=== PATIENT | female | born 1945 | race Caucasian/White ===

== ENCOUNTER 2016-09-10 15:39 | Observation (INO) | payer MEDICARE, MEDICAID ==
[2016-09-10 16:17] LABS: Hematocrit 39 % (35-47); Mean Corpuscular HGB Conc 33 g/dl (31-36); Mean Corpuscular Hemoglobin 29 pg (27-31); Mean Corpuscular Volume 87 fL (80-97); Mean Platelet Volume 8 um3 (7.4-10.4); Red Cell Distribution Width 14 % (10.5-15); White Blood Count 8.3 10^3/ul (3.5-10.8)
[2016-09-10 16:32] LABS: Albumin 4.2 g/dL (3.2-5.2); BUN/Creatinine Ratio 28.7 (8-20); Calcium 9.2 mg/dL (8.6-10.3); EGFR African American 52.5 (>60); EGFR Non-African American 40.9 (>60); Globulin 2.5 g/dL (2-4); Potassium 4.3 mmol/L (3.5-5.0); Total Bilirubin 0.3 mg/dL (0.2-1.0); Total Protein 6.7 g/dL (6.4-8.9)
--- NOTE | 2016-09-10 16:41 | RAD ---
INDICATION: Irregular heart rate. COMPARISON: Comparison is made with a prior chest x-ray study from August 01, 2014. TECHNIQUE: A portable view of the chest was obtained. FINDINGS: The patient appears to be status post coronary artery bypass surgery. The heart is enlarged and appears slightly increased in size from the prior exam. The lungs are hyperinflated and clear. No pleural effusion is seen. IMPRESSION: POSTSURGICAL CHANGES AND CARDIOMEGALY DEMONSTRATING SLIGHT INCREASE IN SIZE.
[2016-09-10] MEDS: NS 0.9% 1000 ML* 1,000 ML IV SCH (17:52)
--- NOTE | 2016-09-10 17:52 | ED ---
Zachary Acosta Anna, scribed for Jono Brito MD on 09/10/16 at 1605 . Dizziness - HPI Summary HPI Summary: Patient is a 71 y/o female coming to [facility] presenting with sudden onset of dizziness that began this afternoon at her doctors office. She was also weak, pale, and somewhat nauseous. She demonstrated atrial fibrillation and low blood pressure. She has no hx of atrial fibrillation. She had a BUSTAMANTE, but this has since resolved. Denies CP, SOB, cough, and fever. She takes a baby Aspirin every day. - History Of Current Complaint Stated Complaint: RAPID HEART RATE Time Seen by Provider: 09/10/16 15:59 Hx Obtained From: Patient Onset/Duration: Suddenly Severity Initially: Moderate Severity Currently: Moderate Character: Weak, Dizzy - Allergies/Home Medications Allergies/Adverse Reactions: Allergies Allergy/AdvReac Type Severity Reaction Status Date / Time Codeine Allergy Abdominal Verified 09/10/16 16:10 Pain PMH/Surg Hx/FS Hx/Imm Hx Endocrine/Hematology History: Reports: Hx Thyroid Disease Cardiovascular History: Reports: Hx Congestive Heart Failure, Hx Coronary Artery Disease, Hx Hypertension Respiratory History: Reports: Hx Chronic Obstructive Pulmonary Disease (COPD) GI History: Reports: Hx Diverticulosis, Hx Gastroesophageal Reflux Disease, Other GI Disorders - esophageal stricture Musculoskeletal History: Reports: Hx Fibromyalgia, Other Musculoskeletal History - restless leg Sensory History: Reports: Hx Contacts or Glasses Opthamlomology History: Reports: Hx Contacts or Glasses Neurological History: Reports: Hx CVA Psychiatric History: Reports: Hx Depression - Surgical History Surgery Procedure, Year, and Place: bypass surgery 1999; HYSTERECTOMY Hx Anesthesia Reactions: No - Immunization History Date of Tetanus Vaccine: PT STATES UNSURE Date of Influenza Vaccine: NONE Infectious Disease History: Denies: Traveled Outside the [place] in Last 30 Days - Family History Known Family History: Negative: Cardiac Disease, Hypertension, Diabetes - Social History Occupation: Retired Alcohol Use: None Substance Use Type: Reports: None Smoking Status (MU): Never Smoked Tobacco Review of Systems Positive: Other - pale Positive: Nausea Neurological: Other - dizziness Positive: Headache - resolved, Weakness Psychological: Normal All Other Systems Reviewed And Are Negative: Yes Physical Exam - Summary Physical Exam Summary: VITAL SIGNS: Reviewed. GENERAL: Patient is an obese female who is lying comfortable in the stretcher. Patient is not in any acute respiratory distress. HEAD AND FACE: No signs of trauma. No ecchymosis, hematomas or skull depressions. No sinus tenderness. EYES: PERRLA, EOMI x 2, No injected conjunctiva, no nystagmus. EARS: Hearing grossly intact. Ear canals and tympanic membranes are within normal limits. MOUTH: Oropharynx within normal limits. NECK: Supple, trachea is midline, no adenopathy, no JVD, no carotid bruit, no c- spine tenderness, neck with full ROM. CHEST: Symmetric, no tenderness at palpation LUNGS: Clear to auscultation bilaterally. No wheezing or crackles. CVS: irregular rate and rhythm, S1 and S2 present, no murmurs or gallops appreciated. ABDOMEN: Soft, non-tender. No signs of distention. No rebound no guarding, and no masses palpated. Bowel sounds are normal. EXTREMITIES: FROM in all major joints, no edema, no cyanosis or clubbing. NEURO: Alert and oriented x 3. No acute neurological deficits. Speech is normal and follows commands. SKIN: Dry and warm Vital Signs On Initial Exam: Initial Vitals Temp Pulse Resp BP Pulse Ox 98.4 F 78 16 100/69 100 09/10/16 16:07 09/10/16 16:07 09/10/16 16:07 09/10/16 16:07 09/10/16 16:07 Diagnostics - Vital Signs Vital Signs Temp Pulse Resp BP Pulse Ox 09/10/16 16:07 98.4 F 78 16 100/69 100 - Laboratory Lab Results: Lab Results 09/10/16 09/10/16 09/10/16 Range/Units 16:00 16:00 16:00 WBC 8.3 (3.5-10.8) 10^3/ul RBC 4.50 (4.0-5.4) 10^6/ul Hgb 13.0 (12.0-16.0) g/dl Hct 39 (35-47) % MCV 87 (80-97) fL MCH 29 (27-31) pg MCHC 33 (31-36) g/dl RDW 14 (10.5-15) % Plt Count 191 (150-450) 10^3/ul MPV 8 (7.4-10.4) um3 Neut % (Auto) 50.6 (38-83) % Lymph % (Auto) 40.1 (25-47) % Bandera % (Auto) 6.3 (1-9) % Eos % (Auto) 2.7 (0-6) % Baso % (Auto) 0.3 (0-2) % Absolute Neuts (auto) 4.2 (1.5-7.7) 10^3/ul Absolute Lymphs (auto) 3.3 (1.0-4.8) 10^3/ul Absolute Monos (auto) 0.5 (0-0.8) 10^3/ul Absolute Eos (auto) 0.2 (0-0.6) 10^3/ul Absolute Basos (auto) 0 (0-0.2) 10^3/ul Absolute Nucleated RBC 0 10^3/ul Nucleated RBC % 0 Sodium 135 (133-145) mmol/L Potassium 4.3 (3.5-5.0) mmol/L Chloride 105 (101-111) mmol/L Carbon Dioxide 26 (22-32) mmol/L Anion Gap 4 (2-11) mmol/L BUN 37 H (6-24) mg/dL Creatinine 1.29 H (0.51-0.95) mg/dL Est GFR ( Amer) 52.5 (>60) Est GFR (Non-Af Amer) 40.9 (>60) BUN/Creatinine Ratio 28.7 H (8-20) Glucose 125 H (70-100) mg/dL Lactic Acid 0.9 (0.5-2.0) mmol/L Calcium 9.2 (8.6-10.3) mg/dL Total Bilirubin 0.30 (0.2-1.0) mg/dL AST 14 (13-39) U/L ALT 8 (7-52) U/L Alkaline Phosphatase 81 (34-104) U/L CK-MB (CK-2) 0.7 (0.6-6.3) ng/mL Myoglobin 26.4 (14.3-65.8) ng/mL Troponin I 0.00 (<0.04) ng/mL B-Natriuretic Peptide ( - 100) pg/mL Total Protein 6.7 (6.4-8.9) g/dL Albumin 4.2 (3.2-5.2) g/dL Globulin 2.5 (2-4) g/dL Albumin/Globulin Ratio 1.7 (1-3) // Range/Units 16:00 WBC (3.5-10.8) 10^3/ul RBC (4.0-5.4) 10^6/ul Hgb (12.0-16.0) g/dl Hct (35-47) % MCV (80-97) fL MCH (27-31) pg MCHC (31-36) g/dl RDW (10.5-15) % Plt Count (150-450) 10^3/ul MPV (7.4-10.4) um3 Neut % (Auto) (38-83) % Lymph % (Auto) (25-47) % Bandera % (Auto) (1-9) % Eos % (Auto) (0-6) % Baso % (Auto) (0-2) % Absolute Neuts (auto) (1.5-7.7) 10^3/ul Absolute Lymphs (auto) (1.0-4.8) 10^3/ul Absolute Monos (auto) (0-0.8) 10^3/ul Absolute Eos (auto) (0-0.6) 10^3/ul Absolute Basos (auto) (0-0.2) 10^3/ul Absolute Nucleated RBC 10^3/ul Nucleated RBC % Sodium (133-145) mmol/L Potassium (3.5-5.0) mmol/L Chloride (101-111) mmol/L Carbon Dioxide (22-32) mmol/L Anion Gap (2-11) mmol/L BUN (6-24) mg/dL Creatinine (0.51-0.95) mg/dL Est GFR ( Amer) (>60) Est GFR (Non-Af Amer) (>60) BUN/Creatinine Ratio (8-20) Glucose (70-100) mg/dL Lactic Acid (0.5-2.0) mmol/L Calcium (8.6-10.3) mg/dL Total Bilirubin (0.2-1.0) mg/dL AST (13-39) U/L ALT (7-52) U/L Alkaline Phosphatase (34-104) U/L CK-MB (CK-2) (0.6-6.3) ng/mL Myoglobin (14.3-65.8) ng/mL Troponin I (<0.04) ng/mL B-Natriuretic Peptide 108 H ( - 100) pg/mL Total Protein (6.4-8.9) g/dL Albumin (3.2-5.2) g/dL Globulin (2-4) g/dL Albumin/Globulin Ratio (1-3) Result Diagrams: 09/10/16 16:00 09/10/16 16:00 Lab Statement: Any lab studies that have been ordered have been reviewed, and results considered in the medical decision making process. - Radiology CXR Xray Interpretation: Positive (See Comments) Radiology Interpretation Completed By: Radiologist - IMPRESSION: POSTSURGICAL CHANGES AND CARDIOMEGALY DEMONSTRATING SLIGHT INCREASE IN SIZE. - EKG 16:31 Cardiac Rate: NL - 65 bpm EKG Rhythm: Atrial Fibrillation EKG Interpretation: no S/T elevation Re-Evaluation - Re-Evaluation First Eval Re-Evaluation Time: 16:45 Change: Improved Comment: She reports that she developed left-sided chest pain radiating to left side of her back. Reported dizziness. These have since resolved. Dizzy Course/Dx - Course Assessment/Plan: Patient is a 71 y/o female coming to [facility] presenting with sudden onset of dizziness that began this afternoon at her doctors office. She was also weak, pale, and somewhat nauseous. She demonstrated atrial fibrillation and low blood pressure. She has no hx of atrial fibrillation. She had a BUSTAMANTE, but this has since resolved. Denies CP, SOB, cough, and fever. She takes a baby Aspirin every day. Blood work WNL except for increased BUN and Creatinine 37/1.29. EKG shows a new onset of A fib.. CXR shows post surgical changes and cardiomegaly demonstrating slight increase in size. In the she was given Aspirin. Initially her BP 89/60 and she reports dizziness. After IV fluids her BP is 100/69. She develop an episode of left side CP and lasted for 10 minutes. I discuss my physical exam, findings and test results with Dr. Lyon from the hospitalist services and she agrees to admit patient to his services. Patient is hemodynamically stable alert and oriented x 3. - Diagnoses Differential Diagnosis/HQI/PQRI: Coronary Artery Disease, Dysrhythmia, Metabolic Abnormality Provider Diagnoses: New onset atrial fibrillation, Chest pain, Hypotension - Provider Notifications Discussed Care Of Patient with: Dr. Lyon (hospitalist) at 17:44. Accepts patient for admission. Discharge - Discharge Plan Condition: Stable Disposition: ADMITTED TO [facility] Referrals: Rashmi Holloway MD [Primary Care Provider] - The documentation as recorded by the Zachary caldera Anna accurately reflects the service I personally performed and the decisions made by , Jono Brito MD.
[2016-09-10] MEDS ORDERED: Acetaminophen TAB* 325 MG PO PRN ×2 (20:29→21:02)
[2016-09-10] MEDS ORDERED: Promethazine TAB* 25 MG PO PRN (20:29)
[2016-09-10] MEDS ORDERED: Nitroglycerin TAB 0.4 MG* 0.4 MG TAB SL PRN (20:29)
[2016-09-10] MEDS ORDERED: Heparin DRIP 25,000 UNITS(*) 25,000 UNITS/500 ML BAG IV SCH (20:45)
[2016-09-10] MEDS ORDERED: traMADol TAB* 50 MG PO PRN (21:00)
[2016-09-10] MEDS ORDERED: Heparin VIAL(*) 5000 UNITS/ML VIAL (FIVE THOUSAND) IV SCH (21:00)
[2016-09-10] MEDS ORDERED: Ropinirole TAB* 0.5 MG TAB PO SCH (23:30)
[2016-09-10] MEDS ORDERED: Ezetimibe TAB* 10 MG PO SCH (23:30)
[2016-09-11] MEDS: Omeprazole CAP* 20 MG PO SCH ×3 (00:10→14:51)
[2016-09-11] MEDS: Dicyclomine CAP* 10 MG PO SCH ×4 (00:10→17:30)
[2016-09-11] MEDS: Potassium Chlor TAB* 20 MEQ TAB.ER PO SCH ×3 (00:12→17:30)
[2016-09-11] MEDS: Pregabalin CAP(*) 50 MG PO SCH ×3 (00:13→14:51)
--- NOTE | 2016-09-11 00:39 | HP ---
HISTORY AND PHYSICAL: DATE OF ADMISSION: 09/10/16 CHIEF COMPLAINT: Weakness. HISTORY OF PRESENT ILLNESS: The patient is a 71-year-old woman who said she was at the [facility] for an appointment with her chiropractor. After the appointment, she states she felt like her legs were rubbery and she started wheezing. She became concerned and went to her PCP's office where they did a fingerstick. She states the next thing she knew was that they were doing an EKG on her and there were several people in the room. They told that she needed to go to the emergency room. She says she never had any chest pain or palpitations but she was feeling sleepy and lightheaded and like she was going to pass out. In the ED, the patient was found to be in atrial fibrillation, albeit not rapid. She has never had atrial fibrillation before. She was apparently quite hypotensive as well. PAST MEDICAL HISTORY: Significant for: 1. Coronary artery disease status post CABG in 1999. 2. Congestive heart failure. 3. Hypertension. 4. COPD. 5. Hypothyroidism. 6. Fibromyalgia. 7. GERD. 8. Migraines. 9. Hyperlipidemia. 10. CVA, ischemic in 1995. 11. Esophageal stricture status post balloon dilation in December 2006 consistent with a Schatzki ring. 12. Collagenous colitis. 13. Diverticulitis. 14. Depression. 15. Restless leg syndrome. 16. Sepsis secondary to community-acquired pneumonia. CURRENT MEDICATIONS: As follows: 1. Lipitor 20 mg daily. 2. Aspirin 81 mg daily. 3. Zyrtec 10 mg daily. 4. Coreg 6.25 mg twice a day with meals. 5. Lipitor 40 mg daily. 6. Bentyl 20 mg 4 times a day. 7. Fluoxetine 20 mg daily. 8. Zetia 10 mg at bedtime. 9. Prozac 40 mg daily. 10. Ferrous sulfate 65 mg daily. 11. Glucosamine and chondroitin one tablet twice daily. 12. Prevacid 30 mg twice daily. 13. Losartan 100 mg daily. 14. Levothyroxine 50 mcg daily. 15. Potassium chloride 20 mEq twice daily. 16. Nitroglycerin 0.4 mg sublingual q.5 minutes as needed. 17. Multivitamin 1 tablet daily. 18. Phenergan 12.5 mg every 6 hours as needed. 19. Lyrica 50 mg three times a day. 20. Metamucil 1 packet daily. 21. Requip 1 mg at bedtime. 22. Ultracet 37.5/325 one tablet every 6 hours as needed. 23. Spiriva one capsule inhaled daily. 24. Amlodipine 10 mg daily. ALLERGIES: She has an allergy/adverse reaction to CODEINE. FAMILY HISTORY: Coronary artery disease in mother and father. Four brothers who have congestive heart failure. Father also has diabetes. One brother of lymphoma in his 20s and her dad also had prostate cancer. SOCIAL HISTORY: No tobacco, alcohol, or recreational drug use. She is retired and with her who is her healthcare proxy and her friend, Jessica Hutton, is also her healthcare proxy. She has one daughter. REVIEW OF SYSTEMS: A 14-point review of systems was completed with the patient. All pertinent positives and negatives are in the history of present illness, otherwise negative. PHYSICAL EXAMINATION GENERAL: A pleasant woman lying in bed, in no acute distress. VITAL SIGNS: Temperature 98.4 degrees, heart rate 78 beats per minute, respiratory rate 16 breaths per minute, pulse ox 100%, blood pressure 100/69. HEENT: Normocephalic and atraumatic. Pupils are equal, round, and reactive to light. Moist mucous membranes. NECK: Supple. No JVD, bruits, palpable thyroid or lymphadenopathy. CHEST: Clear to auscultation and percussion bilaterally. CARDIOVASCULAR EXAM: S1, S2 appreciated. Irregularly irregular rhythm. ABDOMINAL EXAM: Positive bowel sounds in all 4 quadrants. Soft, nontender, nondistended. No hepatosplenomegaly. EXTREMITIES: No cyanosis, clubbing, or edema. NEURO: She is alert and oriented x3. Moves all extremities. SKIN: No rashes or abnormalities. LABORATORY DATA: White count 8.3, hemoglobin 13.0, hematocrit 39, platelets 191. Sodium 135, potassium 4.3, chloride 105, CO2 is 26, BUN 37, creatinine 1.29 , glucose 125, troponin 0.00, BNP 108. EKG shows atrial fibrillation with a moderate ventricular response, no acute ST-T wave changes. Chest x-ray was interpreted by Radiology as postsurgical changes, cardiomegaly demonstrates slight increase in size. ASSESSMENT AND PLAN: 1. Atrial fibrillation. The patient is not in rapid ventricular rate and I usually would not get Cardiology involved but she was definitely symptomatic and hypotensive. I have asked Cardiology to see her in the morning, she may benefit from OLU and cardioversion. For now, put her under heparin drip. She is not on anything for rate control. 2. Coronary artery disease, this seems stable. Continue current regimen. 3. Hypothyroidism, stable. Continue Synthroid. 4. Gastroesophageal reflux disease, stable. Continue PPI. 5. Chronic obstructive pulmonary disease, stable. Continue current regimen. 6. FEN. N.p.o. after midnight. 7. DVT prophylaxis. Heparin drip. 8. The patient is a full code. TIME SEEN: Over 80 minutes were spent on this H and P, more than 45 minutes of which were spent in direct [id number] contact with the patient in evaluation, physical exam, counseling, and coordination of care. CC: Dr. Holloway * [id number]/CPS #: [id number]
[2016-09-11 00:43] LABS: Troponin I 0.01 ng/mL (<0.04)
[2016-09-11 00:46] LABS: Hematocrit 36 % (35-47); Mean Corpuscular HGB Conc 33 g/dl (31-36); Mean Corpuscular Hemoglobin 29 pg (27-31); Mean Corpuscular Volume 87 fL (80-97); Mean Platelet Volume 8 um3 (7.4-10.4); Red Blood Count 4.15 10^6/ul (4.0-5.4); Red Cell Distribution Width 14 % (10.5-15); White Blood Count 7.2 10^3/ul (3.5-10.8)
[2016-09-11 05:30] LABS: Hematocrit 35 % (35-47); Hemoglobin 11.8 g/dl (12.0-16.0); Mean Corpuscular HGB Conc 34 g/dl (31-36); Mean Corpuscular Hemoglobin 29 pg (27-31); Mean Corpuscular Volume 86 fL (80-97); Mean Platelet Volume 9 um3 (7.4-10.4); Red Blood Count 4.07 10^6/ul (4.0-5.4); Red Cell Distribution Width 13 % (10.5-15); White Blood Count 7.3 10^3/ul (3.5-10.8)
[2016-09-11] MEDS ORDERED: Levothyroxine TAB* 50 MCG TAB PO SCH (06:00)
[2016-09-11] MEDS: NS 0.9% 1000 ML* 1,000 ML IV SCH (06:17)
[2016-09-11 06:44] LABS: Urine Bacteria 3+ (Absent); Urine Bilirubin Negative (Negative); Urine Glucose Negative (Negative); Urine Nitrite Positive (Negative)
[2016-09-11] MEDS ORDERED: Carvedilol TAB* 6.25 MG PO SCH (08:00)
--- NOTE | 2016-09-11 08:53 | CONSULT ---
Subjective Date of Service: 09/11/16 Interval History: Admission Date: 09/10/16 Date of consult 09/11/2017 Provider: Tristan Reddy MD/Hospitalist service PMD: Dr. Holloway Legal Adviser: Dr. Douglas Florentino CHIEF COMPLAINT: Weakness. Reason for consult: Atrial fibrillation HISTORY OF PRESENT ILLNESS: The patient is a 71-year-old woman with a history as below who said she was at the [facility] for an appointment with her chiropractor. She was feeling weak and he states the chiropractor grabbed her by the shoulders and said she needed her blood glucose and blood pressure checked. She went to her PCP's office and after an EKG was done was told needed to go to the ER. There was no chest pain, dyspnea, edema, palpitations. She did feel sleepy and lightheaded. There was no syncope. She was found with rate controlled atrial fibrillation. Initial SBP was > 100 then later had a BP of 53/42 (? accuracy). She received IV fluids. She was in atrial fibrillation all night and this morning. This AM she denies any tiredness, lightheadedness, fatigue, chest pain dyspnea. I ambulated her around the room and she feels at her baseline. PAST MEDICAL HISTORY: Significant for: . Coronary artery disease status post CABG in 1999. . Hypertension. . COPD. . Hypothyroidism. . Fibromyalgia. . GERD. . Migraines. . Hyperlipidemia. . CVA, ischemic in 1995. . Esophageal stricture status post balloon dilation in December 2006 consistent with a Schatzki ring. . Collagenous colitis. . Diverticulitis. . Depression. . Restless leg syndrome. . Sepsis secondary to community-acquired pneumonia. ALLERGIES: She has an allergy/adverse reaction to CODEINE. FAMILY HISTORY: Coronary artery disease in mother and father. Four brothers who have congestive heart failure. Father also has diabetes. One brother of lymphoma in his 20s and her dad also had prostate cancer. SOCIAL HISTORY: No tobacco, alcohol, or recreational drug use. She is retired and with her who is her healthcare proxy and her friend, Jessica Hutton, is also her healthcare proxy. She has one daughter. Medications Active Medications: Acetaminophen (Tylenol Tab*) 325 mg PO Q6H PRN PRN Reason: PAIN Apixaban (Eliquis*) 5 mg PO BID [facility] Aspirin (Aspirin Ec Low Dose*) 81 mg PO DAILY [facility] Atorvastatin Calcium (Lipitor*) 60 mg PO DAILY [facility] Carvedilol (Coreg Tab*) 3.125 mg PO BID [facility] Cetirizine HCl (Zyrtec*) 10 mg PO DAILY [facility] PRN Reason: Protocol Device (Tiotropium Inhaler Device*) 1 each INH DAILY ONE Stop: 09/11/16 09:01 Dicyclomine HCl (Bentyl Cap*) 20 mg PO QID [facility] Last Admin: 09/11/16 00:10 Dose: 20 mg Ezetimibe (Zetia Tab*) 10 mg PO BEDTIME [facility] Last Admin: 09/11/16 00:11 Dose: 10 mg Ferrous Sulfate (Ferrous Sulfate Tab*) 325 mg PO DAILY [facility] Fluoxetine HCl (Prozac Cap*) 60 mg PO DAILY [facility] Sodium Chloride (Ns 0.9% 1000 Ml*) 1,000 mls @ 125 mls/hr IV PER RATE [facility] Last Admin: 09/11/16 06:17 Dose: 125 mls/hr Levothyroxine Sodium (Synthroid Tab*) 50 mcg PO DAILY@0600 [facility] Last Admin: 09/11/16 06:16 Dose: 50 mcg Multivitamins ( Vitamin Tab*) 1 tab PO DAILY [facility] Nitroglycerin (Nitroglycerin Tab 0.4 Mg*) 0.4 mg SL Q5M PRN PRN Reason: ANGINA Omeprazole (Prilosec Cap*) 20 mg PO BID AC [facility] PRN Reason: Protocol Last Admin: 09/11/16 00:10 Dose: 20 mg Potassium Chloride (Klor Con Er Tab*) 20 meq PO BID WITH MEALS [facility] Last Admin: 09/11/16 00:12 Dose: 20 meq Pregabalin (Lyrica Cap(*)) 50 mg PO TID [facility] Last Admin: 09/11/16 00:13 Dose: 50 mg Promethazine HCl (Phenergan Tab*) 12.5 mg PO Q6H PRN PRN Reason: NAUSEA/VOMITING Psyllium Hydrophilic Mucilloid (Metamucil Kamlesh*) 1 pkt PO DAILY [facility] Ropinirole HCl (Requip Tab*) 1 mg PO BEDTIME [facility] Last Admin: 09/11/16 00:09 Dose: 1 mg Tiotropium Newman (Spiriva Cap.Inh*) 1 cap INH DAILY PRAVIN Last Admin: 09/11/16 08:31 Dose: 1 cap.inh Tramadol HCl (Ultram*) 50 mg PO Q6H PRN PRN Reason: PAIN Home Medications: Aspirin EC Low Dose* [Ecotrin EC Low Dose*] 81 mg PO DAILY 07/28/14 [History Confirmed 09/10/16] Atorvastatin* [Lipitor 40 MG*] 40 mg PO DAILY 07/28/14 [History Confirmed ] Atorvastatin* [Lipitor*] 20 mg PO DAILY 07/28/14 [History Confirmed 09/10/16] Carvedilol TAB* [Coreg TAB*] 6.25 mg PO BID WITH MEALS 07/28/14 [History Confirmed 09/10/16] Cetirizine* [ZyrTEC*] 10 mg PO DAILY 07/28/14 [History Confirmed 09/10/16] Dicyclomine HCl [Bentyl] 20 mg PO QID 07/28/14 [History Confirmed 09/10/16] Ezetimibe TAB* [Zetia TAB*] 10 mg PO BEDTIME 07/28/14 [History Confirmed ] FLUoxetine CAP* [Prozac CAP*] 20 mg PO DAILY 07/28/14 [History Confirmed ] Ferrous Sulfate [Feosol] 65 mg PO DAILY 07/28/14 [History Confirmed 09/10/16] Fluoxetine HCl [Prozac] 40 mg PO DAILY 07/28/14 [History Confirmed 09/10/16] Gxfdqukufim-[id number]-Ylg C- [Glucosamine Chondroitin] 1 tab PO BID 07/28/14 [ History Confirmed 09/10/16] Lansoprazole CAP (NF) [Prevacid CAP (NF)] 30 mg PO BID 07/28/14 [History Confirmed 09/10/16] Levothyroxine TAB* [Synthroid 25 MCG TAB*] 50 mcg PO DAILY 07/28/14 [History Confirmed 09/10/16] Losartan Potassium [Cozaar] 100 mg PO DAILY 07/28/14 [History Confirmed 09/10/16 ] Multiple Vitamin [Multi-Vitamin] 1 tab PO DAILY 07/28/14 [History Confirmed ] Nitroglycerin TAB 0.4 MG* 0.4 mg SL Q5M PRN 07/28/14 [History Confirmed 09/10/16 ] Pregabalin CAP(*) [Lyrica CAP(*)] 50 mg PO TID 07/28/14 [History Confirmed 09/10] Promethazine TAB* [Phenergan TAB*] 12.5 mg PO Q6HR PRN 07/28/14 [History Confirmed 09/10/16] Psyllium KAMLESH* [Metamucil KAMLESH*] 1 pkt PO DAILY 07/28/14 [History Confirmed ] Ropinirole TAB* [Requip TAB*] 1 mg PO BEDTIME 07/28/14 [History Confirmed ] Tiotropium CAP.INH* [Spiriva*] 1 cap INH DAILY 07/28/14 [History Confirmed 09/10] Tramadol-Acetaminophen [Ultracet 37.5-325 mg] 1 tab PO Q6HR PRN 07/28/14 [ History Confirmed 09/10/16] amLODIPine TAB* [Norvasc TAB*] 10 mg PO DAILY 07/28/14 [History Confirmed ] Potassium Chlor TAB (NF) [Kaon-Cl-10 TAB (NF)] 20 meq PO BID 09/07/14 [History Confirmed 09/10/16] Review of Systems - Measurements Intake and Output: Intake and Output Last 24 Hours 09/09/16 09/10/16 09/11/16 09/12/16 06:59 06:59 06:59 06:59 Intake Total 950 Balance 950 Weight 192 lb Intake: IVPB 950 NS (0.9%) 950 Oral 0 Other: # Bowel Movements 0 # Voids 0 - Review of Systems Constitutional Symptoms: Positive: Weakness, Fatigue Negative: Weight Loss, Fever, Night Sweats Dermatology: Negative: Rash, Skin Lesions, Skin Lumps HEENT: Negative: Change in Hearing, Vertigo, Sinus Problem Eyes: Negative: Change in Vision, Double Vision, Eye Pain Thyroid: Negative: Cold Intolerance, Heat Intolerance, Sweatiness, Constipation, Palpitations, Weight Loss, Weight Gain, Change in Skin/Hair Pulmonary: Negative: Cough, Sputum, Hemoptysis, Respiratory Distress, Shortness of Breath, COPD, Home Oxygen Cardiology: Positive: Faintness Negative: Chest Pain, Shortness of Breath, Palpitations, Swelling of Ankles, Peripheral Vascular Dis, Edema, Syncope, Claudication, Paroxysmal Nocturnal Dyspnea, Orthopnea Gastroenterology: Positive: Melena Negative: Abdominal Pain, Nausea, Vomiting, Anorexia, Indigestion, Difficulty Swallowing, Heartburn, Constipation, Diarrhea Genital - Urinary: Negative: Normal, Dysuria, Hematuria Musculoskeletal: Negative: Joint Pain, Joint Stiffness, Arthritis, Osteoporosis Endocrinology: Positive: Obesity Negative: Hyperglycemia, Hypoglycemia, Calluses, Hirsutism, Polydipsia, Polyuria Hematologic/Lymphatic: Positive: Use of Antiplatelet Drugs Negative: Anemia, Easy Brusing, Hx Leukemia, Hx Lymphoma, Use of Anticoagulant Neurology: Positive: Unexplained Weakness, Hx of Stroke\TIA Negative: Migraines, Change in Vision, Diplopia, Dizziness, Change in Balancing, Change in Coordination, Change in Memory, Change in Speech, Change in Sphincter Function, Change in Walking, Hx Seizures Psychiatry: Positive: Depression Negative: Guilt Feelings, Tearfulness, Eating Disorders Allergic/Immunologic: Negative: Hx Anaphylaxis, Hx Angioedema, Hx Environmental Allergies, Hx Seasonal Allergies Review of Systems Statement: All other review of systems negative, unless stated above. Objective Vital Signs: Temp Pulse Resp BP Pulse Ox 97.7 F 88 14 112/74 97 09/11/16 03:27 09/11/16 08:33 09/11/16 08:33 09/11/16 03:27 09/11/16 08:33 Appearance: nad, pleasant Ears/Nose/Mouth/Throat: NL Teeth, Lips, Gums, Mucous Membranes Moist Neck: NL Appearance and Movements; NL JVP, - Respiratory: Symmetrical Chest Expansion and Respiratory Effort, Clear to Auscultation Cardiovascular: No Edema, - - irregularly irregular, sternotomy scar in place, no significant murmur noted Abdominal: NL Sounds; No Tenderness; No Distention Extremities: No Edema Skin: No Rash or Ulcers Neurological: Alert and Oriented x 3 Laboratory Results: 09/11/16 04:57 09/11/16 00:01 creatinine 1.29 APTT 86.2 seconds (26.0-36.3) H 09/11/16 08:29 Total Bilirubin 0.30 mg/dL (0.2-1.0) 09/10/16 16:00 AST 14 U/L (13-39) 09/10/16 16:00 ALT 8 U/L (7-52) 09/10/16 16:00 Alkaline Phosphatase 81 U/L (34-104) 09/10/16 16:00 CK-MB (CK-2) 0.7 ng/mL (0.6-6.3) 09/10/16 16:00 B-Natriuretic Peptide 108 pg/mL (-100) H 09/10/16 16:00 Total Protein 6.7 g/dL (6.4-8.9) 09/10/16 16:00 Albumin 4.2 g/dL (3.2-5.2) 09/10/16 16:00 Globulin 2.5 g/dL (2-4) 09/10/16 16:00 Albumin/Globulin Ratio 1.7 (1-3) 09/10/16 16:00 09/10/16 09/10/16 09/11/16 16:00 22:10 00:01 Troponin I 0.00 0.00 0.01 EKG Data: EKG 09/10/2016: Afib rate 65 bpm, non-specific st/t changes Assessment/Plan 71 year old woman history CAD s/p CABG admitted with weakness and hypotension now resolved after IVF and holding BP medications. Found with new onset atrial fibrillation, CHADs2-vasc score at least 4 of uncertain duration. Patient entirely asymptomatic and feels at baseline while in rate controlled atrial fibrillation today. TTE with normal LVEF 55-60%, moderate TR, no other significant valvular abnormalities and no significant pericardial effusion - Stop heparin gtt, start eliquis 5 mg PO BID (ordered). Risks and benefits of anticoagulation discussed especially risk of things including but not limited to life threatening hemorrhage from trauma, GI bleed or intracranial hemorrhage discussed. Patient understands this risk and would like to take anticoagulation for prevention of cardioembolic risk reduction including decreased risk of ischemic stroke. 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 rhythm control strategy and the risks and benefits of each, she is asymptomatic at this time and would like to pursue a rate control strategy for now and follow up with her regular compensator worker, Dr. Florentino at [facility] for follow up care, needs an appointment within 1-2 weeks with PMD and/ or Cardiology Thank you for allowing me to participate in the cardiovascular care of this patient. Please do not hesitate to contact me with questions or concerns.
[2016-09-11] MEDS ORDERED: Atorvastatin* 40 MG TAB PO SCH (09:00)
[2016-09-11] MEDS ORDERED: Psyllium PAK PO SCH (09:00)
[2016-09-11] MEDS ORDERED: FLUoxetine CAP* 20 MG PO SCH (09:00)
[2016-09-11] MEDS ORDERED: FLUOXETINE HCL 40 MG PO SCH (09:00)
[2016-09-11] MEDS ORDERED: Aspirin EC Low Dose* 81 MG TAB.EC PO SCH (09:00)
[2016-09-11] MEDS ORDERED: Carvedilol TAB* 3.125 MG PO SCH (09:00)
[2016-09-11] MEDS ORDERED: amLODIPine TAB* 5 MG PO SCH (09:00)
[2016-09-11] MEDS ORDERED: Spiriva Inhaler DEVICE* 1 EACH DEVICE INH ONE (09:00)
[2016-09-11] MEDS ORDERED: Cetirizine* 10 MG TAB PO SCH (09:00)
[2016-09-11] MEDS ORDERED: Prenatal Vitamin TAB PO SCH (09:00)
[2016-09-11] MEDS ORDERED: Ferrous Sulfate TAB* 325 MG PO SCH (09:00)
[2016-09-11] MEDS ORDERED: Apixaban* 5 MG TAB PO SCH (09:00)
[2016-09-11] MEDS ORDERED: Tiotropium CAP.INH* CAP.INH/18 MCG (USE ORDER SET !) INH SCH (09:00)
[2016-09-11] MEDS ORDERED: Losartan TAB* 25 MG PO SCH (09:00)
[2016-09-11] MEDS: Atorvastatin* 20 MG TAB PO SCH ×2 (09:02→09:03)
--- NOTE | 2016-09-11 15:47 | DCNOTE ---
Patient seen this afternoon. Says she feels well. Has been ambulating with no issues. No chest pain. Spoke with Cardiology and understands plan. On exam, IRIR, normal rate, lungs CTA B/L, no LE edema. Discharge home on reduced BP meds, Xarelto. Echo done, pending read. F/U with outpatient PCP and Lead Caster.
--- NOTE | 2016-09-11 16:08 | ECHO ---
Patient: DENTON VALDEZ Rec#: [id number] : 1945 Date: 09/11/2016 Age: 71y Height: 160.02 cm / 63.0 in Weight: 87.09 kg / 191.9 lbs Sex: F BSA: 1.9 Room#: [facility] Admit Date#: 09/10/2016 Type: Inpatient Referring: Cy Momin DO Reading: Cy Momin DO Supervisor Plastics: Jeannie Rodriguez RDCS CC: Mendez Sharp DO Transthoracic Echocardiogram Indication: AFIB BP: 105/55 HR: 108 Rhythm: A-Fib Findings History: Completed at 1350.History of CAD, CABG '00, HTN, CVA, HLD, COPD, Hypothyroid. Technical Comments: The study is technically limited due to the patient's history of COPD. Left Ventricle: The left ventricular chamber size is normal. Mild concentric left ventricular hypertrophy is observed. There is normal left ventricular systolic function. The estimated ejection fraction is 55-60%. Post surgical hypokinesis of the interventricular septum is observed consistent with coronary artery bypass. Study is non-diagnostic to evaluate for segmental wall motion abnormalities. Contrast not utilized. The assessment of diastolic function is non-diagnostic. Left Atrium: The left atrium is moderately dilated. Right Ventricle: The right ventricle is mildly dilated. The right ventricular global systolic function is normal. Right Atrium: The right atrium is slightly dilated. Aortic Valve: The aortic valve is trileaflet. The aortic valve leaflets are mildly thickened. There is aortic annular calcification. There is a trace of aortic regurgitation. There is no evidence of aortic stenosis. Mitral Valve: The mitral valve leaflets appear normal. Mild mitral annular calcification present. There is mild mitral regurgitation. Tricuspid Valve: The tricuspid valve leaflets are normal. There is moderate tricuspid regurgitation. No pulmonary hypertension is noted. There is no tricuspid stenosis. Pulmonic Valve: The pulmonic valve appears normal. There is no evidence of pulmonic regurgitation. There is no pulmonic stenosis. Pericardium: The pericardium appears normal. There is no significant pericardial effusion. Aorta: There is no dilatation of the ascending aorta. There is no dilatation of the aortic arch. There is no dilation of the aortic root. Pulmonary Artery: The main pulmonary artery appears normal. Venous: The inferior vena cava appears normal in size. There is a greater than 50% respiratory change in the inferior vena cava dimension. Conclusions The study is technically limited Patient is in atrial fibrillation at time of study The left ventricular chamber size is normal. Mild concentric left ventricular hypertrophy is observed. There is normal left ventricular systolic function with an estimated LV ejection fraction of 55-60%. The left atrium is moderately dilated. The right ventricle is mildly dilated with normal RV function There is mild mitral regurgitation. There is moderate tricuspid regurgitation. No pulmonary hypertension is noted. Compared to prior study report from 08/2007 available for comparison at time of interpretation, the tricuspid regurgitation now appears moderate (was mild previously), the estimated PASP is now normal (was mildly elevated previously) Measurements Name Value Normal Range RVIDd (AP) 2D 3.1 cm (0.9 - 2.6) RVDdMajor (2D) 4.2 cm (2.2 - 4.4) RAd ISD 4CH 6.2 cm (3.4 - 4.9) RA (A4C)W 4.2 cm (2.9 - 4.6) IVSd (2D) 1.37 cm (0.6 - 1) LVPWd (2D) 1.02 cm (0.6 - 1) LVIDd (2D) 4.4 cm (3.6 - 5.4) LVIDs (2D) 3.2 cm - LV FS (2D) 26.5 % (25 - 45) Aortic Annulus 1.9 cm (1.4 - 2.6) Ao root diameter (2D) 2.6 cm (2.1 - 3.5) Ascending Ao 3.1 cm (2.1 - 3.4) Aortic arch 2.8 cm (1.8 - 3.4) Descending Ao 0.4 cm - LA dimension (AP) 2D 4.4 cm (2.3 - 3.8) LAd ISD 4CH 6.8 cm (2.9 - 5.3) LA ISD 4CH W 4.1 cm (2.5 - 4.5) Name Value Normal Range LA ESV SP 4CH (A/L) 99.8 ml - LA ESV SP 2CH (A/L) 58 ml - LA ESV BP (A/L) 84.2 ml - LA ESV BP (A/L) index 44.3 ml/m2 - LA ESV SP 4CH (MOD) 95 ml - LA ESV SP 2CH (MOD) 57.4 ml - Name Value Normal Range MV E-wave Vmax 1.37 m/sec - MV deceleration time 155 msec - MV E:A ratio 188 ratio - LV septal e' Vmax 0.07 m/sec - LV lateral e' Vmax 0.1 m/sec - LV E:e' septal ratio 19.6 ratio - LV E:e' lateral ratio 13.7 ratio - Name Value Normal Range AV Vmax 1.52 m/sec - AV VTI 29.3 cm - AV peak gradient 9.24 mmHg - AV mean gradient 5.22 mmHg - LVOT Vmax 1.11 m/sec - LVOT VTI 23.9 cm - LVOT peak gradient 4.98 mmHg - LVOT mean gradient 2.85 mmHg - DOI (VTI) 0.82 ratio - DOI (Vmax) 0.73 ratio - YUDELKA (continuity Vmax) 2.07 cm2 - YUDELKA (continuity VTI) 2.3 cm2 - NAYELY Vmax 0.39 m/sec - Name Value Normal Range MV Vmax 1.4 m/sec - Name Value Normal Range TR Vmax 2.5 m/sec - TR peak gradient 25 mmHg - RAP 3 mmHg - RVSP 28 mmHg - IVC diameter 1.8 cm - Name Value Normal Range PV Vmax 0.9 m/sec - PV peak gradient 2.99 mmHg -
[2016-09-11 17:53] VITALS: BP 132/87
--- NOTE | 2016-09-12 00:07 | DS ---
DISCHARGE SUMMARY: DATE OF ADMISSION: 09/10/16 DATE OF DISCHARGE: 09/11/16 PRIMARY CARE PHYSICIAN: Dr. Holloway. CONSULTANTS DURING HOSPITALIZATION: Cy Momin DO, Cardiology PRINCIPAL DISCHARGE DIAGNOSES: 1. Atrial fibrillation. 2. Hypertension. SECONDARY DIAGNOSES: 1. Coronary artery disease, status post CABG. 2. Congestive heart failure. 3. Hypertension. 4. Chronic obstructive pulmonary disease. 5. Hypothyroidism. 6. Fibromyalgia. 7. Gastroesophageal reflux disease. 8. Migraines. 9. Hyperlipidemia. 10. Cerebrovascular accident. 11. Collagenous colitis. STUDIES DONE DURING THE HOSPITALIZATION: Chest x-ray, impression: Postsurgical changes and cardiomegaly demonstrating slight increase in size. Transthoracic echocardiogram: Conclusion: The study is technically limited. The patient is in atrial fibrillation. Left ventricular chamber size normal. Mild concentric LVH. Normal left ventricular systolic function with an EF of 55 % to 60%. The left atrium is moderately dilated. The right ventricle is mildly dilated with normal RV function. There is mild mitral regurgitation. There is moderate tricuspid regurgitation. No pulmonary hypertension is noted. Compared to the prior study report from August 2007 available for comparison at the time of interpretation, the tricuspid regurgitation now appears moderate after being previously read as mild and the estimated PASP is now normal, was mildly elevated previously. DISCHARGE MEDICATION REGIMEN: 1. Apixaban 5 mg by mouth 2 times daily. 2. Carvedilol 3.125 mg by mouth 2 times daily. 3. Spiriva 1 capsule inhaled daily. 4. Ultracet 1 tablet by mouth every 6 hours as needed for pain. 5. Requip 1 mg by mouth at bedtime. 6. Psyllium 1 packet by mouth daily. 7. Pregabalin 50 mg by mouth 3 times daily. 8. Phenergan 12.5 mg by mouth every 6 hours as needed for nausea. 9. Multivitamin 1 tablet by mouth daily. 10. Nitroglycerin 0.4 mg by mouth every 5 minutes as needed for chest pain. 11. Potassium chloride 20 mEq by mouth 2 times daily. 12. Synthroid 50 mcg by mouth daily. 13. Lansoprazole 30 mg by mouth 2 times daily. 14. Glucosamine and chondroitin 1 tablet by mouth 2 times daily. 15. Ferrous sulfate 65 mg by mouth daily. 16. Fluoxetine 40 mg by mouth daily. 17. Ezetimibe 10 mg by mouth at bedtime. 18. Fluoxetine 20 mg by mouth daily. 19. Bentyl 20 mg by mouth 4 times daily. 20. Atorvastatin 40 mg by mouth daily. 21. Cetirizine 10 mg by mouth daily. 22. Aspirin 81 mg by mouth daily. 23. Atorvastatin 20 mg by mouth daily for a total of 60 mg by mouth daily. HISTORY OF PRESENT ILLNESS AND HOSPITAL SUMMARY: Please see the full history and physical by Dr. Tristan Reddy for full details. Briefly, Ms. Ragsdale is a 71- year-old female with a past medical history as above, who presented to the hospital after she felt lightheaded and unsteady at her chiropractor's office. She went to her PCP's office and was found to be hypotensive and in atrial fibrillation, was sent to the emergency room for further evaluation. Here, she was also noted to be hypotensive and in atrial fibrillation; however, with a normal or slow heart rate. The initial plan was for the patient to undergo OLU and cardioversion. She was started on the heparin drip. The following morning, however, she was evaluated by Dr. Momin of Cardiology, who did not feel that was indicated at that time and said he recommended starting her on Eliquis and decreasing her outpatient blood pressure medications. Her Norvasc was stopped and her Losartan was held for now. Her Coreg was also decreased to 3.125 mg by mouth 2 times daily. The patient's blood pressures have remained on the softer side and she can continue this medication regimen on discharge. She should follow up with her PCP and her dubbing machine operator within 1 to 2 weeks. If she is hypertensive at that time, consider restarting her Losartan. TIME SPENT: Total time spent on this discharge 40 minutes. This is a summary of the hospitalization. Please see the full medical record for further details. CC: Dr. Holloway; Efrain Last * [id number]/[facility] #: [id number] MTDD
== END 2016-09-11 17:59 | disposition home or self-care (01) ==
LOC: ED 15:39 → INTOOBSV 20:41 → MEDTELE 20:41
PROVIDERS: ADMIT Internal Medicine; ATTEND Hospitalist
DX: I48.91 Unspecified atrial fibrillation (principal); Z79.01 Long term (current) use of anticoagulants; I11.0 Hypertensive heart disease with heart failure; I50.9 Heart failure, unspecified; J44.9 Chronic obstructive pulmonary disease, unspecified; E03.9 Hypothyroidism, unspecified; K21.9 Gastro-esophageal reflux disease without esophagitis; E78.5 Hyperlipidemia, unspecified; I25.10 Atherosclerotic heart disease of native coronary artery without angina pectoris; Z95.1 Presence of aortocoronary bypass graft; G25.81 Restless legs syndrome; Z86.73 Personal history of transient ischemic attack (TIA), and cerebral infarction without residual deficits; Z79.899 Other long term (current) drug therapy; Z79.82 Long term (current) use of aspirin; Z88.5 Allergy status to narcotic agent
CPT/HCPCS: 36415; 71010; 80053; 81003; 81015; 82553; 83605; 83874; 83880; 84484; 84520; 85025; 85730; 87077; 87086; 87186; 93005; 93306; 94640; 96374; 99283; A9270-GY; G0378

== ENCOUNTER 2017-02-24 23:31 | Inpatient (IN) | payer MEDICARE, MEDICAID ==
[2017-02-24] MEDS ORDERED: NS 0.9% 1000 ML* 1,000 ML IV ONE (23:56)
[2017-02-24] MEDS ORDERED: Ondansetron INJ* 2 MG/ML VIAL IV ONE (23:56)
[2017-02-25 00:32] LABS: Hematocrit 42 % (35-47); Hemoglobin 14.5 g/dl (12.0-16.0); Mean Corpuscular HGB Conc 34 g/dl (31-36); Mean Corpuscular Hemoglobin 31 pg (27-31); Mean Corpuscular Volume 90 fL (80-97); Mean Platelet Volume 9 um3 (7.4-10.4); Red Blood Count 4.68 10^6/ul (4.0-5.4); Red Cell Distribution Width 14 % (10.5-15); White Blood Count 17.3 10^3/ul (3.5-10.8)
[2017-02-25 00:39] LABS: Albumin 4.3 g/dL (3.2-5.2); BUN/Creatinine Ratio 25.6 (8-20); C Reactive Protein 59.49 mg/L (< 5.00); Calcium 9.5 mg/dL (8.6-10.3); EGFR African American 79.6 (>60); EGFR Non-African American 61.9 (>60); Globulin 2.9 g/dL (2-4); Magnesium 1.8 mg/dL (1.9-2.7); Potassium 3.6 mmol/L (3.5-5.0); Total Bilirubin 1.1 mg/dL (0.2-1.0); Total Protein 7.2 g/dL (6.4-8.9)
[2017-02-25 00:42] LABS: Troponin I 0.01 ng/mL (<0.04)
[2017-02-25] MEDS ORDERED: Diltiazem IV* 5 MG/ML 5 ML VIAL (for loading dose/IV Push) (25 MG) IV SLOW PU ONE ×2 (01:08→06:34)
--- NOTE | 2017-02-25 01:08 | ED ---
I, Jay,Corazon, scribed for Donavan Watson MD on 02/25/17 at 0001 . Abdominal Pain/Female - HPI Summary HPI Summary: This 71 y/o female presents to ED for diffuse abd pain since last night. Positive n/v/d and subjective fever. Elevated HR is noted on monitor at time of initial evaluation. Pt states that she hasn't been able to take med to control her symptoms due to difficulty tolerating PO intake. PMHx includes colitis, brain stem CVA, COPD, and HTN. - History of Current Complaint Chief Complaint: EDAbdPain Stated Complaint: ABD PAIN Time Seen by Provider: 02/24/17 23:43 Hx Obtained From: Patient, Medical Records Onset/Duration: Sudden Onset Timing: Constant Pain Intensity: 8 Pain Scale Used: 0-10 Numeric Location: Diffuse Radiates: No Character: Dull Aggravating Factor(s): Food Alleviating Factor(s): Nothing Associated Signs and Symptoms: Positive: Fever - subjective, Nausea, Vomiting, Diarrhea Allergies/Adverse Reactions: Allergies Allergy/AdvReac Type Severity Reaction Status Date / Time Codeine Allergy Abdominal Verified 09/10/16 16:10 Pain Home Medications: Home Medications ALPRAZolam TAB* [Xanax TAB*] 0.25 mg PO BEDTIME PRN 02/25/17 [History Confirmed 02/25/17] Albuterol HFA INHALER* [Ventolin HFA Inhaler*] 2 puff INH Q4H PRN 02/25/17 [ History Confirmed 02/25/17] Apixaban* [Eliquis*] 5 mg PO BID 02/25/17 [History Confirmed 02/25/17] Carvedilol TAB* [Coreg TAB*] 3.125 mg PO BID 02/25/17 [History Confirmed ] Cetirizine HCl 02/25/17 [History] Cholecalciferol [Vitamin D-3] 1,000 unit PO 02/25/17 [History] Dicyclomine CAP* [Bentyl CAP*] 20 mg PO QID 02/25/17 [History Confirmed 02/25/17 ] Esomeprazole(NF) [NexIUM(NF)] 40 mg PO DAILY 02/25/17 [History Confirmed ] Ezetimibe TAB* [Zetia TAB*] 10 mg PO DAILY 02/25/17 [History Confirmed 02/25/17] FLUoxetine CAP* [PROzac CAP*] 60 mg PO DAILY 02/25/17 [History Confirmed ] Ferrous Sulfate [Iron] 66 mg PO 02/25/17 [History] Flaxseed (Linseed) [Flax Seed Oil 1000 mg] 02/25/17 [History] Fluticasone HFA 44 mcg(NF) [Flovent Hfa 44 mcg(NF)] 2 puff INH BID 02/25/17 [ History Confirmed 02/25/17] Levothyroxine TAB* [Synthroid TAB*] 112 mcg PO 0800 02/25/17 [History Confirmed 02/25/17] Losartan Potassium 100 mg PO 02/25/17 [History] Multiple Vitamins W/ Minerals [Multivitamin Adults] 1 tab PO 02/25/17 [History] Nitroglycerin TAB 0.4 MG* 0.4 mg SL Q5M PRN 02/25/17 [History Confirmed 02/25/17 ] Pregabalin CAP(*) [Lyrica CAP(*)] 50 mg PO TID 02/25/17 [History Confirmed 02/25] Psyllium [Metamucil Fiber] 48.57 % PO PRN 02/25/17 [History] Ropinirole Hydrochloride [Ropinirole HCl] 1 mg PO 02/25/17 [History] Rosuvastatin Calcium [Crestor] 40 mg PO 02/25/17 [History] Spironolactone [Aldactone 25 MG-] 25 mg PO DAILY 02/25/17 [History Confirmed 01/07] PMH/Surg Hx/FS Hx/Imm Hx Endocrine/Hematology History: Reports: Hx Thyroid Disease Cardiovascular History: Reports: Hx Congestive Heart Failure, Hx Coronary Artery Disease, Hx Hypertension Denies: Hx Peripheral Vascular Disease Respiratory History: Reports: Hx Chronic Obstructive Pulmonary Disease (COPD), Hx Pneumonia GI History: Reports: Hx Diverticulosis, Hx Gastroesophageal Reflux Disease, Other GI Disorders - esophageal stricture Musculoskeletal History: Reports: Hx Fibromyalgia, Other Musculoskeletal History - restless leg Denies: Hx Arthritis, Hx Osteoporosis Sensory History: Reports: Hx Contacts or Glasses Opthamlomology History: Reports: Hx Contacts or Glasses Neurological History: Reports: Hx CVA, Hx Transient Ischemic Attacks (TIA) Denies: Hx Seizures Psychiatric History: Reports: Hx Depression - Surgical History Surgery Procedure, Year, and Place: bypass surgery 1999; HYSTERECTOMY Hx Anesthesia Reactions: No - Immunization History Date of Tetanus Vaccine: PT STATES UNSURE Date of Influenza Vaccine: NONE Infectious Disease History: Denies: Traveled Outside the [place] in Last 30 Days - Family History Known Family History: Negative: Cardiac Disease, Hypertension, Diabetes - Social History Alcohol Use: None Hx Substance Use: No Substance Use Type: Reports: None Hx Tobacco Use: No Smoking Status (MU): Never Smoked Tobacco Review of Systems Positive: Fever - subjective Positive: Abdominal Pain, Vomiting, Diarrhea, Nausea All Other Systems Reviewed And Are Negative: Yes Physical Exam Triage Information Reviewed: Yes Vital Signs On Initial Exam: Initial Vitals Temp Pulse Resp BP Pulse Ox 98.1 F 120 16 139/100 94 02/24/17 23:34 02/24/17 23:34 02/24/17 23:34 02/24/17 23:34 02/24/17 23:34 Vital Signs Reviewed: Yes Appearance: Positive: Ill-Appearing, Pain Distress - mild discomfort Skin: Positive: Warm Head/Face: Positive: Normal Head/Face Inspection Eyes: Positive: DOLORES ENT: Positive: Hearing grossly normal Neck: Positive: Supple Cardiovascular: Positive: IRR, Tachycardia Abdomen Description: Positive: Soft, Other: - mild diffuse abd tenderness. Negative: Distended, Guarding Bowel Sounds: Positive: Present Musculoskeletal: Positive: Strength/ROM Intact Neurological: Positive: Alert, Oriented to Person Place, Time Psychiatric: Positive: Affect/Mood Appropriate Diagnostics - Vital Signs Vital Signs Temp Pulse Resp BP Pulse Ox 02/24/17 23:34 98.1 F 120 16 139/100 94 - Laboratory Lab Results: Lab Results 02/25/17 02/25/17 02/25/17 Range/Units 00:07 00:07 00:07 WBC 17.3 H (3.5-10.8) 10^3/ul RBC 4.68 (4.0-5.4) 10^6/ul Hgb 14.5 (12.0-16.0) g/dl Hct 42 (35-47) % MCV 90 (80-97) fL MCH 31 (27-31) pg MCHC 34 (31-36) g/dl RDW 14 (10.5-15) % Plt Count 213 (150-450) 10^3/ul MPV 9 (7.4-10.4) um3 Neut % (Auto) 74.2 (38-83) % Lymph % (Auto) 16.9 L (25-47) % [place] % (Auto) 8.1 (1-9) % Eos % (Auto) 0.4 (0-6) % Baso % (Auto) 0.4 (0-2) % Absolute Neuts (auto) 12.9 H (1.5-7.7) 10^3/ul Absolute Lymphs (auto) 2.9 (1.0-4.8) 10^3/ul Absolute Monos (auto) 1.4 H (0-0.8) 10^3/ul Absolute Eos (auto) 0.1 (0-0.6) 10^3/ul Absolute Basos (auto) 0.1 (0-0.2) 10^3/ul Absolute Nucleated RBC 0 10^3/ul Nucleated RBC % 0 Sodium 135 (133-145) mmol/L Potassium 3.6 (3.5-5.0) mmol/L Chloride 102 (101-111) mmol/L Carbon Dioxide 24 (22-32) mmol/L Anion Gap 9 (2-11) mmol/L BUN 23 (6-24) mg/dL Creatinine 0.90 (0.51-0.95) mg/dL Est GFR ( Amer) 79.6 (>60) Est GFR (Non-Af Amer) 61.9 (>60) BUN/Creatinine Ratio 25.6 H (8-20) Glucose 134 H (70-100) mg/dL Lactic Acid 1.6 (0.5-2.0) mmol/L Calcium 9.5 (8.6-10.3) mg/dL Magnesium 1.8 L (1.9-2.7) mg/dL Total Bilirubin 1.10 H (0.2-1.0) mg/dL AST 15 (13-39) U/L ALT 8 (7-52) U/L Alkaline Phosphatase 75 (34-104) U/L Troponin I 0.01 (<0.04) ng/mL C-Reactive Protein 59.49 H (< 5.00) mg/L Total Protein 7.2 (6.4-8.9) g/dL Albumin 4.3 (3.2-5.2) g/dL Globulin 2.9 (2-4) g/dL Albumin/Globulin Ratio 1.5 (1-3) Lipase 21 (11.0-82.0) U/L Result Diagrams: 02/25/17 06:07 02/25/17 06:07 Lab Statement: Any lab studies that have been ordered have been reviewed, and results considered in the medical decision making process. - CT CT Ab/P CT Interpretation: Positive (See Comments) - Moderate to severe colitis extending from the proximal transverse colon to the rectum secondary to infection or IBS. CT Interpretation Completed By: Radiologist - EKG 5427 EKG Rhythm: Atrial Fibrillation - at 136 bpm Re-Evaluation - Re-Evaluation First Eval Change: Improved - improving, results d/w pt, case d/w hospitalist hr decreased with cardizem Abdominal Pain Fem Course/Dx - Course Course Of Treatment: This 71 y/o female presents to ED for abd pain since a day ago. Pt is also noted with elevated HR on monitor at time of initial evaluation. EKG indicates afib at rate of 136 bpm. Bloodwork is drawn and noted with CRP of 59.49, WBC of 17.3, and total bilirubin of 1.10. UA is noted with 2 + protein, 2+ WBC, 2+ blood, squamous cells, 1+ bacteria, and trace amount of leukocytes. CT Ab/P indicates: Moderate to severe colitis extending from the proximal transverse colon to the rectum secondary to infection or IBS. Dr. Wei, hospitalist on-call, was consulted and pt is accepted for admission. - Diagnoses Provider Diagnoses: Colitis, Rapid atrial fibrillation - Provider Notifications Discussed Care Of Patient With: Gabino Wei Time Discussed With Above Provider: 04:10 Instructed by Provider To: Admit As Inpatient - Critical Care Time Critical Care Time: 30-74 min Discharge - Discharge Plan Condition: Fair Disposition: ADMITTED TO [facility] The documentation as recorded by the Jay caldera Soohyun accurately reflects the service I personally performed and the decisions made by , Donavan Watson MD.
[2017-02-25 01:55] LABS: Urine Bacteria 1+ (Absent); Urine Bilirubin Negative (Negative); Urine Glucose Negative (Negative); Urine Nitrite Positive (Negative)
[2017-02-25] MEDS ORDERED: Iohexol 300* (CONTRAST) 10 ML SDV IV ONE (02:35)
--- NOTE | 2017-02-25 04:25 | HP ---
H&P (Free Text) History and Physical: PCP: Dalton Holloway MD Date/Time of Evaluation: 02/24/2017 CC: abdominal pain HPI: Mrs Ragsdale is a 71YO female HX CAD/CABG, CHF, CVA, collagenous colitis, & diverticulitis presenting with onset yesterday afternoon of diffuse abdominal pain associated with N/V, poor PO intake, bloody mucousy diarrhea, subjective fevers, chills, and sweats, but no chest pain, SOB, palpitations, or light-headedness. She follows with a GI in [place]. She denies recent travel or sick contacts. PMedHx CAD/CABG CHF COPD brainstem CVA HTN HLD hypothyroidism migraines GERD esophageal stricture collagenous colitis diverticulosis/diverticulitis restless leg syndrome gestational diabetes gait instability (reports falls 1-2/month) depression fibromyalgia Ambulatory Orders Nursing to reconcile. Aspirin EC Low Dose* [Ecotrin EC Low Dose 81 MG*] 81 mg PO DAILY 07/28/14 Atorvastatin* [Lipitor 20 MG*] 20 mg PO DAILY 07/28/14 Atorvastatin* [Lipitor 40 MG*] 40 mg PO DAILY 07/28/14 Cetirizine* [ZyrTEC 10 MG TAB*] 10 mg PO DAILY 07/28/14 Dicyclomine HCl [Bentyl] 20 mg PO QID 07/28/14 Ezetimibe TAB* [Zetia TAB*] 10 mg PO BEDTIME 07/28/14 FLUoxetine CAP* [Prozac CAP*] 20 mg PO DAILY 07/28/14 Ferrous Sulfate [Feosol] 65 mg PO DAILY 07/28/14 Fluoxetine HCl [Prozac] 40 mg PO DAILY 07/28/14 Cgefrqspzcx-Dfozkpnnkzz-Tbz C- [Glucosamine Chondroitin] 1 tab PO BID 07/28/14 Lansoprazole CAP (NF) [Prevacid CAP (NF)] 30 mg PO BID 07/28/14 Levothyroxine TAB* [Synthroid 25 MCG TAB*] 50 mcg PO DAILY 07/28/14 Multiple Vitamin [Multi-Vitamin] 1 tab PO DAILY 07/28/14 Nitroglycerin TAB 0.4 MG* 0.4 mg SL Q5M PRN 07/28/14 Pregabalin CAP(*) [Lyrica CAP(*)] 50 mg PO TID 07/28/14 Promethazine TAB* [Phenergan Tab*] 12.5 mg PO Q6HR PRN 07/28/14 Psyllium SNEHA* [Metamucil SNEHA*] 1 pkt PO DAILY 07/28/14 Ropinirole TAB* [Requip TAB*] 1 mg PO BEDTIME 07/28/14 Tiotropium CAP.INH* [Spiriva CAP.INH*] 1 cap INH DAILY 07/28/14 Tramadol-Acetaminophen [Ultracet 37.5-325 mg] 1 tab PO Q6HR PRN 07/28/14 Potassium Chlor TAB (NF) [Kaon-Cl-10 TAB (NF)] 20 meq PO BID 09/07/14 Apixaban* [Eliquis*] 5 mg PO BID #60 tab 09/11/16 Carvedilol TAB* [Coreg TAB*] 3.125 mg PO BID #60 tab 09/11/16 Allergies Codeine Allergy (Verified 09/10/16 16:10) Abdominal Pain PSurgHx CABG 2000 hysterectomy SocHx: denies tobacco, alcohol, & recreational drugs; x2, lives alone; full code status FamHx: strongly positive for CAD & CHF ROS: as above, otherwise reviewed and all were negative Constitutional: NAD, normally developed, well-nourished obese vitals: Vital Signs Temp 37.4 C 02/24/17 23:55 Pulse 100 02/25/17 04:05 Resp 26 02/25/17 03:17 BP 152/95 02/25/17 04:05 Pulse Ox 94 02/25/17 04:05 Intake & Output 02/24/17 02/24/17 02/25/17 11:59 23:59 11:59 Weight 81.647 kg 81.647 kg Other: Date of Last Bowel 02/24/2017 2300 Movement HEENM: atraumatic; sclera/conjunctiva: non-icteric/clear; hearing: clinically intact; oropharynx: clear Neck: soft tissue: non-tender; thyroid: normal Pulmonary: clear to auscultation bilaterally, good aeration, no accessory muscle use CV: RR/RR, normal S1S2, no carotid bruit, no jugular venous distention, 2+ B DP/ PT, no edema Abdominal: soft, non-distended, non-tender, no rebound/guarding/rigidity, normoactive bowel sounds, no hepatosplenomegaly or masses, no costovertebral angle tenderness Musculoskeletal: general: grossly intact; gait: steady Integumental: normal appearance and texture of exposed skin Psychiatric orientation: AA&O to PPS affect: calm mood: pleasant eye contact: good content: reliable responses: timely insight: good Testing: Lab Results 02/25/17 02/25/17 02/25/17 Range/Units 00:07 00:07 00:07 WBC 17.3 H (3.5-10.8) 10^3/ul RBC 4.68 (4.0-5.4) 10^6/ul Hgb 14.5 (12.0-16.0) g/dl Hct 42 (35-47) % MCV 90 (80-97) fL MCH 31 (27-31) pg MCHC 34 (31-36) g/dl RDW 14 (10.5-15) % Plt Count 213 (150-450) 10^3/ul MPV 9 (7.4-10.4) um3 Neut % (Auto) 74.2 (38-83) % Lymph % (Auto) 16.9 L (25-47) % [place] % (Auto) 8.1 (1-9) % Eos % (Auto) 0.4 (0-6) % Baso % (Auto) 0.4 (0-2) % Absolute Neuts (auto) 12.9 H (1.5-7.7) 10^3/ul Absolute Lymphs (auto) 2.9 (1.0-4.8) 10^3/ul Absolute Monos (auto) 1.4 H (0-0.8) 10^3/ul Absolute Eos (auto) 0.1 (0-0.6) 10^3/ul Absolute Basos (auto) 0.1 (0-0.2) 10^3/ul Absolute Nucleated RBC 0 10^3/ul Nucleated RBC % 0 Sodium 135 (133-145) mmol/L Potassium 3.6 (3.5-5.0) mmol/L Chloride 102 (101-111) mmol/L Carbon Dioxide 24 (22-32) mmol/L Anion Gap 9 (2-11) mmol/L BUN 23 (6-24) mg/dL Creatinine 0.90 (0.51-0.95) mg/dL Est GFR ( Amer) 79.6 (>60) Est GFR (Non-Af Amer) 61.9 (>60) BUN/Creatinine Ratio 25.6 H (8-20) Glucose 134 H (70-100) mg/dL Lactic Acid 1.6 (0.5-2.0) mmol/L Calcium 9.5 (8.6-10.3) mg/dL Magnesium 1.8 L (1.9-2.7) mg/dL Total Bilirubin 1.10 H (0.2-1.0) mg/dL AST 15 (13-39) U/L ALT 8 (7-52) U/L Alkaline Phosphatase 75 (34-104) U/L Troponin I 0.01 (<0.04) ng/mL C-Reactive Protein 59.49 H (< 5.00) mg/L Total Protein 7.2 (6.4-8.9) g/dL Albumin 4.3 (3.2-5.2) g/dL Globulin 2.9 (2-4) g/dL Albumin/Globulin Ratio 1.5 (1-3) Lipase 21 (11.0-82.0) U/L Urine Color Urine Appearance Urine pH (5-9) Ur Specific [place] (1.010-1.030) Urine Protein (Negative) Urine Ketones (Negative) Urine Blood (Negative) Urine Nitrate (Negative) Urine Bilirubin (Negative) Urine Urobilinogen (Negative) Ur Leukocyte Esterase (Negative) Urine WBC (Auto) (Absent) Urine RBC (Auto) (Absent) Ur Squamous Epith Cells (Absent) Urine Bacteria (Absent) Urine Glucose (Negative) 02/25/17 Range/Units 01:34 WBC (3.5-10.8) 10^3/ul RBC (4.0-5.4) 10^6/ul Hgb (12.0-16.0) g/dl Hct (35-47) % MCV (80-97) fL MCH (27-31) pg MCHC (31-36) g/dl RDW (10.5-15) % Plt Count (150-450) 10^3/ul MPV (7.4-10.4) um3 Neut % (Auto) (38-83) % Lymph % (Auto) (25-47) % [place] % (Auto) (1-9) % Eos % (Auto) (0-6) % Baso % (Auto) (0-2) % Absolute Neuts (auto) (1.5-7.7) 10^3/ul Absolute Lymphs (auto) (1.0-4.8) 10^3/ul Absolute Monos (auto) (0-0.8) 10^3/ul Absolute Eos (auto) (0-0.6) 10^3/ul Absolute Basos (auto) (0-0.2) 10^3/ul Absolute Nucleated RBC 10^3/ul Nucleated RBC % Sodium (133-145) mmol/L Potassium (3.5-5.0) mmol/L Chloride (101-111) mmol/L Carbon Dioxide (22-32) mmol/L Anion Gap (2-11) mmol/L BUN (6-24) mg/dL Creatinine (0.51-0.95) mg/dL Est GFR ( Amer) (>60) Est GFR (Non-Af Amer) (>60) BUN/Creatinine Ratio (8-20) Glucose (70-100) mg/dL Lactic Acid (0.5-2.0) mmol/L Calcium (8.6-10.3) mg/dL Magnesium (1.9-2.7) mg/dL Total Bilirubin (0.2-1.0) mg/dL AST (13-39) U/L ALT (7-52) U/L Alkaline Phosphatase (34-104) U/L Troponin I (<0.04) ng/mL C-Reactive Protein (< 5.00) mg/L Total Protein (6.4-8.9) g/dL Albumin (3.2-5.2) g/dL Globulin (2-4) g/dL Albumin/Globulin Ratio (1-3) Lipase (11.0-82.0) U/L Urine Color Yellow Urine Appearance Cloudy Urine pH 5.0 (5-9) Ur Specific [place] 1.020 (1.010-1.030) Urine Protein 2+(100 mg/dl) H (Negative) Urine Ketones Negative (Negative) Urine Blood 2+ H (Negative) Urine Nitrate Positive H (Negative) Urine Bilirubin Negative (Negative) Urine Urobilinogen Negative (Negative) Ur Leukocyte Esterase Trace H (Negative) Urine WBC (Auto) 2+(11-20/hpf) H (Absent) Urine RBC (Auto) Absent (Absent) Ur Squamous Epith Cells Present H (Absent) Urine Bacteria 1+ H (Absent) Urine Glucose Negative (Negative) ECG, personally reviewed: AFIB rate 136, T-wave inversions V5/6, I, & II CT abd/pel W, personally reviewed: IMPRESSION: Moderate to severe colitis extending from the transverse colon to the rectum secondary to infection or inflammatory disease. Impression: 71F presenting with moderate to severe colitis from rectum to transverse colon DIAGNOSIS & PLAN Primary infectious colitis : HX collagenous collitis : IV ciprofloxacin & metronidazole : IVFs : supplemental oxygen : stool culture : consider GI consult in AM : anti-emetics : supportive care Secondary CAD/CABG : review meds once reconciled CHF : review meds once reconciled COPD : albuterol nebs PRN : mometasone/formoterol : tiotropium : incentive spirometry HX brainstem CVA : no acute issues HTN : review meds once reconciled HLD : review meds once reconciled hypothyroidism : review meds once reconciled migraines : review meds once reconciled GERD : PO omeprazole esophageal stricture : HX dilation : no acute issues restless leg syndrome : review meds once reconciled depression : review meds once reconciled Admission Rational: inpatient for IV ABX & IVFs in patient at high risk of rapid decompensation in the outpatient setting DVTp: SCDs, no anticoagulation 2nd GI bleeding from colitis Code Status: full HCP: Kenia Merrill
[2017-02-25] MEDS ORDERED: Melatonin (NF) 3 MG TAB PO PRN (04:33)
[2017-02-25] MEDS ORDERED: Ondansetron INJ* 2 MG/ML VIAL IV PRN (04:37)
[2017-02-25] MEDS ORDERED: cefTRIAXone VIAL(*) 1,000 MG in NS 0.9% 50 ML* 50 ML IVPB SCH (05:00)
[2017-02-25] MEDS ORDERED: ALPRAZolam TAB* 0.25 MG PO PRN (05:53)
[2017-02-25] MEDS: NS 0.9% 1000 ML* 1,000 ML IV SCH ×2 (06:00→20:42)
[2017-02-25] MEDS: Omeprazole CAP* 20 MG PO SCH (06:21)
[2017-02-25 06:22] LABS: Hematocrit 43 % (35-47); Hemoglobin 14.1 g/dl (12.0-16.0); Mean Corpuscular HGB Conc 33 g/dl (31-36); Mean Corpuscular Hemoglobin 30 pg (27-31); Mean Corpuscular Volume 91 fL (80-97); Mean Platelet Volume 9 um3 (7.4-10.4); Red Blood Count 4.67 10^6/ul (4.0-5.4); Red Cell Distribution Width 14 % (10.5-15); White Blood Count 16.9 10^3/ul (3.5-10.8)
[2017-02-25] MEDS: Ciprofloxacin IV(*) 400 MG in D5W 250 ML BAG* 160 ML IVPB SCH ×2 (06:23→18:07)
[2017-02-25] MEDS: Acetaminophen TAB* 325 MG PO PRN ×2 (06:23→20:40)
[2017-02-25] MEDS: Levothyroxine TAB* 112 MCG TAB PO SCH (06:28)
[2017-02-25 06:33] LABS: BUN/Creatinine Ratio 24.7 (8-20); Calcium 9.2 mg/dL (8.6-10.3); EGFR African American 89.9 (>60); EGFR Non-African American 69.9 (>60); Magnesium 1.9 mg/dL (1.9-2.7); Potassium 3.8 mmol/L (3.5-5.0)
[2017-02-25] MEDS ORDERED: Diltiazem DRIP* 100 MG/100 ML ADDV.BAG IVPB SCH (07:00)
--- NOTE | 2017-02-25 07:54 | RAD ---
CLINICAL HISTORY: Bilateral lower abdominal pain COMPARISON: September 07, 2014 TECHNIQUE: Multiple contiguous axial CT scans were obtained of the abdomen and pelvis after the administration of intravenous contrast. Coronal and sagittal multiplanar reformations are submitted for review. Oral contrast was administered. Delayed images were obtained through the abdomen and pelvis. FINDINGS: LUNG BASES: The lung bases are clear. LIVER: The liver is normal in shape, size, contour, and attenuation. BILE DUCTS: There is no intrahepatic or extrahepatic biliary dilatation. GALLBLADDER: The gallbladder is normal, without pericholecystic inflammatory change. PANCREAS: The pancreas is normal, without mass or ductal dilatation. SPLEEN: Normal in size and appearance. UPPER GI TRACT: Evaluation of the gastrointestinal tract is limited by incomplete gastric distention. The upper GI tract is unremarkable. SMALL BOWEL AND MESENTERY: The small bowel is normal in contour, course, and caliber. There is no obstruction or dilatation. COLON: There is mucosal thickening of the transverse colon and of the descending and rectosigmoid colon. There are scattered diverticula of the distal colon. ADRENALS: Normal bilaterally. KIDNEYS: There is a parapelvic cyst on the right. There is a punctate 0.2 cm right renal calyceal stone. There is no appreciable nephrolithiasis. BLADDER: The bladder is smooth in contour. PELVIC ORGANS: The pelvic organs are not visualized. AORTA: There is calcific atherosclerotic disease of the abdominal aorta and its branches, without aneurysmal dilatation of the superior and inferior mesenteric arteries are patent proximally. IVC: Unremarkable LYMPH NODES: There is no lymphadenopathy by size criteria. ABDOMINAL WALL: There is no evidence for abdominal wall hernia. BONES AND SOFT TISSUES: Degenerative changes are noted most pronounced at L5-S1 OTHER: None IMPRESSION: 1. MUCOSAL THICKENING OF THE TRANSVERSE, DESCENDING, AND RECTOSIGMOID COLON MOST CONSISTENT WITH COLITIS. 2. ATHEROSCLEROSIS. 3. PUNCTATE NONOBSTRUCTING RIGHT RENAL CALYCEAL STONE
[2017-02-25] MEDS: metroNIDAZOLE IV 500 MG/100ML* 500 MG/100 ML BAG IVPB SCH ×3 (08:19→23:14)
--- NOTE | 2017-02-25 08:41 | PN ---
Subjective Date of Service: 02/25/17 Interval History: Feels much better. No headache. Less abd pain. No BM since admission. She is on apixban for PAF. Objective Active Medications: Acetaminophen (Tylenol Tab*) 650 mg PO Q6H PRN PRN Reason: FEVER/PAIN Last Admin: 02/25/17 06:23 Dose: 650 mg Alprazolam (Xanax Tab*) 0.25 mg PO BEDTIME PRN PRN Reason: DISCOMFORT Apixaban (Eliquis*) 5 mg PO BID [facility] Atorvastatin Calcium (Lipitor*) 80 mg PO DAILY [facility] Carvedilol (Coreg Tab*) 3.125 mg PO BID [facility] Dicyclomine HCl (Bentyl Cap*) 20 mg PO QID [facility] Diltiazem HCl (Cardizem Cd Cap*) 180 mg PO DAILY [facility] Ezetimibe (Zetia Tab*) 10 mg PO DAILY [facility] Fluoxetine HCl (Prozac Cap*) 60 mg PO DAILY [facility] Ciprofloxacin 400 mg/ Dextrose 200 mls @ 200 mls/hr IVPB Q12H [facility] Last Admin: 02/25/17 06:23 Dose: 200 mls/hr Sodium Chloride (Ns 0.9% 1000 Ml*) 1,000 mls @ 125 mls/hr IV PER RATE [facility] Last Admin: 02/25/17 06:00 Dose: 125 mls/hr Metronidazole/Sodium Chloride (Flagyl 500 Mg Ivpb*) 500 mg in 100 mls @ 100 mls /hr IVPB Q8H [facility] Last Admin: 02/25/17 08:19 Dose: 100 mls/hr Diltiazem HCl (Cardizem Iv Advan*) 100 mg in 100 mls @ 5 mls/hr IVPB .PER PARAMETERS [facility] PRN Reason: 5 MG/HR Stop: 02/25/17 10:00 Last Admin: 02/25/17 07:10 Dose: 5 mls/hr Levothyroxine Sodium (Synthroid Tab*) 112 mcg PO 0600 [facility] Last Admin: 02/25/17 06:28 Dose: 112 mcg Losartan Potassium (Cozaar Tab*) 100 mg PO DAILY [facility] Omeprazole (Prilosec Cap*) 20 mg PO DAILY@0600 [facility] Last Admin: 02/25/17 06:21 Dose: 20 mg Ondansetron HCl (Zofran Inj*) 4 mg IV Q6H PRN PRN Reason: NAUSEA Pregabalin (Lyrica Cap(*)) 50 mg PO TID [facility] Psyllium Hydrophilic Mucilloid (Metamucil Kamlesh*) 1 pkt PO DAILY [facility] Ropinirole HCl (Requip Tab*) 1 mg PO BEDTIME [facility] Spironolactone (Aldactone Tab*) 25 mg PO DAILY [facility] Vital Signs 02/25/17 02/25/17 02/25/17 04:30 05:00 05:11 Temperature Pulse Rate 104 122 120 Respiratory 23 18 28 Rate Blood Pressure 166/97 161/99 (mmHg) O2 Sat by Pulse 93 94 95 Oximetry 02/25/17 02/25/17 02/25/17 05:55 06:05 06:26 Temperature 99.1 F 99.1 F 99.1 F Pulse Rate 140 140 151 Respiratory 24 24 20 Rate Blood Pressure 161/120 161/120 158/104 (mmHg) O2 Sat by Pulse 97 97 97 Oximetry 02/25/17 02/25/17 02/25/17 06:45 06:50 06:52 Temperature 99.3 F Pulse Rate 144 Respiratory 16 20 24 Rate Blood Pressure 163/100 161/100 (mmHg) O2 Sat by Pulse 100 Oximetry 02/25/17 02/25/17 02/25/17 07:00 07:10 07:15 Temperature Pulse Rate Respiratory 20 18 21 Rate Blood Pressure 169/108 146/81 135/72 (mmHg) O2 Sat by Pulse Oximetry 02/25/17 07:22 Temperature Pulse Rate Respiratory 23 Rate Blood Pressure 154/85 (mmHg) O2 Sat by Pulse Oximetry Oxygen Devices in Use Now: None Appearance: Alert, supine in bed. In good spirits. Looks comfortable. Eyes: No Scleral Icterus Neck: NL Appearance and Movements; NL JVP, No Thyroid Enlargement, Masses Respiratory: Symmetrical Chest Expansion and Respiratory Effort, Clear to Auscultation, Clear to Percussion Cardiovascular: NL Sounds; No Murmurs; No JVD - irreg, No Edema Abdominal: - - mild-mod diffuse abd tendereness. Nl BS. Soft. Extremities: No Edema, No Clubbing, Cyanosis, - Skin: No Rash or Ulcers, No Nodules or Sclerosis, - Neurological: Alert and Oriented x 3, NL Sensation Result Diagrams: 02/25/17 06:07 07/05/17 06:07 Additional Lab and Data: Lab Results 02/25/17 02/25/17 02/25/17 Range/Units 00:07 00:07 00:07 WBC 17.3 H (3.5-10.8) 10^3/ul RBC 4.68 (4.0-5.4) 10^6/ul Hgb 14.5 (12.0-16.0) g/dl Hct 42 (35-47) % MCV 90 (80-97) fL MCH 31 (27-31) pg MCHC 34 (31-36) g/dl RDW 14 (10.5-15) % Plt Count 213 (150-450) 10^3/ul MPV 9 (7.4-10.4) um3 Neut % (Auto) 74.2 (38-83) % Lymph % (Auto) 16.9 L (25-47) % [place] % (Auto) 8.1 (1-9) % Eos % (Auto) 0.4 (0-6) % Baso % (Auto) 0.4 (0-2) % Absolute Neuts (auto) 12.9 H (1.5-7.7) 10^3/ul Absolute Lymphs (auto) 2.9 (1.0-4.8) 10^3/ul Absolute Monos (auto) 1.4 H (0-0.8) 10^3/ul Absolute Eos (auto) 0.1 (0-0.6) 10^3/ul Absolute Basos (auto) 0.1 (0-0.2) 10^3/ul Absolute Nucleated RBC 0 10^3/ul Nucleated RBC % 0 Sodium 135 (133-145) mmol/L Potassium 3.6 (3.5-5.0) mmol/L Chloride 102 (101-111) mmol/L Carbon Dioxide 24 (22-32) mmol/L Anion Gap 9 (2-11) mmol/L BUN 23 (6-24) mg/dL Creatinine 0.90 (0.51-0.95) mg/dL Est GFR ( Amer) 79.6 (>60) Est GFR (Non-Af Amer) 61.9 (>60) BUN/Creatinine Ratio 25.6 H (8-20) Glucose 134 H (70-100) mg/dL Lactic Acid 1.6 (0.5-2.0) mmol/L Calcium 9.5 (8.6-10.3) mg/dL Magnesium 1.8 L (1.9-2.7) mg/dL Total Bilirubin 1.10 H (0.2-1.0) mg/dL AST 15 (13-39) U/L ALT 8 (7-52) U/L Alkaline Phosphatase 75 (34-104) U/L Troponin I 0.01 (<0.04) ng/mL C-Reactive Protein 59.49 H (< 5.00) mg/L Total Protein 7.2 (6.4-8.9) g/dL Albumin 4.3 (3.2-5.2) g/dL Globulin 2.9 (2-4) g/dL Albumin/Globulin Ratio 1.5 (1-3) Lipase 21 (11.0-82.0) U/L Microbiology and Other Data: Microbiology 02/25/17 08:20 Stool Gross Appearance - Final Stool Assess/Plan/Problems-Billing Assessment: - Patient Problems (1) Abdominal pain Current Visit: Yes Status: Acute Code(s): R10.9 - UNSPECIFIED ABDOMINAL PAIN SNOMED Code(s): 07922496 Comment: Fever, leukocytosis, bloody diarrhea. Ischemic vs infectious colitis. Continue IV antibiotics. (2) PAF (paroxysmal atrial fibrillation) Current Visit: Yes Status: Acute Code(s): I48.0 - PAROXYSMAL ATRIAL FIBRILLATION SNOMED Code(s): 682226660 Comment: TSH add on, echo (none in prior 6 months). Add diltiazem CD 180 02/25. Continue apixaban. (3) Hx of coronary artery disease Current Visit: No Status: Chronic Priority: Medium Code(s): Z86.79 - PERSONAL HISTORY OF OTHER DISEASES OF THE CIRCULATORY SYSTEM SNOMED Code(s): 506128106 Comment: C/P CABG. Continue statin, BB, ezetimide, ASA (she has always taken ASA). (4) History of hypothyroidism Current Visit: No Status: Chronic Priority: Medium Code(s): Z86.39 - PERSONAL HISTORY OF ENDO, NUTRITIONAL AND METABOLIC DISEASE SNOMED Code(s): 061660206 Comment: TSH add on requested. Continue levothyroxine. (5) Hx of gastroesophageal reflux (GERD) Current Visit: No Status: Chronic Priority: Medium Code(s): Z87.19 - PERSONAL HISTORY OF OTHER DISEASES OF THE DIGESTIVE SYSTEM SNOMED Code(s): 48757442982763 Comment: Continue PPI.
[2017-02-25] MEDS ORDERED: Diltiazem CD CAP* 120 MG PO SCH (09:00)
[2017-02-25] MEDS: Losartan TAB* 25 MG PO SCH (09:38)
[2017-02-25] MEDS: Psyllium PAK PO SCH (09:39)
[2017-02-25] MEDS: Dicyclomine CAP* 10 MG PO SCH ×4 (09:39→20:39)
[2017-02-25] MEDS: FLUoxetine CAP* 20 MG PO SCH (09:40)
[2017-02-25] MEDS: Aspirin Low Dose CHEW TAB* 81 MG PO SCH (09:42)
[2017-02-25] MEDS: Pregabalin CAP(*) 50 MG PO SCH ×3 (09:43→20:40)
[2017-02-25] MEDS: Carvedilol TAB* 3.125 MG PO SCH ×2 (09:43→20:40)
[2017-02-25] MEDS: Diltiazem CD CAP* 180 MG PO SCH (09:43)
[2017-02-25] MEDS: Atorvastatin* 80 MG TAB PO SCH (09:44)
[2017-02-25] MEDS: Apixaban* 5 MG TAB PO SCH ×2 (09:44→20:40)
[2017-02-25] MEDS: Spironolactone TAB* 25 MG PO SCH (09:45)
[2017-02-25 10:07] LABS: TSH (Thyroid Stimulating Horm) 5.56 mcIU/mL (0.34-5.60)
[2017-02-25] MEDS: Ezetimibe TAB* 10 MG PO SCH (13:48)
--- NOTE | 2017-02-25 14:27 | ECHO ---
Patient: DENTON VALDEZ Rec#: [id number] : 1945 Date: 02/25/2017 Age: 71y Height: 157.48 cm / 62.0 in Weight: 84.37 kg / 186.0 lbs Sex: F BSA: 1.85 Room#: 434 Admit Date#: 02/24/2017 Type: Inpatient Referring: Josiah Hernandez MD Reading: Jake Rivera MD Collar Tailor: Rosario ByrdKEELY CC: Rashmi Holloway MD CC: Mendez Sharp, DO Transthoracic Echocardiogram Indication: A-Fib BP: 154/85 HR: 100 Rhythm: A-Fib Indications Atrial Fibrillation Findings History: CAD with CABG, CHF, CVA, HTN, HLD, hypothyroidism, COPD. Technical Comments: The study quality is fair. The study is technically limited due to patient body habitus. The study is technically limited due to the patient's history of COPD. Completed at 1235. Left Ventricle: The left ventricular chamber size is normal. Mild concentric left ventricular hypertrophy is observed. Global left ventricular wall motion and contractility are within normal limits. There is normal left ventricular systolic function. The estimated ejection fraction is 55-60%. The assessment of diastolic function is non-diagnostic. Left Atrium: The left atrium is severely dilated. Right Ventricle: The right ventricle is mildly dilated. The right ventricular global systolic function is mildly to moderately reduced. Right Atrium: The right atrium is moderate to severely dilated. Aortic Valve: The aortic valve is trileaflet. The aortic valve leaflets are mildly thickened. Systolic excursion of the aortic valve cusps is reduced. There is a trace of aortic regurgitation. There is no evidence of aortic stenosis. Mitral Valve: There is mitral annular calcification. The mitral valve leaflets are mildly thickened. There is mild mitral regurgitation. There is no evidence of mitral stenosis. Tricuspid Valve: The tricuspid valve leaflets are normal. There is mild to moderate tricuspid regurgitation. The right ventricular systolic pressure is estimated at 35 mmHg. There is evidence of borderline pulmonary hypertension. There is no tricuspid stenosis. Pulmonic Valve: The pulmonic valve appears normal. There is a trace pulmonic regurgitation. There is no pulmonic stenosis. Pericardium: There is no significant pericardial effusion. A pericardial fat pad is visualized. Aorta: There is no dilatation of the ascending aorta. There is no dilatation of the aortic arch. There is no dilation of the aortic root. Pulmonary Artery: The main pulmonary artery appears normal. Venous: The inferior vena cava is dilated. There is a greater than 50% respiratory change in the inferior vena cava dimension. Conclusions The study is technically limited due to patient body habitus. Atrial flutter noted during the study. Mild concentric left ventricular hypertrophy is observed. The left atrium is severely dilated. The right ventricle is mildly dilated. The right ventricular global systolic function is mildly to moderately reduced. The right atrium is moderate to severely dilated. There is mild mitral regurgitation. There is mild to moderate tricuspid regurgitation. The right ventricular systolic pressure is estimated at 35 mmHg. Compared to 08/2016, The RV hypokinesis is newly noted but was present last time. Overall, similar to .. Measurements Name Value Normal Range RVIDd (AP) 2D 2.6 cm (0.9 - 2.6) RVDdMajor (2D) 4.3 cm (2.2 - 4.4) RAd ISD 4CH 5.5 cm (3.4 - 4.9) RA (A4C)W 4.5 cm (2.9 - 4.6) IVSd (2D) 1.1 cm (0.6 - 1) LVPWd (2D) 1.1 cm (0.6 - 1) LVIDd (2D) 4.1 cm (3.6 - 5.4) LVIDs (2D) 2.98 cm - LV FS (2D) 27 % (25 - 45) Aortic Annulus 1.6 cm (1.4 - 2.6) Ao root diameter (2D) 2.6 cm (2.1 - 3.5) Ascending Ao 3.3 cm (2.1 - 3.4) Aortic arch 2.7 cm (1.8 - 3.4) LA dimension (AP) 2D 4.2 cm (2.3 - 3.8) LAd ISD 4CH 5.8 cm (2.9 - 5.3) LA ISD 4CH W 4.8 cm (2.5 - 4.5) Name Value Normal Range LA ESV SP 4CH (A/L) 90 ml - LA ESV SP 2CH (A/L) 79 ml - LA ESV BP (A/L) 90 ml - LA ESV BP (A/L) index 48.19 ml/m2 - LA ESV SP 4CH (MOD) 86 ml - LA ESV SP 2CH (MOD) 74 ml - Name Value Normal Range MV E-wave Vmax 1.18 m/sec - MV deceleration time 153.7 msec - LV septal e' Vmax 0.07 m/sec - LV lateral e' Vmax 0.08 m/sec - LV E:e' septal ratio 16.86 ratio - LV E:e' lateral ratio 14.75 ratio - Name Value Normal Range AV Vmax 1.73 m/sec - AV VTI 28.6 cm - AV peak gradient 12.08 mmHg - AV mean gradient 7.63 mmHg - LVOT diameter 2 cm - LVOT Vmax 1.2 m/sec - LVOT VTI 22.65 cm - LVOT peak gradient 5.97 mmHg - LVOT mean gradient 3.85 mmHg - NAYELY Vmax 0.59 m/sec - Name Value Normal Range TR Vmax 2.6 m/sec - TR peak gradient 27 mmHg - RAP 8 mmHg - RVSP 35 mmHg - IVC diameter 2.2 cm - Name Value Normal Range PV Vmax 0.91 m/sec - PV peak gradient 3.36 mmHg -
[2017-02-25] MEDS ORDERED: rOPINIRole TAB* 1 MG PO SCH (21:00)
[2017-02-26] MEDS: Ciprofloxacin IV(*) 400 MG in D5W 250 ML BAG* 160 ML IVPB SCH (05:46)
[2017-02-26] MEDS: Omeprazole CAP* 20 MG PO SCH (05:46)
[2017-02-26] MEDS: Levothyroxine TAB* 112 MCG TAB PO SCH (05:46)
[2017-02-26] MEDS: NS 0.9% 1000 ML* 1,000 ML IV SCH (05:50)
[2017-02-26] MEDS: metroNIDAZOLE IV 500 MG/100ML* 500 MG/100 ML BAG IVPB SCH ×2 (07:17→13:54)
[2017-02-26] MEDS: FLUoxetine CAP* 20 MG PO SCH (09:23)
[2017-02-26] MEDS: Diltiazem CD CAP* 180 MG PO SCH (09:24)
[2017-02-26] MEDS: Aspirin Low Dose CHEW TAB* 81 MG PO SCH (09:24)
[2017-02-26] MEDS: Spironolactone TAB* 25 MG PO SCH (09:24)
[2017-02-26] MEDS: Pregabalin CAP(*) 50 MG PO SCH ×3 (09:25→15:13)
[2017-02-26] MEDS: Ezetimibe TAB* 10 MG PO SCH (09:26)
[2017-02-26] MEDS: Losartan TAB* 25 MG PO SCH (09:26)
[2017-02-26] MEDS: Apixaban* 5 MG TAB PO SCH (09:26)
[2017-02-26] MEDS: Carvedilol TAB* 3.125 MG PO SCH (09:27)
[2017-02-26] MEDS: Dicyclomine CAP* 10 MG PO SCH ×2 (09:27→15:12)
[2017-02-26] MEDS: Psyllium PAK PO SCH (09:28)
[2017-02-26] MEDS: Atorvastatin* 80 MG TAB PO SCH (09:28)
--- NOTE | 2017-02-26 09:45 | DCNOTE ---
Subjective Date of Service: 02/26/17 Interval History: Very little pain. Less blood in stool. 2 BM so far today, semi-solid. Good appetite. Anxious to go home. No sx's. Objective Active Medications: Acetaminophen (Tylenol Tab*) 650 mg PO Q6H PRN PRN Reason: FEVER/PAIN Last Admin: 02/25/17 20:40 Dose: 650 mg Alprazolam (Xanax Tab*) 0.25 mg PO BEDTIME PRN PRN Reason: DISCOMFORT Last Admin: 02/25/17 09:53 Dose: 0.25 mg Apixaban (Eliquis*) 5 mg PO BID [facility] Last Admin: 02/26/17 09:26 Dose: 5 mg Aspirin (Aspirin Low Dose Tab*) 81 mg PO DAILY [facility] Last Admin: 02/26/17 09:24 Dose: 81 mg Atorvastatin Calcium (Lipitor*) 80 mg PO DAILY [facility] Last Admin: 02/26/17 09:28 Dose: 80 mg Carvedilol (Coreg Tab*) 3.125 mg PO BID [facility] Last Admin: 02/26/17 09:27 Dose: 3.125 mg Dicyclomine HCl (Bentyl Cap*) 20 mg PO QID [facility] Last Admin: 02/26/17 09:27 Dose: 20 mg Diltiazem HCl (Cardizem Cd Cap*) 180 mg PO DAILY [facility] Last Admin: 02/26/17 09:24 Dose: 180 mg Ezetimibe (Zetia Tab*) 10 mg PO DAILY [facility] Last Admin: 02/26/17 09:26 Dose: 10 mg Fluoxetine HCl (Prozac Cap*) 60 mg PO DAILY [facility] Last Admin: 02/26/17 09:23 Dose: 60 mg Ciprofloxacin 400 mg/ Dextrose 200 mls @ 200 mls/hr IVPB Q12H [facility] Last Admin: 02/26/17 05:46 Dose: 200 mls/hr Sodium Chloride (Ns 0.9% 1000 Ml*) 1,000 mls @ 125 mls/hr IV PER RATE [facility] Last Admin: 02/26/17 05:50 Dose: 125 mls/hr Metronidazole/Sodium Chloride (Flagyl 500 Mg Ivpb*) 500 mg in 100 mls @ 100 mls /hr IVPB Q8H [facility] Last Admin: 02/26/17 07:17 Dose: 100 mls/hr Levothyroxine Sodium (Synthroid Tab*) 112 mcg PO 0600 [facility] Last Admin: 02/26/17 05:46 Dose: 112 mcg Losartan Potassium (Cozaar Tab*) 100 mg PO DAILY [facility] Last Admin: 02/26/17 09:26 Dose: 100 mg Omeprazole (Prilosec Cap*) 20 mg PO DAILY@0600 [facility] Last Admin: 02/26/17 05:46 Dose: 20 mg Ondansetron HCl (Zofran Inj*) 4 mg IV Q6H PRN PRN Reason: NAUSEA Pregabalin (Lyrica Cap(*)) 50 mg PO TID [facility] Last Admin: 02/26/17 09:25 Dose: 50 mg Psyllium Hydrophilic Mucilloid (Metamucil Kamlesh*) 1 pkt PO DAILY [facility] Last Admin: 02/26/17 09:28 Dose: 1 pkt Ropinirole HCl (Requip Tab*) 1 mg PO BEDTIME [facility] Last Admin: 02/25/17 20:40 Dose: 1 mg Spironolactone (Aldactone Tab*) 25 mg PO DAILY [facility] Last Admin: 02/26/17 09:24 Dose: 25 mg Vital Signs 02/25/17 02/25/17 02/25/17 09:43 09:53 09:55 Temperature Pulse Rate Respiratory 16 16 25 Rate Blood Pressure 137/90 (mmHg) O2 Sat by Pulse Oximetry 02/25/17 02/25/17 02/25/17 10:00 10:13 11:39 Temperature Pulse Rate Respiratory 24 18 Rate Blood Pressure 112/91 (mmHg) O2 Sat by Pulse Oximetry 02/25/17 02/25/17 02/25/17 12:04 13:48 13:49 Temperature 98.1 F Pulse Rate 136 Respiratory 20 18 18 Rate Blood Pressure 141/92 (mmHg) O2 Sat by Pulse Oximetry 02/25/17 02/25/17 02/25/17 14:39 15:12 15:48 Temperature 99.0 F Pulse Rate 71 Respiratory 17 17 Rate Blood Pressure 92/49 129/74 (mmHg) O2 Sat by Pulse 96 Oximetry 02/25/17 02/25/17 02/25/17 18:07 19:09 19:12 Temperature 99.5 F Pulse Rate 103 Respiratory 17 16 17 Rate Blood Pressure 145/71 (mmHg) O2 Sat by Pulse 97 Oximetry 02/25/17 02/25/17 02/25/17 20:07 20:39 20:40 Temperature Pulse Rate Respiratory 16 16 16 Rate Blood Pressure (mmHg) O2 Sat by Pulse Oximetry 02/25/17 02/25/17 02/25/17 22:39 22:40 23:25 Temperature 98.5 F Pulse Rate 83 Respiratory 18 18 16 Rate Blood Pressure 114/63 (mmHg) O2 Sat by Pulse 95 Oximetry 02/26/17 02/26/17 02/26/17 03:53 07:20 08:00 Temperature 98.6 F 98.9 F Pulse Rate 93 103 Respiratory 16 20 20 Rate Blood Pressure 132/58 139/74 (mmHg) O2 Sat by Pulse 94 95 Oximetry 02/26/17 02/26/17 09:25 09:27 Temperature Pulse Rate Respiratory 20 20 Rate Blood Pressure (mmHg) O2 Sat by Pulse Oximetry Oxygen Devices in Use Now: None Appearance: Alert, sitting up in bed. In goood spirits. Looks comfortable. Eyes: No Scleral Icterus Abdominal: NL Sounds; No Tenderness; No Distention, No Hepatosplenomegaly, - Extremities: No Edema, No Clubbing, Cyanosis, - Skin: No Rash or Ulcers, No Nodules or Sclerosis, - Neurological: Alert and Oriented x 3, NL Sensation Result Diagrams: 02/25/17 06:07 02/25/17 06:07 Additional Lab and Data: Lab Results 02/25/17 02/25/17 02/25/17 Range/Units 00:07 00:07 00:07 WBC 17.3 H (3.5-10.8) 10^3/ul RBC 4.68 (4.0-5.4) 10^6/ul Hgb 14.5 (12.0-16.0) g/dl Hct 42 (35-47) % MCV 90 (80-97) fL MCH 31 (27-31) pg MCHC 34 (31-36) g/dl RDW 14 (10.5-15) % Plt Count 213 (150-450) 10^3/ul MPV 9 (7.4-10.4) um3 Neut % (Auto) 74.2 (38-83) % Lymph % (Auto) 16.9 L (25-47) % [place] % (Auto) 8.1 (1-9) % Eos % (Auto) 0.4 (0-6) % Baso % (Auto) 0.4 (0-2) % Absolute Neuts (auto) 12.9 H (1.5-7.7) 10^3/ul Absolute Lymphs (auto) 2.9 (1.0-4.8) 10^3/ul Absolute Monos (auto) 1.4 H (0-0.8) 10^3/ul Absolute Eos (auto) 0.1 (0-0.6) 10^3/ul Absolute Basos (auto) 0.1 (0-0.2) 10^3/ul Absolute Nucleated RBC 0 10^3/ul Nucleated RBC % 0 Sodium 135 (133-145) mmol/L Potassium 3.6 (3.5-5.0) mmol/L Chloride 102 (101-111) mmol/L Carbon Dioxide 24 (22-32) mmol/L Anion Gap 9 (2-11) mmol/L BUN 23 (6-24) mg/dL Creatinine 0.90 (0.51-0.95) mg/dL Est GFR ( Amer) 79.6 (>60) Est GFR (Non-Af Amer) 61.9 (>60) BUN/Creatinine Ratio 25.6 H (8-20) Glucose 134 H (70-100) mg/dL Lactic Acid 1.6 (0.5-2.0) mmol/L Calcium 9.5 (8.6-10.3) mg/dL Magnesium 1.8 L (1.9-2.7) mg/dL Total Bilirubin 1.10 H (0.2-1.0) mg/dL AST 15 (13-39) U/L ALT 8 (7-52) U/L Alkaline Phosphatase 75 (34-104) U/L Troponin I 0.01 (<0.04) ng/mL C-Reactive Protein 59.49 H (< 5.00) mg/L Total Protein 7.2 (6.4-8.9) g/dL Albumin 4.3 (3.2-5.2) g/dL Globulin 2.9 (2-4) g/dL Albumin/Globulin Ratio 1.5 (1-3) Lipase 21 (11.0-82.0) U/L Microbiology and Other Data: Microbiology 02/25/17 08:20 Stool Gross Appearance - Final Stool Assess/Plan/Problems-Billing Assessment: - Patient Problems (1) Abdominal pain Current Visit: Yes Status: Acute Code(s): R10.9 - UNSPECIFIED ABDOMINAL PAIN SNOMED Code(s): 62589545 Comment: Improved. Discharge without further antibiotics. Urine C&S likely represents contamination and/or colonization. (2) PAF (paroxysmal atrial fibrillation) Current Visit: Yes Status: Acute Code(s): I48.0 - PAROXYSMAL ATRIAL FIBRILLATION SNOMED Code(s): 958012513 Comment: TSH wnl 02/25/17. Continue diltiazem CD 180 at home, continue apixaban, carvedilol. (3) Hx of coronary artery disease Current Visit: No Status: Chronic Priority: Medium Code(s): Z86.79 - PERSONAL HISTORY OF OTHER DISEASES OF THE CIRCULATORY SYSTEM SNOMED Code(s): 967766530 Comment: C/P CABG. Continue statin, BB, ezetimide, ASA (she has always taken ASA). (4) History of hypothyroidism Current Visit: No Status: Chronic Priority: Medium Code(s): Z86.39 - PERSONAL HISTORY OF ENDO, NUTRITIONAL AND METABOLIC DISEASE SNOMED Code(s): 282981166 Comment: TSH wno 02/25/17. Continue levothyroxine. (5) Hx of gastroesophageal reflux (GERD) Current Visit: No Status: Chronic Priority: Medium Code(s): Z87.19 - PERSONAL HISTORY OF OTHER DISEASES OF THE DIGESTIVE SYSTEM SNOMED Code(s): 81745548939072 Comment: Continue PPI. Status and Disposition: Discharge now. Fup Rosey Charles McClintic
[2017-02-26 12:51] VITALS: BP 127/66
--- NOTE | 2017-02-26 13:54 | DS ---
CC: Dr. Holloway; Dr. Hair Florentino * DISCHARGE SUMMARY: DATE OF ADMISSION: DATE OF DISCHARGE: 02/26/17 HOSPITAL COURSE: This 71-year-old woman presented with abdominal pain and bloody diarrhea. The history is detailed in the admission note. CT scan of the abdomen and pelvis showed mucosal thickening of the transverse, descending, and rectosigmoid colon. There was a punctate right renal calyceal stone which was nonobstructing, atherosclerosis was noted. The patient did well in the hospital. Her abdominal pain subsided rather quickly. She still was having some bloody diarrhea at the time of discharge but this subsided greatly. Repeat hematocrit was 43, actually went up with hydration. White count fell from 17.3 to 16.9 in the 6-hour period. She remained afebrile through her hospital stay. Clinically, she was doing quite well. I note she has had a screening colonoscopy about 3 years before admission. Her apixaban was continued throughout her hospital stay. She did go into atrial fibrillation. She said she is usually in atrial fibrillation. I added diltiazem CD to control her heart rate. Another alternative would be to increase her carvedilol dose, but this time her heart rate is well controlled in the 90s. Her losartan dose was decreased from 100 to 25 mg, the new addition of diltiazem certainly should provide adequate blood pressure control at this time. FINAL DIAGNOSES: 1. Colitis, suspect ischemic colitis, although infectious colitis cannot be ruled out. 2. Paroxysmal atrial fibrillation. 3. History of coronary artery disease. 4. Hypothyroidism. 5. Gastroesophageal reflux disease. DISCHARGE MEDICATIONS: 1. Rosuvastatin 40 mg daily. 2. Acetaminophen 650 mg every 6 hours p.r.n. 3. Aspirin 81 mg daily. 4. Diltiazem CD 180 mg daily. 5. Losartan 25 mg daily. 6. Psyllium 1 packet daily. 7. Ropinirole 1 mg h.s. 8. Tramadol/acetaminophen one every 6 hours p.r.n. 9. Ezetimibe 10 mg daily. 10. Spironolactone 25 mg daily. 11. Nitroglycerin 0.4 mg sublingual every 5 minutes p.r.n. 12. Pregabalin 50 mg t.i.d. 13. Levothyroxine 112 mcg daily. 14. Fluoxetine 60 mg daily. 15. Fluticasone inhaler 44 mcg 2 puffs b.i.d. 16. Esomeprazole 40 mg daily. 17. Dicyclomine 20 mg four times a day. 18. Carvedilol 3.125 mg b.i.d. 19. Apixaban 5 mg b.i.d. 20. Alprazolam 0.25 mg h.s. p.r.n. 21. Albuterol 2 puffs every 4 hours p.r.n. [id number]/[facility] #: [id number] [facility]
--- NOTE | 2017-02-26 16:24 | PN ---
Progress Note - Progress Note Date of Service: 02/26/17 Note: Time spent on discharge 45 minutes.
== END 2017-02-26 15:39 | disposition home or self-care (01) | DRG 394 ==
LOC: ED 23:31 → MED 02-25 04:26 → MEDTELE 02-25 06:45
PROVIDERS: ADMIT Hospitalist; ATTEND Internal Medicine
DX: K55.9 Vascular disorder of intestine, unspecified (principal); A09 Infectious gastroenteritis and colitis, unspecified; J44.9 Chronic obstructive pulmonary disease, unspecified; I48.0 Paroxysmal atrial fibrillation; I50.9 Heart failure, unspecified; I11.0 Hypertensive heart disease with heart failure; K22.2 Esophageal obstruction; G25.81 Restless legs syndrome; F32.9 Major depressive disorder, single episode, unspecified; I25.10 Atherosclerotic heart disease of native coronary artery without angina pectoris; E78.5 Hyperlipidemia, unspecified; E03.9 Hypothyroidism, unspecified; G43.909 Migraine, unspecified, not intractable, without status migrainosus; K21.9 Gastro-esophageal reflux disease without esophagitis; K57.90 Diverticulosis of intestine, part unspecified, without perforation or abscess without bleeding; M79.7 Fibromyalgia; E66.9 Obesity, unspecified; N20.0 Calculus of kidney; I70.90 Unspecified atherosclerosis; Z95.1 Presence of aortocoronary bypass graft; Z88.5 Allergy status to narcotic agent; Z90.710 Acquired absence of both cervix and uterus; Z82.49 Family history of ischemic heart disease and other diseases of the circulatory system; Z68.35 Body mass index [BMI] 35.0-35.9, adult; Z86.73 Personal history of transient ischemic attack (TIA), and cerebral infarction without residual deficits; Z87.01 Personal history of pneumonia (recurrent); Z79.82 Long term (current) use of aspirin
CPT/HCPCS: 36415; 74177; 80048; 80053; 81003; 81015; 83605; 83690; 83735; 84443; 84484; 85025; 86140; 87045; 87046; 87077; 87086; 87186; 87493; 87899; 93005; 93306; A9270-GY; J0696; J0744; J2405; Q9967

== ENCOUNTER 2017-09-08 12:27 | Observation (INO) | payer MEDICAID, MEDICARE ==
[2017-09-08 12:49] LABS: Hematocrit 42 % (35-47); Hemoglobin 14.3 g/dl (12.0-16.0); Mean Corpuscular HGB Conc 34 g/dl (31-36); Mean Corpuscular Hemoglobin 30 pg (27-31); Mean Corpuscular Volume 89 fL (80-97); Mean Platelet Volume 8 um3 (7.4-10.4); Platelet Count 219 10^3/ul (150-450); Red Blood Count 4.72 10^6/ul (4.0-5.4); Red Cell Distribution Width 13 % (10.5-15); White Blood Count 11.2 10^3/ul (3.5-10.8)
[2017-09-08 13:05] LABS: EGFR Non-African American 61.7 (>60)
--- NOTE | 2017-09-08 13:05 | RAD ---
HISTORY: Rapid A. fib COMPARISONS: September 10, 2016 VIEWS: 1: frontal portable view of the chest at 12:46 PM FINDINGS: LINES AND TUBES: None. CARDIOMEDIASTINAL SILHOUETTE: The cardiomediastinal silhouette is stable. PLEURA: The costophrenic angles are sharp. No pleural abnormalities are noted. LUNG PARENCHYMA: The lungs are clear. ABDOMEN: The upper abdomen is clear. There is no subphrenic gas. BONES AND SOFT TISSUES: The patient is status post median sternotomy. Surgical clips overlie the left lower chest. IMPRESSION: NO ACTIVE CARDIOPULMONARY DISEASE.
[2017-09-08 13:13] LABS: Monocytes % 4 % (0-13)
[2017-09-08 13:18] LABS: INR 1.13 (0.77-1.02)
[2017-09-08] MEDS ORDERED: Diltiazem IV* 5 MG/ML 5 ML VIAL (for loading dose/IV Push) (25 MG) IV SLOW PU ONE (13:27)
[2017-09-08] MEDS ORDERED: Diltiazem DRIP* 100 MG/100 ML ADDV.BAG IVPB ONE (13:29)
[2017-09-08] MEDS ORDERED: Albuterol/Ipratropium NEB.SOL* Albuterol 2.5 MG/Ipratropium 0.5 MG 3 ML INH ONE (13:40)
[2017-09-08] MEDS ORDERED: Albuterol/Ipratropium NEB.SOL* Albuterol 2.5 MG/Ipratropium 0.5 MG 3 ML ONE (13:43)
[2017-09-08] MEDS ORDERED: methylPREDNISolone 125 MG* 2 ML VIAL IV ONE (14:50)
[2017-09-08] MEDS ORDERED: Potassium Chlor TAB* 20 MEQ TAB.ER PO ONE (15:20)
[2017-09-08] MEDS ORDERED: Nitroglycerin TAB 0.4 MG* 0.4 MG TAB SL PRN (17:18)
[2017-09-08] MEDS ORDERED: Promethazine TAB* 25 MG PO PRN (17:18)
[2017-09-08] MEDS ORDERED: ALPRAZolam TAB* 0.25 MG PO PRN (17:18)
[2017-09-08] MEDS ORDERED: Albuterol HFA INHALER* 8 gm MDI INH PRN (17:18)
[2017-09-08] MEDS ORDERED: Acetaminophen TAB* 325 MG PO PRN (17:23)
[2017-09-08] MEDS ORDERED: Metoprolol Tartrate IV* 1 MG/ML 5 ML VIAL IV PRN (17:24)
--- NOTE | 2017-09-08 19:56 | ED ---
Ildefonso Acosta Angela, scribed for Alma Hatch MD on 09/08/17 at 1308 . Shortness of Breath - HPI Summary HPI Summary: This pt is a 72 y/o female presenting to [facility] via EMS from Dr. Holloway's office for rapid atrial fibrillation. Pt additionally c/o SOB, cough, intermittent fever for 3-4 days. 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 Pt was given Xopenex for wheezing at Dr. Holloway's office. EMS administered duo neb treatment x2. She denies chest pain, edema, calf pain. Pt usually manages her atrial fibrillation with medications. PMHx: COPD, cardiac bypass (in 1999), fibromyalgia, chronic afib. Pt is currently on Eliquis. Pt uses inhalers at home. Allergic to codeine (reaction is hallucinations). - History of Current Complaint Chief Complaint: EDShortnessOfBreath Time Seen by Provider: 09/08/17 12:30 Hx Obtained From: Patient, EMS, Other: - Dr. Holloway Onset/Duration: Lasting Days, Still Present Timing: Constant Dyspnea At: Rest Alleviating Factors: EMS Tx - albuterol treatment, Other - Xopenex Associated Signs & Symptoms: Cough (Nonproductive), Fever - intermittent - Allergy/Home Medications Allergies/Adverse Reactions: Allergies Allergy/AdvReac Type Severity Reaction Status Date / Time Codeine Allergy Abdominal Verified 09/10/16 16:10 Pain Home Medications: Home Medications Biotin [Biotin Maximum Strength] 10,000 mcg PO DAILY 09/08/17 [History Confirmed 09/08/17] Carvedilol TAB* [Coreg TAB*] 12.5 mg PO BID 09/08/17 [History Confirmed 09/08/17 ] Cetirizine* [ZyrTEC 10 MG TAB*] 10 mg PO DAILY 09/08/17 [History Confirmed 09/08] Cholecalciferol TAB* [Vitamin D TAB*] 1,000 unit PO DAILY 09/08/17 [History Confirmed 09/08/17] Cyanocobalamin TAB* [Vitamin B12 TAB*] 500 mcg PO DAILY 09/08/17 [History Confirmed 09/08/17] Docusate CAP* [Colace Cap*] 100 mg PO BID 09/08/17 [History Confirmed 09/08/17] Ezetimibe TAB* [Zetia TAB*] 10 mg PO BEDTIME 09/08/17 [History Confirmed ] FLUoxetine CAP* [PROzac CAP*] 20 mg PO DAILY 09/08/17 [History Confirmed ] FLUoxetine CAP* [PROzac CAP*] 40 mg PO DAILY 09/08/17 [History Confirmed ] Ferrous Sulfate [Iron] 66 mg PO DAILY 09/08/17 [History Confirmed 09/08/17] Flaxseed (Linseed) [Flax Seed Oil 1000 mg] 1 cap PO DAILY 09/08/17 [History Confirmed 09/08/17] Xrpndarotao-Kzkstaxokew-Bud C- [Glucosamine Chondroitin] 1 tab PO BID 09/08/17 [ History Confirmed 09/08/17] Levothyroxine TAB* [Synthroid TAB*] 100 mcg PO QAM 09/08/17 [History Confirmed 09/08/17] Losartan TAB* [Cozaar TAB*] 50 mg PO DAILY 09/08/17 [History Confirmed 09/08/17] Multivitamins/Minerals TAB* [Theragran/minerals TAB*] 1 tab PO DAILY 09/08/17 [ History Confirmed 09/08/17] Pregabalin CAP(*) [Lyrica CAP(*)] 50 mg PO TID 09/08/17 [History Confirmed 09/08] Promethazine TAB* [Phenergan TAB*] 12.5 mg PO BEDTIME PRN 09/08/17 [History Confirmed 09/08/17] Rosuvastatin (NF) [Crestor (NF)] 40 mg PO DAILY 09/08/17 [History Confirmed ] Spironolactone TAB* [Aldactone TAB*] 25 mg PO DAILY 09/08/17 [History Confirmed 09/08/17] Tiotropium CAP.INH* [Spiriva CAP.INH*] 1 cap.inh INH DAILY 09/08/17 [History Confirmed 09/08/17] Tramadol-Acetaminophen [Ultracet] 1 tab PO Q6HR PRN 09/08/17 [History Confirmed 09/08/17] PMH/Surg Hx/FS Hx/Imm Hx Endocrine/Hematology History: Reports: Hx Thyroid Disease Denies: Hx Diabetes Cardiovascular History: Reports: Hx Atrial Fibrillation, Hx Congestive Heart Failure, Hx Coronary Artery Disease, Hx Hypertension Denies: Hx Peripheral Vascular Disease Respiratory History: Reports: Hx Chronic Obstructive Pulmonary Disease (COPD), Hx Pneumonia GI History: Reports: Hx Diverticulosis, Hx Gastroesophageal Reflux Disease, Other GI Disorders - esophageal stricture History: Denies: Hx Dialysis, Hx Renal Disease Musculoskeletal History: Reports: Hx Fibromyalgia, Other Musculoskeletal History - restless leg Denies: Hx Arthritis, Hx Osteoporosis Sensory History: Reports: Hx Contacts or Glasses Denies: Hx Hearing Aid Opthamlomology History: Reports: Hx Contacts or Glasses Neurological History: Reports: Hx CVA, Hx Transient Ischemic Attacks (TIA) Denies: Hx Seizures Psychiatric History: Reports: Hx Depression - Surgical History Surgery Procedure, Year, and Place: bypass surgery 1999; HYSTERECTOMY Hx Anesthesia Reactions: No - Immunization History Date of Tetanus Vaccine: PT STATES UNSURE Date of Influenza Vaccine: NONE Infectious Disease History: No Infectious Disease History: Denies: Traveled Outside the [place] in Last 30 Days - Family History Known Family History: Positive: Other - CA Negative: Cardiac Disease, Hypertension, Diabetes - Social History Lives: Alone Alcohol Use: None Hx Substance Use: No Substance Use Type: Reports: None Hx Tobacco Use: No Smoking Status (MU): Never Smoked Tobacco Review of Systems Positive: Fever - intermittent Negative: Chest Pain Positive: Shortness Of Breath, Cough Negative: Edema, Other - calf pain All Other Systems Reviewed And Are Negative: Yes Physical Exam - Summary Physical Exam Summary: Appearance: Ill-appearing, no pain distress, Well-nourished Skin: Warm, color reflects adequate perfusion Head: Normal Head/Face inspection Eyes: Conjunctiva clear ENT: Normal ENT inspection Neck: Supple, no nodes, no JVD Respiratory: Lungs clear, no respiratory distress. Pt can't take a deep breath without coughing. She has expiratory wheezes throughout. Cardio: RRR, No murmur, pulses normal, brisk capillary refill Abdomen: soft, nontender Bowel sounds: present Musculoskeletal: Strength Intact/ ROM intact. No calf tenderness. No edema. Neuro: Alert, muscle tone normal, facial symmetry, speech normal, sensory/motor intact Psychological: Normal Triage Information Reviewed: Yes Vital Signs On Initial Exam: Initial Vitals Temp Pulse Resp BP Pulse Ox 98.7 F 128 24 134/98 97 09/08/17 12:46 09/08/17 12:46 09/08/17 12:46 09/08/17 12:46 09/08/17 12:46 Vital Signs Reviewed: Yes Diagnostics - Vital Signs Vital Signs Temp Pulse Resp BP Pulse Ox 09/08/17 12:46 98.7 F 128 24 134/98 97 - Laboratory Lab Results: Lab Results 09/08/17 Range/Units 12:40 WBC 11.2 H (3.5-10.8) 10^3/ul RBC 4.72 (4.0-5.4) 10^6/ul Hgb 14.3 (12.0-16.0) g/dl Hct 42 (35-47) % MCV 89 (80-97) fL MCH 30 (27-31) pg MCHC 34 (31-36) g/dl RDW 13 (10.5-15) % Plt Count 219 (150-450) 10^3/ul MPV 8 (7.4-10.4) um3 Neut % (Auto) Not Reportable Lymph % (Auto) Not Reportable [place] % (Auto) Not Reportable Eos % (Auto) Not Reportable Baso % (Auto) Not Reportable Absolute Neuts (auto) Not Reportable Absolute Lymphs (auto) Not Reportable Absolute Monos (auto) Not Reportable Absolute Eos (auto) Not Reportable Absolute Basos (auto) Not Reportable Absolute Nucleated RBC Not Reportable Neutrophils % Pending Nucleated RBC % Not Reportable Normal RBC Morphology Pending Result Diagrams: 09/08/17 12:40 09/08/17 12:40 Lab Statement: Any lab studies that have been ordered have been reviewed, and results considered in the medical decision making process. - Radiology Chest XR Xray Interpretation: No Acute Changes - IMPRESSION: No active cardiopulmonary disease. Dr. Hatch has reviewed this radiology report. Radiology Interpretation Completed By: Radiologist - EKG 12:52 Cardiac Rate: Tachycardia EKG Rhythm: Atrial Fibrillation - at [address] Segment: Non-Specific Ectopy: None EKG Interpretation: Nml IVCT. Nml QTc. Nml axis. LVH. EKG Comparison: No Significant Change - no change compared to 02/24/17. Re-Evaluation - Re-Evaluation First Eval Re-Evaluation Time: 14:48 Change: Improved Comment: Pt reports feeling better. Lungs are clear now. Second Eval Re-Evaluation Time: 15:36 Change: Unchanged Comment: Pt is still coughing, respirations are unlabored. Heart rate is 110. Pt has just received her diltiazem IV. Third Eval Re-Evaluation Time: 16:58 Comment: I discussed the plan to admit with the pt. Course/Dx - Course Course Of Treatment: Pt medications reviewed this visit. Allergies noted. Chest XR is negative. EKG shows atrial fibrillation at 119 bpm with Nml IVCT. Nml QTc. Nml axis. and LVH. In the ED course, the pt was given diltiazem IV, diltiazem drip, duoneb treatment, solu-medrol, and potassium chloride. Labs show INR of 1.13, troponin is 0.04, BNP is 185. I discussed pt care with Dr. Young, hospitalist, who has agreed to admit the pt. - Diagnoses Provider Diagnoses: COPD exacerbation, Rapid atrial fibrillation - Physician Notifications Discussed Care of Patient With: Dusty Young Time Discussed With Above Provider: 16:14 Instructed by Provider To: Other - I discussed pt care with Dr. Young, hospitalist, who has agreed to admit the pt. - Critical Care Time Critical Care Time: 30-74 min - 30 minutes Discharge - Discharge Plan Condition: Stable Disposition: ADMITTED TO [facility] documentation as recorded by the Ildefonso caldera Angela accurately reflects the service I personally performed and the decisions made by me, Alma Hatch MD.
[2017-09-08] MEDS ORDERED: Mometasone 220 MCG MDI INH SCH (20:00)
--- NOTE | 2017-09-08 20:57 | HP ---
Cc: Dr. Holloway * HISTORY AND PHYSICAL: DATE OF ADMISSION: PRIMARY CARE PROVIDER: Dr. Holloway. HEALTHCARE PROXY: Kenia Stringer" CODE STATUS: DNR. SOURCE OF INFORMATION: History obtained from interview with the patient and review of past medical records. RELIABILITY: Good. CHIEF COMPLAINT: Shortness of breath. HISTORY OF PRESENT ILLNESS: This is a 72-year-old female with past medical history including COPD and CHF, had been in her usual state of health until approximately 4 or 5 days prior to presentation, started to notice increasing cough associated with increasing shortness of breath over the weekend that is not productive of phlegm. The patient noted about 3 or 4 days prior she had fevers, chills and diaphoresis, but no myalgias or arthralgias. No chest pain or lightheadedness. She had a headache and palpitations since 3 days prior to presentation, but no lower extremity swelling, orthopnea or PND or syncope. 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 Today, because of her increasing cough, she presented to Dr. Holloway's office where she was directed to [facility], where again she was found with atrial fibrillation, rapid ventricular response. In the emergency room, she received diltiazem 22 mg IV with improvement in her heart rate as well as received 2 DuoNeb and 125 mg Solu-Medrol. When seen by this author, patient felt that her breathing status was much improved. PAST MEDICAL HISTORY: Include, 1. CAD with a history of a CABG. 2. Paroxysmal atrial fibrillation. 3. Hypothyroidism. 4. GERD. 5. Congestive heart failure. 6. History of CVA - brainstem. 7. COPD. 8. Hypertension. 9. Hyperlipidemia. 10. Migraines. 11. Collagenous colitis. 12. Esophageal stricture. 13. Restless leg syndrome. 14. Depression. 15. Fibromyalgia. 16. History of hysterectomy. MEDICATIONS: Taken from medication list sent from Dr. Holloway's office include: 1. Albuterol 2 puffs every 4 hours as needed. 2. Alprazolam 0.25 mg at bedtime as needed for anxiety. 3. Aspirin 81 mg daily. 4. Biotin at 1000 mcg daily. 5. Carvedilol 12.5 mg twice daily. 6. Cetirizine 10 mg daily. 7. Vitamin D3 at 1000 units daily. 8. Vitamin B12 500 mcg daily. 9. Bentyl 20 mg 4 times daily. 10. Docusate 100 mg twice daily. 11. Eliquis 5 mg twice daily. 12. Esomeprazole 40 mg daily. 13. Fiber daily. 14. Flaxseed oil 1000 mg daily. 15. Fluoxetine 60 mg daily. 16. Fluticasone 44 mcg 2 puffs inhaled twice daily. 17. Glucosamine chondroitin twice daily. 18. Iron 66 mg oral tab daily. 19. Losartan 50 mg daily. 20. Lyrica 50 mg 3 times daily. 21. Multivitamin 1 tab daily. 22. Nitroglycerin 0.4 mg sublingual every 5 minutes as needed for chest pain. 23. Promethazine 0.5 mg at bedtime as needed for nausea. 24. Ropinirole 1 mg at bedtime. 25. Rosuvastatin 40 mg at bedtime. 26. Spironolactone by mouth daily. 27. Tiotropium 1 cap inhaled daily. 28. Ultracet 37.5/325 one tab every 6 hours as needed for pain. 29. Zetia 10 mg at bedtime daily. ALLERGIES: CODEINE. FAMILY HISTORY: Significant for CAD and CHF in her mother and her father. SOCIAL HISTORY: Denies tobacco, alcohol. 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 REVIEW OF SYSTEMS: As per HPI, otherwise all other systems negative. PHYSICAL EXAMINATION GENERAL: Older than stated age, sitting up on bed, interactive, talks in full sentences. No apparent distress. VITAL SIGNS: In the emergency room, 122/83; heart rate 92 when seen by this author, max is 129 on presentation; respiratory rate is 16, 97% on 2 L; T-max 98.7. HEENT: Oropharynx is clear. She has moist mucous membranes. Sclerae are anicteric. NECK: She has non-elevated JVP. She has no cervical or supraclavicular lymphadenopathy. LUNGS: Have diffuse rhonchi throughout on expiration. HEART: She has an irregularly irregular heart rate that is tachycardic. No notable murmurs, rubs, or gallops. ABDOMEN: Soft, nontender, nondistended. EXTREMITIES: Warm, well perfused without clubbing, cyanosis, or edema. NEUROLOGIC: She is alert and oriented x3. Her cranial nerves II through XII are intact. She has no apparent anxiety, agitation or depression. DIAGNOSTIC STUDIES/LAB DATA: Pertinent labs reviewed. Notable for troponin I 0.04, downtrending to 0.03 prior to my presentation. BNP 185, TSH 3.55. Influenza A and B are negative by rapid test. D-dimer is less than 200. White blood cell count of 11.2, hemoglobin 14.3, platelets 219. Chest x-ray official impression: No active cardiopulmonary disease. EKG: Atrial fibrillation, ventricular rate 119, normal interval and axis, late R- wave progression, T-wave inversions in V5 and V6 as well as inferior II, III and aVF. ASSESSMENT AND PLAN: This is 72-year-old female with past medical history of chronic obstructive pulmonary disease and atrial fibrillation with a prodromal illness 5 days prior to presentation including cough, shortness of breath, associated with headaches, rhinorrhea, sore throat and subjective fevers, now found with acute hypoxic respiratory failure in the setting of chronic obstructive pulmonary disease exacerbation and atrial fibrillation with uncontrolled rate. 1. Acute hypoxic respiratory failure. I suspect in the setting of chronic obstructive pulmonary disease exacerbation likely viral. She has received 125 mg of IV methylprednisolone and DuoNeb with some improvement. Continue DuoNeb as well as steroids IV, can titrate to oral tomorrow if continued to be improved. Continue home inhalers for chronic obstructive pulmonary disease. 2. Atrial fibrillation. Continue carvedilol and metoprolol IV for breakthrough tachycardia, heart rate greater than 120 for longer than 20 minutes. Can consider increasing carvedilol or adding Cardizem if needed. 3. Elevated troponin, likely in the setting of demand ischemia in the setting of uncontrolled rate. Now improving. 4. Congestive heart failure, stable. 5. Hypertension. Continue home medications. 6. DVT prophylaxis: Continue Eliquis. 7. Code status: DNR/DNI. I discussed with patient, BORIS completed. [id number]/[facility] #: [id number] KATINA
[2017-09-08] MEDS ORDERED: Ezetimibe TAB* 10 MG PO SCH (21:00)
[2017-09-08] MEDS ORDERED: rOPINIRole TAB* 1 MG PO SCH (21:00)
[2017-09-08] MEDS: methylPREDNISolone SOD 40 MG* 1 ML VIAL IV SCH (21:16)
[2017-09-08] MEDS: Apixaban* 5 MG TAB PO SCH (21:17)
[2017-09-08] MEDS: Pregabalin CAP(*) 50 MG PO SCH (21:17)
[2017-09-08] MEDS: Docusate CAP* 100 MG PO SCH (21:17)
[2017-09-08] MEDS: Dicyclomine CAP* 10 MG PO SCH (21:18)
[2017-09-08] MEDS: Carvedilol TAB* 6.25 MG PO SCH (21:19)
[2017-09-09] MEDS: methylPREDNISolone SOD 40 MG* 1 ML VIAL IV SCH ×2 (04:00→09:15)
[2017-09-09 05:31] LABS: Urine Appearance Cloudy; Urine Blood Negative (Negative); Urine Color Amber; Urine Ketones Negative (Negative); Urine Protein 3+(>=500 mg/dL) (Negative); Urine Specific Gravity 1.032 (1.010-1.030); Urine Urobilinogen Negative (Negative)
[2017-09-09] MEDS ORDERED: Levothyroxine TAB* 100 MCG TAB PO SCH (06:00)
[2017-09-09] MEDS ORDERED: Spiriva Inhaler DEVICE* 1 EACH DEVICE INH ONE (09:00)
[2017-09-09] MEDS ORDERED: FLUoxetine CAP* 20 MG PO SCH ×2 (09:00)
[2017-09-09] MEDS ORDERED: Multivitamins/Minerals TAB PO SCH (09:00)
[2017-09-09] MEDS ORDERED: BIOTIN 10000 MCG PO SCH (09:00)
[2017-09-09] MEDS ORDERED: Aspirin Low Dose CHEW TAB* 81 MG PO SCH (09:00)
[2017-09-09] MEDS ORDERED: Losartan TAB* 25 MG PO SCH (09:00)
[2017-09-09] MEDS ORDERED: Cetirizine* 10 MG TAB PO SCH (09:00)
[2017-09-09] MEDS ORDERED: Tiotropium CAP.INH* CAP.INH/18 MCG (USE ORDER SET !) INH SCH (09:00)
[2017-09-09] MEDS ORDERED: Omeprazole CAP* 20 MG PO SCH (09:00)
[2017-09-09] MEDS ORDERED: Ferrous Sulfate TAB* 325 MG PO SCH (09:00)
[2017-09-09] MEDS ORDERED: Cholecalciferol TAB* 1000 UNITS PO SCH (09:00)
[2017-09-09] MEDS ORDERED: Atorvastatin* 80 MG TAB PO SCH (09:00)
[2017-09-09] MEDS ORDERED: Cyanocobalamin TAB* 500 MCG PO SCH (09:00)
[2017-09-09] MEDS ORDERED: Spironolactone TAB* 25 MG PO SCH (09:00)
[2017-09-09] MEDS: Pregabalin CAP(*) 50 MG PO SCH ×2 (09:18→13:10)
[2017-09-09] MEDS: Apixaban* 5 MG TAB PO SCH (09:18)
[2017-09-09] MEDS: Carvedilol TAB* 6.25 MG PO SCH (09:19)
[2017-09-09] MEDS: Dicyclomine CAP* 10 MG PO SCH ×2 (09:20→13:04)
[2017-09-09] MEDS: Docusate CAP* 100 MG PO SCH (09:21)
[2017-09-09 11:33] VITALS: BP 135/74
[2017-09-09] MEDS ORDERED: Benzocaine/Menthol LOZ* 1 LOZENGE PO PRN (12:27)
[2017-09-09] MEDS ORDERED: Benzonatate CAP* 100 MG PO SCH (13:00)
--- NOTE | 2017-09-10 04:20 | DS ---
CC: Dr. Holloway * DISCHARGE SUMMARY: DATE OF ADMISSION: 09/08/17 DATE OF DISCHARGE: 09/09/17 PRIMARY CARE PROVIDER: Dr. Holloway. PRIMARY DIAGNOSES: 1. Chronic obstructive pulmonary disease exacerbation. 2. Atrial fibrillation with rapid ventricular response. SECONDARY DIAGNOSES: Include: 1. History of coronary artery disease. 2. Hypothyroidism. 3. Gastroesophageal reflux disease. 4. Chronic obstructive pulmonary disease. 5. Hypertension. 6. Hyperlipidemia. 7. Depression. 8. Restless leg syndrome. 9. Fibromyalgia. MEDICATIONS AT DISCHARGE: Unchanged from admission, except for the addition of prednisone 50 mg for five additional days include: 1. Levothyroxine 100 mcg daily. 2. Tramadol/acetaminophen 1 tab every 6 hours as needed for pain. 3. Zetia 10 mg at bedtime. 4. Tiotropium 1 cap inhaled daily. 5. Spironolactone 25 mg daily. 6. Rosuvastatin 40 mg daily. 7. Ropinirole 1 mg at bedtime. 8. Promethazine 12.5 mg at bedtime as needed. 9. Nitroglycerin subinguinal tab 0.4 mg every 5 minutes as needed for pain up to 3 times. 10. Multivitamin 1 tablet daily. 11. Lyrica 50 mg 3 times a day. 12. Losartan 50 mg daily. 13. Ferrous sulfate 66 mg daily. 14. Glucosamine chondroitin 1 tab twice daily. 15. Xanax 0.25 mg at bedtime as needed. 16. Fluticasone 44 mcg 2 puffs twice daily. 17. Prozac 60 mg daily. 18. Flaxseed 1 cap daily. 19. Nexium 40 mg daily. 20. Docusate 100 mg twice daily. 21. Eliquis 5 mg twice daily. 22. Dicyclomine 20 mg 4 times a day. 23. Vitamin B12, 500 mcg daily. 24. Cholecalciferol 1000 units daily. 25. Cetirizine 10 mg daily. 26. Carvedilol 12.5 mg twice daily. 27. Biotin 42640 mcg daily. 28. Aspirin 81 mg daily. 29. Albuterol 2 puffs inhaled every 4 hours as needed. 30. Prednisone 50 mg daily. 31. Tessalon caps 100 mg 3 times daily for next 5 days. 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 She presented to the hospital and was in hypoxic respiratory failure requiring several liters of oxygen. She received steroids as well as DuoNeb with improvement in her breathing. She was observed overnight with continued steroids and respiratory therapy treatments, otherwise no changes to her home medications. On the day of discharge, she was back on room air, able to ambulate around the room, tolerate food, and without distress. She still had a complaint of cough and was started on Tessalon caps for the next 5 days as well as advised to utilize cough drops which were supplied while hospitalized here as well. There were no complications to this patient's hospital stay. Reasons to return to the hospital included but not limited to recurrent or worsening symptoms including worsening shortness of breath, chest pain, nausea, vomiting, lightheadedness, loss of consciousness, near loss of consciousness, fevers, chills, night sweats, and inability to obtain or tolerate medications were discussed with the patient. She acknowledged understanding. At followup please; 1. Evaluate for continued resolution of COPD exacerbation. 2. No other specific labs or vitals that need followup. TIME SPENT: Greater than 45 minutes was spent on the discharge of this patient , greater than half was spent [id number] with the patient. [id number]/[facility] #: [id number] KATINA
== END 2017-09-09 18:30 | disposition home or self-care (01) ==
LOC: ED 12:27 → MEDTELE 17:14
PROVIDERS: ADMIT Internal Medicine; ATTEND Internal Medicine
DX: J44.1 Chronic obstructive pulmonary disease with (acute) exacerbation (principal); I48.91 Unspecified atrial fibrillation; Z79.01 Long term (current) use of anticoagulants; R74.8 Abnormal levels of other serum enzymes; I25.10 Atherosclerotic heart disease of native coronary artery without angina pectoris; I11.0 Hypertensive heart disease with heart failure; I50.9 Heart failure, unspecified; K21.9 Gastro-esophageal reflux disease without esophagitis; E78.5 Hyperlipidemia, unspecified; F32.9 Major depressive disorder, single episode, unspecified; G25.81 Restless legs syndrome; M79.7 Fibromyalgia; Z79.899 Other long term (current) drug therapy; Z86.73 Personal history of transient ischemic attack (TIA), and cerebral infarction without residual deficits
CPT/HCPCS: 36415; 71045; 80053; 81003; 81015; 82550; 82553; 83605; 83735; 83880; 84436; 84443; 84484; 85025; 85060; 85379; 85610; 85730; 87502; 93005; 94640; 96374; 96375; 96376; 99291; A9270-GY; G0378; J2920; J2930

== ENCOUNTER 2018-02-15 18:47 | Emergency (ER) | payer MEDICAID, MEDICARE ==
[2018-02-15] MEDS ORDERED: Morphine VIAL* 4 MG/ML VIAL (1 ml vial) IV ONE (19:51)
[2018-02-15] MEDS ORDERED: Ondansetron ODT TAB* 4 MG PO ONE (19:52)
[2018-02-15 20:17] LABS: ABS Basophils 0 10^3/ul (0-0.2); ABS Eosinophils 0.1 10^3/ul (0-0.6); ABS Lymphocytes 1.8 10^3/ul (1.0-4.8); ABS Monocytes 0.4 10^3/ul (0-0.8); ABS Neutrophils 10.4 10^3/ul (1.5-7.7); ABS Nucleated RBC 0 10^3/ul; Eosinophil % 0.4 % (0-6); Hematocrit 43 % (35-47); Hemoglobin 14.8 g/dl (12.0-16.0); Lymphocyte % 14.2 % (25-47); Mean Corpuscular HGB Conc 35 g/dl (31-36); Mean Corpuscular Hemoglobin 31 pg (27-31); Mean Corpuscular Volume 89 fL (80-97); Mean Platelet Volume 7.7 um3 (7.4-10.4); Nucleated Red Blood Cells % 0; Platelet Count 263 10^3/ul (150-450); Red Blood Count 4.78 10^6/ul (4.00-5.40); Red Cell Distribution Width 13 % (10.5-15); White Blood Count 12.7 10^3/ul (3.5-10.8)
[2018-02-15 20:30] LABS: INR 1.17 (0.77-1.02)
[2018-02-15 20:39] LABS: EGFR Non-African American 62.5 (>60)
[2018-02-15] MEDS ORDERED: Iohexol 300* (CONTRAST) 10 ML SDV IV ONE (20:47)
--- NOTE | 2018-02-15 21:49 | RAD ---
CLINICAL HISTORY: Abdominal pain and vomiting. Relevant surgical history includes a hysterectomy and bypass surgery. COMPARISON: Most recent comparison CT examination is dated February 25, 2017 TECHNIQUE: Contrast enhanced CT examination of the abdomen and pelvis from the lung bases through the initial tuberosities. The patient received 100 mL Omnipaque 300 intravenously prior to imaging.The patient received oral contrast as well prior to imaging. FINDINGS: Unless otherwise specified comparisons below reference to February 25, 2017 CT of the abdomen and pelvis VISUALIZED LUNG BASES: The visualized lung bases are grossly clear. There is no pleural effusion. ABDOMEN AND PELVIS: There is a small hiatal hernia. The liver, spleen, pancreas and adrenal glands are grossly normal in appearance. The gallbladder is normal. There are low-attenuation lesions in the bilateral kidneys unchanged from the prior CT examination. Otherwise the kidneys are normal in appearance without focal mass, calcification or signs of hydronephrosis. Evaluation of the gastrointestinal tract is limited without oral contrast. The proximal small bowel is fluid-filled and mildly dilated up to 2.6 cm in diameter. In the left upper quadrant there is a loop of small bowel with wall thickening up to 8 millimeters in thickness (axial image 28). In this same area there is distention of the mesenteric root and infiltration of the mesenteric fat (for example coronal image 41). More distally the colon is mostly decompressed and partially filled with stool and gas. There are scattered rectosigmoid diverticula but none exhibit focal inflammatory change. There is no free air in the peritoneal cavity. There is trace peritoneal ascites in the low abdomen and pelvis. There is no gross retroperitoneal or mesenteric lymphadenopathy. The pelvic viscera is normal in appearance. The coarsely calcified abdominal aorta and iliac arteries are normal in course and diameter. Degenerative changes include multilevel loss of intervertebral disc height involving the lower thoracic and lumbar spine.There are no sinister bone lesions. IMPRESSION: 1. CT findings are most consistent with proximal enterocolitis either of an infectious or inflammatory etiology. Neoplasm is considered as well. 2. Stable hypoattenuating foci in the kidneys have Hounsfield units slightly greater than that of simple cysts. On a nonemergent basis these can be further characterized with renal ultrasound.
[2018-02-15] MEDS ORDERED: Levofloxacin TAB* 500 MG PO ONE (21:51)
[2018-02-15] MEDS ORDERED: metroNIDAZOLE TAB* 250 MG PO ONE (21:52)
[2018-02-15 21:53] VITALS: BP 140/92
--- NOTE | 2018-02-15 22:15 | ED ---
Kirti Acosta Emily, scribed for Billy Jo MD on 02/15/18 at 1954 . Abdominal Pain/Female - HPI Summary HPI Summary: This patient is a 72 year old F presenting to [facility] with a chief complaint of LLQ abd pain radiating to RLQ that began at 1600 today. The patient rates the pain 10/10 in severity. Symptoms aggravated by nothing. Symptoms alleviated by nothing. Patient reports vomiting, skin diaphoresis, and chills. Patient states she has a history of colitis, and believes this is related. - History of Current Complaint Chief Complaint: EDAbdPain Stated Complaint: ABD PAIN/VOMITING Time Seen by Provider: 02/15/18 19:42 Hx Obtained From: Patient ?: No Onset/Duration: Sudden Onset, Lasting Hours, Still Present Timing: Constant Severity Initially: Severe Severity Currently: Severe Pain Intensity: 10 Pain Scale Used: 0-10 Numeric Location: Discrete At: LLQ Radiates: Yes Radiates to: RLQ Aggravating Factor(s): Nothing Alleviating Factor(s): Nothing Associated Signs and Symptoms: Positive: Vomiting, Other: - Positive chills and skin diaphoresis Allergies/Adverse Reactions: Allergies Allergy/AdvReac Type Severity Reaction Status Date / Time codeine Allergy Unknown Verified 02/15/18 20:00 Reaction Details Home Medications: Home Medications Apixaban* [Eliquis*] 5 mg PO BID 02/15/18 [History Confirmed 02/15/18] Aspirin EC TAB* [Ecotrin EC Low Dose 81 MG*] 81 mg PO DAILY 02/15/18 [History Confirmed 02/15/18] Biotin 1 mg PO DAILY 02/15/18 [History Confirmed 02/15/18] Calcium Polycarbophil TAB* [Fibercon TAB*] 625 mg PO DAILY 02/15/18 [History Confirmed 02/15/18] Carvedilol TAB* [Coreg TAB*] 12.5 mg PO BID 02/15/18 [History Confirmed 02/15/18 ] Cetirizine* [ZyrTEC 10 MG TAB*] 10 mg PO DAILY 02/15/18 [History Confirmed 02/15] Cholecalciferol TAB* [Vitamin D TAB*] 1,000 unit PO DAILY 02/15/18 [History Confirmed 02/15/18] Cyanocobalamin TAB* [Vitamin B12 TAB*] 500 mcg PO DAILY 02/15/18 [History Confirmed 02/15/18] Dicyclomine CAP* [Bentyl CAP*] 20 mg PO QID 02/15/18 [History Confirmed 02/15/18 ] Esomeprazole(NF) [NexIUM(NF)] 40 mg PO DAILY 02/15/18 [History Confirmed ] Ezetimibe TAB* [Zetia TAB*] 10 mg PO DAILY 02/15/18 [History Confirmed 02/15/18] FLUoxetine CAP* [PROzac CAP*] 60 mg PO DAILY 02/15/18 [History Confirmed ] Ferrous Sulfate TAB* 325 mg PO DAILY 02/15/18 [History Confirmed 02/15/18] Flaxseed Oil 1,000 mg PO DAILY 02/15/18 [History Confirmed 02/15/18] Glucosamine CAP (NF) 1,000 cap PO TID 02/15/18 [History Confirmed 02/15/18] Levothyroxine TAB* [Synthroid TAB*] 112 mcg PO DAILY 02/15/18 [History Confirmed 02/15/18] Losartan TAB* [Cozaar TAB*] 50 mg PO DAILY 02/15/18 [History Confirmed 02/15/18] Multivitamins/Minerals TAB* [Theragran/minerals TAB*] 1 tab PO DAILY 02/15/18 [ History Confirmed 02/15/18] Pregabalin CAP(*) [Lyrica CAP(*)] 50 mg PO TID 02/15/18 [History Confirmed 02/15] Rosuvastatin (NF) [Crestor (NF)] 40 mg PO DAILY 02/15/18 [History Confirmed ] Spironolactone TAB* [Aldactone TAB*] 25 mg PO DAILY 02/15/18 [History Confirmed 02/15/18] Tiotropium CAP.INH* [Spiriva CAP.INH*] 1 cap.inh INH DAILY 02/15/18 [History Confirmed 02/15/18] rOPINIRole TAB* [Requip TAB*] 1 mg PO DAILY 02/15/18 [History Confirmed 02/15/18 ] PMH/Surg Hx/FS Hx/Imm Hx Previously Healthy: No Endocrine/Hematology History: Reports: Hx Thyroid Disease Denies: Hx Diabetes Cardiovascular History: Reports: Hx Atrial Fibrillation, Hx Congestive Heart Failure, Hx Coronary Artery Disease, Hx Hypertension Denies: Hx Peripheral Vascular Disease Respiratory History: Reports: Hx Chronic Obstructive Pulmonary Disease (COPD), Hx Pneumonia GI History: Reports: Hx Diverticulosis, Hx Gastroesophageal Reflux Disease, Other GI Disorders - esophageal stricture History: Denies: Hx Dialysis, Hx Renal Disease Musculoskeletal History: Reports: Hx Fibromyalgia, Other Musculoskeletal History - restless leg Denies: Hx Arthritis, Hx Osteoporosis Sensory History: Reports: Hx Contacts or Glasses Denies: Hx Hearing Aid Opthamlomology History: Reports: Hx Contacts or Glasses Neurological History: Reports: Hx CVA, Hx Transient Ischemic Attacks (TIA) Denies: Hx Seizures Psychiatric History: Reports: Hx Depression - Surgical History Surgery Procedure, Year, and Place: bypass surgery 1999; HYSTERECTOMY Hx Anesthesia Reactions: No - Immunization History Date of Tetanus Vaccine: PT STATES UNSURE Date of Influenza Vaccine: NONE Infectious Disease History: No Infectious Disease History: Denies: Hx of Known/Suspected MRSA, Hx Shingles, Hx Tuberculosis, Traveled Outside the [place] in Last 30 Days - Family History Known Family History: Positive: Other - CA Negative: Cardiac Disease, Hypertension, Diabetes - Social History Occupation: Retired Lives: Alone Alcohol Use: None Hx Substance Use: No Substance Use Type: Reports: None Hx Tobacco Use: No Smoking Status (MU): Never Smoked Tobacco Review of Systems Positive: Chills, Skin Diaphoresis Positive: Abdominal Pain, Vomiting All Other Systems Reviewed And Are Negative: Yes Physical Exam - Summary Physical Exam Summary: VITAL SIGNS: Reviewed. GENERAL: Patient is a well-developed and nourished female who is lying comfortable in the stretcher. Patient is not in any acute respiratory distress. HEAD AND FACE: No signs of trauma. No ecchymosis, hematomas or skull depressions. No sinus tenderness. EYES: PERRLA, EOMI x 2, No injected conjunctiva, no nystagmus. EARS: Hearing grossly intact. Ear canals and tympanic membranes are within normal limits. MOUTH: Oropharynx within normal limits. NECK: Supple, trachea is midline, no adenopathy, no JVD, no carotid bruit, no c- spine tenderness, neck with full ROM. CHEST: Symmetric, no tenderness at palpation LUNGS: Clear to auscultation bilaterally. No wheezing or crackles. CVS: Irregularly irregular rhythm, S1 and S2 present, no murmurs or gallops appreciated. ABDOMEN: Soft, tenderness over LLQ. No signs of distention. No rebound no guarding, and no masses palpated. Hypoactive bowel sounds EXTREMITIES: FROM in all major joints, no edema, no cyanosis or clubbing. NEURO: Alert and oriented x 3. No acute neurological deficits. Speech is normal and follows commands. SKIN: Dry and warm Triage Information Reviewed: Yes Vital Signs On Initial Exam: Initial Vitals Temp Pulse Resp BP Pulse Ox 98 F 71 17 144/89 100 02/15/18 18:49 02/15/18 18:49 02/15/18 18:49 02/15/18 18:49 02/15/18 18:49 Vital Signs Reviewed: Yes Diagnostics - Vital Signs Vital Signs Temp Pulse Resp BP Pulse Ox 02/15/18 18:49 98 F 71 17 144/89 100 - Laboratory Result Diagrams: 02/15/18 20:09 02/15/18 20:09 Lab Statement: Any lab studies that have been ordered have been reviewed, and results considered in the medical decision making process. - CT Abdomen/Pelvis CT CT Interpretation Completed By: Radiologist - Abdomen/Pelvis CT reveals, per radiologist, 1. CT findings are most consistent with proximal enterocolitis either of an infectious or inflammatory etiology. Neoplasm is considered as well. 2. Stable hypoattenuating foci in the kidneys have Hounsfield units slightly greater than that of simple cysts. On a nonemergent basis these can be further characterized with renal ultrasound. ED physician has reviewed this radiology report. - EKG 1954 Cardiac Rate: NL - 69 BPM EKG Rhythm: Atrial Fibrillation EKG Interpretation: Normal axis. No ischemic changes. Re-Evaluation - Re-Evaluation First Eval Re-Evaluation Time: 22:04 Change: Improved Comment: Discussed results and plan of care with pt Abdominal Pain Fem Course/Dx - Course Course Of Treatment: This patient is a 72 year old F presenting to [facility] with a chief complaint of LLQ abd pain radiating to RLQ that began at 1600 today. Patient states she has a history of colitis, and believes this is related. Abdomen/Pelvis CT reveals, per radiologist, 1. CT findings are most consistent with proximal enterocolitis either of an infectious or inflammatory etiology. Neoplasm is considered as well. 2. Stable hypoattenuating foci in the kidneys have Hounsfield units slightly greater than that of simple cysts. On a nonemergent basis these can be further characterized with renal ultrasound. Blood work and UA obtained. In the ED course the patient was given morphine, Zofran, contrast, Flagyl, and Levaquin. Patient will be discharged with follow up from PCP. The patient is agreeable with this plan. - Diagnoses Provider Diagnoses: Enterocolitis Discharge - Sign-Out/Discharge Documenting (check all that apply): Discharge/Admit/Transfer - Discharge home - Discharge Plan Condition: Stable Disposition: HOME Patient Education Materials: Colitis (ED) Referrals: Rashmi Holloway MD [Primary Care Provider] - 3 Days Additional Instructions: RETURN TO THE EMERGENCY DEPARTMENT FOR NEW OR WORSENING SYMPTOMS The documentation as recorded by the Kirti caldera Emily accurately reflects the service I personally performed and the decisions made by Sandro flores Abdul, MD.
== END 2018-02-15 22:32 | disposition home or self-care (01) ==
LOC: ED 18:47
DX: K52.9 Noninfective gastroenteritis and colitis, unspecified (principal); I48.91 Unspecified atrial fibrillation; I11.0 Hypertensive heart disease with heart failure; I50.9 Heart failure, unspecified; E07.9 Disorder of thyroid, unspecified; Z86.73 Personal history of transient ischemic attack (TIA), and cerebral infarction without residual deficits; Z79.899 Other long term (current) drug therapy; Z88.5 Allergy status to narcotic agent
CPT/HCPCS: 36415; 74177; 80053; 82150; 83605; 83690; 84702; 85025; 85610; 85730; 86140; 93005; 96374; 99283; A9270-GY; J2270; Q9967

== ENCOUNTER 2018-02-16 09:02 | Inpatient (IN) | payer MEDICARE ==
[2018-02-16] MEDS ORDERED: Ciprofloxacin 400MG IVPREMIX(* 400 MG/200 ML BAG IVPB ONE (10:04)
[2018-02-16] MEDS ORDERED: metroNIDAZOLE IV 500 MG/100ML* 500 MG/100 ML BAG IVPB ONE (10:05)
[2018-02-16] MEDS ORDERED: NS 0.9% 1000 ML* 1,000 ML IV ONE ×2 (10:11→11:14)
[2018-02-16 12:11] LABS: ABS Basophils 0.1 10^3/ul (0-0.2); ABS Eosinophils 0 10^3/ul (0-0.6); ABS Lymphocytes 1.9 10^3/ul (1.0-4.8); ABS Monocytes 1.1 10^3/ul (0-0.8); ABS Neutrophils 13.7 10^3/ul (1.5-7.7); ABS Nucleated RBC 0 10^3/ul; Eosinophil % 0.1 % (0-6); Hematocrit 42 % (35-47); Hemoglobin 14.5 g/dl (12.0-16.0); Mean Corpuscular HGB Conc 34 g/dl (31-36); Mean Corpuscular Hemoglobin 30 pg (27-31); Mean Corpuscular Volume 89 fL (80-97); Mean Platelet Volume 8.5 um3 (7.4-10.4); Nucleated Red Blood Cells % 0; Platelet Count 258 10^3/ul (150-450); Red Blood Count 4.75 10^6/ul (4.00-5.40); Red Cell Distribution Width 13 % (10.5-15); White Blood Count 16.8 10^3/ul (3.5-10.8)
[2018-02-16 12:47] LABS: EGFR Non-African American 61.7 (>60)
[2018-02-16] MEDS ORDERED: Potassium Chloride LIQUID* 20 MEQ PACKET PO ONE (13:43)
[2018-02-16] MEDS ORDERED: Morphine VIAL* 4 MG/ML VIAL (1 ml vial) IV PRN (13:52)
[2018-02-16] MEDS ORDERED: Acetaminophen TAB* 325 MG PO PRN (13:52)
[2018-02-16] MEDS ORDERED: Magnesium Hydroxide LIQ* 30 ML UDC PO PRN (13:52)
[2018-02-16] MEDS ORDERED: Ondansetron 40 MG VIAL* 2 MG/ML 20 ML VIAL IV PRN (13:52)
[2018-02-16] MEDS ORDERED: Al Hydrox/Mg Hydrox/Simet LIQ* 30 ML UDC PO PRN (13:52)
[2018-02-16] MEDS ORDERED: Albuterol 2.5 MG/3 ML NEB.SOL* (0.083%) INH PRN (13:52)
[2018-02-16] MEDS ORDERED: oxyCODONE/Acetamin 5/325 MG* TAB PO PRN (14:00)
[2018-02-16] MEDS ORDERED: KCL 10 MEQ/50 ML IVPREMIX* 10 MEQ/50 ML BAG IV SCH (14:00)
[2018-02-16] MEDS: KCL 20 MEQ/100 ML IVPREMIX* 20 MEQ/100 ML BAG IV SCH ×3 (14:21→21:43)
--- NOTE | 2018-02-16 17:09 | HP ---
CC: Dr. Holloway; Dr. Kingsley, GI from [facility]. * ADMISSION HISTORY AND PHYSICAL: DATE OF ADMISSION: 02/16/18 PATIENT OF: Dusty Young MD ATTENDING HOSPITALIST: Dr. Young.* (DICTATED BY RADHA SANTIAGO) PRIMARY CARE PHYSICIAN: Dr. Hloloway. PRIMARY INFANT ROOM TEACHER: Dr. Kingsley from [facility]. CHIEF COMPLAINT: Abdominal pain and rectal bleed. HISTORY OF PRESENT ILLNESS: Mrs. Quan is a 72-year-old female with multiple past medical problems including COPD, CHF, hypertension, congestive heart failure, and paroxysmal atrial fibrillation who presented to the emergency room earlier this morning with complaints of left lower quadrant abdominal pain and passing dark clotted stool earlier this morning. The patient apparently was in the emergency room last night for evaluation of abdominal pain. She had laboratory workup and CT scan of the abdomen and pelvis that was consistent with colitis for which she was given a script for Na Lew, and was discharged home. The patient notes that she went home and slept reasonably and she got up this morning with more abdominal cramping mostly localized to her periumbilical and left lower quadrant area and then had a bowel movement that was loose with a lot of melena, tarry black stools, and described also blood clots. She notes associated dizziness with that episode but denied any syncope , chest pain, palpitation, or shortness of breath. She returned to the emergency room for evaluation and had laboratory workup that showed elevated white count of 16,000; however, stable hemoglobin and hematocrit of 14.5 and 42 respectively. It is also noted that the patient has a history of chronic atrial fibrillation for which she has been on Eliquis. She denies any easy bleeding, bruising, or hematuria. She had an EKG that was consistent with atrial fibrillation and no significant changes compared to prior studies. She was also noted to have severe hypokalemia with potassium of 1.7 which is being supplemented at the time of admission. Given her ongoing symptoms and her return to the emergency room with worsening abdominal pain as well as passing clots and known history of colitis, we were asked to see the patient to consider admission and to obtain a GI consult. At the time of admission, she appears to be very comfortable. She denies any significant abdominal pain or passing any blood clots since 6 o'clock this morning. PAST MEDICAL HISTORY: Multiple issues includin. Coronary artery disease with history of CABG. 2. Paroxysmal atrial fibrillation. 3. GERD. 4. Congestive heart failure. 5. History of CVA of the brain stem. 6. GERD. 7. Hypertension. 8. COPD. 9. Hyperlipidemia. 10. History of migraine headaches. 11. History of collagenous colitis. 12. Esophageal stricture. 13. Restless leg syndrome. 14. Depression. 15. Fibromyalgia PAST SURGICAL HISTORY: Significant for coronary artery bypass graft as well as history of hysterectomy in the remote past. CURRENT MEDICATIONS: Her medications at home are multiple includin. Eliquis 5 mg p.o. b.i.d. 2. Aspirin 81 mg p.o. daily. 3. Biotin 1 mg p.o. daily. 4. Fibercon 625 mg p.o. daily. 5. Coreg 12.5 mg p.o. b.i.d. 6. Zyrtec 10 mg p.o. daily. 7. Vitamin D tablets 1000 units p.o. daily. 8. Vitamin B12 at 500 mcg p.o. daily. 9. Bentyl 20 mg p.o. 4 times a day. 10. Nexium 40 mg p.o. daily. 11. Zetia 10 mg p.o. daily. 12. Ferrous sulfate 325 mg p.o. daily. 13. Flax seed oil 1000 mg p.o. daily. 14. Prozac 60 mg p.o. daily. 15. Glucosamine chondroitin caps 1000 mg p.o. t.i.d. 16. Synthroid 112 mcg p.o. daily. 17. Cozaar 50 mg p.o. daily. 18. Multivitamin with minerals 1 tablet p.o. daily. 19. Lyrica 50 mg p.o. t.i.d. 20. Requip 1 mg p.o. daily. 21. Crestor 40 mg p.o. daily. 22. Aldactone 25 mg p.o. daily. 23. Spiriva inhaler 1 cap inhaled 18 mcg once daily. She was discharged home last night on: 1. Levaquin 500 mg p.o. daily. 2. Flagyl 500 mg p.o. t.i.d. 3. Percocet 5/325 one tablet q. 6 hours as needed for pain. ALLERGIES: She is allergic to CODEINE. FAMILY HISTORY: Significant for coronary artery disease. CHF in her mother and her father. SOCIAL HISTORY: The patient is a nonsmoker who denies alcohol intake. 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 REVIEW OF SYSTEMS: See HPI, otherwise 14-point review of systems were done and were essentially negative. PHYSICAL EXAMINATION GENERAL: She is a pleasant elderly female appears comfortable and in no acute distress or discomfort at the time of admission VITAL SIGNS: Revealed blood pressure 113/95, pulse of 101, temperature of 97.8 , respirations of 16, and O2 sat of 98% on room air. HEENT: Head is normocephalic and atraumatic. Sclerae anicteric. PERRLA. EOMs intact. Oropharynx is pink and moist. NECK: Supple. Trachea midline. No cervical adenopathy or thyromegaly. LUNGS: Clear to auscultation bilaterally. HEART: Irregular, rate, and rhythm; however, no murmurs, rubs, or gallops. BACK: Normal curvature. No CVA tenderness. ABDOMEN: Soft and nondistended. There is mild periumbilical and left lower quadrant tenderness on deep palpation with some guarding, but no rigidity, rebound tenderness, or tympany. There is no hernias, masses, or hepatosplenomegaly. BREAST: Deferred at this time. EXTREMITIES: Without cyanosis, clubbing, or edema. RECTAL: Deferred at this time pending GI consultation and to check for occult blood in stool. NEUROLOGIC: She is awake and alert x3 and otherwise neurological exam is grossly normal. LABORATORY WORKUP: Her labs today revealed elevated white count of 16,800, hemoglobin 14.5, hematocrit of 42, and platelets of 258. Chemistry with sodium of 139, potassium 1.7 which is being replaced at the time of admission, CO2 of 18, chloride 108, BUN 39, and creatinine of 0.9. Her lactic acid is 0.6. LFTs essentially within normal limits. Troponin 0.01. C-reactive protein elevated at 48.4. ACCESSORY DIAGNOSTIC DATA: Her EKG today show evidence of atrial fibrillation, unchanged from prior exam. There is no ST changes and CT scan done last night with evidence of proximal enterocolitis either of an infectious or inflammatory etiology; however, a neoplasm should be considered as well. It is to be noted that the patient informed me that her last colonoscopy by Dr. Kingsley was done in May of last year and was essentially normal. ASSESSMENT: A 72-year-old female with multiple medical issues who presented to the emergency room earlier today for the second time in the last 24 hours with complaints of lower abdominal pain, new onset melena, with passing blood clots, as well as dizziness, and CT scan finding from yesterday consistent with colitis. PLAN/RECOMMENDATIONS: 1. Colitis. The patient will be admitted under medical services for IV fluid hydration and correction of hypokalemia. At this time, I will maintain her on clear liquid diet and we will continue her Cipro and Flagyl intravenously. Her pain is well under control; however, we will provide analgesic and antiemetic as needed for symptomatic management. ED providers have already contacted Dr. Monet who will come to evaluate the patient later today and we will await GI recommendation regarding her known history of colitis. From a hemodynamic standpoint, she appears to be hemodynamically stable. However, we will continue to monitor her hemoglobin and hematocrit likely every 12 hours or if she passes another large amount of clots per rectum. Again she has not had any evidence of rectal bleed since 6 o'clock this morning when she presented to the emergency room. We will hold her Eliquis and aspirin for the time being awaiting GI recommendation, so, we can avoid any worsening lower GI bleed. 2. Atrial fibrillation. We will continue her carvedilol and may use metoprolol for breakthrough tachycardia for any heart rate greater than 120 if it is longer than 20 minutes or it becomes symptomatic. 3. Congestive heart failure. Currently stable, not an issue during this admission. 4. Hypertension. Appears to be normotensive at this time. Will continue her home medication. 5. Restless leg syndrome. Will continue her Requip. 6. Hypokalemia, likely in accounts of diarrhea, possible vomiting, and dehydration. We will replace her potassium both in p.o. and IV run format and recheck her labs in the morning. The patient will be admitted to telemetry unit given her severe hypokalemia for closed monitoring. 7. Hyperlipidemia. Will continue her statin. 8. DVT prophylaxis. For the time being will use SCDs and Eliquis will be on hold due to her recent episode of lower GI bleed and we will not resume it until we discuss with GI 9. Code status. She is DNR and her MOLST form has been completed prior to this partial admission and is updated. 10. Disposition. Admission to telemetry for close observation, H and H monitoring, pain control, and await GI consultation of colitis causing abdominal pain and an episode of lower GI bleed. TIME SPENT: Approximately 60 minutes was spent omitting this patient with greater than 50% spent obtaining history and performing physical exam. I have discussed the case with Dr. Young who agrees to plans of care RADHA SANTIAGO [id number]/CPS #: [id number] KATINA
[2018-02-16] MEDS: NS 0.9% 1000 ML* 1,000 ML IV SCH (17:16)
[2018-02-16] MEDS: Pregabalin CAP(*) 50 MG PO SCH ×2 (17:19→21:44)
[2018-02-16] MEDS: Dicyclomine CAP* 10 MG PO SCH ×2 (17:20→21:44)
[2018-02-16 18:54] LABS: Urine Appearance Cloudy; Urine Blood 3+ (Negative); Urine Color Yellow; Urine Ketones Negative (Negative); Urine Protein Negative (Negative); Urine Red Blood Cell 2+(6-10/hpf) (Absent); Urine Specific Gravity 1.049 (1.010-1.030); Urine Urobilinogen Negative (Negative); Urine White Blood Cell Trace(0-5/hpf) (Absent)
[2018-02-16 19:28] LABS: Hematocrit 38 % (35-47); Hemoglobin 12.9 g/dl (12.0-16.0)
[2018-02-16] MEDS ORDERED: Losartan TAB* 25 MG PO ONE (20:35)
[2018-02-16] MEDS: metroNIDAZOLE IV 500 MG/100ML* 500 MG/100 ML BAG IVPB SCH (21:43)
[2018-02-16] MEDS: Carvedilol TAB* 6.25 MG PO SCH (21:44)
--- NOTE | 2018-02-16 22:12 | CONS ---
GASTROENTEROLOGY CONSULTATION: DATE: 02/16/18 CONSULTING PHYSICIAN: Dusty Young REASON FOR CONSULTATION: Loose stools and passing blood with abdominal pain beginning [address] scan showing thickening of proximal bowel loops. HISTORY OF PRESENT ILLNESS: This 72-year-old woman with history of vascular disease and obesity on Eliquis for a fib also has had collagenous colitis ( [facility] colon exam 2013?), colon polyps and functional bowel complaints. She is a poor historian but developed abdominal pain and urgent stools. Since this continued for number of hours, she came to the emergency room. She is afebrile with a somewhat elevated white count. She gives a history of collagenous colitis diagnosed by Dr. Frazier 4 or 5 years ago, for which she takes dicyclomine 3 or 4 times a day and she has been provided a p.r.n. supply of another medicine she does not know. She has not used it. She had a followup colonoscopy May 2017 stating "because Dr. Holloway ordered it." She is not aware that there were new problems then and there was no bleeding. She believes there were not any findings either, but is not really sure. She began having episodes of vomiting and loose stools concurrently a few months ago. She saw a nurse practitioner affiliated with Dr Kingsley and at that time stool softeners were discontinued. She then spontaneously commented she found it surprising she was taking them. She has set up to see Dr Kingsley in a couple of weeks. She is not sure why she would not be seeing Dr. Frazier. PAST MEDICAL HISTORY: 1. Morbid obesity. 2. History of CVA 1996. 3. History of renal stone - nonobstructing February [address] 4. Chronic pain syndrome 5. Fibromyalgia 6. Hypothyroidism. 7. Colon polyps - details on request. 8. Coronary artery disease - status post coronary bypass 1999. 9. History of GERD, status post balloon dilatation EG junction stricture 2006. 10. Atrial fibrillation - on Eliquis. Meds - at home 15-16 meds -of GI relevance include Nexium 40 mg, Ferrous sulfate NSAIDs denied though unclear FAMILY HISTORY: Coronary disease in her parents and several brothers have had congestive heart failure. There is no family history of colon cancer. SOCIAL HISTORY: She lives alone and is . Her only child a daughter lives in [place] and is estranged from her secondary to an argument with her father that remains. REVIEW OF SYSTEMS: No history of seizures, alcohol abuse, recent CVA, or TIA, hepatitis, jaundice, gastric polyp, psoriasis, chronic dermatologic disease or abdominal explorations. PHYSICAL EXAM: She is an awake and pleasant and cooperative morbidly obese woman in the emergency room in no overt distress. She says her abdomen is feeling better. She is not nauseated. HEENT exam is unremarkable. She has no adenopathy. Her lungs are clear. Her heart sounds are irregular. Her abdomen is obese with panniculus, symmetric with normal bowel sounds, somewhat distant given her body configuration. The abdomen is diffusely tender to deep palpation , but there is no localization. Rectal deferred. Extremities show 1+ edema bilaterally. Neurologic is nonfocal when examined on the bed. Cranial nerves are symmetric. DIAGNOSTIC STUDIES/LAB DATA: WBC 16.8, hemoglobin 12.9, MCV 89 BUN 39 (had been 31 02/15) INR 1.14 CRP 48.44 Alb 4.0 IMPRESSION: This 72-year-old woman with history of coronary disease and cerebrovascular accident and extensive vascular calcification in the abdominal aorta presents with abdominal pain and rectal bleeding and her CRP is up. Ischemic colitis seems most compatible with that combination of symptoms. A diverticular bleed is possible and as she has functional bowel tendencies to begin with the timing of stool passage may be atypical. Her hemoglobin has not fallen much and the bleeding has extinguished, which would also favor the ischemic colitis. Collagenous colitis and colon polyps generally would not give this sort of presentation though the collagenous colitis and outpt iron therapy could affect GI motility and affect symptoms for a given acute entity. An unprepped flexible sigmoidoscopy will be useful, trying to get her [facility] records is important. [id number]/[facility] #: [id number] [facility]
[2018-02-16] MEDS: Ciprofloxacin 400MG IVPREMIX(* 400 MG/200 ML BAG IVPB SCH (22:42)
[2018-02-16] MEDS ORDERED: Diltiazem IV* 5 MG/ML 5 ML VIAL (for loading dose/IV Push) (25 MG) IV SLOW PU ONE (23:28)
[2018-02-17] MEDS: metroNIDAZOLE IV 500 MG/100ML* 500 MG/100 ML BAG IVPB SCH ×3 (05:24→22:19)
[2018-02-17 05:34] LABS: ABS Basophils 0 10^3/ul (0-0.2); ABS Eosinophils 0.1 10^3/ul (0-0.6); ABS Lymphocytes 1.7 10^3/ul (1.0-4.8); ABS Monocytes 1.4 10^3/ul (0-0.8); ABS Neutrophils 9.7 10^3/ul (1.5-7.7); ABS Nucleated RBC 0 10^3/ul; Eosinophil % 0.8 % (0-6); Hematocrit 34 % (35-47); Hemoglobin 11.6 g/dl (12.0-16.0); Lymphocyte % 13.2 % (25-47); Mean Corpuscular HGB Conc 34 g/dl (31-36); Mean Corpuscular Hemoglobin 31 pg (27-31); Mean Corpuscular Volume 90 fL (80-97); Mean Platelet Volume 7.7 um3 (7.4-10.4); Nucleated Red Blood Cells % 0.1; Platelet Count 203 10^3/ul (150-450); Red Blood Count 3.75 10^6/ul (4.00-5.40); Red Cell Distribution Width 14 % (10.5-15); White Blood Count 12.9 10^3/ul (3.5-10.8)
[2018-02-17] MEDS: Levothyroxine TAB* 112 MCG TAB PO SCH (05:40)
[2018-02-17 06:00] LABS: EGFR Non-African American 78.6 (>60)
[2018-02-17] MEDS: Spironolactone TAB* 25 MG PO SCH (07:29)
[2018-02-17] MEDS: Cyanocobalamin TAB* 500 MCG PO SCH (07:29)
[2018-02-17] MEDS: FLUoxetine CAP* 20 MG PO SCH (07:29)
[2018-02-17] MEDS: rOPINIRole TAB* 1 MG PO SCH (07:29)
[2018-02-17] MEDS: Ezetimibe TAB* 10 MG PO SCH (07:29)
[2018-02-17] MEDS: Carvedilol TAB* 6.25 MG PO SCH ×2 (07:29→22:17)
[2018-02-17] MEDS: Ferrous Sulfate TAB* 325 MG PO SCH (07:30)
[2018-02-17] MEDS ORDERED: Omeprazole CAP* 20 MG PO SCH (07:30)
[2018-02-17] MEDS: Atorvastatin* 80 MG TAB PO SCH (07:30)
[2018-02-17] MEDS: Cetirizine* 10 MG TAB PO SCH (07:30)
[2018-02-17] MEDS: Dicyclomine CAP* 10 MG PO SCH ×4 (07:30→22:18)
[2018-02-17] MEDS: Cholecalciferol TAB* 1000 UNITS PO SCH (07:31)
[2018-02-17] MEDS: Pregabalin CAP(*) 50 MG PO SCH ×3 (07:31→22:18)
[2018-02-17] MEDS: Multivitamins/Minerals TAB PO SCH (07:31)
[2018-02-17] MEDS: Losartan TAB* 25 MG PO SCH (07:32)
[2018-02-17] MEDS ORDERED: Spiriva Inhaler DEVICE* 1 EACH DEVICE INH ONE (09:00)
[2018-02-17] MEDS: Tiotropium CAP.INH* CAP.INH/18 MCG (USE ORDER SET !) INH SCH (09:32)
[2018-02-17] MEDS: Ciprofloxacin 400MG IVPREMIX(* 400 MG/200 ML BAG IVPB SCH ×2 (11:07→23:55)
[2018-02-17] MEDS: NS 0.9% 1000 ML* 1,000 ML IV SCH (11:07)
--- NOTE | 2018-02-17 12:20 | ED ---
Ildefonso Acosta Angela, scribed for Layo Crawford MD on 02/16/18 at 0948 . GI/ HPI - HPI Summary HPI Summary: This pt is a 72 y/o female presenting to [facility] c/o bloody stools since 06:00 this morning. Pt reports she was in the ED yesterday for abdominal pain, was given antibiotics and was discharged home at approximately 22:00. This morning her abd pain continued and it is currently constant. She rates her abd pain 5/ 10 in severity. Pt describes bloody stools as heavy bleeding with dark red blood and "almost black" blood. Additionally reports weakness, lightheadedness, and fatigue. Denies diarrhea, loose stools. She states at the end of the day yesterday she felt dizzy and fell down. Denies syncope, head strike or LOC. Pt has hx of collagenous colitis. She has not made an appointment with GI yet. She takes 81 mg of aspirin every day. - History of Current Complaint Time Seen by Provider: 02/16/18 09:17 Stated Complaint: RECTAL BLEEDING Hx Obtained From: Patient Onset/Duration: Started Hours Ago, Still Present Timing: Lasting Hours Current Severity: Moderate - 5/10 Pain Intensity: 5 Location of Pain: Diffuse Associated Signs and Symptoms: Positive: Black Tarry Stool, Blood w/Stool, Abdominal Pain. Negative: Nausea, Vomiting, Diarrhea, Fever, Chills Aggravating Factor(s): Nothing Alleviating Factor(s): Nothing - Additional Pertinent History Primary Care Physician: JORDAN - Allergy/Home Medications Allergies/Adverse Reactions: Allergies Allergy/AdvReac Type Severity Reaction Status Date / Time codeine Allergy Unknown Verified 02/15/18 20:00 Reaction Details PMH/Surg Hx/FS Hx/Imm Hx Endocrine/Hematology History: Reports: Hx Thyroid Disease Denies: Hx Diabetes Cardiovascular History: Reports: Hx Atrial Fibrillation, Hx Congestive Heart Failure, Hx Coronary Artery Disease, Hx Hypertension Denies: Hx Peripheral Vascular Disease Respiratory History: Reports: Hx Chronic Obstructive Pulmonary Disease (COPD), Hx Pneumonia GI History: Reports: Hx Diverticulosis, Hx Gastroesophageal Reflux Disease, Other GI Disorders - esophageal stricture History: Denies: Hx Dialysis, Hx Renal Disease Musculoskeletal History: Reports: Hx Fibromyalgia, Other Musculoskeletal History - restless leg Denies: Hx Arthritis, Hx Osteoporosis Sensory History: Reports: Hx Contacts or Glasses Denies: Hx Hearing Aid Opthamlomology History: Reports: Hx Contacts or Glasses Neurological History: Reports: Hx CVA, Hx Transient Ischemic Attacks (TIA) Denies: Hx Seizures Psychiatric History: Reports: Hx Depression - Surgical History Surgery Procedure, Year, and Place: bypass surgery 1999; HYSTERECTOMY Hx Anesthesia Reactions: No - Immunization History Date of Tetanus Vaccine: PT STATES UNSURE Date of Influenza Vaccine: NONE Infectious Disease History: No Infectious Disease History: Denies: Hx of Known/Suspected MRSA, Hx Shingles, Hx Tuberculosis, Traveled Outside the [place] in Last 30 Days - Family History Known Family History: Positive: Other - CA Negative: Cardiac Disease, Hypertension, Diabetes - Social History Alcohol Use: None Hx Substance Use: No Substance Use Type: Reports: None Hx Tobacco Use: No Smoking Status (MU): Never Smoked Tobacco Review of Systems Positive: Fatigue. Negative: Fever, Chills Negative: Erythema Negative: Sore Throat Negative: Chest Pain Negative: Shortness Of Breath, Cough Gastrointestinal: Other - bloody stools Positive: Abdominal Pain. Negative: Vomiting, Nausea Negative: dysuria, hematuria Negative: Myalgia, Edema Negative: Rash Neurological: Other - POS: dizziness, lightheadedness Positive: Weakness All Other Systems Reviewed And Are Negative: Yes Physical Exam - Summary Physical Exam Summary: Constitutional: Well-developed, Well-nourished, Alert. (-) Distressed Skin: Warm, Dry HENT: Normocephalic; Atraumatic Eyes: Conjunctiva normal Neck: Musculoskeletal ROM normal neck. (-) JVD, (-) Stridor, (-) Tracheal deviation Cardio: Rhythm regular, rate normal, Heart sounds normal; Intact distal pulses; The pedal pulses are 2+ and symmetric. Radial pulses are 2+ and symmetric. (-) Murmur Pulmonary/Chest wall: Effort normal. (-) Respiratory distress, (-) Wheezes, (-) Rales Abd: Soft, LLQ Tenderness, (-) Distension, (-) Guarding, (-) Rebound Rectal exam: Milind Balbuena RN, labeling strategist was present. Pt has a large amount of bloody stool. There are small external hemorrhoids. Musculoskeletal: (-) Edema Lymph: (-) Cervical adenopathy Neuro: Alert, Oriented x3 Psych: Mood and affect Normal Triage Information Reviewed: Yes Vital Signs On Initial Exam: Initial Vitals Pulse Resp Pulse Ox 114 19 95 02/16/18 09:07 02/16/18 09:07 02/16/18 09:07 Vital Signs Reviewed: Yes Diagnostics - Vital Signs Vital Signs Temp Pulse Resp BP Pulse Ox 02/16/18 09:30 119 15 109/89 96 02/16/18 09:24 97.8 F 127 18 109/89 95 02/16/18 09:23 112 26 91/77 96 02/16/18 09:08 124 15 132/88 96 02/16/18 09:07 114 19 95 - Laboratory Lab Results: Lab Results 02/16/18 02/16/18 02/16/18 Range/Units 11:38 11:47 11:47 WBC 16.8 H (3.5-10.8) 10^3/ul RBC 4.75 (4.00-5.40) 10^6/ul Hgb 14.5 (12.0-16.0) g/dl Hct 42 (35-47) % MCV 89 (80-97) fL MCH 30 (27-31) pg MCHC 34 (31-36) g/dl RDW 13 (10.5-15) % Plt Count 258 (150-450) 10^3/ul MPV 8.5 (7.4-10.4) um3 Neut % (Auto) 81.7 (38-83) % Lymph % (Auto) 11.0 L (25-47) % [place] % (Auto) 6.8 (0-7) % Eos % (Auto) 0.1 (0-6) % Baso % (Auto) 0.4 (0-2) % Absolute Neuts (auto) 13.7 H (1.5-7.7) 10^3/ul Absolute Lymphs (auto) 1.9 (1.0-4.8) 10^3/ul Absolute Monos (auto) 1.1 H (0-0.8) 10^3/ul Absolute Eos (auto) 0 (0-0.6) 10^3/ul Absolute Basos (auto) 0.1 (0-0.2) 10^3/ul Absolute Nucleated RBC 0 10^3/ul Nucleated RBC % 0 Sodium 139 (135-145) mmol/L Potassium TNP Chloride 108 (101-111) mmol/L Carbon Dioxide 18 L (22-32) mmol/L Anion Gap 13 H (2-11) mmol/L BUN 39 H (6-24) mg/dL Creatinine 0.90 (0.51-0.95) mg/dL Est GFR ( Amer) 74.7 (>60) Est GFR (Non-Af Amer) 61.7 (>60) BUN/Creatinine Ratio 43.3 H (8-20) Glucose 134 H (70-100) mg/dL Lactic Acid (0.5-2.0) mmol/L Calcium 8.9 (8.6-10.3) mg/dL Total Bilirubin 0.70 (0.2-1.0) mg/dL AST TNP ALT 10 (7-52) U/L Alkaline Phosphatase 84 (34-104) U/L Troponin I 0.01 (<0.04) ng/mL C-Reactive Protein 48.44 H (<8.01) mg/L Total Protein 6.0 L (6.4-8.9) g/dL Albumin 4.0 (3.2-5.2) g/dL Globulin 2.0 (2-4) g/dL Albumin/Globulin Ratio 2.0 (1-3) Lipase 24 (11.0-82.0) U/L Blood Type Antibody Screen 02/16/18 02/16/18 02/16/18 Range/Units 12:41 12:41 12:41 WBC (3.5-10.8) 10^3/ul RBC (4.00-5.40) 10^6/ul Hgb (12.0-16.0) g/dl Hct (35-47) % MCV (80-97) fL MCH (27-31) pg MCHC (31-36) g/dl RDW (10.5-15) % Plt Count (150-450) 10^3/ul MPV (7.4-10.4) um3 Neut % (Auto) (38-83) % Lymph % (Auto) (25-47) % [place] % (Auto) (0-7) % Eos % (Auto) (0-6) % Baso % (Auto) (0-2) % Absolute Neuts (auto) (1.5-7.7) 10^3/ul Absolute Lymphs (auto) (1.0-4.8) 10^3/ul Absolute Monos (auto) (0-0.8) 10^3/ul Absolute Eos (auto) (0-0.6) 10^3/ul Absolute Basos (auto) (0-0.2) 10^3/ul Absolute Nucleated RBC 10^3/ul Nucleated RBC % Sodium (135-145) mmol/L Potassium 1.7 L* Chloride (101-111) mmol/L Carbon Dioxide (22-32) mmol/L Anion Gap (2-11) mmol/L BUN (6-24) mg/dL Creatinine (0.51-0.95) mg/dL Est GFR ( Amer) (>60) Est GFR (Non-Af Amer) (>60) BUN/Creatinine Ratio (8-20) Glucose (70-100) mg/dL Lactic Acid 0.6 (0.5-2.0) mmol/L Calcium (8.6-10.3) mg/dL Total Bilirubin (0.2-1.0) mg/dL AST 6 L ALT (7-52) U/L Alkaline Phosphatase (34-104) U/L Troponin I (<0.04) ng/mL C-Reactive Protein (<8.01) mg/L Total Protein (6.4-8.9) g/dL Albumin (3.2-5.2) g/dL Globulin (2-4) g/dL Albumin/Globulin Ratio (1-3) Lipase (11.0-82.0) U/L Blood Type A Positive Antibody Screen Negative Result Diagrams: 02/17/18 05:15 02/17/18 05:15 Lab Statement: Any lab studies that have been ordered have been reviewed, and results considered in the medical decision making process. - EKG 10:07 Cardiac Rate: Tachycardia - at 110 bpm EKG Rhythm: Atrial Fibrillation EKG Interpretation: T wave inversion in V5, V6. No STEMI. GIGU Course/Dx - Course Assessment/Plan: Pt is a 72 y/o female who presents with bloody stools since 06: 00 this morning. Pt reports she was in the ED yesterday for abdominal pain, was given antibiotics and was discharged home at approximately 22:00. This morning her abd pain continued and it is currently constant. She rates her abd pain 5/ 10 in severity. Pt describes bloody stools as heavy bleeding with dark red blood and "almost black" blood. Additionally reports weakness, lightheadedness, and fatigue. Denies diarrhea, loose stools. Reviewed Dr. Bhakta note, pt had a CT showing colitis. Test results show WBC of 16.8, potassium of 1.7, AST of 6 , CRP of 48.44. C. diff is negative. In the ED course the pt was given IV fluids, Ciprofloxacin, Flagyl, potassium chloride. I discussed pt care with Dr. Monet, blood bank order control clerk, who will come see the pt in the ED. I also spoke with Dr. Young, hospitalist, who accepted the pt for admission. - Diagnoses Provider Diagnoses: Atrial fibrillation, GI bleed - Physician Notifications Discussed Care Of Patient With: Misael Monet Time Discussed With Above Provider: 13:33 Instructed by Provider To: Other - I discussed pt care with Dr. Monet, blood bank order control clerk, who will come see the pt in the ED. [13:33] I spoke with Dr. Young, hospitalist, who accepted the pt for admission. Discharge - Sign-Out/Discharge Documenting (check all that apply): Discharge/Admit/Transfer - Admit - Discharge Plan Condition: Stable Disposition: ADMITTED TO [facility] - Billing Disposition and Condition Condition: STABLE Disposition: Admitted to [facility] The documentation as recorded by the Ildefonso caldera Angela accurately reflects the service I personally performed and the decisions made by me, Layo Crawford MD.
[2018-02-17] MEDS ORDERED: Midazolam* 1 MG/ML 10 ML VIAL (10 MG) ONE (14:41)
[2018-02-17] MEDS ORDERED: fentaNYL* 50 MCG/ML 2 ML VIAL (100 MCG VIAL) ONE (14:41)
[2018-02-17] MEDS ORDERED: Pantoprazole IV* 40 MG IV ONE (18:00)
--- NOTE | 2018-02-17 19:23 | PN ---
Subjective Date of Service: 02/17/18 Interval History: Patient reports she feels a little better this evening. She underwent a colonoscopy today with Dr. Monet and feels a little drowsy from the medications given. She awakes easily. She reports her abdominal discomfort described as diffuse generalized bloating. She denies any further bowel movements or melena. No nausea or vomiting. No fevers. Objective Active Medications: Acetaminophen (Tylenol Tab*) 650 mg PO Q4H PRN PRN Reason: FEVER/PAIN Al Hydrox/Mg Hydrox/Simethicone (Maalox Plus*) 30 ml PO Q6H PRN PRN Reason: INDIGESTION Albuterol (Ventolin 2.5 Mg/3 Ml Neb.Dyana*) 2.5 mg INH RT.[id number] AWAKE PRN PRN Reason: sob/wheezing Atorvastatin Calcium (Lipitor*) 80 mg PO DAILY [facility] Last Admin: 02/17/18 07:30 Dose: 80 mg Carvedilol (Coreg Tab*) 12.5 mg PO BID [facility] Last Admin: 02/17/18 07:29 Dose: 12.5 mg Cetirizine HCl (Zyrtec*) 10 mg PO DAILY [facility]; Protocol Last Admin: 02/17/18 07:30 Dose: 10 mg Cholecalciferol (Vitamin D Tab*) 1,000 units PO DAILY [facility] Last Admin: 02/17/18 07:31 Dose: 1,000 units Cyanocobalamin (Vitamin B12 Tab*) 500 mcg PO DAILY [facility] Last Admin: 02/17/18 07:29 Dose: 500 mcg Dicyclomine HCl (Bentyl Cap*) 20 mg PO QID [facility] Last Admin: 02/17/18 17:37 Dose: Not Given Ezetimibe (Zetia Tab*) 10 mg PO DAILY [facility] Last Admin: 02/17/18 07:29 Dose: 10 mg Ferrous Sulfate (Ferrous Sulfate Tab*) 325 mg PO DAILY [facility] Last Admin: 02/17/18 07:30 Dose: 325 mg Fluoxetine HCl (Prozac Cap*) 60 mg PO DAILY [facility] Last Admin: 02/17/18 07:29 Dose: 60 mg Ciprofloxacin/Dextrose (Cipro 400 Mg Ivpremix(*)) 400 mg in 200 mls @ 200 mls/ hr IVPB Q12H [facility] Last Admin: 02/17/18 11:07 Dose: 200 mls/hr Metronidazole/Sodium Chloride (Flagyl 500 Mg Ivpb*) 500 mg in 100 mls @ 100 mls /hr IVPB Q8H [facility] Last Admin: 02/17/18 13:00 Dose: 100 mls/hr Sodium Chloride (Ns 0.9% 1000 Ml*) 1,000 mls @ 100 mls/hr IV PER RATE [facility] Last Admin: 02/17/18 11:07 Dose: 100 mls/hr Levothyroxine Sodium (Synthroid Tab*) 112 mcg PO DAILY@0600 [facility] Last Admin: 02/17/18 05:40 Dose: 112 mcg Losartan Potassium (Cozaar Tab*) 50 mg PO DAILY [facility] Last Admin: 02/17/18 07:32 Dose: 50 mg Magnesium Hydroxide (Milk Of Magnesia Liq*) 30 ml PO Q4H PRN PRN Reason: CONSTIPATION Morphine Sulfate (Morphine Vial*) 2 mg IV Q2H PRN PRN Reason: PAIN Last Admin: 02/16/18 18:37 Dose: 2 mg Multivitamins/Minerals (Theragran/Minerals Tab*) 1 tab PO DAILY [facility] Last Admin: 02/17/18 07:31 Dose: 1 tab Omeprazole (Prilosec Cap*) 20 mg PO 0730 [facility] Last Admin: 02/17/18 07:31 Dose: 20 mg Ondansetron HCl (Zofran 40 Mg Vial*) 4 mg IV Q4H PRN PRN Reason: NAUSEA/VOMITING Last Admin: 02/16/18 18:19 Dose: 4 mg Oxycodone/Acetaminophen (Percocet 5/325 Tab*) 1 tab PO Q4H PRN PRN Reason: PAIN Pantoprazole Sodium (Protonix Iv*) 40 mg IV ONCE ONE Stop: 02/18/18 06:01 Pregabalin (Lyrica Cap(*)) 50 mg PO TID [facility] Last Admin: 02/17/18 17:34 Dose: 50 mg Ropinirole HCl (Requip Tab*) 1 mg PO DAILY [facility] Last Admin: 02/17/18 07:29 Dose: 1 mg Spironolactone (Aldactone Tab*) 25 mg PO DAILY [facility] Last Admin: 02/17/18 07:29 Dose: 25 mg Tiotropium [place] (Spiriva Cap.Inh*) 1 cap INH DAILY [facility] Last Admin: 02/17/18 09:32 Dose: 1 cap Vital Signs - 8 hr 02/17/18 02/17/18 02/17/18 17:34 18:18 18:19 Temperature 98.2 F 98.2 F Pulse Rate 83 83 Respiratory 16 16 16 Rate Blood Pressure 119/72 119/72 (mmHg) O2 Sat by Pulse 97 97 Oximetry Oxygen Devices in Use Now: None Appearance: 72 yo female resting in bed A+O x3 in NAD, slightly drowsy Eyes: No Scleral Icterus, PERRLA Ears/Nose/Mouth/Throat: NL Teeth, Lips, Gums, Mucous Membranes Moist Neck: NL Appearance and Movements; NL JVP Respiratory: Symmetrical Chest Expansion and Respiratory Effort, Clear to Auscultation Cardiovascular: NL Sounds; No Murmurs; No JVD, RRR, No Edema Abdominal: - - mild distention, soft, BS +, no tenderness or guarding Extremities: No Edema, No Clubbing, Cyanosis Skin: No Rash or Ulcers, No Nodules or Sclerosis Neurological: Alert and Oriented x 3, NL Sensation, NL Muscle Strength and Tone Lines/Tubes/Other Access: Clean, Dry and Intact Peripheral IV Nutrition: Taking PO's Result Diagrams: 02/17/18 05:15 02/17/18 05:15 Additional Lab and Data: Lab Results 02/16/18 02/16/18 02/16/18 Range/Units 11:38 11:47 11:47 WBC 16.8 H (3.5-10.8) 10^3/ul RBC 4.75 (4.00-5.40) 10^6/ul Hgb 14.5 (12.0-16.0) g/dl Hct 42 (35-47) % MCV 89 (80-97) fL MCH 30 (27-31) pg MCHC 34 (31-36) g/dl RDW 13 (10.5-15) % Plt Count 258 (150-450) 10^3/ul MPV 8.5 (7.4-10.4) um3 Neut % (Auto) 81.7 (38-83) % Lymph % (Auto) 11.0 L (25-47) % [place] % (Auto) 6.8 (0-7) % Eos % (Auto) 0.1 (0-6) % Baso % (Auto) 0.4 (0-2) % Absolute Neuts (auto) 13.7 H (1.5-7.7) 10^3/ul Absolute Lymphs (auto) 1.9 (1.0-4.8) 10^3/ul Absolute Monos (auto) 1.1 H (0-0.8) 10^3/ul Absolute Eos (auto) 0 (0-0.6) 10^3/ul Absolute Basos (auto) 0.1 (0-0.2) 10^3/ul Absolute Nucleated RBC 0 10^3/ul Nucleated RBC % 0 Sodium 139 (135-145) mmol/L Potassium TNP Chloride 108 (101-111) mmol/L Carbon Dioxide 18 L (22-32) mmol/L Anion Gap 13 H (2-11) mmol/L BUN 39 H (6-24) mg/dL Creatinine 0.90 (0.51-0.95) mg/dL Est GFR ( Amer) 74.7 (>60) Est GFR (Non-Af Amer) 61.7 (>60) BUN/Creatinine Ratio 43.3 H (8-20) Glucose 134 H (70-100) mg/dL Lactic Acid (0.5-2.0) mmol/L Calcium 8.9 (8.6-10.3) mg/dL Total Bilirubin 0.70 (0.2-1.0) mg/dL AST TNP ALT 10 (7-52) U/L Alkaline Phosphatase 84 (34-104) U/L Troponin I 0.01 (<0.04) ng/mL C-Reactive Protein 48.44 H (<8.01) mg/L Total Protein 6.0 L (6.4-8.9) g/dL Albumin 4.0 (3.2-5.2) g/dL Globulin 2.0 (2-4) g/dL Albumin/Globulin Ratio 2.0 (1-3) Lipase 24 (11.0-82.0) U/L Blood Type Antibody Screen 02/16/18 02/16/18 02/16/18 Range/Units 12:41 12:41 12:41 WBC (3.5-10.8) 10^3/ul RBC (4.00-5.40) 10^6/ul Hgb (12.0-16.0) g/dl Hct (35-47) % MCV (80-97) fL MCH (27-31) pg MCHC (31-36) g/dl RDW (10.5-15) % Plt Count (150-450) 10^3/ul MPV (7.4-10.4) um3 Neut % (Auto) (38-83) % Lymph % (Auto) (25-47) % [place] % (Auto) (0-7) % Eos % (Auto) (0-6) % Baso % (Auto) (0-2) % Absolute Neuts (auto) (1.5-7.7) 10^3/ul Absolute Lymphs (auto) (1.0-4.8) 10^3/ul Absolute Monos (auto) (0-0.8) 10^3/ul Absolute Eos (auto) (0-0.6) 10^3/ul Absolute Basos (auto) (0-0.2) 10^3/ul Absolute Nucleated RBC 10^3/ul Nucleated RBC % Sodium (135-145) mmol/L Potassium 1.7 L* Chloride (101-111) mmol/L Carbon Dioxide (22-32) mmol/L Anion Gap (2-11) mmol/L BUN (6-24) mg/dL Creatinine (0.51-0.95) mg/dL Est GFR ( Amer) (>60) Est GFR (Non-Af Amer) (>60) BUN/Creatinine Ratio (8-20) Glucose (70-100) mg/dL Lactic Acid 0.6 (0.5-2.0) mmol/L Calcium (8.6-10.3) mg/dL Total Bilirubin (0.2-1.0) mg/dL AST 6 L ALT (7-52) U/L Alkaline Phosphatase (34-104) U/L Troponin I (<0.04) ng/mL C-Reactive Protein (<8.01) mg/L Total Protein (6.4-8.9) g/dL Albumin (3.2-5.2) g/dL Globulin (2-4) g/dL Albumin/Globulin Ratio (1-3) Lipase (11.0-82.0) U/L Blood Type A Positive Antibody Screen Negative Microbiology and Other Data: Microbiology 02/16/18 10:54 Stool Gross Appearance - Final Stool Shiga Toxin I & II - Final Negative Shiga Toxin 1 & 2 C. difficile DNA Amplification - Final 027 Presumptive NEGATIVE Toxigenic C.diff NEGATIVE Assess/Plan/Problems-Billing Assessment: Ms. Quan is a 72 yo female with a PMH of COPD, CHF, HTN, paroxysmal afib who presented to the ED on 02/16 with c/o abdominal pain and rectal bleeding (with melena/clots), she had recently been in the ER the night before with similar complaints and was sent home after a CT abdomen showing colitis and was DC home on antibiotics. - Patient Problems (1) GI bleed Comment: - appreciate GI consult, pt underwent flexsig and was found to have melana. Initially thought ischemic colitis but now unclear. GI plans to perform Upper Endoscopy tomorrow. - CT scan 02/15 - most consistent with proximal entercolitis. Stool cx pending. - Continue IV antibiotics for now. - No further large stools/Melena. - HH stable; repeat now then Q6hrs - Protonix gtt (2) Hypokalemia Comment: - severe. Was given replacement. Add on magnesium. (3) PAF (paroxysmal atrial fibrillation) Comment: Hold apixaban in the setting of GI bleed. Continue carvedilol. (4) History of COPD Status: Chronic Comment: - stable. continue Spiriva (5) History of CVA (cerebrovascular accident) Comment: ischemic 2005 (6) History of hypertension Comment: - controlled. Continue BB, Aldactone, Losartan, (7) History of hypothyroidism Comment: Continue levothyroxine. (8) Hx of coronary artery disease Current Visit: Yes Comment: C/P CABG. Continue statin, BB, ezetimide (9) Hx of gastroesophageal reflux (GERD) Comment: PPI. (10) DVT prophylaxis Comment: - Hold in the setting of GI bleed (11) Full code status Status and Disposition: inpatient with GI bleed, possible colitis
[2018-02-17 20:04] LABS: Hematocrit 31 % (35-47); Hemoglobin 10.4 g/dl (12.0-16.0)
[2018-02-17] MEDS: Pantoprazole IV* 80 MG in NS 0.9% 250 ML* 250 ML IVPB SCH (22:22)
[2018-02-18 02:33] LABS: Hematocrit 29 % (35-47)
[2018-02-18] MEDS: NS 0.9% 1000 ML* 1,000 ML IV SCH (04:09)
--- NOTE | 2018-02-18 04:46 | PRO ---
DATE: 02/17/18 - ROOM #432 REFERRING PHYSICIAN: Rashmi Holloway.* PROCEDURE: Flexible sigmoidoscopy to mid sigmoid. INDICATION: A 72-year-old woman came to the emergency room complaining of diarrhea and passing blood. She complained of abdominal pain. Her hemoglobin at her first emergency room visit was 14.8 and then was 14.5, 12.9, and then today 11.6. Her BUN has been consistent, initially 31 and today 29. During her August 2016 admission, it was 37 and 33 on consecutive days. At home, she is treated for a collagenous colitis and is on 16 or 17 medicines including aspirin 81 and Eliquis 5 mg b.i.d. She is said to be on omeprazole 40 mg. She also is listed as taking ferrous sulfate. Here in the hospital, omeprazole 20 mg is being given along with ferrous sulfate. ENDOSCOPIST: Dr. Monet. MEDICATIONS: Midazolam 1, fentanyl 50. FINDINGS: In conversation, preprocedure, she referenced wanting to be DNR for many years having that to be a philosophical choice regarding her overall care. She mentioned having an affinity for the philosophy of the "[employer]." Her abdomen is symmetric, soft, with some deep tenderness. It is poorly localized. Perianal inspection and rectal just revealed black stool. Initial views show that the rectal mucosa is normal. There is pasty, thick stool coming through that is black and appears melenic. It continues on up end of the sigmoid and there is no diarrheal component per se. The mucosa where seen in the rectum and sigmoid (60%) is normal. IMPRESSION: 1. Normal rectal and sigmoid mucosa. 2. Gastrointestinal bleeding - the visualization of melena suggests an upper gastrointestinal source. Her fall in hemoglobin had been relatively modest and she has not had any stools in 24 hours. She could have an upper gastrointestinal source (less likely while on chronic Nexium if indeed compliant ) or a right colonic source. For the moment, Eliquis is being held and upper endoscopy is planned. [id number]/CPS #: [id number] MTDD
[2018-02-18] MEDS: metroNIDAZOLE IV 500 MG/100ML* 500 MG/100 ML BAG IVPB SCH ×3 (05:02→20:24)
[2018-02-18] MEDS ORDERED: Pantoprazole IV* 40 MG IV ONE (06:00)
[2018-02-18] MEDS: Levothyroxine TAB* 112 MCG TAB PO SCH (06:12)
[2018-02-18 07:10] LABS: Hematocrit 28 % (35-47); Hemoglobin 9.9 g/dl (12.0-16.0); Mean Corpuscular HGB Conc 35 g/dl (31-36); Mean Corpuscular Hemoglobin 31 pg (27-31); Mean Corpuscular Volume 89 fL (80-97); Mean Platelet Volume 7.6 um3 (7.4-10.4); Platelet Count 160 10^3/ul (150-450); Red Blood Count 3.16 10^6/ul (4.00-5.40); Red Cell Distribution Width 14 % (10.5-15); White Blood Count 8.7 10^3/ul (3.5-10.8)
[2018-02-18 07:17] LABS: INR 1.14 (0.77-1.02)
[2018-02-18 07:30] LABS: EGFR Non-African American 81.2 (>60)
[2018-02-18] MEDS: Pantoprazole IV* 80 MG in NS 0.9% 250 ML* 250 ML IVPB SCH (08:14)
[2018-02-18] MEDS: Tiotropium CAP.INH* CAP.INH/18 MCG (USE ORDER SET !) INH SCH (08:18)
[2018-02-18] MEDS: oxyCODONE/Acetamin 5/325 MG* TAB PO PRN (08:33)
[2018-02-18] MEDS: Cyanocobalamin TAB* 500 MCG PO SCH (09:47)
[2018-02-18] MEDS: Atorvastatin* 80 MG TAB PO SCH (09:47)
[2018-02-18] MEDS: Carvedilol TAB* 6.25 MG PO SCH ×2 (09:47→20:25)
[2018-02-18] MEDS: Cetirizine* 10 MG TAB PO SCH (09:48)
[2018-02-18] MEDS: Cholecalciferol TAB* 1000 UNITS PO SCH (09:48)
--- NOTE | 2018-02-18 10:32 | PN ---
Subjective Date of Service: 02/18/18 Interval History: Ms. Quan states that she is feeling well this morning though she is very tired. She denies any lightheadedness when sitting up on edge of bed. She reports abdominal pain in the mid abdomen primarily which radiates to the low abdomen that started with this GI bleeding. She denies nausea or vomiting. She tolerated clear liquids well for breakfast. Objective Active Medications: Acetaminophen (Tylenol Tab*) 650 mg PO Q4H PRN Al Hydrox/Mg Hydrox/Simethicone (Maalox Plus*) 30 ml PO Q6H PRN Albuterol (Ventolin 2.5 Mg/3 Ml Neb.Dyana*) 2.5 mg INH [id number] AWAKE PRN Atorvastatin Calcium (Lipitor*) 80 mg PO DAILY PRAVIN Carvedilol (Coreg Tab*) 12.5 mg PO BID PRAVIN Cetirizine HCl (Zyrtec*) 10 mg PO DAILY PRAVIN; Protocol Cholecalciferol (Vitamin D Tab*) 1,000 units PO DAILY PRAVIN Cyanocobalamin (Vitamin B12 Tab*) 500 mcg PO DAILY PRAVIN Dicyclomine HCl (Bentyl Cap*) 20 mg PO QID PRAVIN Ezetimibe (Zetia Tab*) 10 mg PO DAILY PRAVIN Ferrous Sulfate (Ferrous Sulfate Tab*) 325 mg PO DAILY PRAVIN Fluoxetine HCl (Prozac Cap*) 60 mg PO DAILY PRAVIN Ciprofloxacin/Dextrose (Cipro 400 Mg Ivpremix(*)) 400 mg in 200 mls @ 200 mls/ hr IVPB Q12H PRAVIN Metronidazole/Sodium Chloride (Flagyl 500 Mg Ivpb*) 500 mg in 100 mls @ 100 mls /hr IVPB Q8H PRAVIN Sodium Chloride (Ns 0.9% 1000 Ml*) 1,000 mls @ 100 mls/hr IV PER RATE PRAVIN Pantoprazole Sodium 80 mg/ (Sodium Chloride) 250 mls @ 25 mls/hr IVPB Q10H PRAVIN Levothyroxine Sodium (Synthroid Tab*) 112 mcg PO DAILY@0600 PRAVIN Losartan Potassium (Cozaar Tab*) 50 mg PO DAILY PRAVIN Magnesium Hydroxide (Milk Of Magnesia Liq*) 30 ml PO Q4H PRN Morphine Sulfate (Morphine Vial*) 2 mg IV Q2H PRN Multivitamins/Minerals (Theragran/Minerals Tab*) 1 tab PO DAILY PRAVIN Ondansetron HCl (Zofran 40 Mg Vial*) 4 mg IV Q4H PRN Oxycodone/Acetaminophen (Percocet 5/325 Tab*) 1 tab PO Q4H PRN Pregabalin (Lyrica Cap(*)) 50 mg PO TID PRAVIN Ropinirole HCl (Requip Tab*) 1 mg PO DAILY PRAVIN Spironolactone (Aldactone Tab*) 25 mg PO DAILY [facility] Tiotropium [place] (Spiriva Cap.Inh*) 1 cap INH DAILY PRAVIN Vital Signs: Temp Pulse Resp BP Pulse Ox 98.8 F 84 16 132/87 93 02/18/18 07:47 02/18/18 08:18 02/18/18 08:33 02/18/18 07:47 02/18/18 07:47 Oxygen Devices in Use Now: None Appearance: Elderly female lying in bed in NAD Eyes: No Scleral Icterus Ears/Nose/Mouth/Throat: Mucous Membranes Moist Neck: Trachea Midline Respiratory: Symmetrical Chest Expansion and Respiratory Effort, Clear to Auscultation Cardiovascular: NL Sounds; No Murmurs; No JVD, No Edema Abdominal: - - Soft, tender to palpation in mid abdomen below umbilicus. BS +. No rebound. Neurological: Alert and Oriented x 3, NL Muscle Strength and Tone Nutrition: Taking PO's Result Diagrams: 02/18/18 11:11 02/18/18 06:57 Additional Lab and Data: . Microbiology and Other Data: . Assess/Plan/Problems-Billing Assessment: Ms. Quan is a 72 yo female with a PMH of COPD, CHF, HTN, paroxysmal afib who presented to the ED on 02/16 with c/o abdominal pain and rectal bleeding (with melena/clots), she had recently been in the ER the night before with similar complaints and was sent home after a CT abdomen showing colitis and was DC home on antibiotics. - Patient Problems (1) GI bleed Comment: - 600ml deisi blood per rectum this AM. Low-mid abdominal pain on palpation. - Hemodynamically stable, continue IV fluids and hold antihypertensives. - Appreciate GI consult, pt underwent flexsig and was found to have melana with consideration for upper GI source, but with bright red blood per rectum this AM she may have ischemic colitis. - CT scan 02/15 - most consistent with proximal entercolitis, though seems less likely. Continue IV antibiotics for now. - HH stable; repeat Q6hrs - Continue Protonix gtt (2) History of hypertension Comment: - Controlled. Continue carvedilol, hold spironolactone and losartan in setting of acute GI bleed. (3) Hypokalemia Comment: - Resolved. (4) History of hypothyroidism Comment: - Continue levothyroxine. (5) Hx of coronary artery disease Comment: - C/P CABG. Continue statin, BB, ezetimide (6) PAF (paroxysmal atrial fibrillation) Comment: - Hold apixaban in the setting of GI bleed. Continue carvedilol. (7) Collagenous colitis Comment: - Continue bentyl. (8) History of COPD Comment: - stable. continue Spiriva (9) History of CVA (cerebrovascular accident) Comment: ischemic 2005 (10) History of depression Comment: - Continue prozac. (11) History of fibromyalgia Comment: - Continue oxycodone and lyrica. (12) History of restless legs syndrome Comment: - Continue requip. (13) DVT prophylaxis Comment: - SCDs only in the setting of GI bleed Status and Disposition: Inpatient with GI bleed. Anticipate discharge to home when medically stable.
[2018-02-18] MEDS: Dicyclomine CAP* 10 MG PO SCH ×4 (11:06→20:25)
[2018-02-18] MEDS: FLUoxetine CAP* 20 MG PO SCH (11:22)
[2018-02-18] MEDS: Ezetimibe TAB* 10 MG PO SCH (11:22)
[2018-02-18] MEDS: Pregabalin CAP(*) 50 MG PO SCH ×3 (11:23→23:22)
[2018-02-18] MEDS: Ferrous Sulfate TAB* 325 MG PO SCH (11:23)
[2018-02-18] MEDS: Multivitamins/Minerals TAB PO SCH (11:24)
[2018-02-18] MEDS: rOPINIRole TAB* 1 MG PO SCH (11:28)
[2018-02-18 11:29] LABS: Hematocrit 29 % (35-47); Hemoglobin 9.9 g/dl (12.0-16.0)
[2018-02-18] MEDS: Losartan TAB* 25 MG PO SCH (11:36)
[2018-02-18] MEDS: Spironolactone TAB* 25 MG PO SCH (11:36)
[2018-02-18] MEDS: Ciprofloxacin 400MG IVPREMIX(* 400 MG/200 ML BAG IVPB SCH ×2 (11:49→23:22)
[2018-02-18] MEDS ORDERED: fentaNYL* 50 MCG/ML 2 ML VIAL (100 MCG VIAL) ONE (13:08)
[2018-02-18] MEDS ORDERED: Midazolam* 1 MG/ML 10 ML VIAL (10 MG) ONE (13:08)
[2018-02-18 18:32] LABS: Hematocrit 29 % (35-47); Hemoglobin 9.9 g/dl (12.0-16.0); Mean Corpuscular HGB Conc 34 g/dl (31-36); Mean Corpuscular Hemoglobin 31 pg (27-31); Mean Corpuscular Volume 91 fL (80-97); Mean Platelet Volume 7.4 um3 (7.4-10.4); Platelet Count 171 10^3/ul (150-450); Red Cell Distribution Width 14 % (10.5-15); White Blood Count 8.2 10^3/ul (3.5-10.8)
[2018-02-18] MEDS ORDERED: Pantoprazole IV* 40 MG IV SCH (21:00)
[2018-02-19] MEDS: NS 0.9% 1000 ML* 1,000 ML IV SCH ×2 (02:05→13:08)
[2018-02-19] MEDS ORDERED: Ondansetron INJ* 2 MG/ML VIAL IV PRN (03:31)
--- NOTE | 2018-02-19 04:45 | PRO ---
DATE: 02/18/18 - ROOM #[id number] REFERRING PHYSICIAN: Rashmi Holloway.* PROCEDURE: Upper gastrointestinal endoscopy and CLOtest INDICATION: A 72-year-old woman came to the hospital complaining of mid abdominal pain and loose stool with blood. It promptly ceased. Yesterday, she had no stool loose or otherwise. Flexible sigmoidoscopy showed deisi melena. She had been on Eliquis and that was held. She had a loose, frankly bloody stool this morning, estimated by the nurse as 600 cc. She had no syncope or hemodynamic sign, but did appear more pale. Her hemoglobin fell to 9.9. BUN today was 18 compared to a maximum of 39 on 02/16/18. Yesterday, flexible sigmoidoscopy showed melena and today's exam was planned. Her DNR order was interrupted for reversal of sedation. ENDOSCOPIST: Dr. Monet. MEDICATIONS: Midazolam 1.5 , fentanyl 25. FINDINGS: She is a pale, chronically ill-appearing older woman in no overt distress. She is edentulous. EGD: Larynx - symmetric minimal views. Esophagus - easily entered and the mucosa is normal in the upper, mid, and lower esophagus with the EG junction at 38, snug and without erosions. Stomach - retained pill debris in the fundus, but no blood or irregularity to the rugal folds. The gastric fundus and cardia were otherwise normal. The gastric body was normal. In the antrum, prepyloric, there was 6 mm fairly deep ulcer with a purple base, though no protruding vessel or clot. On the opposite side, there was a 3-mm ulcer fairly deep to that small size, again without any overt bleeding. The pylorus itself was not compromised. Deuodenum - the bulb and the second through fourth portions appeared normal. During withdrawal, again no blood was seen and CLOtest was taken of gastric body. IMPRESSION: Prepyloric ulcers - bleeding from these altered by idiosyncrasies in her gastric motility or possibly the collagenous colitis condition she has could explain the gastrointestinal bleeding pattern seen. Would give PPI b.i.d. , review her meds for NSAIDs, and compliance with the PPI she is said to have been on as an outpatient and follow. Addendum: Clotest negative [id number]/[facility] #: [id number] [facility]
[2018-02-19] MEDS: metroNIDAZOLE IV 500 MG/100ML* 500 MG/100 ML BAG IVPB SCH (04:48)
[2018-02-19] MEDS: Levothyroxine TAB* 112 MCG TAB PO SCH (04:56)
[2018-02-19 05:00] LABS: Hematocrit 31 % (35-47); Hemoglobin 10.6 g/dl (12.0-16.0); Mean Corpuscular HGB Conc 35 g/dl (31-36); Mean Corpuscular Hemoglobin 31 pg (27-31); Mean Corpuscular Volume 90 fL (80-97); Platelet Count 187 10^3/ul (150-450); Red Blood Count 3.44 10^6/ul (4.00-5.40); Red Cell Distribution Width 13 % (10.5-15); White Blood Count 7.7 10^3/ul (3.5-10.8)
[2018-02-19] MEDS: Tiotropium CAP.INH* CAP.INH/18 MCG (USE ORDER SET !) INH SCH (07:52)
--- NOTE | 2018-02-19 08:00 | PN ---
Subjective Date of Service: 02/19/18 Interval History: Ms. Quan reports feeling still, woozy and weak this morning but is feeling better this afternoon. She denies chest pain or SOB. She does feel some nausea and vomited this morning. She has had no blood reported in the stool. Objective Active Medications: Acetaminophen (Tylenol Tab*) 650 mg PO Q4H PRN Al Hydrox/Mg Hydrox/Simethicone (Maalox Plus*) 30 ml PO Q6H PRN Albuterol (Ventolin 2.5 Mg/3 Ml Neb.Dyana*) 2.5 mg INH [id number] AWAKE PRN Atorvastatin Calcium (Lipitor*) 80 mg PO DAILY PRAVIN Carvedilol (Coreg Tab*) 12.5 mg PO BID PRAVIN Cetirizine HCl (Zyrtec*) 10 mg PO DAILY PRAVIN; Protocol Cholecalciferol (Vitamin D Tab*) 1,000 units PO DAILY PRAVIN Cyanocobalamin (Vitamin B12 Tab*) 500 mcg PO DAILY PRAVIN Dicyclomine HCl (Bentyl Cap*) 20 mg PO QID PRAVIN Ezetimibe (Zetia Tab*) 10 mg PO DAILY PRAVIN Ferrous Sulfate (Ferrous Sulfate Tab*) 325 mg PO DAILY PRAVIN Fluoxetine HCl (Prozac Cap*) 60 mg PO DAILY PRAVIN Ciprofloxacin/Dextrose (Cipro 400 Mg Ivpremix(*)) 400 mg in 200 mls @ 200 mls/ hr IVPB Q12H PRAVIN Metronidazole/Sodium Chloride (Flagyl 500 Mg Ivpb*) 500 mg in 100 mls @ 100 mls /hr IVPB Q8H PRAVIN Sodium Chloride (Ns 0.9% 1000 Ml*) 1,000 mls @ 100 mls/hr IV PER RATE PRAVIN Levothyroxine Sodium (Synthroid Tab*) 112 mcg PO DAILY@0600 PRAVIN Magnesium Hydroxide (Milk Of Magnesia Liq*) 30 ml PO Q4H PRN Morphine Sulfate (Morphine Vial*) 2 mg IV Q2H PRN Multivitamins/Minerals (Theragran/Minerals Tab*) 1 tab PO DAILY PRAVIN Ondansetron HCl (Zofran Inj*) 4 mg IV Q4H PRN Oxycodone/Acetaminophen (Percocet 5/325 Tab*) 1 tab PO Q4H PRN Pantoprazole Sodium (Protonix Iv*) 40 mg IV Q12H PRAVIN Pregabalin (Lyrica Cap(*)) 50 mg PO 0900,1400,2100 PRAVIN Ropinirole HCl (Requip Tab*) 1 mg PO DAILY PRAVIN Tiotropium [place] (Spiriva Cap.Inh*) 1 cap INH DAILY PRAVIN Vital Signs: Temp Pulse Resp BP Pulse Ox 98.7 F 103 14 159/103 94 02/19/18 07:26 02/19/18 07:53 02/19/18 07:53 02/19/18 07:26 02/19/18 07:53 Oxygen Devices in Use Now: None Appearance: Female sitting up in bed in NAD Eyes: No Scleral Icterus Ears/Nose/Mouth/Throat: Mucous Membranes Moist Neck: Trachea Midline Respiratory: Symmetrical Chest Expansion and Respiratory Effort, Clear to Auscultation Cardiovascular: NL Sounds; No Murmurs; No JVD, No Edema Abdominal: - - Tenderness in low mid abdomen with palpation Lymphatic: No Cervical Adenopathy Extremities: No Edema Skin: No Rash or Ulcers Neurological: Alert and Oriented x 3, NL Muscle Strength and Tone Nutrition: Taking PO's Result Diagrams: 02/19/18 04:45 02/19/18 04:45 Additional Lab and Data: . Microbiology and Other Data: . Assess/Plan/Problems-Billing Assessment: Ms. Quan is a 72 yo female with a PMH of COPD, CHF, HTN, paroxysmal afib who presented to the ED on 02/16 with c/o abdominal pain and rectal bleeding (with melena/clots), she had recently been in the ER the night before with similar complaints and was sent home after a CT abdomen showing colitis and was DC home on antibiotics. - Patient Problems (1) GI bleed Comment: - Appreciate GI consult, pt underwent flexsig and was found to have melana with consideration for upper GI source, upper endoscopy found large ulcer. - However patient did have report from nursing staff of large amount of deisi red blood per rectum on 02/17/18, seems unlikely to have two bleeding sources. GI questions whether alterations in gastric motility could provide reasonable explation. - D/C antibiotics. - HH stable; no further checks indicated. - Switch to oral PPI. - Hold eliquis until follow up with PCP. (2) History of hypertension Comment: - SBP 150s. Continue carvedilol, resume spironolactone and losartan. (3) Hypokalemia Comment: - Resolved. (4) History of hypothyroidism Comment: - Continue levothyroxine. (5) Hx of coronary artery disease Comment: - C/P CABG. Continue statin, BB, ezetimide (6) PAF (paroxysmal atrial fibrillation) Comment: - Hold apixaban in the setting of GI bleed, will review plan for reintiation with GI. Continue carvedilol. (7) Collagenous colitis Comment: - Continue bentyl. (8) History of COPD Comment: - Stable. continue Spiriva (9) History of CVA (cerebrovascular accident) Comment: - Ischemic 2005, noted (10) History of depression Comment: - Continue prozac. (11) History of fibromyalgia Comment: - Continue oxycodone and lyrica. (12) History of restless legs syndrome Comment: - Continue requip. (13) DVT prophylaxis Comment: - SCDs only in the setting of GI bleed Status and Disposition: Inpatient with GI bleed. Anticipate discharge to home when medically stable.
[2018-02-19] MEDS: Ezetimibe TAB* 10 MG PO SCH (08:26)
[2018-02-19] MEDS: Pregabalin CAP(*) 50 MG PO SCH ×3 (08:26→19:43)
[2018-02-19] MEDS: Atorvastatin* 80 MG TAB PO SCH (08:26)
[2018-02-19] MEDS: Ferrous Sulfate TAB* 325 MG PO SCH (08:26)
[2018-02-19] MEDS: FLUoxetine CAP* 20 MG PO SCH (08:26)
[2018-02-19] MEDS: Cetirizine* 10 MG TAB PO SCH (08:26)
[2018-02-19] MEDS: Cyanocobalamin TAB* 500 MCG PO SCH (08:26)
[2018-02-19] MEDS: oxyCODONE/Acetamin 5/325 MG* TAB PO PRN (08:27)
[2018-02-19] MEDS: Cholecalciferol TAB* 1000 UNITS PO SCH (08:27)
[2018-02-19] MEDS: Dicyclomine CAP* 10 MG PO SCH ×4 (08:27→19:42)
[2018-02-19] MEDS: Omeprazole CAP* 20 MG PO SCH ×2 (08:27→16:27)
[2018-02-19] MEDS: Spironolactone TAB* 25 MG PO SCH (08:28)
[2018-02-19] MEDS: Carvedilol TAB* 6.25 MG PO SCH ×2 (08:28→19:42)
[2018-02-19] MEDS: Multivitamins/Minerals TAB PO SCH (08:28)
[2018-02-19] MEDS: rOPINIRole TAB* 1 MG PO SCH (08:28)
[2018-02-19] MEDS ORDERED: Losartan TAB* 25 MG PO SCH (09:00)
[2018-02-19] MEDS ORDERED: FLUoxetine CAP* 20 MG PO ONE (10:00)
[2018-02-19] MEDS ORDERED: Losartan TAB* 25 MG PO ONE (10:05)
[2018-02-19] MEDS ORDERED: Omeprazole CAP* 20 MG PO ONE (10:06)
[2018-02-19] MEDS ORDERED: Carvedilol TAB* 6.25 MG PO ONE (10:07)
[2018-02-19] MEDS: Ondansetron ODT TAB* 4 MG SL PRN (17:26)
[2018-02-19] MEDS: Metoprolol Tartrate IV* 1 MG/ML 5 ML VIAL IV PRN (21:56)
[2018-02-20] MEDS: Metoprolol Tartrate IV* 1 MG/ML 5 ML VIAL IV PRN (03:43)
[2018-02-20] MEDS: Levothyroxine TAB* 112 MCG TAB PO SCH (05:05)
[2018-02-20 06:07] LABS: ABS Basophils 0 10^3/ul (0-0.2); ABS Eosinophils 0.2 10^3/ul (0-0.6); ABS Lymphocytes 1.5 10^3/ul (1.0-4.8); ABS Monocytes 0.6 10^3/ul (0-0.8); ABS Neutrophils 5.2 10^3/ul (1.5-7.7); ABS Nucleated RBC 0 10^3/ul; Eosinophil % 2.8 % (0-6); Hematocrit 31 % (35-47); Hemoglobin 11.2 g/dl (12.0-16.0); Lymphocyte % 19.8 % (25-47); Mean Corpuscular HGB Conc 36 g/dl (31-36); Mean Corpuscular Hemoglobin 32 pg (27-31); Mean Corpuscular Volume 89 fL (80-97); Mean Platelet Volume 7.9 um3 (7.4-10.4); Nucleated Red Blood Cells % 0.2; Platelet Count 207 10^3/ul (150-450); Red Cell Distribution Width 13 % (10.5-15); White Blood Count 7.5 10^3/ul (3.5-10.8)
[2018-02-20] MEDS: Tiotropium CAP.INH* CAP.INH/18 MCG (USE ORDER SET !) INH SCH (07:20)
[2018-02-20] MEDS: FLUoxetine CAP* 20 MG PO SCH (07:49)
[2018-02-20] MEDS: Ferrous Sulfate TAB* 325 MG PO SCH (07:50)
[2018-02-20] MEDS: Ezetimibe TAB* 10 MG PO SCH (07:50)
[2018-02-20] MEDS: Pregabalin CAP(*) 50 MG PO SCH ×3 (07:50→21:25)
[2018-02-20] MEDS: oxyCODONE/Acetamin 5/325 MG* TAB PO PRN (07:50)
[2018-02-20] MEDS: Dicyclomine CAP* 10 MG PO SCH ×2 (07:50→12:55)
[2018-02-20] MEDS: Carvedilol TAB* 6.25 MG PO SCH ×2 (07:50→21:25)
[2018-02-20] MEDS: Cholecalciferol TAB* 1000 UNITS PO SCH (07:50)
[2018-02-20] MEDS: Omeprazole CAP* 20 MG PO SCH (07:51)
[2018-02-20] MEDS: rOPINIRole TAB* 1 MG PO SCH (07:51)
[2018-02-20] MEDS: Multivitamins/Minerals TAB PO SCH (07:51)
[2018-02-20] MEDS: Spironolactone TAB* 25 MG PO SCH (07:51)
[2018-02-20] MEDS ORDERED: Carvedilol TAB* 6.25 MG PO ONE (08:18)
--- NOTE | 2018-02-20 08:20 | PN ---
Subjective Date of Service: 02/20/18 Interval History: Ms. Quan is confused today. She is aware and person and place but is confused about details including time of day and the course of events in the hospital. She has had some nausea and vomiting. She has the same low mid abdominal pain that she has had since admission. She denies chest pain or SOB. Objective Active Medications: Acetaminophen (Tylenol Tab*) 650 mg PO Q4H PRN Al Hydrox/Mg Hydrox/Simethicone (Maalox Plus*) 30 ml PO Q6H PRN Albuterol (Ventolin 2.5 Mg/3 Ml Neb.Dyana*) 2.5 mg INH [id number] AWAKE PRN Atorvastatin Calcium (Lipitor*) 80 mg PO 1700 PRAVIN Carvedilol (Coreg Tab*) 12.5 mg PO BID PRAVIN Cholecalciferol (Vitamin D Tab*) 1,000 units PO DAILY PRAVIN Cyanocobalamin (Vitamin B12 Tab*) 500 mcg PO 2100 PRAVIN Dicyclomine HCl (Bentyl Cap*) 20 mg PO QID PRAVIN Ezetimibe (Zetia Tab*) 10 mg PO DAILY PRAVIN Ferrous Sulfate (Ferrous Sulfate Tab*) 325 mg PO DAILY PRAVIN Fluoxetine HCl (Prozac Cap*) 60 mg PO DAILY PRAVIN Levothyroxine Sodium (Synthroid Tab*) 112 mcg PO DAILY@0600 PRAVIN Losartan Potassium (Cozaar Tab*) 50 mg PO 2100 PRAVIN Magnesium Hydroxide (Milk Of Magnnoa Liq*) 30 ml PO Q4H PRN Metoprolol Tartrate (Lopressor Iv*) 5 mg IV Q6H PRN Morphine Sulfate (Morphine Vial*) 2 mg IV Q2H PRN Multivitamins/Minerals (Theragran/Minerals Tab*) 1 tab PO DAILY PRAVIN Omeprazole (Prilosec Cap*) 20 mg PO BID@0730,1630 PRAVIN Ondansetron HCl (Zofran Odt Tab*) 4 mg SL Q6H PRN Oxycodone/Acetaminophen (Percocet 5/325 Tab*) 1 tab PO Q4H PRN Pregabalin (Lyrica Cap(*)) 50 mg PO 0900,1400,2100 PRAVIN Ropinirole HCl (Requip Tab*) 1 mg PO DAILY PRAVIN Spironolactone (Aldactone Tab*) 25 mg PO DAILY PRAVIN Tiotropium [place] (Spiriva Cap.Inh*) 1 cap INH DAILY PRAVIN Vital Signs: Temp Pulse Resp BP Pulse Ox 98.5 F 101 20 186/106 96 02/20/18 07:39 02/20/18 07:39 02/20/18 07:50 02/20/18 07:39 02/20/18 07:39 Oxygen Devices in Use Now: None Appearance: Elderly female lying in bed in NAD Eyes: No Scleral Icterus Ears/Nose/Mouth/Throat: Mucous Membranes Moist Neck: Trachea Midline Respiratory: Symmetrical Chest Expansion and Respiratory Effort, Clear to Auscultation Cardiovascular: NL Sounds; No Murmurs; No JVD, No Edema Abdominal: - - Soft, tender to palpation along the low mid abdomen Lymphatic: No Cervical Adenopathy Extremities: No Edema Skin: No Rash or Ulcers Neurological: NL Muscle Strength and Tone Result Diagrams: 02/20/18 05:37 02/20/18 05:37 Additional Lab and Data: . Microbiology and Other Data: . Assess/Plan/Problems-Billing Assessment: Ms. Quan is a 72 yo female with a PMH of COPD, CHF, HTN, paroxysmal afib who presented to the ED on 02/16 with c/o abdominal pain and rectal bleeding (with melena/clots), found to have melena via flex sig and large gastric ulcers via upper endoscopy. Now with nausea/vomiting and ? SBO. - Patient Problems (1) Nausea & vomiting Comment: - Worsening n/v today. Abd xray with dilated stomache, plan for NG tube now. - Reviewed findings with Dr. Monet, ? SBO. Dr. Shelton consulted. - Unclear picture overall with GI bleeding WITH an SBO unlikely. (2) GI bleed Comment: - Appreciate GI consult, pt underwent flexsig and was found to have melana with consideration for upper GI source, upper endoscopy found large ulcer. - However patient did have report from nursing staff of large amount of deisi red blood per rectum on 02/17/18, seems unlikely to have two bleeding sources. GI questions whether alterations in gastric motility could provide reasonable explation. - D/C antibiotics. - HH stable. - Continue PPI. - Hold eliquis until follow up with PCP. (3) Collagenous colitis Comment: - Bentyl on hold. (4) History of hypertension Comment: - SBP 180s. Increase carvedilol, continue spironolactone and losartan. - Hydralazine available prn as well. (5) Hypokalemia Comment: - Resolved. (6) History of hypothyroidism Comment: - Continue levothyroxine. (7) Hx of coronary artery disease Comment: - Hx of CABG. Continue BB, statin and zetia on hold while NPO. (8) PAF (paroxysmal atrial fibrillation) Comment: - Hold apixaban in the setting of GI bleed until follow up with PCP. - Continue carvedilol. (9) History of COPD Comment: - Stable. continue Spiriva (10) History of CVA (cerebrovascular accident) Comment: - Ischemic 2005, noted (11) History of depression Comment: - Continue prozac. (12) History of fibromyalgia Comment: - Continue oxycodone and lyrica. (13) History of restless legs syndrome Comment: - Continue requip. (14) DVT prophylaxis Comment: - SCDs only in the setting of GI bleed Status and Disposition: Inpatient with GI bleed. Anticipate discharge to home when medically stable.
[2018-02-20] MEDS: Losartan TAB* 25 MG PO SCH (09:26)
[2018-02-20] MEDS ORDERED: hydrALAZINE IV* 20 MG/ML VIAL IV SLOW PU PRN (09:58)
[2018-02-20] MEDS: Ondansetron ODT TAB* 4 MG SL PRN (13:33)
[2018-02-20] MEDS ORDERED: Prochlorperazine TAB* 10 MG PO PRN (14:27)
--- NOTE | 2018-02-20 15:02 | RAD ---
Indication: GI bleed. Flat wrist views of the abdomen demonstrates no free air. Moderately distended loops of small bowel and air distended stomach is noted. IMPRESSION: Dilated stomach with air-fluid levels. No free air is noted.
[2018-02-20] MEDS ORDERED: Atorvastatin* 80 MG TAB PO SCH (17:00)
[2018-02-20] MEDS ORDERED: Losartan TAB* 25 MG PO SCH (21:00)
[2018-02-20] MEDS ORDERED: Cyanocobalamin TAB* 500 MCG PO SCH (21:00)
[2018-02-21] MEDS: Levothyroxine TAB* 112 MCG TAB PO SCH (05:56)
[2018-02-21 06:45] LABS: EGFR Non-African American 83.9 (>60)
[2018-02-21] MEDS: Losartan TAB* 25 MG PO SCH ×2 (07:27→20:39)
[2018-02-21] MEDS: FLUoxetine CAP* 20 MG PO SCH (07:28)
[2018-02-21] MEDS: rOPINIRole TAB* 1 MG PO SCH (07:28)
[2018-02-21] MEDS: Spironolactone TAB* 25 MG PO SCH (07:28)
[2018-02-21] MEDS: Cholecalciferol TAB* 1000 UNITS PO SCH (07:28)
[2018-02-21] MEDS: Carvedilol TAB* 6.25 MG PO SCH (07:29)
[2018-02-21] MEDS: Pregabalin CAP(*) 50 MG PO SCH ×3 (07:30→20:39)
[2018-02-21 08:08] LABS: ABS Basophils 0 10^3/ul (0-0.2); ABS Eosinophils 0.3 10^3/ul (0-0.6); ABS Lymphocytes 1.7 10^3/ul (1.0-4.8); ABS Monocytes 0.7 10^3/ul (0-0.8); ABS Neutrophils 5.2 10^3/ul (1.5-7.7); ABS Nucleated RBC 0 10^3/ul; Eosinophil % 4.1 % (0-6); Hematocrit 31 % (35-47); Hemoglobin 10.8 g/dl (12.0-16.0); Mean Corpuscular HGB Conc 35 g/dl (31-36); Mean Corpuscular Hemoglobin 31 pg (27-31); Mean Corpuscular Volume 89 fL (80-97); Mean Platelet Volume 8.3 um3 (7.4-10.4); Nucleated Red Blood Cells % 0.1; Platelet Count 219 10^3/ul (150-450); Red Blood Count 3.46 10^6/ul (4.00-5.40); Red Cell Distribution Width 13 % (10.5-15)
--- NOTE | 2018-02-21 08:52 | PN ---
Subjective Date of Service: 02/21/18 Interval History: Ms. Quan reports feeling much better today. She has much less abdominal pain and has not vomited since her NG tube was placed yesterday. She denies chest pain or SOB as well. She agrees that she is much less confused today. Objective Active Medications: Acetaminophen (Tylenol Tab*) 650 mg PO Q4H PRN Al Hydrox/Mg Hydrox/Simethicone (Maalox Plus*) 30 ml PO Q6H PRN Albuterol (Ventolin 2.5 Mg/3 Ml Neb.Dyana*) 2.5 mg INH [id number] AWAKE PRN Atorvastatin Calcium (Lipitor*) 80 mg PO 1700 PRAVIN Carvedilol (Coreg Tab*) 25 mg PO BID PRAVIN Cholecalciferol (Vitamin D Tab*) 1,000 units PO DAILY PRAVIN Cyanocobalamin (Vitamin B12 Tab*) 500 mcg PO 2100 PRAVIN Fluoxetine HCl (Prozac Cap*) 60 mg PO DAILY PRAVIN Hydralazine HCl (Apresoline Iv*) 5 mg IV SLOW PU Q6H PRN Levothyroxine Sodium (Synthroid Tab*) 112 mcg PO DAILY@0600 PRAVIN Losartan Potassium (Cozaar Tab*) 50 mg PO 0900 PRAVIN Magnesium Hydroxide (Milk Of Magnesia Liq*) 30 ml PO Q4H PRN Morphine Sulfate (Morphine Vial*) 2 mg IV Q2H PRN Ondansetron HCl (Zofran Odt Tab*) 4 mg SL Q6H PRN Oxycodone/Acetaminophen (Percocet 5/325 Tab*) 1 tab PO Q4H PRN Pantoprazole Sodium (Protonix Iv*) 40 mg IV Q24H PRAVIN Pregabalin (Lyrica Cap(*)) 50 mg PO 0900,1400,2100 PRAVIN Prochlorperazine (Compazine Tab*) 10 mg PO Q6HR PRN Ropinirole HCl (Requip Tab*) 1 mg PO DAILY PRAVIN Spironolactone (Aldactone Tab*) 25 mg PO DAILY PRAVIN Tiotropium [place] (Spiriva Cap.Inh*) 1 cap INH DAILY PRAVIN Vital Signs: Temp Pulse Resp BP Pulse Ox 97.9 F 98 20 159/101 92 02/21/18 07:29 02/21/18 07:29 02/21/18 07:38 02/21/18 07:29 02/21/18 07:29 Oxygen Devices in Use Now: None Appearance: Female lying in bed in NAD Eyes: No Scleral Icterus Ears/Nose/Mouth/Throat: Mucous Membranes Moist Neck: Trachea Midline Respiratory: Symmetrical Chest Expansion and Respiratory Effort, Clear to Auscultation Cardiovascular: NL Sounds; No Murmurs; No JVD, No Edema Abdominal: - - Soft, nontender, nondistended, BS + Extremities: No Edema Skin: No Rash or Ulcers Neurological: Alert and Oriented x 3, NL Muscle Strength and Tone Lines/Tubes/Other Access: Clean, Dry and Intact Naso-enteral Tube Result Diagrams: 02/21/18 06:00 02/21/18 06:00 Additional Lab and Data: . Microbiology and Other Data: . Assess/Plan/Problems-Billing Assessment: Ms. Quan is a 72 yo female with a PMH of COPD, CHF, HTN, paroxysmal afib who presented to the ED on 02/16 with c/o abdominal pain and rectal bleeding (with melena/clots), found to have melena via flex sig and large gastric ulcers via upper endoscopy. Now with nausea/vomiting and ? SBO. - Patient Problems (1) SBO (small bowel obstruction) Comment: - Symptoms improved with placement of NG placed yesterday. No nausea, much less pain, less distention. - Reviewed findings with Dr. Monet. Appreciate consult from Dr. Shelton, agrees with management plan. - Ice chips only, anticipate advancing diet tomorrow if remains asymptomatic today. - NS @ 75 ml/hr. (2) GI bleed Comment: - Appreciate GI consult, pt underwent flexsig and was found to have melana with consideration for upper GI source, upper endoscopy found large ulcer. - However patient did have report from nursing staff of large amount of deisi red blood per rectum on 02/17/18, seems unlikely to have two bleeding sources. GI questions whether alterations in gastric motility could provide reasonable explation. - D/C antibiotics. - HH stable. - Continue PPI. - Hold eliquis until follow up with PCP. (3) Collagenous colitis Comment: - Bentyl on hold. (4) History of hypertension Comment: - SBP 150s. Continue increased carvedilol, continue spironolactone and losartan. - Hydralazine available prn. (5) Hypokalemia Comment: - Resolved. (6) History of hypothyroidism Comment: - Continue levothyroxine. (7) Hx of coronary artery disease Comment: - Hx of CABG. Continue BB, statin and zetia on hold while NPO. (8) PAF (paroxysmal atrial fibrillation) Comment: - Hold apixaban in the setting of GI bleed until follow up with PCP. - Continue carvedilol. (9) History of COPD Comment: - Stable. continue Spiriva (10) History of CVA (cerebrovascular accident) Comment: - Ischemic 2005, noted (11) History of depression Comment: - Continue prozac. (12) History of fibromyalgia Comment: - Continue oxycodone and lyrica. (13) History of restless legs syndrome Comment: - Continue requip. (14) DVT prophylaxis Comment: - SCDs only in the setting of GI bleed Status and Disposition: Inpatient with GI bleed. Anticipate discharge to home when medically stable.
[2018-02-21] MEDS ORDERED: Pantoprazole IV* 40 MG IV SCH (09:00)
[2018-02-21] MEDS: Tiotropium CAP.INH* CAP.INH/18 MCG (USE ORDER SET !) INH SCH (09:03)
[2018-02-21] MEDS: NS 0.9% 1000 ML* 1,000 ML IV SCH ×2 (09:59→22:44)
[2018-02-21] MEDS: KCL 20 MEQ/100 ML IVPREMIX* 20 MEQ/100 ML BAG IV SCH ×2 (14:09→16:52)
[2018-02-21] MEDS: Carvedilol TAB* 25 MG PO SCH (20:39)
[2018-02-21] MEDS: Pantoprazole IV* 40 MG IV SCH (20:40)
--- NOTE | 2018-02-21 23:10 | CONS ---
CC: Rashmi Holloway MD * CONSULTATION REPORT: DATE OF CONSULT: 02/21/18 REASON FOR CONSULTATION: Small bowel obstruction. HISTORY OF PRESENT ILLNESS: This is a 72-year-old female who has a history of atrial fibrillation on anticoagulation, coronary artery disease, severe obesity , collagenous colitis and a recently diagnosed peptic ulcer disease who has a past surgical history significant for vaginal hysterectomy. She was admitted with abdominal pain and rectal bleeding on 02/16/18 to the hospitalist service. Her Eliquis was held and she was seen by Dr. Monet who performed flexible sigmoidoscopy and then an upper endoscopy. She was found to have normal mucosa on flexible sigmoidoscopy and was noted to have melena, prompting an upper endoscopy which was done on 02/18/18. She was found to have a 6 mm ulcer in the prepyloric antrum, no active bleeding, as well as a 3 mm ulcer. She was then treated with PPI and hemodynamics was stable without need for blood transfusion. On 02/20/18, she had issues with nausea and vomiting and low mid abdominal pain and therefore, abdominal x-rays were performed, which showed dilated stomach and some air fluid levels. Based on concerns for small bowel obstruction, surgical consultation was requested. At present, the patient states she is feeling better than she was yesterday. She admits to passing flatus twice a day. She has no abdominal pain or tenderness reported. PAST MEDICAL HISTORY: Coronary artery disease, history of CABG, paroxysmal atrial fibrillation, hypothyroidism, gastroesophageal reflux disease, congestive heart failure, history of CVA, COPD, hypertension, hyperlipidemia, migraines, obesity, collagenous colitis, esophageal stricture, restless leg syndrome, depression and fibromyalgia. PAST SURGICAL HISTORY: CABG, vaginal hysterectomy. MEDICATIONS: Currently: 1. Tylenol p.r.n. 2. Maalox p.r.n. 3. Ventolin inhaler. 4. Milk of magnesia p.r.n. 5. Synthroid. 6. Prozac. 7. Requip. 8. Spiriva. 9. Percocet p.r.n. 10. Lyrica. 11. Aldactone. 12. Zofran p.r.n. 13. Compazine p.r.n. 14. Alprazolam IV p.r.n. 15. Carvedilol. 16. Cozaar. 17. Protonix IV b.i.d. ALLERGIES: CODEINE. FAMILY HISTORY: Noncontributory. SOCIAL HISTORY: She does not smoke or drink alcohol. PHYSICAL EXAMINATION: Vital Signs: Temperature is 97.9, pulse 98, respirations 20, O2 sat 92% on room air, blood pressure 159/101. General: She appears in no acute distress. HEENT Examination: She is normocephalic and atraumatic. There is a nasogastric tube present with cervantes drainage noted within the canister. Abdomen: Soft, nondistended, obese, nontender. No palpable masses or hernias. LABORATORY DATA: WBC's 8.0, hemoglobin 10.8, platelets 219,000. Sodium 140, potassium 3.1, chloride 103, bicarb 29, BUN 17, creatinine 0.69. IMAGING: X-ray films were reviewed from 02/20/18, findings as above. IMPRESSION: A 72-year-old female with complex past medical history. She has had a recent upper GI bleed secondary to peptic ulcer disease. Her current problem may have been a partial obstruction based on intraluminal clot that appears to be resolving. PLAN/RECOMMENDATIONS: We will continue NG tube until bowel function has normalized and then slowly progress diet. [facility] will follow. [id number]/[facility] #: [id number] KATINA
[2018-02-22] MEDS: Levothyroxine TAB* 112 MCG TAB PO SCH (05:23)
[2018-02-22 06:21] LABS: EGFR Non-African American 81.2 (>60)
[2018-02-22] MEDS: Spironolactone TAB* 25 MG PO SCH (08:01)
[2018-02-22] MEDS: Carvedilol TAB* 25 MG PO SCH (08:01)
[2018-02-22] MEDS: Pregabalin CAP(*) 50 MG PO SCH ×2 (08:02→13:17)
[2018-02-22] MEDS: FLUoxetine CAP* 20 MG PO SCH (08:02)
[2018-02-22] MEDS: Pantoprazole IV* 40 MG IV SCH ×2 (08:03→20:33)
[2018-02-22] MEDS: Losartan TAB* 25 MG PO SCH (08:03)
[2018-02-22] MEDS: rOPINIRole TAB* 1 MG PO SCH (08:16)
[2018-02-22] MEDS: Tiotropium CAP.INH* CAP.INH/18 MCG (USE ORDER SET !) INH SCH (08:31)
[2018-02-22] MEDS: oxyCODONE/Acetamin 5/325 MG* TAB PO PRN (10:22)
--- NOTE | 2018-02-22 10:30 | RAD ---
HISTORY: SBO COMPARISONS: June 22, 2018 VIEWS: Frontal supine and upright views of the abdomen. FINDINGS: BOWEL: Again noted are dilated loops of small bowel with differential air-fluid levels. The small bowel measures up to 4.3 cm in caliber. A gastric tube is noted with the tip in the left upper quadrant in a prepyloric position. CALCULI: There are no abnormal calculi. BONES AND SOFT TISSUES: There is peripheral arterial calcification. Mild degenerative changes are noted. OTHER FINDINGS: There is a small right pleural effusion. There is no subphrenic gas. IMPRESSION: SMALL BOWEL OBSTRUCTION
[2018-02-22] MEDS: NS 0.9% 1000 ML* 1,000 ML IV SCH (13:16)
[2018-02-22] MEDS ORDERED: Ondansetron INJ* 2 MG/ML VIAL IV PRN (14:23)
[2018-02-22] MEDS ORDERED: Morphine INJ* 10 MG/ML 1 ML CARPUJECT IV PRN (14:26)
--- NOTE | 2018-02-22 14:33 | PN ---
Subjective Date of Service: 02/22/18 Interval History: Ms. Quan reports feeling ok today however she continues to have some lower mid abdominal aching. She denies nausea and has had no vomiting. She continues to have the NG tube which had been clamped after having no drainage for many hours. She denies chest pain or SOB. Objective Active Medications: Albuterol (Ventolin 2.5 Mg/3 Ml Neb.Dyana*) 2.5 mg INH [id number] AWAKE PRN Hydralazine HCl (Apresoline Iv*) 5 mg IV SLOW PU Q6H PRN Sodium Chloride (Ns 0.9% 1000 Ml*) 1,000 mls @ 75 mls/hr IV PER RATE PRAVIN Levothyroxine Sodium (Synthroid Inj*) 60 mcg IV 0600 PRAVIN Metoprolol Tartrate (Lopressor Iv*) 5 mg IV Q6H PRAVIN Morphine Sulfate (Morphine Inj (Syringe)*) 4 mg IV Q4H PRN Ondansetron HCl (Zofran Inj*) 4 mg IV Q6H PRN Pantoprazole Sodium (Protonix Iv*) 40 mg IV BID PRAVIN Tiotropium [place] (Spiriva Cap.Inh*) 1 cap INH DAILY PRAVIN Vital Signs: Temp Pulse Resp BP Pulse Ox 98.3 F 123 18 141/82 94 02/22/18 11:46 02/22/18 11:46 02/22/18 13:17 02/22/18 11:46 02/22/18 11:46 Oxygen Devices in Use Now: None Appearance: Female lying in bed in NAD Eyes: No Scleral Icterus Ears/Nose/Mouth/Throat: Mucous Membranes Moist Neck: Trachea Midline Respiratory: Symmetrical Chest Expansion and Respiratory Effort, Clear to Auscultation Cardiovascular: NL Sounds; No Murmurs; No JVD, No Edema Abdominal: - - Soft, tender to palpation in lower mid abdomen, BS + Extremities: No Edema Skin: No Rash or Ulcers Neurological: Alert and Oriented x 3, NL Muscle Strength and Tone Result Diagrams: 02/21/18 06:00 02/22/18 05:20 Additional Lab and Data: . Microbiology and Other Data: . Assess/Plan/Problems-Billing Assessment: Ms. Quan is a 72 yo female with a PMH of COPD, CHF, HTN, paroxysmal afib who presented to the ED on 02/16 with c/o abdominal pain and rectal bleeding (with melena/clots), found to have melena via flex sig and large gastric ulcers via upper endoscopy. Now with nausea/vomiting and ? SBO. - Patient Problems (1) SBO (small bowel obstruction) Comment: - Repeat xray this morning confirms persistent SBO. - Appreciate consult from Dr. Shelton, agrees with management plan. - NPO, NG to low wall suction. - NS @ 75 ml/hr. (2) GI bleed Comment: - Appreciate GI consult, pt underwent flexsig and was found to have melana with consideration for upper GI source, upper endoscopy found large ulcer. - However patient did have report from nursing staff of large amount of deisi red blood per rectum on 02/17/18, seems unlikely to have two bleeding sources. GI questions whether alterations in gastric motility could provide reasonable explation. - D/C antibiotics. - HH stable. - Continue PPI. - Hold eliquis until follow up with PCP. (3) Collagenous colitis Comment: - Bentyl on hold. (4) History of hypertension Comment: - SBP 150s. D/C oral meds, metoprolol IV q6h. - Hydralazine available prn. (5) Hypokalemia Comment: - Resolved. (6) History of hypothyroidism Comment: - Continue levothyroxine IV. (7) Hx of coronary artery disease Comment: - Hx of CABG. Continue BB. (8) PAF (paroxysmal atrial fibrillation) Comment: - Hold apixaban in the setting of GI bleed until follow up with PCP. - Continue carvedilol. (9) History of COPD Comment: - Stable. continue Spiriva (10) History of CVA (cerebrovascular accident) Comment: - Ischemic 2005, noted (11) History of depression Comment: - Hold prozac. (12) History of fibromyalgia Comment: - Switch to morphine. (13) History of restless legs syndrome Comment: - Hold requip. (14) DVT prophylaxis Comment: - SCDs only in the setting of GI bleed Status and Disposition: Inpatient with GI bleed. Anticipate discharge to home when medically stable.
[2018-02-22] MEDS: Metoprolol Tartrate IV* 1 MG/ML 5 ML VIAL IV SCH ×2 (15:32→20:32)
--- NOTE | 2018-02-22 18:11 | PN ---
Progress Note - Progress Note Date of Service: 02/22/18 Note: Surgery Progress: S: Denies abd pain. States she feels somewhat bloated. Denies N/V. Passing small amts of flatus. No BM. Per nsg, emptied 150 ml NG drainage from day shift. O: Vital Signs - 8 hr 02/22/18 02/22/18 02/22/18 10:20 10:22 11:46 Temperature 98.3 F Pulse Rate 123 Respiratory 16 16 17 Rate Blood Pressure 141/82 (mmHg) O2 Sat by Pulse 94 Oximetry 02/22/18 02/22/18 02/22/18 13:17 15:11 15:15 Temperature 98.2 F Pulse Rate 78 Respiratory 16 17 17 Rate Blood Pressure 137/69 (mmHg) O2 Sat by Pulse 96 Oximetry Intake and Output Last 24 Hours 02/20/18 02/21/18 02/22/18 02/23/18 06:59 06:59 06:59 06:59 Intake Total 6246 584 9452 1550 Output Total 1900 0 0 125 Balance 11 240 1342 1425 Weight 211 lb 12.8 oz 211 lb 14.4 oz 208 lb 8 oz Intake: IV Fluids 1351 1042 1290 Kcl 20mEq 102 NS (0.9%) 5912 791 1120 Oral 560 240 300 240 NG Tube Irrigate Amount 20 NGT 20 Output: NG Tube Drainage Amount 125 NGT 125 Urine 1700 0 0 Emesis 200 Other: Estimated Void Medium Medium # Bowel Movements 0 0 0 0 # Voids 1 0 2 Gen: obese female in NAD; NG tube in place Heart: rapid, irreg Lungs: clear; some add'l expiratory sounds (not wheezes) Abd: obese; +BS; soft; no sig tenderness to palp AXR: (personally reviewed) NG in good position; no sig gastric distension; mult dilated SB loops w/ air-fluid levels A: partial SBO P: cont conservative tx; could consider d/c of NG soon, if continues to improve and low NG output. Will cont to follow; d/w Dr. Shelton in a.m.
[2018-02-23] MEDS: NS 0.9% 1000 ML* 1,000 ML IV SCH ×2 (03:09→19:35)
[2018-02-23] MEDS: Metoprolol Tartrate IV* 1 MG/ML 5 ML VIAL IV SCH ×4 (03:21→21:00)
[2018-02-23] MEDS: Levothyroxine INJ* 100 MCG/5 ML VIAL IV SCH (05:35)
[2018-02-23] MEDS: Pantoprazole IV* 40 MG IV SCH ×2 (07:41→19:32)
[2018-02-23] MEDS: Tiotropium CAP.INH* CAP.INH/18 MCG (USE ORDER SET !) INH SCH (08:21)
--- NOTE | 2018-02-23 15:29 | PN ---
Subjective Date of Service: 02/23/18 Interval History: Ms. Quan reports some continued abdominal distention with pain along the low mid abdomen. She continues to have clear to bilious drainage from her NG tube. She reports of chest pain when she awoke from sleep today that passed within seconds. Objective Active Medications: Albuterol (Ventolin 2.5 Mg/3 Ml Neb.Dyana*) 2.5 mg INH [id number] AWAKE PRN Hydralazine HCl (Apresoline Iv*) 5 mg IV SLOW PU Q6H PRN Sodium Chloride (Ns 0.9% 1000 Ml*) 1,000 mls @ 75 mls/hr IV PER RATE PRAVIN Levothyroxine Sodium (Synthroid Inj*) 60 mcg IV 0600 PRAVIN Metoprolol Tartrate (Lopressor Iv*) 5 mg IV Q6H PRAVIN Morphine Sulfate (Morphine Inj (Syringe)*) 4 mg IV Q4H PRN Ondansetron HCl (Zofran Inj*) 4 mg IV Q6H PRN Pantoprazole Sodium (Protonix Iv*) 40 mg IV BID PRAVIN Tiotropium [place] (Spiriva Cap.Inh*) 1 cap INH DAILY PRAVIN Vital Signs: Temp Pulse Resp BP Pulse Ox 97.8 F 97 20 159/99 97 02/23/18 11:25 02/23/18 12:25 02/23/18 11:25 02/23/18 12:25 02/23/18 11:25 Oxygen Devices in Use Now: None Appearance: Female lying in bed in NAD Eyes: No Scleral Icterus Ears/Nose/Mouth/Throat: Mucous Membranes Moist Neck: Trachea Midline Respiratory: Symmetrical Chest Expansion and Respiratory Effort, Clear to Auscultation Cardiovascular: NL Sounds; No Murmurs; No JVD, No Edema Abdominal: - - Soft, distended, BS +, tender to palpation along low mid abdomen Lymphatic: No Cervical Adenopathy Extremities: No Edema Skin: No Rash or Ulcers Neurological: Alert and Oriented x 3, NL Muscle Strength and Tone Nutrition: Taking PO's Result Diagrams: 02/21/18 06:00 02/22/18 05:20 Additional Lab and Data: . Microbiology and Other Data: . Assess/Plan/Problems-Billing Assessment: Ms. Quan is a 72 yo female with a PMH of COPD, CHF, HTN, paroxysmal afib who presented to the ED on 02/16 with c/o abdominal pain and rectal bleeding (with melena/clots), found to have melena via flex sig and large gastric ulcers via upper endoscopy. Now with nausea/vomiting and ? SBO. - Patient Problems (1) SBO (small bowel obstruction) Comment: - Persistent symptoms. - Appreciate consult from Dr. Shelton, agrees with management plan. - NPO, NG to low wall suction. Repeat xray for AM. - NS @ 75 ml/hr. (2) GI bleed Comment: - Appreciate GI consult, pt underwent flexsig and was found to have melana with consideration for upper GI source, upper endoscopy found large ulcer. - However patient did have report from nursing staff of large amount of deisi red blood per rectum on 02/17/18, seems unlikely to have two bleeding sources. GI questions whether alterations in gastric motility could provide reasonable explation. - D/C antibiotics. - HH stable. - Continue PPI. - Hold eliquis until follow up with PCP. (3) Collagenous colitis Comment: - Bentyl on hold. (4) History of hypertension Comment: - SBP 150s. D/C oral meds, metoprolol IV q6h. - Hydralazine available prn. (5) Hypokalemia Comment: - Resolved. (6) History of hypothyroidism Comment: - Continue levothyroxine IV. (7) Hx of coronary artery disease Comment: - Hx of CABG. Continue BB. (8) PAF (paroxysmal atrial fibrillation) Comment: - Hold apixaban in the setting of GI bleed until follow up with PCP. - Continue carvedilol. (9) History of COPD Comment: - Stable. continue Spiriva (10) History of CVA (cerebrovascular accident) Comment: - Ischemic 2005, noted (11) History of depression Comment: - Hold prozac. (12) History of fibromyalgia Comment: - Switch to morphine. (13) History of restless legs syndrome Comment: - Hold requip. (14) DVT prophylaxis Comment: - SCDs only in the setting of GI bleed Status and Disposition: Inpatient with GI bleed. Anticipate discharge to home when medically stable.
[2018-02-23] MEDS: hydrALAZINE IV* 20 MG/ML VIAL IV SLOW PU PRN (19:32)
[2018-02-24] MEDS: Metoprolol Tartrate IV* 1 MG/ML 5 ML VIAL IV SCH ×3 (03:00→15:36)
[2018-02-24] MEDS: Levothyroxine INJ* 100 MCG/5 ML VIAL IV SCH (05:01)
[2018-02-24 05:48] LABS: ABS Basophils 0.1 10^3/ul (0-0.2); ABS Eosinophils 0.3 10^3/ul (0-0.6); ABS Monocytes 0.9 10^3/ul (0-0.8); ABS Neutrophils 7.1 10^3/ul (1.5-7.7); ABS Nucleated RBC 0 10^3/ul; Eosinophil % 2.6 % (0-6); Hematocrit 34 % (35-47); Hemoglobin 12.1 g/dl (12.0-16.0); Lymphocyte % 19.6 % (25-47); Mean Corpuscular HGB Conc 36 g/dl (31-36); Mean Corpuscular Hemoglobin 31 pg (27-31); Mean Corpuscular Volume 88 fL (80-97); Mean Platelet Volume 8.2 um3 (7.4-10.4); Nucleated Red Blood Cells % 0.2; Platelet Count 301 10^3/ul (150-450); Red Blood Count 3.87 10^6/ul (4.00-5.40); Red Cell Distribution Width 13 % (10.5-15); White Blood Count 10.4 10^3/ul (3.5-10.8)
[2018-02-24 06:03] LABS: EGFR Non-African American 104.6 (>60)
[2018-02-24] MEDS: Tiotropium CAP.INH* CAP.INH/18 MCG (USE ORDER SET !) INH SCH (07:18)
--- NOTE | 2018-02-24 07:47 | PN ---
Subjective Date of Service: 02/24/18 Interval History: Ms. Quan reports feeling better this morning. She denies feeling bloated or having nausea or abdominal pain. She is passing flatus. She is eager to have her diet advanced. She denies chest pain, SOB. Objective Active Medications: Albuterol (Ventolin 2.5 Mg/3 Ml Neb.Dyana*) 2.5 mg INH [id number] AWAKE PRN Hydralazine HCl (Apresoline Iv*) 5 mg IV SLOW PU Q6H PRN Sodium Chloride (Ns 0.9% 1000 Ml*) 1,000 mls @ 75 mls/hr IV PER RATE PRAVIN Levothyroxine Sodium (Synthroid Inj*) 60 mcg IV 0600 PRAVIN Metoprolol Tartrate (Lopressor Iv*) 5 mg IV Q6H PRAVIN Morphine Sulfate (Morphine Inj (Syringe)*) 4 mg IV Q4H PRN Ondansetron HCl (Zofran Inj*) 4 mg IV Q6H PRN Pantoprazole Sodium (Protonix Iv*) 40 mg IV BID PRAVIN Tiotropium [place] (Spiriva Cap.Inh*) 1 cap INH DAILY PRAVIN Vital Signs: Temp Pulse Resp BP Pulse Ox 97.7 F 105 18 170/90 98 02/24/18 07:16 02/24/18 07:16 02/24/18 07:16 02/24/18 03:00 02/24/18 07:16 Oxygen Devices in Use Now: None Appearance: Female lying in bed in NAD Eyes: No Scleral Icterus Ears/Nose/Mouth/Throat: Mucous Membranes Moist Neck: Trachea Midline Respiratory: Symmetrical Chest Expansion and Respiratory Effort, Clear to Auscultation Cardiovascular: NL Sounds; No Murmurs; No JVD, No Edema Abdominal: NL Sounds; No Tenderness; No Distention Extremities: No Edema Skin: No Rash or Ulcers Neurological: Alert and Oriented x 3, NL Muscle Strength and Tone Result Diagrams: 02/24/18 05:20 02/24/18 05:20 Additional Lab and Data: . Microbiology and Other Data: . Assess/Plan/Problems-Billing Assessment: Ms. Quan is a 72 yo female with a PMH of COPD, CHF, HTN, paroxysmal afib who presented to the ED on 02/16 with c/o abdominal pain and rectal bleeding (with melena/clots), found to have melena via flex sig and large gastric ulcers via upper endoscopy. Now with nausea/vomiting and SBO, resolving. - Patient Problems (1) SBO (small bowel obstruction) Comment: - No distention, BS +, passing flatus. Abd xray showing interval improvement. - Appreciate consult from Dr. Shelton, agrees with management plan. - D/C NG tube, start clear liquids, encourage ambulation. If tolerates will resume oral meds. - D/C IVF. (2) GI bleed Comment: - Appreciate GI consult, pt underwent flexsig and was found to have melena with consideration for upper GI source, upper endoscopy found large gastric ulcer. - However patient did have report from nursing staff of large amount of deisi red blood per rectum on 02/17/18, seems unlikely to have two bleeding sources. GI questions whether alterations in gastric motility could provide reasonable explation. - HH stable. - Continue PPI. - Hold eliquis until follow up with PCP. (3) Collagenous colitis Comment: - Bentyl on hold. (4) History of hypertension Comment: - SBP 150-180s. Resume oral meds if tolerating po intake. - Hydralazine available prn. (5) Hypokalemia Comment: - Severe hypokalemia on admission, repleted. - Continue oral supplementation. (6) History of hypothyroidism Comment: - Continue levothyroxine. (7) Hx of coronary artery disease Comment: - Hx of CABG. Continue BB. (8) PAF (paroxysmal atrial fibrillation) Comment: - Hold apixaban in the setting of GI bleed until follow up with PCP. - Continue carvedilol. (9) History of COPD Comment: - Stable. continue Spiriva (10) History of CVA (cerebrovascular accident) Comment: - Ischemic 2005, noted (11) History of depression Comment: - Hold prozac until tolerating oral intake. (12) History of fibromyalgia Comment: - Switch to morphine, resume home meds when tolerating oral intake. (13) History of restless legs syndrome Comment: - Hold requip, resume when taking po. (14) DVT prophylaxis Comment: - SCDs only in the setting of GI bleed (15) DNR (do not resuscitate) Comment: Status and Disposition: Inpatient with GI bleed. Anticipate discharge to home when medically stable.
--- NOTE | 2018-02-24 08:10 | RAD ---
INDICATION: Small bowel [id number] COMPARISON: February 22, 2018 TECHNIQUE: Erect and supine views of the abdomen are submitted. FINDINGS: Bones: There are no acute bony findings. Soft tissues: The soft tissues appear normal. The psoas margins are sharp. Bowel gas pattern: There are scattered air-fluid levels and there is air within several loops small bowel but there has been interval decompression. The findings are compatible with a resolving small bowel obstruction. There is a small amount of air within the colon which is nondistended Calcifications: There are no abnormal calcifications. Other: There are basilar lung abnormalities appearing unchanged. There is a nasogastric tube projecting over the body the stomach. IMPRESSION: MILD PARTIAL SMALL BOWEL OBSTRUCTION WITH INTERVAL IMPROVEMENT.
[2018-02-24] MEDS: Pantoprazole IV* 40 MG IV SCH (08:39)
[2018-02-24] MEDS: hydrALAZINE IV* 20 MG/ML VIAL IV SLOW PU PRN (15:37)
[2018-02-24] MEDS: Pregabalin CAP(*) 50 MG PO SCH (20:50)
[2018-02-24] MEDS: Carvedilol TAB* 25 MG PO SCH (20:50)
[2018-02-24] MEDS: Omeprazole CAP* 20 MG PO SCH (20:50)
[2018-02-25] MEDS: Levothyroxine TAB* 112 MCG TAB PO SCH (06:10)
[2018-02-25] MEDS: Losartan TAB* 25 MG PO SCH (07:56)
[2018-02-25] MEDS: Omeprazole CAP* 20 MG PO SCH ×2 (07:58→19:17)
[2018-02-25] MEDS: FLUoxetine CAP* 20 MG PO SCH (07:58)
[2018-02-25] MEDS: Pregabalin CAP(*) 50 MG PO SCH ×3 (07:59→19:16)
[2018-02-25] MEDS: Carvedilol TAB* 25 MG PO SCH ×2 (08:01→19:16)
[2018-02-25] MEDS: Spironolactone TAB* 25 MG PO SCH (08:02)
[2018-02-25] MEDS: rOPINIRole TAB* 1 MG PO SCH (08:03)
[2018-02-25] MEDS: Tiotropium CAP.INH* CAP.INH/18 MCG (USE ORDER SET !) INH SCH (08:47)
[2018-02-25] MEDS ORDERED: Potassium Chloride LIQUID* 20 MEQ PACKET PO SCH (09:00)
--- NOTE | 2018-02-25 13:05 | PN ---
Subjective Date of Service: 02/25/18 Interval History: . Patient reports she is feeling better today, tolerating PO well on a regular diet, first started last evening. She is eating small meals. No nausea, or abdominal pain. No fever or chills. Reports very loose BM this am. No blood or clots noted. Objective Active Medications: Albuterol (Ventolin 2.5 Mg/3 Ml Neb.Dyana*) 2.5 mg INH [id number] AWAKE PRN PRN Reason: sob/wheezing Carvedilol (Coreg Tab*) 25 mg PO BID [facility] Last Admin: 02/25/18 08:01 Dose: 25 mg Fluoxetine HCl (Prozac Cap*) 60 mg PO DAILY [facility] Last Admin: 02/25/18 07:58 Dose: 60 mg Hydralazine HCl (Apresoline Iv*) 5 mg IV SLOW PU Q6H PRN PRN Reason: SBP > 180, DBP > 100 Last Admin: 02/24/18 15:37 Dose: 5 mg Levothyroxine Sodium (Synthroid Tab*) 112 mcg PO DAILY@0600 [facility] Last Admin: 02/25/18 06:10 Dose: 112 mcg Losartan Potassium (Cozaar Tab*) 50 mg PO DAILY [facility] Last Admin: 02/25/18 07:56 Dose: 50 mg Morphine Sulfate (Morphine Inj (Syringe)*) 4 mg IV Q4H PRN PRN Reason: PAIN Last Admin: 02/23/18 05:45 Dose: 4 mg Omeprazole (Prilosec Cap*) 20 mg PO BID [facility] Last Admin: 02/25/18 07:58 Dose: 20 mg Ondansetron HCl (Zofran Inj*) 4 mg IV Q6H PRN PRN Reason: NAUSEA Potassium Chloride (Klor-Con Liquid*) 20 meq PO DAILY [facility] Last Admin: 02/25/18 07:55 Dose: 20 meq Pregabalin (Lyrica Cap(*)) 50 mg PO TID [facility] Last Admin: 02/25/18 07:59 Dose: 50 mg Ropinirole HCl (Requip Tab*) 1 mg PO DAILY [facility] Last Admin: 02/25/18 08:03 Dose: 1 mg Spironolactone (Aldactone Tab*) 25 mg PO DAILY [facility] Last Admin: 02/25/18 08:02 Dose: 25 mg Tiotropium [place] (Spiriva Cap.Inh*) 1 cap INH DAILY PRAVIN Last Admin: 02/25/18 08:47 Dose: 1 cap Vital Signs - 8 hr 02/25/18 02/25/18 02/25/18 07:19 07:59 08:00 Temperature 98.1 F Pulse Rate 129 Respiratory 19 17 16 Rate Blood Pressure 134/75 (mmHg) O2 Sat by Pulse 95 Oximetry 02/25/18 02/25/18 02/25/18 08:52 11:25 11:49 Temperature 97.9 F Pulse Rate 91 80 Respiratory 16 16 18 Rate Blood Pressure 112/55 (mmHg) O2 Sat by Pulse 98 97 Oximetry Oxygen Devices in Use Now: None Appearance: 72 yo female A+O x3 in NAD. Eyes: No Scleral Icterus, PERRLA Ears/Nose/Mouth/Throat: NL Teeth, Lips, Gums, Mucous Membranes Moist Neck: NL Appearance and Movements; NL JVP Respiratory: Symmetrical Chest Expansion and Respiratory Effort, Clear to Auscultation Cardiovascular: NL Sounds; No Murmurs; No JVD, RRR, No Edema Abdominal: NL Sounds; No Tenderness; No Distention, - - obese Extremities: No Edema, No Clubbing, Cyanosis Skin: No Rash or Ulcers, No Nodules or Sclerosis Neurological: Alert and Oriented x 3, NL Sensation, NL Muscle Strength and Tone Lines/Tubes/Other Access: Clean, Dry and Intact Peripheral IV Nutrition: Taking PO's Result Diagrams: 02/24/18 05:20 02/24/18 05:20 Additional Lab and Data: . Microbiology and Other Data: . Assess/Plan/Problems-Billing Assessment: Ms. Quan is a 72 yo female with a PMH of COPD, CHF, HTN, paroxysmal afib who presented to the ED on 02/16 with c/o abdominal pain and rectal bleeding (with melena/clots), found to have melena via flex sig and large gastric ulcers via upper endoscopy. Now with nausea/vomiting and SBO, resolving. - Patient Problems (1) SBO (small bowel obstruction) Comment: - No distention, BS +, passing flatus. Abd xray showing interval improvement. - Appreciate consult from Dr. Shelton, agrees with management plan. - NG tube yesterday am, start clear liquids then advanced to soft GI diet this am - tolerating well, still eating small amounts, encourage ambulation. (2) GI bleed Comment: - Appreciate GI consult, pt underwent flexsig and was found to have melena with consideration for upper GI source, upper endoscopy found large gastric ulcer. - However patient did have report from nursing staff of large amount of deisi red blood per rectum on 02/17/18, seems unlikely to have two bleeding sources. GI questions whether alterations in gastric motility could provide reasonable explation. - HH stable. - Continue PPI. - Hold eliquis until follow up with PCP. (3) Hypokalemia Comment: - Severe hypokalemia on admission, repleted. - Continue oral supplementation - increase to BID and recheck in am, add on magnesium (4) PAF (paroxysmal atrial fibrillation) Comment: - Hold apixaban in the setting of GI bleed until follow up with PCP. - Continue carvedilol. (5) History of COPD Status: Chronic Comment: - Stable. continue Spiriva (6) History of CVA (cerebrovascular accident) Comment: - Ischemic 2005, noted (7) History of hypertension Comment: - Better control with restarting PO meds (8) History of hypothyroidism Comment: - Continue levothyroxine. (9) Hx of coronary artery disease Current Visit: Yes Comment: - Hx of CABG. Continue BB. (10) Hx of gastroesophageal reflux (GERD) Comment: PPI. (11) History of depression Comment: - Resume prozac (12) History of fibromyalgia Comment: (13) History of restless legs syndrome Comment: - Continue requip (14) DVT prophylaxis Comment: - SCDs only in the setting of GI bleed (15) DNR (do not resuscitate) Comment: Status and Disposition: Inpatient with GI bleed. Anticipate discharge to home when medically stable. possible DC tomorrow if tolerated PO
[2018-02-25] MEDS: Potassium Chloride LIQUID* 20 MEQ PACKET PO SCH (19:17)
[2018-02-26] MEDS: Levothyroxine TAB* 112 MCG TAB PO SCH (05:47)
[2018-02-26 06:13] LABS: ABS Basophils 0 10^3/ul (0-0.2); ABS Eosinophils 0.3 10^3/ul (0-0.6); ABS Lymphocytes 2.6 10^3/ul (1.0-4.8); ABS Monocytes 0.7 10^3/ul (0-0.8); ABS Nucleated RBC 0 10^3/ul; Eosinophil % 3.5 % (0-6); Hematocrit 33 % (35-47); Hemoglobin 11.4 g/dl (12.0-16.0); Lymphocyte % 26.4 % (25-47); Mean Corpuscular HGB Conc 35 g/dl (31-36); Mean Corpuscular Hemoglobin 31 pg (27-31); Mean Corpuscular Volume 88 fL (80-97); Mean Platelet Volume 7.9 um3 (7.4-10.4); Nucleated Red Blood Cells % 0.1; Platelet Count 282 10^3/ul (150-450); Red Blood Count 3.67 10^6/ul (4.00-5.40); Red Cell Distribution Width 14 % (10.5-15); White Blood Count 9.7 10^3/ul (3.5-10.8)
[2018-02-26 06:30] LABS: EGFR Non-African American 66.8 (>60)
[2018-02-26] MEDS: Potassium Chloride LIQUID* 20 MEQ PACKET PO SCH (07:54)
[2018-02-26] MEDS: Carvedilol TAB* 25 MG PO SCH (07:54)
[2018-02-26] MEDS: Losartan TAB* 25 MG PO SCH (07:55)
[2018-02-26] MEDS: FLUoxetine CAP* 20 MG PO SCH (07:56)
[2018-02-26] MEDS: Omeprazole CAP* 20 MG PO SCH (07:56)
[2018-02-26] MEDS: Spironolactone TAB* 25 MG PO SCH (07:57)
[2018-02-26] MEDS: rOPINIRole TAB* 1 MG PO SCH (07:57)
[2018-02-26] MEDS: Pregabalin CAP(*) 50 MG PO SCH ×2 (07:58→14:11)
[2018-02-26] MEDS: Tiotropium CAP.INH* CAP.INH/18 MCG (USE ORDER SET !) INH SCH (10:31)
[2018-02-26 15:31] VITALS: BP 147/81
[2018-02-26] MEDS ORDERED: Magnesium Oxide TAB* 400 MG PO SCH (16:00)
--- NOTE | 2018-03-01 06:16 | DS ---
CC: Dr. Holloway; Dr. Kingsley, GI from [facility]. * DISCHARGE SUMMARY: DATE OF ADMISSION: 02/18/18 DATE OF DISCHARGE: 02/26/18 PROVIDER: Marilou Yap NP. ATTENDING PHYSICIAN: Dr. Usman Gonzalez * (dictated by Marilou Yap NP). PRIMARY CARE PROVIDER: Dr. Holloway. PRIMARY DIAGNOSES: 1. Gastrointestinal bleeding. 2. Gastric ulcer. 3. Low potassium. 4. Low magnesium. SECONDARY DIAGNOSES: 1. Coronary artery disease with a history of CABG. 2. Paroxysmal atrial fibrillation. 3. Gastroesophageal reflux disease. 4. Congestive heart failure. 5. History of cerebrovascular accident of the brainstem. 6. Hypertension. 7. Chronic obstructive pulmonary disease. 8. Hyperlipidemia. 9. Migraine headaches. 10. History of collagenous colitis. 11. Esophageal stricture. 12. Restless legs syndrome. 13. Depression. 14. Fibromyalgia. STUDIES COMPLETED WHILE IN THE HOSPITAL: She had an electrocardiogram on , atrial fibrillation at the rate of 110. She had an abdominal x-ray on 02/20. Radiologist's impression: Dilated stomach with air fluid levels, no free air was noted. She had an abdominal x-ray on 02/22/18, radiologist's impression : Small bowel obstruction, small right pleural effusion. She had an abdominal x-ray on 02/24/18. Radiologist's impression: Mild partial small bowel obstruction with interval improvement. DISCHARGE MEDICATIONS: 1. Carvedilol 25 mg p.o. b.i.d. 2. Magnesium oxide 400 mg p.o. daily. 3. Omeprazole 20 mg p.o. b.i.d. 4. Potassium 20 mEq p.o. b.i.d. Discontinued home meds: 1. Eliquis 5 mg p.o. b.i.d. 2. Aspirin 81 mg p.o. daily. 3. Nexium 40 mg p.o. daily. 4. Zetia 10 mg p.o. daily. Continued home medications: 1. Biotin 1 mg p.o. daily. 2. FiberCon 625 mg p.o. daily. 3. Zyrtec 10 mg p.o. daily. 4. Vitamin D tablet 1000 units p.o. daily. 5. Vitamin B12 at 500 mcg p.o. daily. 6. Bentyl 20 mg p.o. q.i.d. 7. Ferrous sulfate 325 mg p.o. daily. 8. Flaxseed oil 1000 mg p.o. daily. 9. Prozac 60 mg p.o. daily. 10. Glucosamine 1000 mg p.o. t.i.d. 11. Synthroid 112 mcg p.o. daily. 12. Cozaar 50 mg p.o. daily. 13. Multivitamin with minerals 1 tablet p.o. daily. 14. Lyrica 50 mg p.o. t.i.d. 15. Requip 1 mg p.o. daily. 16. Crestor 40 mg p.o. daily. 17. Aldactone 25 mg p.o. daily. 18. Spiriva inhaler 1 cap inhaled daily. 19. Oxycodone 5/325 one tablet q. 6 hours as needed for pain. HISTORY OF PRESENT ILLNESS AND HOSPITAL COURSE: Ms. Quan is a 72-year-old female with past medical problems including COPD, hypertension, congestive heart failure, paroxysmal atrial fibrillation, who presented to the emergency room on the morning of 02/18/18 with complaints of left lower quadrant abdominal pain and passing dark clotted stool early that morning. The patient was apparently in the emergency room the evening before and had a workup with a CT scan of the abdomen and pelvis, which was consistent with colitis for which she was given a script for Louann and Na and was discharged home. The patient notes that she went home and slept reasonably and got up in the morning with more abdominal cramping, mostly localized to her periumbilical and left lower quadrant and then she had a bowel movement that was loose with lot of melena, tarry black stool and described also blood clots. She also noted to have associated dizziness, but denies syncope, chest pain, palpitations or shortness of breath. She returns to the emergency room for further evaluation. Workup showed that she had a white count of 16,000, however, stable hemoglobin and hematocrit at 14.5 and 42 respectively. The patient is also noted to have a history of atrial fibrillation for which she was on Eliquis. She denies any easy bleeding, bruising, or hematuria. She had an EKG, which was consistent with atrial fibrillation while in the emergency room. Given her ongoing symptoms and her return to the emergency room with the worsening abdominal pain with passing clots with a known history of colitis, we were asked to see and evaluate her for admission and obtain a GI consult. On the day of admission, she had not passed any further blood clots since 6 o'clock in the morning. She did have a consultation from Dr. Monet during her hospitalization. He felt that she could possibly have ischemic colitis or possibly a diverticular bleed. Given that her hemoglobin was stable and had not fallen and that her bleeding had stopped, it favored more towards ischemic colitis. Procedure: She had a flexible sigmoid scope to the mid sigmoid, normal rectal and sigmoid mucosa. Gastrointestinal bleeding: The visualization of melena suggest upper gastrointestinal source. Her fall in hemoglobin has been relatively modest and she has not had any stools in 24 hours. She could have an upper gastrointestinal source, less likely while on chronic Nexium or a right colonic source. For the moment, Eliquis is being held and upper endoscopy is planned. On 02/18/18, she had an upper endoscopy and CLOtest. Impression: Peripyloric ulcers, bleeding from these altered by idiosyncrasies of her gastric motility or possibly the collagenous colitis condition could explain the gastrointestinal bleeding pattern seen. Would give her PPI b.i.d. and recommend refraining from NSAID use. Her CLOtest was negative. At the peripyloric there was a 6-mm fairly deep ulcer with a purple base. She was seen by Surgery in consultation. Their impression was she had GI bleeding secondary to peptic ulcer disease. Her current problem may have been a partial obstruction based on the intraluminal clot that appears to be resolving. She did have an NG placed during this hospitalization and then removed and her diet was progressed slowly. At the time of discharge, her bowel obstruction had resolved. She had passed 2 stools prior to discharge. She denied any more black or tarry stools, denied any melena. She denied any vomiting. She denied any abdominal pain. She states that this had resolved. REVIEW OF SYSTEMS: The patient denies any fever, chills. Denies any nausea, vomiting or diarrhea. Denies any dizziness or headache. Denies any chest pain or shortness of breath. Denies any cough or congestion. A review of 14- systems was completed and all others were negative. PHYSICAL EXAMINATION: General: At this time, Ms. Quan is a pleasant, elderly female. She appears comfortable resting in her bed in the room. Vital Signs: Temperature was 98.1, heart rate was 96, respirations 18, O2 saturation was 98% , blood pressure 147/81. HEENT: Head is atraumatic, normocephalic. Sclerae are anicteric. Pupils are equal and reactive to light. EOMs are intact. Oropharynx is pink and moist. Neck is supple. Trachea is midline. Lungs are clear to auscultation bilaterally. There are no wheezes, rales, or rhonchi. Heart is irregular rate and rhythm. No murmurs, rubs, or gallops. Abdomen is soft and nontender, nondistended. Bowel sounds are active x4. Extremities: There is no edema, clubbing or cyanosis. Neurologic: She is awake, alert, oriented x3. She is pleasant. There are no gross focal deficits noted. At this time, Ms. Quan is stable for discharge home. DISCHARGE PLAN: Ms. Quan will be discharged back home with activity as tolerated. 1. Gastrointestinal bleeding. She did have a flexible sigmoid scope and upper endoscopy. Flexible sigmoid showed melena. Upper endoscopy found a large gastric ulcer. She will be placed on omeprazole 20 mg p.o. b.i.d. She should continue to hold her Eliquis until she follows up with her primary care provider. She should also continue to hold aspirin and any NSAIDs until followed up by her primary care provider. Given her atrial fibrillation, she is at risk of developing a clot, but given her significant gastrointestinal bleeding, these medications have been placed on hold. I would recommend a repeat CBC in 1 week. She should continue on a soft diet. 2. Small bowel obstruction. This has resolved during her hospitalization. She is passing stool. She had 2 bowel movements without difficulty. She is able to tolerate p.o. food and fluids without any vomiting. She has had no further melena, black or tarry stools. 3. Hypokalemia. She should continue on potassium 20 mEq p.o. b.i.d. 4. Hypomagnesium. She should continue magnesium oxide 400 mg p.o. daily. 5. Paroxysmal atrial fibrillation. She should continue on carvedilol 25 mg p.o. daily. At this time, we are holding her Eliquis and aspirin, until she follows up with her primary care provider for further direction and restarting this medication. 6. Chronic obstructive pulmonary disease. She should continue her Spiriva. 7. Hypothyroid. She should continue her levothyroxine. 8. Depression. She should continue Prozac. 9. Restless legs. She should continue her Requip. The patient was instructed to return to the emergency room for any melena, black or tarry stools, increased abdominal pain, vomiting blood or bright red blood from the rectum. The patient was also instructed to return to the emergency room for any chest pain or shortness of breath. This is a summarization of her hospitalization. For further details, please see the entire medical record. The patient should follow up with her primary care provider as scheduled on 07/11 at 1 p.m. She should also follow up with her manager molecular for further management of her gastric ulcers and recommendations on when to restart her Eliquis and aspirin. TIME SPENT: Time spent on this discharge was approximately 60 minutes; greater than half that time was spent with the patient discussing discharge plans and instructions. CONDITION ON DISCHARGE: Stable. MARILOU YAP NP [id number]/[facility] #: [id number] KATINA
== END 2018-02-26 17:38 | disposition home health service (06) | DRG 388 ==
LOC: ED 09:02 → INTOOBSV 13:45 → MEDTELE 13:45 → OBSVTOIN 02-18 10:54 → MED 02-21 23:03
PROVIDERS: ADMIT Internal Medicine; ATTEND Internal Medicine
PROC: 0DJD8ZZ Inspection of Lower Intestinal Tract, Via Natural or Artificial Opening Endoscopic (ICD-10-PCS; 2018-02-17)
PROC: 0D9670Z Drainage of Stomach with Drainage Device, Via Natural or Artificial Opening (ICD-10-PCS; 2018-02-17)
PROC: 0DB68ZX Excision of Stomach, Via Natural or Artificial Opening Endoscopic, Diagnostic (ICD-10-PCS; principal; 2018-02-18)
DX: K56.690 Other partial intestinal obstruction (principal); K27.4 Chronic or unspecified peptic ulcer, site unspecified, with hemorrhage; K92.1 Melena; I25.10 Atherosclerotic heart disease of native coronary artery without angina pectoris; I11.0 Hypertensive heart disease with heart failure; I50.9 Heart failure, unspecified; J44.9 Chronic obstructive pulmonary disease, unspecified; K21.9 Gastro-esophageal reflux disease without esophagitis; K57.90 Diverticulosis of intestine, part unspecified, without perforation or abscess without bleeding; M79.7 Fibromyalgia; G25.81 Restless legs syndrome; F32.9 Major depressive disorder, single episode, unspecified; I48.0 Paroxysmal atrial fibrillation; K52.831 Collagenous colitis; E78.5 Hyperlipidemia, unspecified; G43.909 Migraine, unspecified, not intractable, without status migrainosus; K22.2 Esophageal obstruction; E03.9 Hypothyroidism, unspecified; E87.6 Hypokalemia; E66.01 Morbid (severe) obesity due to excess calories; G89.4 Chronic pain syndrome; Z95.1 Presence of aortocoronary bypass graft; Z82.49 Family history of ischemic heart disease and other diseases of the circulatory system; Z68.35 Body mass index [BMI] 35.0-35.9, adult; Z87.01 Personal history of pneumonia (recurrent); Z88.5 Allergy status to narcotic agent; Z86.73 Personal history of transient ischemic attack (TIA), and cerebral infarction without residual deficits; Z90.710 Acquired absence of both cervix and uterus; Z87.442 Personal history of urinary calculi; Z87.11 Personal history of peptic ulcer disease; Z66 Do not resuscitate
CPT/HCPCS: 36415; 74019; 74177; 80048; 80053; 80076; 81003; 81015; 82150; 82270; 83605; 83690; 83735; 84484; 84520; 84702; 85014; 85018; 85025; 85027; 85610; 85730; 86140; 86141; 86850; 86900; 86901; 87045; 87046; 87077; 87086; 87493; 87899; 93005; 94640; 96374; 99156; 99157; 99283; 99284; A9270-GY; G8978-GP-CJ; G8979-GP-CI; G8987-GO-CI; G8988-GO-CI; G8989-GO-CI; J0360; J0744; J2250; J2270; J2405; J3010; J3480; J3490; Q0164; Q9967

== ENCOUNTER 2018-03-24 12:57 | Emergency (ER) | payer MEDICARE, MEDICAID ==
--- OUTSIDE RECORDS SUMMARY | 2018-03-24 13:05 | XMS REPORT ---
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 Active Unspec Onset: 09/07/2012 Multiple joint pain Winston Fu M.D. Active Family History Date Family Member(s) Problem(s) Comments Father due to Heart Disease () Father due to Cancer, Prostate () Mother due to Natural Causes () Mother due to Arthritis () Social History Type Date Description Comments ETOH Use Denies alcohol use Smoking Patient has never smoked Allergies, Adverse Reactions, Alerts Date Description Reaction Status Severity Comments 09/07/2012 Codeine active 09/07/2012 Darvocet active 09/07/2012 Tylenol W/Codeine CONFUSION active Medications Medication Date Status Form Strength Qnty SIG Indications Ordering Provider Amlodipine 00/00/ Active Tablets 10mg 90tab 1 po qd Unknown Besylate 0000 s Aspir-81 00/00/ Active Tablets DR 81mg 30tab 1 po qd Unknown 0000 s Atorvastatin 00/00/ Active Tablets 20mg 30tab take 1 Unknown Calcium 0000 s tablet at bedtime Atorvastatin / Active Tablets 40mg 100ta 1 po qd Unknown Calcium 0000 bs Carvedilol / Active Tablets 6.25mg 60tab 1 po bid Unknown 0000 s Cetirizine HCL / Active Chewtabs 10mg 90uni 1 by mouth Unknown 0000 ts daily prn Dicyclomine HCL / Active Capsules 10mg 270ca 1 by mouth Unknown 0000 ps three times daily as needed Zetia / Active Tablets 10mg 90tab 1 po qd Unknown 0000 s Fluoxetine HCL / Active Capsules 40mg 90cap 1 po qd Unknown 0000 s Glucosamine / Active Tablets 500-400-42 1 po qd Unknown Chondroitin 0000 2-83mg &MSM Isosorbide / Active Tablets ER 30mg 90tab 1 po qd Unknown Mononitrate ER 0000 24HR s Lansoprazole / Active Capsules 30mg 30cap 1 po qd Unknown 0000 DR s Levothyroxine / Active Tablets 50mcg 30tab 1 po qd Unknown Sodium 0000 s Losartan / Active Tablets 100mg 30tab 1 po qd Unknown Potassium 0000 s Multivital / Active Chewtabs Unknown 0000 Niaspan / Active Tablets ER 500mg 30tab 1tab pm Unknown 0000 s Nitroquick / Active Tablets 0.4mg 30tab 1 sl prn. Unknown 0000 Sub s can repeat q 5 min up to 3 doses total. replace q 6 months Potassium / Active Tablets ER 10Meq 90tab 1 po qd Unknown Chloride CR 0000 s Lyrica / Active Capsules 50mg 60cap 1 po bid Unknown 0000 s Phenergan / Active Solution 25mg/ml 10uni 1 tab po Unknown 0000 ts every 8 hr as needed Metamucil / Active Powder 48.57% 30Pac 3.4 g of Unknown 0000 kets pwder in 8 oz fluid Requip / Active Tablets 1mg 150ta take up to Unknown 0000 bs 1 tab po qam, 1tab po qnoon, and 3 tabs po qpm Carafate / Active Tablets 1gm 30tab 1 po qd Unknown 0000 s Spiriva / Active Capsules 18mcg 3mon 1 Unknown Handihaler 0000 inhalation po qam Ultracet / Hx Tablets 37.5-325mg 30tab 1 - 2 po Unknown 0000 - s q4-6hr prn 09/07/ pain 2012 Vital Signs Date Vital Result Comment 09/07/2012 Height 62 inches 5'2" Weight 209.00 lb Heart Rate 74 /min BP Systolic Sitting 126 mmHg BP Diastolic Sitting 68 mmHg BMI (Body Mass Index) 38.2 kg/m2 Results Test Date Test Result H/L Range Note CBC With Manual Diff 09/07/2012 White Blood Count 8.0 10^3/uL 4.8-10.8 Red Blood Count 4.17 10^6/uL 4.0-5.4 Hemoglobin 13.3 g/dL 12.0-16.0 Hematocrit 38 % 35-47 Mean Corpuscular Volume 92 fL 80-97 Mean Corpuscular Hemoglobin 32 pg High 27-31 Mean Corpuscular HGB Conc 35 g/dL 31-36 Red Cell Distribution Width 13 % 10.5-15 Platelet Count 228 10^3/uL 150-450 Mean Platelet Volume 8 um3 7.4-10.4 Abs Neutrophils 3.7 10^3/uL 1.5-7.7 Abs Lymphocytes 3.6 10^3/uL 1.0-4.8 Abs Monocytes 0.4 10^3/uL 0-0.8 Abs Eosinophils 0.3 10^3/uL 0-0.6 Abs Basophils 0 10^3/uL 0-0.2 Abs Nucleated RBC 0 10^3/uL Neutrophil % 45 % 38-83 Lymphocytes % 46 % 25-47 Monocytes % 1 % 0-13 Eosinophils % 7 % High 0-6 Reactive Lymph % 1 % 0-6 RBC Morphology Normal Normal Laboratory test finding 09/07/2012 C Reactive Protein 0.9 mg/dL High Less than 0.5 Comp Metabolic Panel 09/07/2012 Sodium 135 mmol/L 133-145 Potassium 4.3 mmol/L 3.5-5.0 Chloride 104 mmol/L 101-111 Co2 Carbon Dioxide 28.0 mmol/L 22-32 Anion Gap 3.0 mmol/L 2-11 Glucose 126 mg/dL High 70-100 Blood Urea Nitrogen 14 mg/dL 6-24 Creatinine 0.80 mg/dL 0.50-1.40 BUN/Creatinine Ratio 17.5 8-20 Calcium 9.4 mg/dL 8.1-9.9 Total Protein 6.2 g/dL 6.2-8.1 Albumin 4.3 g/dL 3.2-5.2 Globulin 1.9 g/dL Low 2-4 Albumin/Globulin Ratio 2.3 1-3 Total Bilirubin 0.4 mg/dL 0.4-1.5 Alkaline Phosphatase 105 U/L 30-110 Alt 22 U/L 14-54 Ast 23 U/L 12-42 Egfr Non- 71.8 >60 Egfr 92.3 >60 1 Laboratory test finding 09/07/2012 Creatine Kinase 97 U/L 0-200 Neema (Anti-Nuclear AB) Screen Reflexed to FA Negative 2 Noy Screen Negative Negative 3 Erythrocyte Sed Rate 12 mm/Hr 0-40 4 Anti Double Stranded Dna Negative Negative 5 Urinalysis 09/07/2012 Urine Color Yellow Urine Appearance Clear Urine Specific [place] 1.025 1.010-1.030 Urine Esterase Negative Negative Urine Nitrate Negative Negative Urine Urobilinogen Negative E.U./dL Negative Urine Protein Negative mg/dL Negative Urine pH 6.5 5-9 Urine Blood Negative Negative Urine Ketones Negative mg/dL Negative Urine Bilirubin Negative Negative 6 Urine Glucose Negative mg/dL Negative Laboratory test finding 09/07/2012 Rheumatoid Factor <15 IU/mL <15 7 Cyclic Citrullinated Pept IgG <15.6 U 8 Pathologist Review (SEE NOTE) 9 Neema Hep-2 09/07/2012 Neema Pattern Homogeneous Negative Neema Titer 1:2560 <1:80 Neema Reviewed By MD Carlos Bacon <SEE NOTE> 10 1 Because ethnic data is not always readily available, this report includes an eGFR for both -Americans and non- Americans. The National Kidney Disease Education Program (NKDEP) does not endorse the use of the MDRD equation for patients that are not between the ages of 18 and 70, are , have extremes of body size, muscle mass, or nutritional status, or are non- or non-. According to the National Kidney Foundation, irrespective of diagnosis, the stage of the disease is based on the level of kidney function: Stage Description GFR(mL/min/1.73 m(2)) 1 Kidney damage with normal or decreased GFR 90 2 Kidney damage with mild decrease in GFR 60-89 3 Moderate decrease in GFR 30-59 4 Severe decrease in GFR 15-29 5 Kidney failure <15 (or dialysis) 2 @Sample frozen by [id number] at 2144 on 09/07/12. @09/10/12 1235: NEEMA Hep-2 added. RFLXG=SHANDA. 3 The above NOY screen is designed for the detection of antibodies to extractable nuclear antigen (NOY) in human serum. It is a combination test for the detection of antibodies to MONOTYPE CASTER, Sm, SS-A (Ro), and SS-B (La) nuclear antigens. 4 @09/07/12 1944: Path Review added. RFLXG=PATH. 5 @Sample frozen by [id number] at 2144 on 09/07/12. @09/10/12 1235: NEEMA Hep-2 added. RFLXG=SHANDA. 6 Effective 07/21/12, bilirubin confirmation by ictotest is discontinued. False-positive results for bilirubin may occur due to color interference from large amounts of blood in the urine, very concentrated urine, or drugs that discolor urine such as phenazopyridine(Pyridium). 7 Test Performed by: [place] [address] Tow Boat Captain: Migue Herrera III, M.D. 8 -- REFERENCE VALUE -- <20.0 (Negative) Test Performed by: [place] [address] [employer] Boat Captain: Migue Herrera III, M.D. 9 CBC and smear reviewed. Eosinophilia confirmed. May be allergy, drug or parasite related. REVIEWED BY CARLOS ARTHUR MD 10 Carlos Arthur Procedures Date CPT Code Description Status 02/25/2017 68435 ECHO Transthorasic Realtime 2D W Doppler & Color Flow Completed Hosp 09/11/2016 88616 ECHO Transthorasic Realtime 2D W Doppler & Color Flow Completed Hosp 04/09/2006 99677 Treadmill Interp/Report Only Completed 04/09/2006 29133 Treadmill Interp/Report Only Completed 04/09/2006 02223 Stress Test Supervsn W/Out I/R Completed Encounters Type Date Location Provider CPT E/M Dx Office Visit 02/21/2018 [facility] [place], [address] K27.0 7:00a Sociology Instructor FACS K56.609 Office Visit 09/09/2017 7:01a [facility] [place], [address] I48.91 Hospitalists M.Harriett J44.1 I10 Office Visit 09/08/2017 7:00a [facility] [place], [address] I48.91 Hospitalists MErica J44.1 I10 Office Visit 02/26/2017 10:26a [facility] Josiah [place], [address] K52.9 Hospitalists MErica I25.10 I48.91 I10 Office Visit 02/25/2017 10:19a [place], [address] K52.9 Assoc, Hospitalists MErica I25.10 I48.91 I10 Office Visit 09/11/2016 10:13a [facility] [address] I48.91 Hospitalists I25.810 J44.9 E03.9 Office Visit 09/11/2016 9:51a [facility], [address] I48.0 [facility] DO FACC Office Visit 09/10/2016 10:13a [facility] Tristan Reddy M.D. 88966 I48.91 Hospitalists I25.810 J44.9 E03.9 Office Visit 08/01/2014 2:20p [facility] Sonia Forde, [address] 486 Hospitalists D.O. 496 428.0 Office Visit 07/31/2014 2:20p [facility] Sonia [place], [address] 486 Hospitalists D.O. 496 428.0 Office Visit 07/30/2014 2:19p [facility] Sonia [place], [address] 486 Hospitalists D.O. 496 428.0 Office Visit 07/29/2014 2:19p [facility] Parag Fuentes [address] 486 Hospitalists Ernie Berger 496 428.0 Office Visit 07/28/2014 2:18p [facility], [place] [address] 486 Hospitalists 496 428.0 Office Visit 09/07/2012 2:00p [facility] Winston Fu, [address] 795.79 Of Norbert Klein 719.49 Plan of Care No Information Available
[2018-03-24 13:06] VITALS: BP 103/68
--- NOTE | 2018-03-24 14:26 | UC ---
Dizzy HPI HPI Summary: Patient is a 72-year-old female with the onset of weakness dizziness that started this a.m. She has been unable to walk without clutching onto the wall. She has had no fall. She feels at times that she might pass out. Has a history of coronary artery disease. Has a history of a GI bleed. Denies any black or tarry stools. Denies any chest pain or shortness of breath. She has mild headache. - History Of Current Complaint Chief Complaint: UCHeadache Stated Complaint: DIZZINESS, AND LOW BLOOD PRESSURE Time Seen by Provider: 03/24/18 14:02 Hx Obtained From: Patient Onset/Duration: Sudden Onset, Lasting Hours Timing: Constant Severity Initially: Moderate Severity Currently: Moderate Pain Intensity: 4 Character: Lightheaded, Weak Aggravating Factor(s): Position Change Alleviating Factor(s): Nothing Associated Signs And Symptoms: Positive: Unsteady Gait. Negative: Nausea, Vomiting, Diaphoresis, Tinnitus, Chest Pain, SOB, Palpitations, Visual Changes, Decreased Oral Intake, Change In Medication, Change In Diet - Allergies/Home Medications Allergies/Adverse Reactions: Allergies Allergy/AdvReac Type Severity Reaction Status Date / Time codeine Allergy Unknown Verified 03/24/18 13:07 Reaction Details PMH/Surg Hx/FS Hx/Imm Hx Previously Healthy: Yes Cardiovascular History: Cardiac Disease, Congestive Heart Failure, Atrial Fibrillation GI/ History: Ulcer, Gastrointestional Bleed - Surgical History Surgical History: Yes Surgery Procedure, Year, and Place: bypass surgery 1999; HYSTERECTOMY - Family History Known Family History: Positive: Other - [place] Negative: Cardiac Disease, Hypertension, Diabetes - Social History Alcohol Use: None Substance Use Type: None Smoking Status (MU): Never Smoked Tobacco - Immunization History Most Recent Influenza Vaccination: March 2016 Most Recent Tetanus Shot: unknown Most Recent Pneumonia Vaccination: <5 yrs Review of Systems Constitutional: Fatigue Skin: Negative Eyes: Negative ENT: Negative Respiratory: Negative Cardiovascular: Negative Gastrointestinal: Negative Genitourinary: Negative Motor: Weakness Neurovascular: Negative Musculoskeletal: Negative Neurological: Negative Psychological: Negative Is Patient Immunocompromised?: No All Other Systems Reviewed And Are Negative: Yes Physical Exam Triage Information Reviewed: Yes Appearance: Ill-Appearing Vital Signs: Initial Vital Signs Temp 99 F 03/24/18 13:03 Pulse 76 03/24/18 13:03 Resp 16 03/24/18 13:03 BP 103/68 03/24/18 13:03 Pulse Ox 99 03/24/18 13:03 Eyes: Positive: Conjunctiva Clear ENT: Positive: Hearing grossly normal. Negative: Trismus, Muffled voice, Hoarse voice Neck: Positive: Supple Respiratory: Positive: Lungs clear, Normal breath sounds, No respiratory distress, No accessory muscle use Cardiovascular: Negative: RRR, Tachycardia, Bradycardia Abdomen Description: Positive: Nontender, No Organomegaly, Soft. Negative: CVA Tenderness (R), CVA Tenderness (L) Musculoskeletal: Positive: Edema @ - pretibial Neurological: Positive: Alert Psychological Exam: Normal Skin Exam: Other - pallor Diagnostics - EKG Cardiac Rate: NL Cardiac Rhythm: AFib: Normal ST Segment: Non-Specific Dizzy Course/Dx - Course Course Of Treatment: d/w Dr. Chiu. to [facility] - Differential Dx/Diagnosis Provider Diagnoses: weakness/dizziness. recent gi bleed Discharge - Sign-Out/Discharge Documenting (check all that apply): Patient Departure - Discharge Plan Condition: Guarded Disposition: TRANS HIGHER LVL OF CARE FAC Referrals: Rashmi Holloway MD [Primary Care Provider] - - Billing Disposition and Condition Condition: GUARDED Disposition: Trans Higher Lvl of Care Fac
== END 2018-03-24 14:50 | disposition short-term general hospital (02) ==
LOC: UCEAST 12:57
DX: R53.1 Weakness (principal); R42 Dizziness and giddiness; R51 Headache; R53.83 Other fatigue; R26.81 Unsteadiness on feet; I48.91 Unspecified atrial fibrillation; Z95.1 Presence of aortocoronary bypass graft; Z88.5 Allergy status to narcotic agent
CPT/HCPCS: 93005; 99213; G0463

== ENCOUNTER 2018-03-24 15:09 | Emergency (ER) | payer MEDICARE, MEDICAID ==
--- NOTE | 2018-03-24 15:35 | ED ---
Dizziness - HPI Summary HPI Summary: This is verenice Silva documenting for attending Dr. Jasmyn Klein This patient is a 72 year old F presenting to [facility] with a chief complaint of intermittent dizziness since end of January. Pt reported for PT at [place] this AM, got very dizzy so she went to urgent care, where she showed afib, hypotenision. Currently dizziness is resolved. PMHx Afib dx this year, brainstem stroke 1995, 4x CABG 1999. Pt woke up with sx, change of position worsens sx. Since January, episodes are more often and longer lasting. She endorses her head spinning, cant get legs under me. She endorses bilateral knee pain, lightheadedness, diplopia, blurry vision, hearing changes s/p taking meds, N/V/D (pt is unsure if there was blood in vomit or stool). Sim sx 12/09 or 01/08 syncope, no ED visit because of immediate sx resolution. Pt denies recent illness. PMHx bleeding ulcer, why pt was here in January. Only sx today is vertigo. PMHx migraines with sx being pain and aura of colors, but her last migraine was weeks ago and medication always helps. - History Of Current Complaint Stated Complaint: DIZZINESS/LOW BLOOD PRESSURE Time Seen by Provider: 03/24/18 15:20 Hx Obtained From: Patient Onset/Duration: Still Present, Gradually Timing: Frequency Of Episodes Severity Initially: Moderate Severity Currently: Mild Character: Head Spinning, Lightheaded, Dizzy Aggravating Factor(s): Nothing Alleviating Factor(s): Nothing Associated Signs And Symptoms: Positive: Tinnitus - "white noise", Unsteady Gait , Visual Changes Related History: Similar Episode/Dx as - or 01/08 syncope in [facility] due to dizziness. - Allergies/Home Medications Allergies/Adverse Reactions: Allergies Allergy/AdvReac Type Severity Reaction Status Date / Time codeine Allergy Unknown Verified 03/24/18 13:07 Reaction Details PMH/Surg Hx/FS Hx/Imm Hx Endocrine/Hematology History: Reports: Hx Thyroid Disease Denies: Hx Diabetes Cardiovascular History: Reports: Hx Atrial Fibrillation, Hx Congestive Heart Failure, Hx Coronary Artery Disease, Hx Hypertension Denies: Hx Peripheral Vascular Disease Respiratory History: Reports: Hx Chronic Obstructive Pulmonary Disease (COPD), Hx Pneumonia GI History: Reports: Hx Diverticulosis, Hx Gastroesophageal Reflux Disease, Other GI Disorders - esophageal stricture History: Denies: Hx Dialysis, Hx Renal Disease Musculoskeletal History: Reports: Hx Fibromyalgia, Other Musculoskeletal History - restless leg Denies: Hx Arthritis, Hx Back Problems, Hx Osteoporosis Sensory History: Reports: Hx Cataracts - removed, Hx Contacts or Glasses Denies: Hx Hearing Aid Opthamlomology History: Reports: Hx Cataracts - removed, Hx Contacts or Glasses Neurological History: Reports: Hx CVA, Hx Transient Ischemic Attacks (TIA) Denies: Hx Dementia, Hx Seizures Psychiatric History: Reports: Hx Depression - Surgical History Surgery Procedure, Year, and Place: bypass surgery 1999; HYSTERECTOMY Hx Anesthesia Reactions: No - Immunization History Date of Tetanus Vaccine: PT STATES UNSURE Date of Influenza Vaccine: NONE Infectious Disease History: Denies: Hx of Known/Suspected MRSA, Hx Shingles, Hx Tuberculosis - Family History Known Family History: Positive: Other - CA Negative: Cardiac Disease, Hypertension, Diabetes - Social History Alcohol Use: None Hx Substance Use: No Substance Use Type: Reports: None Hx Tobacco Use: No Smoking Status (MU): Never Smoked Tobacco Review of Systems Negative: Fever Positive: Blurred Vision, Diplopia Positive: Nasal Discharge - rhinorrhea Positive: Vomiting, Diarrhea, Nausea Positive: no symptoms reported Positive: Arthralgia - bilateral knees Neurological: Other - dizziness, lightheadedness Positive: Weakness All Other Systems Reviewed And Are Negative: Yes Physical Exam - Summary Physical Exam Summary: Appearance: Well appearing, no pain distress Skin: warm, dry, reflects adequate perfusion Head/face: normal Eyes: EOMI, DOLORES, no nystagmus. + hallpike-homero to left ENT: normal, wears dentures, mucous membranes moist. Neck: supple, non-tender Respiratory: CTA, breath sounds present Cardiovascular: RRR, pulses symmetrical and strong Abdomen: non-tender, soft Bowel Sounds: present Musculoskeletal: normal, strength/ROM intact Neuro: normal, sensory motor intact, A&Ox3 Triage Information Reviewed: Yes Vital Signs Reviewed: Yes Re-Evaluation - Re-Evaluation First Eval Re-Evaluation Time: 15:30 Change: Improved Comment: Pt feels better, amenable to discharge. Second Eval Re-Evaluation Time: 17:32 Change: Improved Comment: Feels totally fine now, will walk pt to see if she gets dizzy. Dizzy Course/Dx - Course Course Of Treatment: Patient with [employer] benefits sewed of rotational dizziness/ vertigo. She has no other neurologic symptoms. She has no head cold, sinus pain or viral syndrome. Her symptoms were exacerbated by movement. She was improved after IV fluids, Benadryl and meclizine. She was able to walk normally. She was discharged on meclizine to follow up closely with her primary care physician. - Diagnoses Differential Diagnosis/HQI/PQRI: Benign Paroxysmal Positional Vertigo, Hypovolemia, Labyrinthitis, Medication Reaction, Transient Ischemic Attack, Vasovagal Reaction Provider Diagnoses: Peripheral vertigo involving left ear Discharge - Sign-Out/Discharge Documenting (check all that apply): Patient Departure - discharge - Discharge Plan Condition: Improved Disposition: HOME Prescriptions: Meclizine TAB* [Antivert 12.5 TAB*] 25 mg PO TID PRN #30 tab PRN Reason: Dizziness Patient Education Materials: Benign Paroxysmal Positional Vertigo (ED) Referrals: Rashmi Holloway MD [Primary Care Provider] - Additional Instructions: Stay well-hydrated. Do not drive while dizzy. Call your doctor first thing in the morning to schedule follow-up. Return with increased symptoms, vomiting, new weakness/numbness, difficulty speaking or difficulty with vision. Return if worse, new symptoms or other concerns. - Billing Disposition and Condition Condition: IMPROVED Disposition: Home
[2018-03-24] MEDS ORDERED: NS 0.9% 1000 ML* 1,000 ML IV ONE (15:41)
[2018-03-24] MEDS ORDERED: Meclizine TAB* 12.5 MG PO ONE (15:41)
[2018-03-24] MEDS ORDERED: diPHENhydraMINE IV* 50 MG/ML 1 ml VIAL (BENADRYL) IV ONE (15:41)
[2018-03-24 18:00] VITALS: BP 123/87
== END 2018-03-24 17:59 | disposition home or self-care (01) ==
LOC: ED 15:09
DX: H81.392 Other peripheral vertigo, left ear (principal); M25.562 Pain in left knee; M25.561 Pain in right knee; G43.909 Migraine, unspecified, not intractable, without status migrainosus; Z79.899 Other long term (current) drug therapy; Z86.73 Personal history of transient ischemic attack (TIA), and cerebral infarction without residual deficits; Z86.79 Personal history of other diseases of the circulatory system; Z95.1 Presence of aortocoronary bypass graft; Z88.5 Allergy status to narcotic agent; R53.1 Weakness; R42 Dizziness and giddiness; R51 Headache; R53.83 Other fatigue; R26.81 Unsteadiness on feet; I48.91 Unspecified atrial fibrillation
CPT/HCPCS: 96374; 99282; A9270-GY; J1200

== ENCOUNTER → 2018-09-08 02:44 | Emergency (ER) | payer MEDICAID, MEDICARE ==
[~2018-09-08 02:44] MED LIST: Diltiazem IV* 5 MG/ML 5 ML VIAL (for loading dose/IV Push) (25 MG) IV SLOW PU ONE; Ketorolac INJ* 15 MG/ML 1 ML VIAL IV PUSH ONE; LORazepam INJ* 2 MG/ML 1 ML VIAL IV PUSH ONE
--- NOTE | 2018-09-08 03:07 | ED ---
Head Injury - HPI Summary HPI Summary: A 73 y/o female brought in by [facility] ambulance presents to [facility] with a chief complaint of a head injury post fall before 01:30 09/08/18. She rates her pain as a 10/10. The patient was at home in her bathroom contemplating what color she wanted to paint her bathroom when she felt dizzy and fell down, hitting the back of her head and lower back. She thinks that she did lose consciousness, describing her dizziness as a black out like dizziness. She called the ambulance at 01:30. She reports living by herself. She reports right arm pain and a lump on the back of her head. She takes baby aspirin for her Hx of Afib. - History Of Current Complaint Chief Complaint: EDHeadInjury Stated Complaint: FALL Time Seen by Provider: 09/08/18 02:44 Hx Obtained From: Patient Mechanism Of Injury: Fall From A Standing Position Onset/Duration: Started Hours Ago, Still Present Onset of Pain: Immediate, Post Accident, Prior to Arrival Severity Currently: Severe Severity Initially: Severe Pain Intensity: 10 Pain Scale Used: 0-10 Numeric Location of Head Injury: Occipital - right Character: Other: - black out dizziness Associated Signs And Symptoms: Negative - fever, Other: - arm pain, dizziness, back pain - Allergies/Home Medications Allergies/Adverse Reactions: Allergies Allergy/AdvReac Type Severity Reaction Status Date / Time codeine Allergy Unknown Verified 03/24/18 13:07 Reaction Details Home Medications: Home Medications Apixaban* [Eliquis*] 5 mg PO DAILY 09/08/18 [History Confirmed 09/08/18] PMH/Surg Hx/FS Hx/Imm Hx Endocrine/Hematology History: Reports: Hx Thyroid Disease Denies: Hx Diabetes Cardiovascular History: Reports: Hx Atrial Fibrillation, Hx Congestive Heart Failure, Hx Coronary Artery Disease, Hx Hypertension Denies: Hx Peripheral Vascular Disease Respiratory History: Reports: Hx Chronic Obstructive Pulmonary Disease (COPD), Hx Pneumonia GI History: Reports: Hx Diverticulosis, Hx Gastroesophageal Reflux Disease, Other GI Disorders - esophageal stricture History: Denies: Hx Dialysis, Hx Renal Disease Musculoskeletal History: Reports: Hx Fibromyalgia, Other Musculoskeletal History - restless leg Denies: Hx Arthritis, Hx Back Problems, Hx Osteoporosis Sensory History: Reports: Hx Cataracts - removed, Hx Contacts or Glasses Denies: Hx Hearing Aid Opthamlomology History: Reports: Hx Cataracts - removed, Hx Contacts or Glasses Neurological History: Reports: Hx CVA, Hx Transient Ischemic Attacks (TIA) Denies: Hx Dementia, Hx Seizures Psychiatric History: Reports: Hx Depression - Surgical History Surgery Procedure, Year, and Place: bypass surgery 1999; HYSTERECTOMY Hx Anesthesia Reactions: No - Immunization History Date of Tetanus Vaccine: PT STATES UNSURE Date of Influenza Vaccine: NONE Infectious Disease History: No Infectious Disease History: Denies: Hx of Known/Suspected MRSA, Hx Shingles, Hx Tuberculosis, Traveled Outside the [place] in Last 30 Days - Family History Known Family History: Positive: Other - CA Negative: Cardiac Disease, Hypertension, Diabetes - Social History Alcohol Use: None Hx Substance Use: No Substance Use Type: Reports: None Hx Tobacco Use: No Smoking Status (MU): Never Smoked Tobacco Review of Systems Negative: Fever Positive: Myalgia - lower back pain, right arm pain Neurological: Other - Positive: head injury, lump on the back of her head, black out dizziness, LOC All Other Systems Reviewed And Are Negative: Yes Physical Exam - Summary Physical Exam Summary: VITAL SIGNS: Reviewed. GENERAL: Patient is a well-developed and nourished FEMALE who is lying comfortable in the stretcher. Patient is not in any acute respiratory distress. HEAD AND FACE: Localized swelling of right occipital area. No sinus tenderness. EYES: PERRLA, EOMI x 2, No injected conjunctiva, no nystagmus. EARS: Hearing grossly intact. Ear canals and tympanic membranes are within normal limits. MOUTH: Oropharynx within normal limits. NECK: Supple, trachea is midline, no adenopathy, no JVD, no carotid bruit, no c- spine tenderness, neck with full ROM. CHEST: Symmetric, no tenderness at palpation LUNGS: Clear to auscultation bilaterally. No wheezing or crackles. CVS: Irregular tachycardia, S1 and S2 present, no murmurs or gallops appreciated. ABDOMEN: Soft, non-tender. No signs of distention. No rebound no guarding, and no masses palpated. Bowel sounds are normal. EXTREMITIES: FROM in all major joints, no edema, no cyanosis or clubbing. NEURO: Alert and oriented x 3. No acute neurological deficits. Speech is normal and follows commands. SKIN: Dry and warm Triage Information Reviewed: Yes Vital Signs On Initial Exam: Initial Vitals Temp Pulse Resp BP Pulse Ox 98.6 F 111 18 175/133 96 09/08/18 02:46 09/08/18 02:46 09/08/18 02:46 09/08/18 02:46 09/08/18 02:46 Vital Signs Reviewed: Yes - Jevon Coma Scale Best Eye Response: 4 - Spontaneous Best Motor Response: 6 - Obeys Commands Best Verbal Response: 5 - Oriented Coma Scale Total: 15 Diagnostics - Vital Signs Vital Signs Temp Pulse Resp BP Pulse Ox 09/08/18 02:46 98.6 F 111 18 175/133 96 - Laboratory Result Diagrams: 09/08/18 03:12 09/08/18 03:12 Lab Statement: Any lab studies that have been ordered have been reviewed, and results considered in the medical decision making process. - CT Brain CT Interpretation Completed By: Radiologist Summary of CT Findings: No acute intracranial abnormality. ED physician has reviewed this imaging report. Lumbar spine CT Interpretation Completed By: Radiologist Summary of CT Findings: 1. No acute findings. 2. Multilevel degenerative spondylosis as described above. If clinically. indicated, further evaluation with MRI may be considered. ED physician has reviewed this imaging report. Thoracic spine CT Interpretation Completed By: Radiologist Summary of CT Findings: No acute findings. ED physician has reviewed this imaging report. Pelvis CT Interpretation Completed By: Radiologist Summary of CT Findings: No acute findings. ED physician has reviewed this imaging report. - EKG 02:54 Cardiac Rate: Other Rate - Atrial fibrillation at 119 bpm EKG Rhythm: Atrial Fibrillation Summary of EKG Findings: Atrial fibrillation at 119 bpm with nonspecific T wave changes. Re-Evaluation - Re-Evaluation First Eval Re-Evaluation Time: 03:52 Change: Unchanged Comment: Reports back pain when walking. Second Eval Re-Evaluation Time: 05:28 Change: Improved Comment: Patient is feeling better and ready for discharge. Head Injury Course/Dx Course Of Treatment: A 73 y/o female brought in by [facility] ambulance presents to [facility] with a chief complaint of a head injury post fall before 01:30 09/08/18. Her physical exam showed localized swelling of right occipital area. Her brain CT was negative. Lab results obtained and WNL. Her EKG showed Atrial fibrillation at 119 bpm with nonspecific T wave changes. In the ED course she was given Toradol IV, Ativan IV and Diltiazem IV. Upon re-eval she c/o back pain when walking. Lumbar spine CT impression: 1. No acute findings. 2. Multilevel degenerative spondylosis as described above. If clinically. indicated, further evaluation with MRI may be considered. Thoracic spine CT impression: no acute findings. Pelvis CT impression: no acute findings. The patient will be discharged home. Strict return precautions were given. She is agreeable with this plan. - Diagnoses Provider Diagnoses: Dizziness, Contusion Discharge - Sign-Out/Discharge Documenting (check all that apply): Patient Departure - DC - Discharge Plan Condition: Stable Disposition: HOME Referrals: Rashmi Holloway MD [Primary Care Provider] - (1-2 days) Additional Instructions: RETURN TO THE EMERGENCY DEPARTMENT FOR CHANGING OR WORSENING SYMPTOMS. FOLLOW UP WITH PCP IN 1-2 DAYS. - Billing Disposition and Condition Condition: STABLE Disposition: Home - Attestation Statements Document Initiated by Eboniibe: Yes Documenting Scribe: Toñito Azul Provider For Whom Jarone is Documenting (Include Credential): Billy Jo MD Scribe Attestation: Toñito Acosta, scribed for Billy Jo MD on 09/08/18 at 0611. Scribe Documentation Reviewed: Yes Provider Attestation: The documentation as recorded by the Toñito caldera accurately reflects the service I personally performed and the decisions made by Fany flores MD Status of Scribe Document: Viewed
[2018-09-08 03:22] LABS: ABS Basophils 0 10^3/ul (0-0.2); ABS Eosinophils 0.1 10^3/ul (0-0.6); ABS Lymphocytes 1.4 10^3/ul (1.0-4.8); ABS Monocytes 0.5 10^3/ul (0-0.8); ABS Neutrophils 6.6 10^3/ul (1.5-7.7); ABS Nucleated RBC 0 10^3/ul; Eosinophil % 1.7 %; Hematocrit 38 % (35-47); Hemoglobin 13.3 g/dl (12.0-16.0); Lymphocyte % 16.6 %; Mean Corpuscular HGB Conc 35 g/dl (31-36); Mean Corpuscular Hemoglobin 32 pg (27-31); Mean Corpuscular Volume 91 fL (80-97); Mean Platelet Volume 7.9 fL (7.4-10.4); Nucleated Red Blood Cells % 0.1; Platelet Count 218 10^3/ul (150-450); Red Blood Count 4.23 10^6/ul (4.00-5.40); Red Cell Distribution Width 14 % (10.5-15); White Blood Count 8.7 10^3/ul (3.5-10.8)
[2018-09-08 03:29] LABS: Activated Partial Thrombo Time 32.6 seconds (26.0-36.3); INR 0.85 (0.77-1.02)
[2018-09-08 03:38] LABS: Albumin 4.3 g/dL (3.2-5.2); Albumin/Globulin Ratio 1.9 (1-3); Globulin 2.3 g/dL (2-4); Potassium 3.8 mmol/L (3.5-5.0); Total Bilirubin 0.5 mg/dL (0.2-1.0); Total Protein 6.6 g/dL (6.4-8.9)
[2018-09-08 04:39] LABS: TSH (Thyroid Stimulating Horm) 7.72 mcIU/mL (0.34-5.60)
[2018-09-08 05:44] VITALS: BP 148/100
== END | disposition home or self-care (01) ==
LOC: ED 02:44
DX: R42 Dizziness and giddiness (principal); S00.93XA Contusion of unspecified part of head, initial encounter; W19.XXXA Unspecified fall, initial encounter; Y92.002 Bathroom of unspecified non-institutional (private) residence as the place of occurrence of the external cause; M79.601 Pain in right arm; M51.36 Other intervertebral disc degeneration, lumbar region; I48.91 Unspecified atrial fibrillation; Z79.01 Long term (current) use of anticoagulants; Z95.1 Presence of aortocoronary bypass graft; Z88.5 Allergy status to narcotic agent
CPT/HCPCS: 36415; 70450; 72128; 72131; 72192; 80053; 83735; 84443; 84484; 85025; 85610; 85730; 93005; 96374; 96375; 99285; J1885; J2060

== ENCOUNTER 2018-09-10 07:01 | Inpatient (IN) | payer MEDICARE ==
--- NOTE | 2018-09-10 07:49 | ED ---
GI/ HPI - HPI Summary HPI Summary: The patient is a 73 year old female who is presenting to the [facility] with a chief complaint of bleeding in the rectal area . Bleeding was first noted at 0500 and the pt was unsure whether the area was vaginal or rectal or both. Pt stated "I got up and the blood spread everywhere." She had fallen down backward earlier this week and imaging was done in the [facility]. There were no fractures noted but the pt stated there was Ecchymosis. The pt noted she was on blood thinners as of today. Symptoms reported include SOB, lightheadedness, chest pain, abd pain, and dehydration. Allergies noted and reported. She states she has Afib (PMHx). PSHx reported to be Triple Bypass Surgery. Symptoms alleviated and aggravated by nothing. The pain is reported to be a 10/10. - History of Current Complaint Chief Complaint: EDGIBleed Time Seen by Provider: 09/10/18 07:36 Stated Complaint: RECTAL BLEEDING Hx Obtained From: Patient Onset/Duration: Started Hours Ago - 0500 Pain Intensity: 10 Additional Signs & Symptoms: Positive: Vaginal Bleeding Aggravating Factor(s): Nothing Alleviating Factor(s): Nothing - Additional Pertinent History Primary Care Physician: JORDAN - Allergy/Home Medications Allergies/Adverse Reactions: Allergies Allergy/AdvReac Type Severity Reaction Status Date / Time codeine Allergy Unknown Verified 09/10/18 07:17 Reaction Details PMH/Surg Hx/FS Hx/Imm Hx Endocrine/Hematology History: Reports: Hx Thyroid Disease Denies: Hx Diabetes Cardiovascular History: Reports: Hx Atrial Fibrillation, Hx Congestive Heart Failure, Hx Coronary Artery Disease, Hx Hypertension Denies: Hx Peripheral Vascular Disease Respiratory History: Reports: Hx Chronic Obstructive Pulmonary Disease (COPD), Hx Pneumonia GI History: Reports: Hx Diverticulosis, Hx Gastroesophageal Reflux Disease, Other GI Disorders - esophageal stricture History: Denies: Hx Dialysis, Hx Renal Disease Musculoskeletal History: Reports: Hx Fibromyalgia, Other Musculoskeletal History - restless leg Denies: Hx Arthritis, Hx Back Problems, Hx Osteoporosis Sensory History: Reports: Hx Cataracts - removed, Hx Contacts or Glasses Denies: Hx Hearing Aid Opthamlomology History: Reports: Hx Cataracts - removed, Hx Contacts or Glasses Neurological History: Reports: Hx CVA, Hx Transient Ischemic Attacks (TIA) Denies: Hx Dementia, Hx Seizures Psychiatric History: Reports: Hx Depression - Surgical History Surgery Procedure, Year, and Place: bypass surgery 1999; HYSTERECTOMY Hx Anesthesia Reactions: No - Immunization History Date of Tetanus Vaccine: PT STATES UNSURE Date of Influenza Vaccine: NONE Infectious Disease History: No Infectious Disease History: Denies: Hx of Known/Suspected MRSA, Hx Shingles, Hx Tuberculosis, Traveled Outside the [place] in Last 30 Days - Family History Known Family History: Positive: Other - CA Negative: Cardiac Disease, Hypertension, Diabetes - Social History Occupation: Retired Alcohol Use: None Hx Substance Use: No Substance Use Type: Reports: None Hx Tobacco Use: No Smoking Status (MU): Never Smoked Tobacco Review of Systems Constitutional: Other - Dehydrated Eyes: Negative ENT: Negative Positive: Chest Pain Positive: Shortness Of Breath Positive: Abdominal Pain Genitourinary: Other - Bleeding (Vaginal or Rectal; Patient is unsure) Musculoskeletal: Negative Positive: Bruising - From Previous Fall Neurological: Other - Lightheadedness Psychological: Normal All Other Systems Reviewed And Are Negative: Yes Physical Exam - Summary Physical Exam Summary: GENERAL: Patient is a well-developed and nourished Female who is lying comfortable in the stretcher. Patient is not in any acute respiratory distress. Mildly tender to palpation diffusely HEAD AND FACE: Normocephalic EYES: PERRLA, EOMI x 2. EARS: Hearing grossly intact. MOUTH: Oropharynx within normal limits. NECK: Supple, trachea is midline, no adenopathy, no JVD, no carotid bruit. CHEST: Symmetric, no tenderness at palpation LUNGS: Clear to auscultation bilaterally. No wheezing or crackles. CVS: Regular rate and rhythm, S1 and S2 present, no murmurs or gallops appreciated. Rectal Exam: Dark blood in rectum GIGU:No blood seen in vaginal canal and no blood from coming from os ABDOMEN: Soft, non-tender. Bowel sounds are normal. No abdominal abnormal pulsations. EXTREMITIES: Full ROM in all major joints, no edema, no cyanosis or clubbing. NEURO: Alert and oriented x 3. No acute neurological deficits. Speech is normal and follows commands. SKIN: Dry and warm Triage Information Reviewed: Yes Vital Signs On Initial Exam: Initial Vitals Resp 24 09/10/18 07:10 Vital Signs Reviewed: Yes Diagnostics - Vital Signs Vital Signs Temp Pulse Resp BP Pulse Ox 09/10/18 07:12 97.4 F 114 18 112/86 100 09/10/18 07:10 24 - Laboratory Result Diagrams: 09/10/18 08:12 09/10/18 08:12 Lab Statement: Any lab studies that have been ordered have been reviewed, and results considered in the medical decision making process. - Radiology Chest X-ray Radiology Interpretation Completed By: ED Physician Summary of Radiographic Findings: CXR reveals, per radiologist, NO ACTIVE CARDIOPULMONARY DISEASE. ED physician has reviewed this radiology report. - CT CT Abd/Pelvic CT Interpretation Completed By: Radiologist - CT reveals as per radiologist 1. NO EVIDENCE FOR ACUTE FINDING. 2. HEPATIC STEATOSIS. 3. STATUS POST HYSTERECTOMY. The ED Physician has reviewed this radiology report. - EKG 08 Cardiac Rate: Tachycardia EKG Rhythm: Sinus Tachycardia - 115 bpm Summary of EKG Findings: EKG taken at 08 showed 115 bpm (Tachycardic); Afib; and inverted T waves in the Lateral Leads as per ED Physician. GIGU Course/Dx - Course Course Of Treatment: The pt is a 73 year old female patient who is presenting to the [facility] with a chief complaint of rectal/vaginal bleeding. EKG was taken in the [facility]. PE consistent with Bleeding in the rectal area. Chest X-ray and CT Abd/ PEl was taken in the [facility]. We discussed treatment plan with GI Dr. Hunt of GI at 916 and he recommended keeping patient NPO for planned endoscopy. We discussed results and plan of care with patient. The patient agrees with this plan. BUN at 87; Creatinine at 1.27; elevated Trop at .24; and Baseline Hemoglobin was 13 and currently it is 9.2. The patient will be admitted to the ICU with a dx of GI bleed. - Diagnoses Provider Diagnoses: GI bleed - Physician Notifications Discussed Care Of Patient With: Joshua Hunt - Patient care and Treatment plan Time Discussed With Above Provider: 09:17 Instructed by Provider To: Admit As Observation - ICU Discharge - Sign-Out/Discharge Documenting (check all that apply): Patient Departure - Patient Admitted - Discharge Plan Condition: Stable Disposition: ADMITTED TO [facility] - Billing Disposition and Condition Condition: STABLE Disposition: Admitted to [facility] - Attestation Statements Document Initiated by Scribe: Yes Documenting Scribe: Shane Sifuentes Provider For Whom Scribe is Documenting (Include Credential): Dr. Gabrielle Chiu Scribe Attestation: I, Shane Sifuentes, scribed for Dr. Gabrielle Chiu on 09/10/18 at 1052. Scribe Documentation Reviewed: Yes Provider Attestation: The documentation as recorded by the scribe, Shane Sifuentes accurately reflects the service I personally performed and the decisions made by me, Dr. Gabrielle Chiu Status of Scribe Document: Viewed
[2018-09-10] MEDS ORDERED: NS 0.9% 1000 ML* 1,000 ML IV ONE (07:50)
[2018-09-10 08:22] LABS: Hematocrit 27 % (35-47); Hemoglobin 9.2 g/dl (12.0-16.0); Mean Corpuscular HGB Conc 34 g/dl (31-36); Mean Corpuscular Hemoglobin 32 pg (27-31); Mean Corpuscular Volume 92 fL (80-97); Mean Platelet Volume 8.5 fL (7.4-10.4); Platelet Count 215 10^3/ul (150-450); Red Blood Count 2.92 10^6/ul (4.00-5.40); Red Cell Distribution Width 14 % (10.5-15); White Blood Count 21.6 10^3/ul (3.5-10.8)
[2018-09-10 08:33] LABS: INR 1.24 (0.77-1.02)
[2018-09-10 08:39] LABS: ALT 58 U/L (7-52); AST 122 U/L (13-39); Albumin 3.7 g/dL (3.2-5.2); Albumin/Globulin Ratio 1.6 (1-3); Alkaline Phosphatase 64 U/L (34-104); Anion Gap 15 mmol/L (2-11); BUN/Creatinine Ratio 68.5 (8-20); Blood Urea Nitrogen 87 mg/dL (6-24); CO2 Carbon Dioxide 19 mmol/L (22-32); Calcium 9.3 mg/dL (8.6-10.3); Chloride 111 mmol/L (101-111); EGFR Non-African American 41.4 (>60); Globulin 2.3 g/dL (2-4); Glucose 117 mg/dL (70-100); Sodium 145 mmol/L (135-145)
[2018-09-10 08:42] LABS: Troponin I 0.24 ng/mL (<0.04)
[2018-09-10] MEDS ORDERED: Iodixanol* (CONTRAST) 320 MG/ML 100 ML SDV IV ONE (08:42)
[2018-09-10 08:51] LABS: ABS Basophils 0.1 10^3/ul (0-0.2); ABS Eosinophils 0 10^3/ul (0-0.6); ABS Lymphocytes 2.3 10^3/ul (1.0-4.8); ABS Monocytes 1.1 10^3/ul (0-0.8); ABS Neutrophils 18.2 10^3/ul (1.5-7.7); ABS Nucleated RBC 0 10^3/ul; Eosinophil % 0 %; Lymphocyte % 10.4 %; Nucleated Red Blood Cells % 0
[2018-09-10] MEDS ORDERED: Pantoprazole IV* 40 MG IV ONE (09:20)
[2018-09-10] MEDS ORDERED: Pantoprazole* 80 mg IN NS 80 MG/250 ML BAG IVPB ONE (09:20)
[2018-09-10] MEDS ORDERED: Albuterol/Ipratropium NEB.SOL* Albuterol 2.5 MG/Ipratropium 0.5 MG 3 ML INH PRN (09:40)
[2018-09-10] MEDS ORDERED: Ondansetron INJ* 2 MG/ML VIAL IV PRN (09:41)
--- NOTE | 2018-09-10 10:49 | HP ---
H&P (Free Text) History and Physical: [facility] History and Physical CC: dizziness HPI: 73F htn, hld, hypothyroid, copd, chf, cad s/p cabg, afib, restless leg syndrome, depression, fibromyaglia, gerd, h/o cva, h/o gi bleed 2/2 gastric ulcer presents with weakness and dizziness for 3 days. The patient states that she has been having black bowel movements. The patient denies any hematemesis. She does have some nausea and abdominal discomfort. She takes elequis for afib. Her prior episode of gi bleeding was in march of 2018. In the ER the patient was found to be in rapid afib. Her hgb was down to 9 from 13, [address] of the abd was negative. ROS - as per HPI PMHx - htn, hld, hypothyroid, copd, chf, cad s/p cabg, afib, restless leg syndrome, depression, fibromyaglia, gerd, h/o cva, h/o gi bleed 2/2 gastric ulcer PSHx - CABG, hysterectomy All - codeine FamHx - cancer, cad, htn, dm SoxHx - denies drugs, etoh, and tobacco PE Vital Signs: Temp Pulse Resp BP Pulse Ox 97.6 F 113 19 124/76 97 09/10/18 10:05 09/10/18 10:05 09/10/18 10:05 09/10/18 10:05 09/10/18 10:05 Gen - elderly female in nad heent - ncat, eomi, perrl neck - no - jvd cv - s1/s2, tachy, irregular lungs - cta, no wheeze abd - soft, nt ext - trace edema neuro - non-focal Labs Laboratory Results - last 24 hr 09/10/18 09/10/18 09/10/18 08:12 08:12 08:12 WBC 21.6 H RBC 2.92 L Hgb 9.2 L Hct 27 L MCV 92 MCH 32 H MCHC 34 RDW 14 Plt Count 215 MPV 8.5 Neut % (Auto) 84.2 Lymph % (Auto) 10.4 [place] % (Auto) 5.1 Eos % (Auto) 0 Baso % (Auto) 0.3 Absolute Neuts (auto) 18.2 H Absolute Lymphs (auto) 2.3 Absolute Monos (auto) 1.1 H Absolute Eos (auto) 0 Absolute Basos (auto) 0.1 Absolute Nucleated RBC 0 Nucleated RBC % 0 INR (Anticoag Therapy) 1.24 H APTT 24.0 L Sodium 145 D Potassium 4.0 Chloride 111 Carbon Dioxide 19 L Anion Gap 15 H BUN 87 H Creatinine 1.27 H Est GFR ( Amer) 50.0 Est GFR (Non-Af Amer) 41.4 BUN/Creatinine Ratio 68.5 H Glucose 117 H Calcium 9.3 Total Bilirubin 0.40 AST 122 H ALT 58 H Alkaline Phosphatase 64 Troponin I 0.24 H* Total Protein 6.0 L Albumin 3.7 Globulin 2.3 Albumin/Globulin Ratio 1.6 Lipase < 10 L Blood Type Antibody Screen Crossmatch 09/10/18 08:12 WBC RBC Hgb Hct MCV MCH MCHC RDW Plt Count MPV Neut % (Auto) Lymph % (Auto) [place] % (Auto) Eos % (Auto) Baso % (Auto) Absolute Neuts (auto) Absolute Lymphs (auto) Absolute Monos (auto) Absolute Eos (auto) Absolute Basos (auto) Absolute Nucleated RBC Nucleated RBC % INR (Anticoag Therapy) APTT Sodium Potassium Chloride Carbon Dioxide Anion Gap BUN Creatinine Est GFR ( Amer) Est GFR (Non-Af Amer) BUN/Creatinine Ratio Glucose Calcium Total Bilirubin AST ALT Alkaline Phosphatase Troponin I Total Protein Albumin Globulin Albumin/Globulin Ratio Lipase Blood Type A Positive Antibody Screen Negative Crossmatch See Detail Imaging CT abd/pel 09/10/18 IMPRESSION: 1. NO EVIDENCE FOR ACUTE FINDING. 2. HEPATIC STEATOSIS. 3. STATUS POST HYSTERECTOMY. CXR 09/10/18 IMPRESSION: NO ACTIVE CARDIOPULMONARY DISEASE. Impression 73F htn, hld, hypothyroid, copd, chf, cad s/p cabg, afib, restless leg syndrome , depression, fibromyaglia, gerd, h/o cva, h/o gi bleed 2/2 gastric ulcer presents with symptomatic anemia, rapid afib likely 2/2 upper gi bleed Plan Neuro - anxiety/depression, RLS - c/w prozac, lyrica, requip CV - htn, hld, cad, chf, afib with RVR - c/w statin/bblocker - hold ac in setting of gi bleed - monitor on tele - repeat tte - hold arb/aldactone and re-add prn pulm - copd - c/w home nebs - o2 prn id - no evidence of infection gi -upper gi bleed - npo - ppi gtt - gi consult for endoscopy renal - sangita - 2/2 volume depletion - monitor i/o, monitor lytes heme - symptomatic anemia - 2/2 gi bleed - serial cbc - keep hgb > 7 - hold anti-coagulation endo - hypothyroid - c/w synthroid lines - piv ppx - ppi/scds DNR/DNI Admit to ICU Critical Care Time: 70 mins
[2018-09-10 12:09] LABS: Hematocrit 24 % (35-47); Hemoglobin 8.2 g/dl (12.0-16.0); Mean Corpuscular HGB Conc 34 g/dl (31-36); Mean Corpuscular Hemoglobin 31 pg (27-31); Mean Corpuscular Volume 91 fL (80-97); Mean Platelet Volume 8.3 fL (7.4-10.4); Platelet Count 184 10^3/ul (150-450); Red Blood Count 2.63 10^6/ul (4.00-5.40); Red Cell Distribution Width 14 % (10.5-15); White Blood Count 16.6 10^3/ul (3.5-10.8)
--- NOTE | 2018-09-10 12:10 | CONS ---
CC: Primary Care Physician CONSULTATION REPORT: DATE OF CONSULT: 09/10/18 REASON FOR CONSULT: Melena, acute blood loss anemia. HISTORY OF PRESENT ILLNESS: This is a 73-year-old female with a history of peptic ulcer disease, who is presenting to [facility] with 1 day of black bowel movements. She denies any abdomina l pain at this point. She is unsure if she is taking her prior prescribed acid medicine. She denies any dysphagia, odynophagia. Denies any constipation. She states she has had more frequent bowel mov ements since the black stool began. She states she occasionally takes Tylenol, but denies any Motrin , ibuprofen, or Aleve. She is on Eliquis for atrial fibrillation. She has had episodes of lighthead edness and dizziness over the past week. She states she had a near syncopal to syncopal episode abou t a week ago. She has been following up with her p d driver on a regular basis. She said that she had a nuclear stress study over the last year. She denies any chest pain or dyspnea. Denies any chavez ght loss or weight gain. She is slightly a reluctant historian. Remainder of the 14-point review of systems is grossly negative. PAST MEDICAL HISTORY: Hypertension; hyperlipidemia; hypothyroidism; COPD; CHF; CAD; AFib, on anticoa gulation; restless legs; depression; fibromyalgia; GERD; peptic ulcer disease. PAST SURGICAL HISTORY: Coronary artery bypass surgery and hysterectomy. FAMILY HISTORY: No family history of GI cancer or malignancy. SOCIAL HISTORY: She does not smoke or drink alcohol. REVIEW OF SYSTEMS: Remainder of the 14-point review of systems was negative except for as described in the HPI. PHYSICAL EXAM: Vital Signs: Blood pressure 130/77, pulse is 121, respiratory rate is 28, she is 99% on room air, temperature is 99.2. In general, she is alert and oriented x3, in no acute distress. HEENT: Atraumatic, normocephalic. Pupils are equal, round, reactive to light. Conjunctivae are pin k. Sclerae are anicteric. Cardiovascular: Regular rate and rhythm. S1, S2. Respiratory: Fair eff ort, but grossly clear to auscultation. Abdomen is soft, nontender, nondistended. Bowel sounds posi tive. Extremities: No clubbing. 1+ edema. Skin Exam: A few scattered ecchymoses are present. DIAGNOSTIC STUDIES/LAB DATA: Hemoglobin on admission 9.2, baseline appears to be around 10.8 to 9.9; however, she did have a peak of 13.3 three days ago. INR 1.24. BUN is 87, creatinine is 1.27. She had a CT of the abdomen and pelvis with no acute process noted. ASSESSMENT AND PLAN: This is a 73-year-old female with atrial fibrillation, on anticoagulation; hist ory of peptic ulcer disease, who presents with melena and acute blood loss anemia. 1. Acute blood loss anemia. Agree with IV Protonix. The patient has history of peptic ulcer in the past. It is unclear if she was continuing to take her acid medicine as prescribed. She had previou s endoscopy with Dr. Monet in January 2018 that had a prepyloric channel ulceration, clean based. We would monitor H and H every 6 hours. Keep 2 units of PRBCs on hold. Transfusion per the primary ser vice. We will plan on possible endoscopic evaluation pending clinical course. 2. Atrial fibrillation, on Eliquis, currently being held. 3. Acute kidney injury, likely hypovolemic. Getting volume resuscitated at this point. [id number]/[facility] [place] #: [id number]
[2018-09-10] MEDS: Carvedilol TAB* 25 MG PO SCH ×2 (12:28→20:47)
[2018-09-10] MEDS: traMADol TAB* 50 MG PO PRN (12:28)
[2018-09-10] MEDS ORDERED: Digoxin IV* 0.5 MG/2 ML AMP (0.25 MG/ML) IV SLOW PU ONE (13:37)
[2018-09-10] MEDS: Pregabalin CAP(*) 50 MG PO SCH ×2 (13:57→20:48)
[2018-09-10] MEDS ORDERED: Lactated Ringers 1000 ML Bag* 1,000 ML IV SCH (14:00)
[2018-09-10] MEDS ORDERED: fentaNYL* 50 MCG/ML 2 ML VIAL (100 MCG VIAL) ONE (15:22)
[2018-09-10] MEDS ORDERED: Midazolam* 1 MG/ML 10 ML VIAL (10 MG) ONE (15:22)
[2018-09-10 18:30] LABS: Hematocrit 24 % (35-47); Hemoglobin 8.3 g/dl (12.0-16.0); Mean Corpuscular HGB Conc 35 g/dl (31-36); Mean Corpuscular Hemoglobin 31 pg (27-31); Mean Corpuscular Volume 90 fL (80-97); Mean Platelet Volume 8.1 fL (7.4-10.4); Platelet Count 156 10^3/ul (150-450); Red Blood Count 2.68 10^6/ul (4.00-5.40); Red Cell Distribution Width 14 % (10.5-15); White Blood Count 13.5 10^3/ul (3.5-10.8)
[2018-09-10] MEDS: CMCS:Rosuvastatin (NF) 20 MG TAB PO SCH (20:46)
[2018-09-10] MEDS: rOPINIRole TAB* 1 MG PO SCH (20:48)
[2018-09-10 23:45] LABS: Hematocrit 23 % (35-47); Hemoglobin 7.9 g/dl (12.0-16.0); Mean Corpuscular HGB Conc 34 g/dl (31-36); Mean Corpuscular Hemoglobin 31 pg (27-31); Mean Corpuscular Volume 92 fL (80-97); Mean Platelet Volume 8.7 fL (7.4-10.4); Platelet Count 113 10^3/ul (150-450); Red Blood Count 2.51 10^6/ul (4.00-5.40); Red Cell Distribution Width 15 % (10.5-15); White Blood Count 11.4 10^3/ul (3.5-10.8)
--- NOTE | 2018-09-11 01:22 | PRO ---
CC: Dr. Rashmi Holloway ESOPHAGOGASTRODUODENOSCOPY REPORT: DATE OF PROCEDURE: 09/10/18 PRIMARY CARE PHYSICIAN: Rashmi Holloway MD PROCEDURE PERFORMED: Complete esophagogastroduodenoscopy with biopsies. INDICATION: Melena, acute blood loss anemia. MEDICATIONS GIVEN: Include: 1. Midazolam 5 mg IV. 2. Fentanyl 25 mcg IV. DESCRIPTION OF PROCEDURE: After the EGD procedure including the risks, benefits and alternatives wit h the risk not limited to perforation, surgery, missed lesions, and/or were explained to the carlos pryor. Written informed consent was obtained. IV medication was given and the bite block was placed between the teeth. The adult Olympus gastroscope was then inserted into the patient's oropharynx and advanced into the tubular esophagus. The tubular esophagus had LA-A erosive esophagitis. In additio n, there was some slight nodularity at the GE junction, this was biopsied. The scope was then advanc ed through the lower esophageal sphincter into the stomach. The stomach had mild gastritis. This wa s biopsied for CLOtesting. On retroflexion, small sliding hiatal hernia was visualized. On further a dvance prepyloric in the antrum, there was a 0.9 cm clean based ulceration close to the channel. It was deep, but clean based in nature. No fresh or old blood was visualized. The scope was then advan vic through the pyloric channel with some slight narrowing secondary to the ulcer nearby, but I was a ble to easily intubate into the duodenal bulb with the scope. The duodenal bulb was normal in appear ance. The C-loop and distal duodenum were also normal. The scope was then removed from the patient. She tolerated the procedure well. She returned to the recovery room in stable condition. She remain ed in the ICU in stable condition. IMPRESSION: 1. Complete esophagogastroduodenoscopy with biopsies. 2. Pre-pyloric channel ulceration 0.9 cm, clean based, but deep no active bleeding at this time. 3. Gastritis, biopsies taken for CLOtesting. 4. Smith-A erosive esophagitis. 5. Nodularity of gastroesophageal junction biopsied. RECOMMENDATIONS: At this point, we recommend continue the Protonix drip for about 72 hours given the symptom she had prior to arrival. At that point, she can be switched to a p.o. b.i.d. Protonix and she should continue that for at least 3 months' time. In 3 months, we will plan on looking and doing a repeat endoscopy. I will again resample the GE junction area pending biopsy results and confirm if this ulcer has healed at this point. It is unclear whether she actually continued on acid medicine after her last endoscopy last summer. The patient is rather a reluctant historian and is not sure if she had actually taken the medicine after she was discharged, but we will plan on the b.i.d. PPI the rapy for 3 months, then reassess at that point. [id number]/[facility] #: [id number]
[2018-09-11 05:08] LABS: ABS Basophils 0 10^3/ul (0-0.2); ABS Eosinophils 0 10^3/ul (0-0.6); ABS Lymphocytes 1.8 10^3/ul (1.0-4.8); ABS Monocytes 0.9 10^3/ul (0-0.8); ABS Neutrophils 8.8 10^3/ul (1.5-7.7); ABS Nucleated RBC 0 10^3/ul; Eosinophil % 0.1 %; Hematocrit 27 % (35-47); Hemoglobin 9.5 g/dl (12.0-16.0); Mean Corpuscular HGB Conc 35 g/dl (31-36); Mean Corpuscular Hemoglobin 31 pg (27-31); Mean Corpuscular Volume 90 fL (80-97); Mean Platelet Volume 8.1 fL (7.4-10.4); Nucleated Red Blood Cells % 0; Platelet Count 139 10^3/ul (150-450); Red Blood Count 3.03 10^6/ul (4.00-5.40); Red Cell Distribution Width 15 % (10.5-15); White Blood Count 11.5 10^3/ul (3.5-10.8)
[2018-09-11 05:25] LABS: BUN/Creatinine Ratio 70.9 (8-20); Calcium 8.4 mg/dL (8.6-10.3); EGFR African American 86.6 (>60); EGFR Non-African American 71.5 (>60); Magnesium 2.2 mg/dL (1.9-2.7); Potassium 3.4 mmol/L (3.5-5.0)
[2018-09-11 05:29] LABS: Troponin I 0.17 ng/mL (<0.04)
[2018-09-11] MEDS: Levothyroxine TAB* 112 MCG TAB PO SCH (05:41)
[2018-09-11] MEDS: Carvedilol TAB* 25 MG PO SCH ×2 (08:43→20:10)
[2018-09-11] MEDS: Cetirizine* 10 MG TAB PO SCH (08:43)
[2018-09-11] MEDS: Pregabalin CAP(*) 50 MG PO SCH ×3 (08:43→20:09)
[2018-09-11] MEDS: FLUoxetine CAP* 20 MG PO SCH (08:45)
[2018-09-11] MEDS: KCL 20 MEQ/100 ML IVPREMIX* 20 MEQ/100 ML BAG IV SCH ×2 (08:46→12:02)
--- NOTE | 2018-09-11 08:53 | PN ---
Progress Note - Progress Note Date of Service: 09/11/18 - Transfer note Note: Progress note/Transfer summary Pt seen and examined at bedside. Pt reports back pain, denies dizziness, chest pain, SOB. Date of ICU admission: 09/10/18 Reason for admission: Dizziness Transfer note: 73 y o f with h/o HTN, COPD, CHF, CAD s/p CABG, A.fib, CVA, h/o GI bleed 2/2 gastric ulcer a/w dizziness for 3 days, dark bowel movements. Pt noted to have acute drop in H&H from baseline of 13 to 9. Pt was also in rapid A.fib. Pt started on PPI, IVF, GI was consulted. Pt underwent EGD 09/10. Pt noted to have pre-pyloric channel based ulcer with clean base and gastritis. Pt received 2 units of pRBC, has remained hemodynamically stable with no further bleeding episodes since admission. Patient is alert with no neurological issues. In terms of her Cardiovascular issues, her A.fib has been rate controlled, anticoagulation has been on hold given acute GI bleed. Elevated troponins, demand ischemia- trending down. Will start feeds this am. Will change H&H checks to q 12 hrs. Patient having back pain due to recent fall at home. She is receiving Tramadol. renal failure improving, good UO. Leucocytosis trending down, likely from acute bleed and reticulocytosis, less likely to be from infection. Receiving nebs as needed, no signs of acute COPD exacerbation. Patient is stable to be transferred to regular medical floor. Active Medications Generic Name Dose Route Start Last Admin Trade Name Freq PRN Reason Stop Dose Admin Albuterol/Ipratropium 1 neb 09/10/18 09:40 Duoneb (Albuterol 2.5 Mg/Ipratropium 0.5 Mg) INH Q4H PRN SOB/WHEEZING Carvedilol 25 mg 09/10/18 11:00 09/11/18 08:43 Coreg Tab* PO 25 mg BID PRAVIN Administration Cetirizine HCl 10 mg 09/11/18 09:00 09/11/18 08:43 Zyrtec* PO 10 mg DAILY PRAVIN Administration Protocol Fluoxetine HCl 60 mg 09/11/18 09:00 09/11/18 08:45 Prozac Cap* PO 60 mg DAILY PRAVIN Administration Potassium Chloride 20 meq in 100 mls @ 50 mls/hr 09/11/18 09:00 09/11/18 08: 46 Potassium Chloride 20 Meq/100 Ml Ivpremix* IV 09/11/18 12:59 50 mls/hr Q2H PRAVIN Administration Levothyroxine Sodium 112 mcg 09/11/18 06:00 09/11/18 05:41 Synthroid Tab* PO 112 mcg DAILY@0600 PRAVIN Administration Ondansetron HCl 4 mg 09/10/18 09:41 09/10/18 15:08 Zofran Inj* IV 4 mg Q6H PRN Administration NAUSEA Pregabalin 50 mg 09/10/18 14:00 09/11/18 08:43 Lyrica Cap(*) PO 50 mg TID PRAVIN Administration Ropinirole HCl 1 mg 09/10/18 21:00 09/10/18 20:48 Requip Tab* PO 1 mg BEDTIME PRAVIN Administration Rosuvastatin Calcium 40 mg 09/10/18 17:00 09/10/18 20:46 Crestor (Nf) PO 40 mg 1700 PRAVIN Administration Tramadol HCl 25 mg 09/10/18 11:27 09/10/18 12:28 Ultram* PO 25 mg Q6H PRN Administration PAIN Physical Exam: Pt is alert, awake, in NAD Vital Signs Temp Pulse Resp BP Pulse Ox 97.9 F 74 18 100/50 100 09/11/18 07:39 09/11/18 07:00 09/11/18 07:00 09/11/18 07:00 09/11/18 07:00 HEENT: PERRLA, NO JVD Lungs: Distant breath sound+, no wheeze CVS: S1, S2+, irregular Abd: Soft, BS+ Ext: No edema, Normal ROM Skin: No rash Neuro: Alert, awake, no focal deficits Laboratory Results - last 24 hr 09/10/18 09/10/18 09/10/18 08:12 11:54 11:54 WBC 16.6 H RBC 2.63 L Hgb 8.2 L Hct 24 L MCV 91 MCH 31 MCHC 34 RDW 14 Plt Count 184 MPV 8.3 Neut % (Auto) Lymph % (Auto) [place] % (Auto) Eos % (Auto) Baso % (Auto) Absolute Neuts (auto) Absolute Lymphs (auto) Absolute Monos (auto) Absolute Eos (auto) Absolute Basos (auto) Absolute Nucleated RBC Nucleated RBC % Sodium Potassium Chloride Carbon Dioxide Anion Gap BUN Creatinine Est GFR ( Amer) Est GFR (Non-Af Amer) BUN/Creatinine Ratio Glucose Calcium Magnesium Troponin I 0.32 H* Blood Type A Positive Antibody Screen Negative Crossmatch See Detail 09/10/18 09/10/18 09/10/18 18:15 18:15 23:35 WBC 13.5 H 11.4 H RBC 2.68 L 2.51 L Hgb 8.3 L 7.9 L Hct 24 L 23 L MCV 90 92 MCH 31 31 MCHC 35 34 RDW 14 15 Plt Count 156 113 L MPV 8.1 8.7 Neut % (Auto) Lymph % (Auto) [place] % (Auto) Eos % (Auto) Baso % (Auto) Absolute Neuts (auto) Absolute Lymphs (auto) Absolute Monos (auto) Absolute Eos (auto) Absolute Basos (auto) Absolute Nucleated RBC Nucleated RBC % Sodium Potassium Chloride Carbon Dioxide Anion Gap BUN Creatinine Est GFR ( Amer) Est GFR (Non-Af Amer) BUN/Creatinine Ratio Glucose Calcium Magnesium Troponin I 0.36 H* Blood Type Antibody Screen Crossmatch 09/11/18 09/11/18 05:00 05:00 WBC 11.5 H RBC 3.03 L Hgb 9.5 L Hct 27 L MCV 90 MCH 31 MCHC 35 RDW 15 Plt Count 139 L MPV 8.1 Neut % (Auto) 76.3 Lymph % (Auto) 16.0 [place] % (Auto) 7.4 Eos % (Auto) 0.1 Baso % (Auto) 0.2 Absolute Neuts (auto) 8.8 H Absolute Lymphs (auto) 1.8 Absolute Monos (auto) 0.9 H Absolute Eos (auto) 0 Absolute Basos (auto) 0 Absolute Nucleated RBC 0 Nucleated RBC % 0 Sodium 145 Potassium 3.4 L Chloride 116 H Carbon Dioxide 23 Anion Gap 6 BUN 56 H Creatinine 0.79 Est GFR ( Amer) 86.6 Est GFR (Non-Af Amer) 71.5 BUN/Creatinine Ratio 70.9 H Glucose 109 H Calcium 8.4 L Magnesium 2.2 Troponin I 0.17 H* Blood Type Antibody Screen Crossmatch Patient to be transferred to service of Dr Ortiz D/w Dr Ortiz Pt is DNR
[2018-09-11] MEDS: traMADol TAB* 50 MG PO PRN (09:10)
[2018-09-11] MEDS: Pantoprazole* 80 mg IN NS 80 MG/250 ML BAG IVPB SCH (14:00)
[2018-09-11] MEDS: CMCS:Rosuvastatin (NF) 20 MG TAB PO SCH (16:47)
[2018-09-11] MEDS: rOPINIRole TAB* 1 MG PO SCH (20:10)
[2018-09-12] MEDS: Pantoprazole* 80 mg IN NS 80 MG/250 ML BAG IVPB SCH ×2 (00:33→11:52)
[2018-09-12 05:54] LABS: ABS Basophils 0 10^3/ul (0-0.2); ABS Eosinophils 0.1 10^3/ul (0-0.6); ABS Lymphocytes 2.2 10^3/ul (1.0-4.8); ABS Monocytes 0.7 10^3/ul (0-0.8); ABS Neutrophils 5.5 10^3/ul (1.5-7.7); ABS Nucleated RBC 0 10^3/ul; Eosinophil % 1.3 %; Hematocrit 25 % (35-47); Hemoglobin 8.7 g/dl (12.0-16.0); Lymphocyte % 25.8 %; Mean Corpuscular HGB Conc 35 g/dl (31-36); Mean Corpuscular Hemoglobin 31 pg (27-31); Mean Corpuscular Volume 90 fL (80-97); Mean Platelet Volume 8.5 fL (7.4-10.4); Nucleated Red Blood Cells % 0.3; Platelet Count 118 10^3/ul (150-450); Red Blood Count 2.81 10^6/ul (4.00-5.40); Red Cell Distribution Width 15 % (10.5-15); White Blood Count 8.6 10^3/ul (3.5-10.8)
[2018-09-12 06:10] LABS: BUN/Creatinine Ratio 42.5 (8-20); Calcium 8.4 mg/dL (8.6-10.3); EGFR African American 94.8 (>60); EGFR Non-African American 78.4 (>60); Potassium 3.8 mmol/L (3.5-5.0)
[2018-09-12] MEDS: Levothyroxine TAB* 112 MCG TAB PO SCH (06:16)
[2018-09-12] MEDS: FLUoxetine CAP* 20 MG PO SCH (08:48)
[2018-09-12] MEDS: Carvedilol TAB* 25 MG PO SCH ×2 (08:48→20:57)
[2018-09-12] MEDS: Pregabalin CAP(*) 50 MG PO SCH ×3 (08:49→20:58)
[2018-09-12] MEDS: Cetirizine* 10 MG TAB PO SCH (08:49)
[2018-09-12] MEDS: CMCS:Rosuvastatin (NF) 20 MG TAB PO SCH (16:45)
--- NOTE | 2018-09-12 17:02 | PN ---
Subjective Date of Service: 09/12/18 Interval History: c/o back pain.Reports feeling exhausted. Objective Active Medications: Albuterol/Ipratropium (Duoneb (Albuterol 2.5 Mg/Ipratropium 0.5 Mg)) 1 neb INH Q4H PRN PRN Reason: SOB/WHEEZING Carvedilol (Coreg Tab*) 25 mg PO BID [facility] Last Admin: 09/12/18 08:48 Dose: 25 mg Cetirizine HCl (Zyrtec*) 10 mg PO DAILY [facility]; Protocol Last Admin: 09/12/18 08:49 Dose: 10 mg Fluoxetine HCl (Prozac Cap*) 60 mg PO DAILY [facility] Last Admin: 09/12/18 08:48 Dose: 60 mg Pantoprazole Sodium (Protonix Iv Bag*) 80 mg in 250 mls @ 25 mls/hr IVPB Q10H [facility] Last Admin: 09/12/18 11:52 Dose: 25 mls/hr Ceftriaxone Sodium 1 gm/ (Sodium Chloride) 50 mls @ 200 mls/hr IVPB Q24H [facility] Levothyroxine Sodium (Synthroid Tab*) 112 mcg PO DAILY@0600 [facility] Last Admin: 09/12/18 06:16 Dose: 112 mcg Ondansetron HCl (Zofran Inj*) 4 mg IV Q6H PRN PRN Reason: NAUSEA Last Admin: 09/10/18 15:08 Dose: 4 mg Pregabalin (Lyrica Cap(*)) 50 mg PO TID [facility] Last Admin: 09/12/18 13:36 Dose: 50 mg Ropinirole HCl (Requip Tab*) 1 mg PO BEDTIME [facility] Last Admin: 09/11/18 20:10 Dose: 1 mg Rosuvastatin Calcium (Crestor (Nf)) 40 mg PO 1700 [facility] Last Admin: 09/12/18 16:45 Dose: 40 mg Tramadol HCl (Ultram*) 25 mg PO Q6H PRN PRN Reason: PAIN Last Admin: 09/11/18 09:10 Dose: 25 mg Vital Signs - 8 hr 09/12/18 09/12/18 09/12/18 12:19 13:36 16:14 Temperature 97.9 F 100.5 F Pulse Rate 71 96 Respiratory 18 16 20 Rate Blood Pressure 97/56 133/64 (mmHg) O2 Sat by Pulse 96 98 Oximetry Oxygen Devices in Use Now: None Eyes: No Scleral Icterus Ears/Nose/Mouth/Throat: NL Teeth, Lips, Gums Neck: NL Appearance and Movements; NL JVP Respiratory: Symmetrical Chest Expansion and Respiratory Effort, Clear to Auscultation Cardiovascular: NL Sounds; No Murmurs; No JVD, RRR Abdominal: NL Sounds; No Tenderness; No Distention Extremities: - - Edema present Neurological: Alert and Oriented x 3 Result Diagrams: 09/12/18 05:22 09/12/18 05:22 Microbiology and Other Data: Microbiology 09/10/18 17:15 CLOtest - Final Gastric Antrum 09/10/18 10:44 Nasal Screen MRSA (PCR) - Final Nasal Mrsa Not Detected Assess/Plan/Problems-Billing Assessment: - Patient Problems (1) GI bleed Current Visit: No Status: Acute Code(s): K92.2 - GASTROINTESTINAL HEMORRHAGE , UNSPECIFIED SNOMED Code(s): 99347577 Comment: -Recd 2 units PRBC -Hb stable -Transferred from ICU -s/p EGD prepyloric channel based ulcer with clean base and gastritis -Dr Hunt rec PPI drip for 72h( on it) and then transitioning to BID Protonix for 3 months and reevaluation -Monitor H/H (2) A-fib Current Visit: Yes Status: Acute Code(s): I48.91 - UNSPECIFIED ATRIAL FIBRILLATION SNOMED Code(s): 96495871 Comment: Yohan currently on hold Continue Coreg (3) YENNY (acute kidney injury) Current Visit: Yes Status: Acute Code(s): N17.9 - ACUTE KIDNEY FAILURE, UNSPECIFIED SNOMED Code(s): 15576138 Comment: Mild Improved with prbc and ivf Back to normal (4) Fever Current Visit: Yes Status: Acute Code(s): R50.9 - FEVER, UNSPECIFIED SNOMED Code(s): 494071303 Comment: Will get urine cx,blood cx and CXR Will give a dose of Ceftriaxone for poss UTI Can escalate or de escalate antibiotics based on cultures
[2018-09-12] MEDS: cefTRIAXone(*) 1 GM in NS 0.9% 50 ML* 50 ML IVPB SCH (18:26)
[2018-09-12 20:05] LABS: Urine Appearance Clear; Urine Color Yellow; Urine Ketones Negative (Negative); Urine Specific Gravity 1.015 (1.010-1.030); Urine Urobilinogen Negative (Negative)
[2018-09-12 20:06] LABS: Urine Bilirubin Negative (Negative); Urine Blood 1+ (Negative); Urine Glucose Negative (Negative); Urine Nitrite Positive (Negative); Urine Protein 1+(30 mg/dL) (Negative)
[2018-09-12 20:14] LABS: Urine Bacteria 3+ (Absent); Urine Red Blood Cell 3+(>10/hpf) (Absent); Urine Squamous Epithelial Cell Present (Absent); Urine White Blood Cell 3+(>20/hpf) (Absent)
[2018-09-12] MEDS: rOPINIRole TAB* 1 MG PO SCH (20:57)
[2018-09-13] MEDS: Pantoprazole* 80 mg IN NS 80 MG/250 ML BAG IVPB SCH ×3 (00:13→14:23)
[2018-09-13 06:31] LABS: ABS Basophils 0 10^3/ul (0-0.2); ABS Eosinophils 0.3 10^3/ul (0-0.6); ABS Lymphocytes 2.5 10^3/ul (1.0-4.8); ABS Monocytes 0.6 10^3/ul (0-0.8); ABS Neutrophils 4.4 10^3/ul (1.5-7.7); ABS Nucleated RBC 0 10^3/ul; Eosinophil % 3.5 %; Hematocrit 26 % (35-47); Hemoglobin 8.9 g/dl (12.0-16.0); Lymphocyte % 31.4 %; Mean Corpuscular HGB Conc 34 g/dl (31-36); Mean Corpuscular Hemoglobin 31 pg (27-31); Mean Corpuscular Volume 90 fL (80-97); Mean Platelet Volume 8.6 fL (7.4-10.4); Nucleated Red Blood Cells % 0.3; Platelet Count 121 10^3/ul (150-450); Red Blood Count 2.91 10^6/ul (4.00-5.40); Red Cell Distribution Width 15 % (10.5-15); White Blood Count 7.8 10^3/ul (3.5-10.8)
[2018-09-13] MEDS: Levothyroxine TAB* 112 MCG TAB PO SCH (06:31)
[2018-09-13 06:53] LABS: BUN/Creatinine Ratio 30.4 (8-20); Calcium 8.5 mg/dL (8.6-10.3); EGFR African American 101.2 (>60); EGFR Non-African American 83.6 (>60); Potassium 3.5 mmol/L (3.5-5.0)
--- NOTE | 2018-09-13 08:18 | PN ---
Subjective Date of Service: 09/13/18 Interval History: HD # 4 on 09/13 73 y o f with h/o HTN, COPD, CHF, CAD s/p CABG, A.fib, CVA, h/o GI bleed 2/2 gastric ulcer p/w dizziness found to be in afib with RVR and with melenatoic stools. S/P EGD with channel ulcer, now on PPI. Hospital course c/b UTI, now on abx since 09/12 No overnight events, this morning HTN and a bit lethargic per nursing report, seen shortly afterwards and eating breakfast AOx3. VS: Sinus tachy 110 at same time 180s/100 manual BP, T max 98.2, satting well on RA. Home losartan, Spironolactone, and Carvedilol restarted, labs unremarkable this AM This morning, seen eating breakfast, odd historian but AOx3, not to event of what brought her in. She c/o no acute pain, reports uneventful night. Objective Active Medications: Albuterol/Ipratropium (Duoneb (Albuterol 2.5 Mg/Ipratropium 0.5 Mg)) 1 neb INH Q4H PRN PRN Reason: SOB/WHEEZING Carvedilol (Coreg Tab*) 25 mg PO BID [facility] Last Admin: 09/12/18 20:57 Dose: 25 mg Cetirizine HCl (Zyrtec*) 10 mg PO DAILY [facility]; Protocol Last Admin: 09/12/18 08:49 Dose: 10 mg Fluoxetine HCl (Prozac Cap*) 60 mg PO DAILY [facility] Last Admin: 09/12/18 08:48 Dose: 60 mg Pantoprazole Sodium (Protonix Iv Bag*) 80 mg in 250 mls @ 25 mls/hr IVPB Q10H [facility] Last Admin: 09/13/18 06:34 Dose: 25 mls/hr Ceftriaxone Sodium 1 gm/ (Sodium Chloride) 50 mls @ 200 mls/hr IVPB Q24H [facility] Last Admin: 09/12/18 18:26 Dose: 200 mls/hr Levothyroxine Sodium (Synthroid Tab*) 112 mcg PO DAILY@0600 [facility] Last Admin: 09/13/18 06:31 Dose: 112 mcg Losartan Potassium (Cozaar Tab*) 50 mg PO DAILY [facility] Ondansetron HCl (Zofran Inj*) 4 mg IV Q6H PRN PRN Reason: NAUSEA Last Admin: 09/10/18 15:08 Dose: 4 mg Pregabalin (Lyrica Cap(*)) 50 mg PO TID [facility] Last Admin: 09/12/18 20:58 Dose: 50 mg Ropinirole HCl (Requip Tab*) 1 mg PO BEDTIME [facility] Last Admin: 09/12/18 20:57 Dose: 1 mg Rosuvastatin Calcium (Crestor (Nf)) 40 mg PO 1700 [facility] Last Admin: 09/12/18 16:45 Dose: 40 mg Tramadol HCl (Ultram*) 25 mg PO Q6H PRN PRN Reason: PAIN Last Admin: 09/11/18 09:10 Dose: 25 mg Vital Signs - 8 hr 09/13/18 09/13/18 09/13/18 03:05 04:57 07:49 Temperature 98.5 F 98.2 F Pulse Rate 92 86 113 Respiratory 20 20 18 Rate Blood Pressure 132/79 159/107 (mmHg) O2 Sat by Pulse 96 96 100 Oximetry 09/13/18 08:00 Temperature Pulse Rate Respiratory Rate Blood Pressure 190/110 (mmHg) O2 Sat by Pulse Oximetry Oxygen Devices in Use Now: None Appearance: Well appearing woman in NAD, eating cereal Ears/Nose/Mouth/Throat: NL Teeth, Lips, Gums, Mucous Membranes Moist Neck: NL Appearance and Movements; NL JVP Respiratory: Symmetrical Chest Expansion and Respiratory Effort, Clear to Auscultation Cardiovascular: NL Sounds; No Murmurs; No JVD, - - Fib Abdominal: NL Sounds; No Tenderness; No Distention Lymphatic: No Cervical Adenopathy Extremities: No Edema Skin: No Rash or Ulcers Neurological: Alert and Oriented x 3, NL Sensation, NL Muscle Strength and Tone , - - CN 2-12 intact, no neurolgic defecit Result Diagrams: 09/13/18 06:11 09/13/18 06:11 Microbiology and Other Data: Microbiology 09/10/18 17:15 CLOtest - Final Gastric Antrum 09/10/18 10:44 Nasal Screen MRSA (PCR) - Final Nasal Mrsa Not Detected Diagnostic Imaging: EGD: Prepyloric Channel Ulceration, depp no active bleeding 0.9cm Assess/Plan/Problems-Billing Assessment: 73 y o f with h/o HTN, COPD, CHF, CAD s/p CABG, A.fib, CVA, h/o GI bleed 2/2 gastric ulcer p/w dizziness found to be in afib with RVR and with melenatoic stools. S/P EGD with channel ulcer, now on PPI. Hospital course c/b UTI, now on abx since 09/12 - Patient Problems (1) GI bleed Current Visit: No Status: Acute Code(s): K92.2 - GASTROINTESTINAL HEMORRHAGE , UNSPECIFIED SNOMED Code(s): 18934534 Comment: -Recd 2 units PRBC, Hgb now stable -s/p EGD prepyloric channel based ulcer with clean base and gastritis -Dr Hunt rec PPI drip for 72h and then transitioning to BID Protonix , will change to oral, to stay on this dose 3 months and reevaluation -Monitor H/H (2) A-fib Current Visit: Yes Status: Acute Code(s): I48.91 - UNSPECIFIED ATRIAL FIBRILLATION SNOMED Code(s): 91238326 Comment: - Eliquis currently on hold - Continue Coreg (3) Hypertension Current Visit: Yes Status: Acute Code(s): I10 - ESSENTIAL (PRIMARY) HYPERTENSION SNOMED Code(s): 53352906 Comment: Restart home Losartan and Spironolactone, continue coreg, watch closely, acuetly HTN this mornign without end organ damage (4) UTI (urinary tract infection) Current Visit: Yes Status: Acute Comment: -Culture showing E Coli, Day 2/7 on 09/13, started for fever on 09/12 -On CTX, narrow with kalia (5) History of COPD Current Visit: No Status: Chronic Priority: Medium Code(s): Z87.09 - PERSONAL HISTORY OF OTHER DISEASES OF THE RESPIRATORY SYSTEM SNOMED Code(s): 194224388 Comment: - Stable. on Duonebs (6) History of hypothyroidism Current Visit: No Status: Chronic Priority: Medium Code(s): Z86.39 - PERSONAL HISTORY OF ENDO, NUTRITIONAL AND METABOLIC DISEASE SNOMED Code(s): 942298926 Comment: - Continue levothyroxine. (7) History of depression Current Visit: No Status: Chronic Priority: Medium Code(s): Z86.59 - PERSONAL HISTORY OF OTHER MENTAL AND BEHAVIORAL DISORDERS SNOMED Code(s): 938146047 Comment: -Continue Prozac (8) History of fibromyalgia Current Visit: No Status: Chronic Priority: Medium Code(s): Z87.39 - PERSONAL HISTORY OF DISEASES OF THE MS SYS AND CONN TISS SNOMED Code(s): 311005652 Comment: Tramadol, Ropinerole, Pregabalin (9) History of CVA (cerebrovascular accident) Current Visit: No Status: Chronic Priority: Medium Code(s): Z86.73 - PRSNL HX OF TIA (TIA), AND CEREB INFRC W/O RESID DEFICITS SNOMED Code(s): 975371914 Comment: - Ischemic 2005-no residual defecits that I observed - Statin, BB, holding Asa given bleed (10) DVT prophylaxis Current Visit: No Status: Acute Code(s): PZY6826 - SNOMED Code(s): 095854987 Comment: - SCDs only in the setting of GI bleed
[2018-09-13] MEDS: Carvedilol TAB* 25 MG PO SCH ×2 (08:47→20:09)
[2018-09-13] MEDS: Cetirizine* 10 MG TAB PO SCH (08:47)
[2018-09-13] MEDS: FLUoxetine CAP* 20 MG PO SCH (08:47)
[2018-09-13] MEDS: Losartan TAB* 25 MG PO SCH (08:47)
[2018-09-13] MEDS: Pregabalin CAP(*) 50 MG PO SCH ×3 (08:47→20:09)
[2018-09-13] MEDS: CMCS:Rosuvastatin (NF) 20 MG TAB PO SCH (16:25)
[2018-09-13] MEDS: Spironolactone TAB* 25 MG PO SCH (16:25)
[2018-09-13] MEDS: cefTRIAXone(*) 1 GM in NS 0.9% 50 ML* 50 ML IVPB SCH (16:25)
[2018-09-13] MEDS: rOPINIRole TAB* 1 MG PO SCH (20:09)
[2018-09-14] MEDS: traMADol TAB* 50 MG PO PRN ×2 (00:18→19:54)
[2018-09-14] MEDS: Pantoprazole* 80 mg IN NS 80 MG/250 ML BAG IVPB SCH ×2 (01:15→13:29)
[2018-09-14] MEDS: Levothyroxine TAB* 112 MCG TAB PO SCH (05:37)
--- NOTE | 2018-09-14 07:06 | PN ---
Subjective Date of Service: 09/14/18 Interval History: HD # 5 on 09/14 73 y o f with h/o HTN, COPD, CHF, CAD s/p CABG, A.fib, CVA, h/o GI bleed 2/2 gastric ulcer p/w dizziness found to be in afib with RVR and with melenatoic stools. S/P EGD with channel ulcer, now on PPI. Hospital course c/b UTI, now on abx since 09/12 No overnight events, VS: Fib at 80 [id number], T max 98, satting well on RA. Labs stable this morning This afternoon seen eating lunch, odd historian but AOx3, reports it was a fall that brought her in but then concedes with was a GIB. She c/o mild low back pain, otherwise has a few skin tears on legs that are annoying her. Tolerating her diet well, she worked with PT and they recommend safe for d/c to home. Her rastafarian community, in particular an administrative assistant receptionist Dain ([phone]) who was called and ensured he could pick her up tomorrow 09/15. She is agreeable with this plan and would like to try to have a BM. Otherwise no acute issues Objective Active Medications: Albuterol/Ipratropium (Duoneb (Albuterol 2.5 Mg/Ipratropium 0.5 Mg)) 1 neb INH Q4H PRN PRN Reason: SOB/WHEEZING Carvedilol (Coreg Tab*) 25 mg PO BID [facility] Last Admin: 09/13/18 20:09 Dose: 25 mg Cetirizine HCl (Zyrtec*) 10 mg PO DAILY [facility]; Protocol Last Admin: 09/13/18 08:47 Dose: 10 mg Fluoxetine HCl (Prozac Cap*) 60 mg PO DAILY [facility] Last Admin: 09/13/18 08:47 Dose: 60 mg Pantoprazole Sodium (Protonix Iv Bag*) 80 mg in 250 mls @ 25 mls/hr IVPB Q10H [facility] Last Admin: 09/14/18 01:15 Dose: 25 mls/hr Ceftriaxone Sodium 1 gm/ (Sodium Chloride) 50 mls @ 200 mls/hr IVPB Q24H [facility] Last Admin: 09/13/18 16:25 Dose: 200 mls/hr Levothyroxine Sodium (Synthroid Tab*) 112 mcg PO DAILY@0600 [facility] Last Admin: 09/14/18 05:37 Dose: 112 mcg Losartan Potassium (Cozaar Tab*) 50 mg PO DAILY [facility] Last Admin: 09/13/18 08:47 Dose: 50 mg Ondansetron HCl (Zofran Inj*) 4 mg IV Q6H PRN PRN Reason: NAUSEA Last Admin: 09/10/18 15:08 Dose: 4 mg Pregabalin (Lyrica Cap(*)) 50 mg PO TID [facility] Last Admin: 09/13/18 20:09 Dose: 50 mg Ropinirole HCl (Requip Tab*) 1 mg PO BEDTIME [facility] Last Admin: 09/13/18 20:09 Dose: 1 mg Rosuvastatin Calcium (Crestor (Nf)) 40 mg PO 1700 [facility] Last Admin: 09/13/18 16:25 Dose: 40 mg Spironolactone (Aldactone Tab*) 25 mg PO DAILY [facility] Last Admin: 09/13/18 16:25 Dose: 25 mg Tramadol HCl (Ultram*) 25 mg PO Q6H PRN PRN Reason: PAIN Last Admin: 09/14/18 00:18 Dose: 25 mg Vital Signs - 8 hr 09/13/18 09/14/18 09/14/18 23:58 00:00 00:18 Temperature 97.5 F Pulse Rate 103 73 Respiratory 16 14 18 Rate Blood Pressure 152/84 (mmHg) O2 Sat by Pulse 96 100 Oximetry 09/14/18 09/14/18 09/14/18 02:20 04:24 06:40 Temperature 98.1 F 98.0 F Pulse Rate 80 80 Respiratory 18 18 18 Rate Blood Pressure 158/92 146/89 (mmHg) O2 Sat by Pulse 99 98 Oximetry Oxygen Devices in Use Now: None Appearance: Woman in bed in NAD Ears/Nose/Mouth/Throat: NL Teeth, Lips, Gums, Mucous Membranes Moist Neck: NL Appearance and Movements; NL JVP Respiratory: Symmetrical Chest Expansion and Respiratory Effort, Clear to Auscultation Cardiovascular: NL Sounds; No Murmurs; No JVD, RRR Abdominal: NL Sounds; No Tenderness; No Distention, No Hepatosplenomegaly Lymphatic: No Cervical Adenopathy Skin: No Rash or Ulcers Neurological: Alert and Oriented x 3 Result Diagrams: 09/14/18 08:10 09/14/18 08:10 Microbiology and Other Data: Microbiology 09/10/18 17:15 CLOtest - Final Gastric Antrum 09/10/18 10:44 Nasal Screen MRSA (PCR) - Final Nasal Mrsa Not Detected Diagnostic Imaging: EGD: Prepyloric Channel Ulceration, depp no active bleeding 0.9cm Assess/Plan/Problems-Billing Assessment: 73 y o f with h/o HTN, COPD, CHF, CAD s/p CABG, A.fib, CVA, h/o GI bleed 2/2 gastric ulcer p/w dizziness found to be in afib with RVR and with melenatoic stools. S/P EGD with channel ulcer, now on PPI. Hospital course c/b UTI, now on abx since 09/12 - Patient Problems (1) GI bleed Current Visit: No Status: Acute Code(s): K92.2 - GASTROINTESTINAL HEMORRHAGE , UNSPECIFIED SNOMED Code(s): 35645638 Comment: -Recd 2 units PRBC, Hgb now stable -s/p EGD prepyloric channel based ulcer with clean base and gastritis -Dr Hunt rec PPI drip for 72h and then transitioning to BID Protonix , will change to oral, to stay on this dose 3 months and reevaluation -Monitor H/H (2) A-fib Current Visit: Yes Status: Acute Code(s): I48.91 - UNSPECIFIED ATRIAL FIBRILLATION SNOMED Code(s): 37491044 Comment: - Eliquis currently on hold, will have hold for FU in outpatient, recommend repeat H/H in one month and possible hemoccult in the clinic, then discuss pros/cons - Continue Coreg (3) Hypertension Current Visit: Yes Status: Acute Code(s): I10 - ESSENTIAL (PRIMARY) HYPERTENSION SNOMED Code(s): 20219850 Comment: Restart home Losartan and Spironolactone, continue coreg, watch closely, acuetly HTN this mornign without end organ damage (4) UTI (urinary tract infection) Current Visit: Yes Status: Acute Comment: -Culture showing E Coli, Day 3/7 on 09/14, started for fever on 09/12 -On CTX, narrow with kalia (5) History of COPD Current Visit: No Status: Chronic Priority: Medium Code(s): Z87.09 - PERSONAL HISTORY OF OTHER DISEASES OF THE RESPIRATORY SYSTEM SNOMED Code(s): 994288517 Comment: - Stable. on Duonebs (6) History of hypothyroidism Current Visit: No Status: Chronic Priority: Medium Code(s): Z86.39 - PERSONAL HISTORY OF ENDO, NUTRITIONAL AND METABOLIC DISEASE SNOMED Code(s): 825107368 Comment: - Continue levothyroxine. (7) History of depression Current Visit: No Status: Chronic Priority: Medium Code(s): Z86.59 - PERSONAL HISTORY OF OTHER MENTAL AND BEHAVIORAL DISORDERS SNOMED Code(s): 967989801 Comment: -Continue Prozac (8) History of fibromyalgia Current Visit: No Status: Chronic Priority: Medium Code(s): Z87.39 - PERSONAL HISTORY OF DISEASES OF THE MS SYS AND CONN TISS SNOMED Code(s): 536288136 Comment: Tramadol, Ropinerole, Pregabalin (9) History of CVA (cerebrovascular accident) Current Visit: No Status: Chronic Priority: Medium Code(s): Z86.73 - PRSNL HX OF TIA (TIA), AND CEREB INFRC W/O RESID DEFICITS SNOMED Code(s): 974169424 Comment: - Ischemic 2005-no residual defecits that I observed - Statin, BB, holding Asa given bleed (10) DVT prophylaxis Current Visit: No Status: Acute Code(s): LMG1605 - SNOMED Code(s): 120603728 Comment: - SCDs only in the setting of GI bleed Status and Disposition: Stable for d/c tomorrow 09/15
[2018-09-14 08:28] LABS: ABS Basophils 0 10^3/ul (0-0.2); ABS Eosinophils 0.4 10^3/ul (0-0.6); ABS Lymphocytes 1.9 10^3/ul (1.0-4.8); ABS Monocytes 0.7 10^3/ul (0-0.8); ABS Neutrophils 4.4 10^3/ul (1.5-7.7); ABS Nucleated RBC 0 10^3/ul; Eosinophil % 4.8 %; Hematocrit 27 % (35-47); Hemoglobin 9.6 g/dl (12.0-16.0); Lymphocyte % 25.4 %; Mean Corpuscular HGB Conc 35 g/dl (31-36); Mean Corpuscular Hemoglobin 32 pg (27-31); Mean Corpuscular Volume 90 fL (80-97); Nucleated Red Blood Cells % 0.2; Platelet Count 146 10^3/ul (150-450); Red Blood Count 3.03 10^6/ul (4.00-5.40); Red Cell Distribution Width 14 % (10.5-15); White Blood Count 7.4 10^3/ul (3.5-10.8)
[2018-09-14 08:46] LABS: Albumin 3.1 g/dL (3.2-5.2); Albumin/Globulin Ratio 1.4 (1-3); BUN/Creatinine Ratio 22.1 (8-20); Calcium 8.8 mg/dL (8.6-10.3); EGFR African American 102.9 (>60); EGFR Non-African American 85.1 (>60); Globulin 2.2 g/dL (2-4); Potassium 3.8 mmol/L (3.5-5.0); Total Bilirubin 0.4 mg/dL (0.2-1.0); Total Protein 5.3 g/dL (6.4-8.9)
[2018-09-14] MEDS: Cetirizine* 10 MG TAB PO SCH (08:58)
[2018-09-14] MEDS: Losartan TAB* 25 MG PO SCH (08:58)
[2018-09-14] MEDS: Spironolactone TAB* 25 MG PO SCH (08:58)
[2018-09-14] MEDS: FLUoxetine CAP* 20 MG PO SCH (08:58)
[2018-09-14] MEDS: Pregabalin CAP(*) 50 MG PO SCH ×3 (08:58→19:32)
[2018-09-14] MEDS: Carvedilol TAB* 25 MG PO SCH ×2 (08:58→19:31)
[2018-09-14] MEDS: cefTRIAXone(*) 1 GM in NS 0.9% 50 ML* 50 ML IVPB SCH (17:28)
[2018-09-14] MEDS: CMCS:Rosuvastatin (NF) 20 MG TAB PO SCH (17:29)
[2018-09-14] MEDS: Lidocaine PATCH 5%* 1 PATCH TRANSDERM SCH (17:29)
[2018-09-14] MEDS: Bacitracin OINTMENT* 0.5% 0.5 oz TUBE TOPICAL SCH (19:29)
[2018-09-14] MEDS: rOPINIRole TAB* 1 MG PO SCH (19:31)
[2018-09-14] MEDS ORDERED: Lidocaine Patch REMOVE* 1 NOTE MISC SCH (21:00)
[2018-09-15] MEDS: Pantoprazole* 80 mg IN NS 80 MG/250 ML BAG IVPB SCH ×2 (00:46→10:18)
[2018-09-15] MEDS: Levothyroxine TAB* 112 MCG TAB PO SCH (05:30)
[2018-09-15 06:26] LABS: ABS Basophils 0 10^3/ul (0-0.2); ABS Eosinophils 0.4 10^3/ul (0-0.6); ABS Lymphocytes 2.3 10^3/ul (1.0-4.8); ABS Monocytes 0.8 10^3/ul (0-0.8); ABS Neutrophils 6.4 10^3/ul (1.5-7.7); ABS Nucleated RBC 0 10^3/ul; Eosinophil % 4.2 %; Hematocrit 29 % (35-47); Hemoglobin 10.1 g/dl (12.0-16.0); Lymphocyte % 23.1 %; Mean Corpuscular HGB Conc 35 g/dl (31-36); Mean Corpuscular Hemoglobin 31 pg (27-31); Mean Corpuscular Volume 90 fL (80-97); Nucleated Red Blood Cells % 0.2; Platelet Count 184 10^3/ul (150-450); Red Blood Count 3.25 10^6/ul (4.00-5.40); Red Cell Distribution Width 14 % (10.5-15)
[2018-09-15 06:44] LABS: BUN/Creatinine Ratio 19.7 (8-20); Calcium 9.3 mg/dL (8.6-10.3); EGFR African American 90.5 (>60); EGFR Non-African American 74.8 (>60)
--- NOTE | 2018-09-15 07:44 | PN ---
Subjective Date of Service: 09/15/18 Interval History: HD # 6 on 09/15 73 y o f with h/o HTN, COPD, CHF, CAD s/p CABG, A.fib, CVA, h/o GI bleed 2/2 gastric ulcer p/w dizziness found to be in afib with RVR and with melenatoic stools. S/P EGD with channel ulcer, now on PPI. Hospital course c/b UTI, now on abx since 09/12 No overnight events, VSS. Labs stable this morning This morning seen resting in bed, annoyed by scratches on her foot but otherwise doing OK. Tolerating her diet well, she worked with PT and they recommend safe for d/c to home. Her j[employer] community, in particular an administrative director Max will pick her up at 4. Objective Active Medications: Albuterol/Ipratropium (Duoneb (Albuterol 2.5 Mg/Ipratropium 0.5 Mg)) 1 neb INH Q4H PRN PRN Reason: SOB/WHEEZING Bacitracin (Bacitracin Ointment*) 1 applic TOPICAL BID [facility] Last Admin: 09/14/18 19:29 Dose: 1 applic Carvedilol (Coreg Tab*) 25 mg PO BID [facility] Last Admin: 09/14/18 19:31 Dose: 25 mg Cetirizine HCl (Zyrtec*) 10 mg PO DAILY [facility]; Protocol Last Admin: 09/14/18 08:58 Dose: 10 mg Fluoxetine HCl (Prozac Cap*) 60 mg PO DAILY [facility] Last Admin: 09/14/18 08:58 Dose: 60 mg Pantoprazole Sodium (Protonix Iv Bag*) 80 mg in 250 mls @ 25 mls/hr IVPB Q10H [facility] Last Admin: 09/15/18 00:46 Dose: 25 mls/hr Ceftriaxone Sodium 1 gm/ (Sodium Chloride) 50 mls @ 200 mls/hr IVPB Q24H [facility] Last Admin: 09/14/18 17:28 Dose: 200 mls/hr Levothyroxine Sodium (Synthroid Tab*) 112 mcg PO DAILY@0600 [facility] Last Admin: 09/15/18 05:30 Dose: 112 mcg Lidocaine (Lidoderm 5% Patch*) 1 patch TRANSDERM DAILY [facility] Last Admin: 09/14/18 17:29 Dose: 1 patch Losartan Potassium (Cozaar Tab*) 50 mg PO DAILY [facility] Last Admin: 09/14/18 08:58 Dose: 50 mg Ondansetron HCl (Zofran Inj*) 4 mg IV Q6H PRN PRN Reason: NAUSEA Last Admin: 09/10/18 15:08 Dose: 4 mg Pharmacy Profile Note (Lidocaine Patch Remove*) 1 note N/A 2100 [facility] Last Admin: 09/14/18 19:33 Dose: 1 note Pregabalin (Lyrica Cap(*)) 50 mg PO TID [facility] Last Admin: 09/14/18 19:32 Dose: 50 mg Ropinirole HCl (Requip Tab*) 1 mg PO BEDTIME [facility] Last Admin: 09/14/18 19:31 Dose: 1 mg Rosuvastatin Calcium (Crestor (Nf)) 40 mg PO 1700 [facility] Last Admin: 09/14/18 17:29 Dose: 40 mg Spironolactone (Aldactone Tab*) 25 mg PO DAILY [facility] Last Admin: 09/14/18 08:58 Dose: 25 mg Tramadol HCl (Ultram*) 25 mg PO Q6H PRN PRN Reason: PAIN Last Admin: 09/14/18 19:54 Dose: 25 mg Vital Signs - 8 hr 09/15/18 03:22 Temperature 98.3 F Pulse Rate 72 Respiratory 18 Rate Blood Pressure 135/69 (mmHg) O2 Sat by Pulse 97 Oximetry Oxygen Devices in Use Now: None Appearance: Well woman in NAD Ears/Nose/Mouth/Throat: NL Teeth, Lips, Gums, Mucous Membranes Moist Neck: NL Appearance and Movements; NL JVP, Trachea Midline Respiratory: Symmetrical Chest Expansion and Respiratory Effort, Clear to Auscultation Cardiovascular: NL Sounds; No Murmurs; No JVD, RRR Abdominal: NL Sounds; No Tenderness; No Distention, No Hepatosplenomegaly Lymphatic: No Cervical Adenopathy Extremities: No Edema Skin: No Rash or Ulcers Neurological: Alert and Oriented x 3 Result Diagrams: 09/15/18 05:50 09/15/18 05:50 Microbiology and Other Data: Microbiology 09/10/18 17:15 CLOtest - Final Gastric Antrum 09/10/18 10:44 Nasal Screen MRSA (PCR) - Final Nasal Mrsa Not Detected Diagnostic Imaging: EGD: Prepyloric Channel Ulceration, depp no active bleeding 0.9cm Assess/Plan/Problems-Billing Assessment: 73 y o f with h/o HTN, COPD, CHF, CAD s/p CABG, A.fib, CVA, h/o GI bleed 2/2 gastric ulcer p/w dizziness found to be in afib with RVR and with melenatoic stools. S/P EGD with channel ulcer, now on PPI. Hospital course c/b UTI, now on abx since 09/12 - Patient Problems (1) GI bleed Current Visit: No Status: Acute Code(s): K92.2 - GASTROINTESTINAL HEMORRHAGE , UNSPECIFIED SNOMED Code(s): 61526693 Comment: -Recd 2 units PRBC, Hgb now stable -s/p EGD prepyloric channel based ulcer with clean base and gastritis -Dr Hunt rec PPI drip for 72h and then transitioning to BID Protonix , will change to oral, to stay on this dose 3 months and reevaluation -Monitor H/H (2) A-fib Current Visit: Yes Status: Acute Code(s): I48.91 - UNSPECIFIED ATRIAL FIBRILLATION SNOMED Code(s): 92071650 Comment: - Eliquis currently on hold, will have hold for FU in outpatient, recommend repeat H/H in one month and possible hemoccult in the clinic, then discuss pros/cons - Continue Coreg (3) Hypertension Current Visit: Yes Status: Acute Code(s): I10 - ESSENTIAL (PRIMARY) HYPERTENSION SNOMED Code(s): 41562711 Comment: Restart home Losartan and Spironolactone, continue coreg, watch closely, acuetly HTN this mornign without end organ damage (4) UTI (urinary tract infection) Current Visit: Yes Status: Acute Comment: -Culture showing E Coli, Day 4/7 on 09/14, started for fever on 09/12 -On CTX, d/c home on Bactrim (5) History of COPD Current Visit: No Status: Chronic Priority: Medium Code(s): Z87.09 - PERSONAL HISTORY OF OTHER DISEASES OF THE RESPIRATORY SYSTEM SNOMED Code(s): 659340699 Comment: - Stable. on Duonebs (6) History of hypothyroidism Current Visit: No Status: Chronic Priority: Medium Code(s): Z86.39 - PERSONAL HISTORY OF ENDO, NUTRITIONAL AND METABOLIC DISEASE SNOMED Code(s): 771855491 Comment: - Continue levothyroxine. (7) History of depression Current Visit: No Status: Chronic Priority: Medium Code(s): Z86.59 - PERSONAL HISTORY OF OTHER MENTAL AND BEHAVIORAL DISORDERS SNOMED Code(s): 447000854 Comment: -Continue Prozac (8) History of fibromyalgia Current Visit: No Status: Chronic Priority: Medium Code(s): Z87.39 - PERSONAL HISTORY OF DISEASES OF THE MS SYS AND CONN TISS SNOMED Code(s): 460445682 Comment: Tramadol, Ropinerole, Pregabalin (9) History of CVA (cerebrovascular accident) Current Visit: No Status: Chronic Priority: Medium Code(s): Z86.73 - PRSNL HX OF TIA (TIA), AND CEREB INFRC W/O RESID DEFICITS SNOMED Code(s): 662941019 Comment: - Ischemic 2005-no residual defecits that I observed - Statin, BB, holding Asa given bleed (10) DVT prophylaxis Current Visit: No Status: Acute Code(s): THC0785 - SNOMED Code(s): 231146108 Comment: - SCDs only in the setting of GI bleed Status and Disposition: Stable for d/c
[2018-09-15] MEDS: Cetirizine* 10 MG TAB PO SCH (08:57)
[2018-09-15] MEDS: Pregabalin CAP(*) 50 MG PO SCH ×2 (08:57→13:09)
[2018-09-15] MEDS: FLUoxetine CAP* 20 MG PO SCH (08:57)
[2018-09-15] MEDS: Spironolactone TAB* 25 MG PO SCH (08:57)
[2018-09-15] MEDS: Carvedilol TAB* 25 MG PO SCH (08:57)
[2018-09-15] MEDS: Losartan TAB* 25 MG PO SCH (08:58)
[2018-09-15] MEDS: traMADol TAB* 50 MG PO PRN (08:58)
[2018-09-15] MEDS: Lidocaine PATCH 5%* 1 PATCH TRANSDERM SCH (09:01)
[2018-09-15] MEDS: Bacitracin OINTMENT* 0.5% 0.5 oz TUBE TOPICAL SCH (09:01)
[2018-09-15] MEDS ORDERED: Pantoprazole* 80 mg IN NS 80 MG/250 ML BAG IVPB SCH (11:00)
[2018-09-15 16:08] VITALS: BP 124/75
--- NOTE | 2018-09-15 16:13 | DS ---
DISCHARGE SUMMARY: DATE OF ADMISSION: 09/10/18 DATE OF DISCHARGE: 09/15/18 to home. PRIMARY DIAGNOSES: 1. Upper gastrointestinal bleed. 2. Urinary tract infection. 3. Atrial fibrillation with rapid ventricular response. SECONDARY DIAGNOSES: 1. Hypertension. 2. Hyperlipidemia. 3. Atrial fibrillation. 4. Hypothyroidism. 5. Chronic obstructive pulmonary disease. 6. Heart failure with preserved ejection fraction. 7. Coronary artery disease, status post coronary artery bypass grafting. 8. Restless legs syndrome. 9. Depression. 10. Fibromyalgia. 11. Gastroesophageal reflux disease. 12. History of cerebrovascular accident. 13. Distant history of gastrointestinal bleed in the past secondary to gastric ulcer. MEDICATIONS ON DISCHARGE: Are as follows: 1. Aspirin 81 mg p.o. daily. 2. Biotin 1 mg p.o. daily. 3. Calcium 625 mg p.o. daily. 4. Cetirizine 10 mg p.o. daily. 5. Cholecalciferol and vitamin D 1000 units p.o. daily. 6. Vitamin B12 500 mcg p.o. daily. 7. Dicyclomine 20 mg p.o. 4 times a day p.r.n. for stomach pain. 8. Ezetimibe tab 10 mg p.o. q.h.s. 9. Ferrous sulfate 325 mg p.o. daily. 10. Flaxseed oil 1000 mg p.o. daily. 11. Fluoxetine 60 mg p.o. q.h.s. 12. Glucosamine 1000 mg p.o. b.i.d. 13. Levothyroxine 112 mcg p.o. daily. 14. Losartan 50 mg p.o. daily. 15. Multivitamins 1 tab p.o. daily. 16. Pregabalin 50 mg p.o. t.i.d. 17. Ropinirole 1 mg p.o. q.h.s. 18. Rosuvastatin 40 mg p.o. daily. 19. Spiriva 1 capsule inhaled daily. 20. Tramadol 50 mg p.o. q.8 hours p.r.n. for pain. 21. Carvedilol 25 mg p.o. b.i.d. 22. Magnesium oxide 400 mg p.o. daily. 23. Meclizine 25 mg p.o. t.i.d. p.r.n. for dizziness. 24. Omeprazole 40 mg p.o. b.i.d. 25. Potassium chloride 20 mEq p.o. b.i.d. 26. Bactrim 1 tab p.o. b.i.d. for an additional 3 days after discharge. The medication changes on this hospitalization were the addition of Bactrim double strength tabs 1 tab p.o. b.i.d. for an additional 3 days since discharge and the increase of omeprazole from 20 mg p.o. b.i.d. to 40 mg p.o. b.i.d. HISTORY OF PRESENT ILLNESS AND HOSPITAL COURSE: A 73-year-old female with above past medical history, who presented to the emergency room on 09/10/18 with weakness and dizziness for 3 days. She also said that she had a metal cabinet at her house fall on her and there was some confusion. She noted that she had been having dark black bowel movements as well. In the emergency room, her vital signs were notable to be afebrile, but she was in atrial fibrillation with rapid ventricular response with the rates to the 120s. Blood pressure was stable and she was satting well on room air. Her hemoglobin was notable to be 9 , down from 13 two days prior and her BMP was notable for a creatinine elevated at 1.27 and BUN elevated at 87. Otherwise, labs largely unremarkable. A CT of the abdomen and pelvis was performed which was unremarkable for acute disease. UA was also performed, which was concerning and had leukocyte esterase, white blood cells, and squamous cells. She was admitted to the medical floor for further management and treatment. While on the medial floor her active hospital problems were managed as follows: 1. Upper GI bleed. She was evaluated by the GI team. She had acute blood loss anemia, thought to be secondary to upper GI bleed. She was placed on IV Protonix drip. The GI service agreed to plan for EGD after 2 units of packed red blood cells were transfused. She ultimately had upper endoscopy performed on 09/10/18, that showed a prepyloric channel ulceration of 0.9 cm, clean based that was noted to be deep, but with no active bleeding at the time of scope. She also had gastritis and erosive esophagitis. She also had some nodularity of her GE junction. Biopsies were taken throughout. Pathology at this time is still pending. After completion of her scope, she was placed on b.i.d. IV Protonix and then changed to p.o. b.i.d. Her dose of omeprazole will be increased from 20 mg p.o. b.i.d. to 40 mg p.o. b.i.d. She will be counseled and discharged on these medications. 2. Atrial fibrillation with RVR. She was given IV fluids and placed back on her rate control medications with resolution into rate controlled atrial fibrillation. Of note, she was admitted on Eliquis for her CHADS-VASc score greater than 3 at time of discharge. We are holding anticoagulation in the setting of recent active upper GI bleed and the decision to start anticoagulation can be made as an outpatient, which should be continued on her home rate control medications. 3. Urinary tract infection. As noted in the emergency room, her UA was concerning for UTI. Her culture did ultimately grow E. coli which was diane- susceptible. She will be treated for full 7 days for her urinary tract infection. She was treated with ceftriaxone for 4 days and then discharged with Bactrim for 3 days. 4. History of hypothyroidism. She is continued on home levothyroxine. 5. History of depression. Continue on home Prozac. 6. History of fibromyalgia. She was kept on her home tramadol and pregabalin. 7. History of restless legs disease. She was kept on her home ropinirole. 8. History of CVA. She was on statin and a beta-ambrosio. Initially, we held her aspirin given the bleed, but on discharge, she will be resumed on aspirin, but will be held on Eliquis. 9. Hypertension. She remained largely normotensive in the hospital with restarting her home losartan and spironolactone. We also continued her Coreg. 10. YENNY. She came in with mild YENNY with a creatinine elevation to 1.27. Creatinine trended down with fluid resuscitation thought to be secondary to prerenal from her upper GI bleed. On the last 2 days of hospitalization, she worked with physical therapy and was able to ambulate at her baseline. She did not require short-term rehab. She was tolerating diet and felt comfortable and stable for discharge to home. She does ensure that she will follow up with her primary care provider at [facility] who is Dr. Holloway and her office was called to let her know that she will be discharged today and will need follow up in 1 to 2 weeks. Vital signs on day of discharge are notable for blood pressure of 108/54, heart rate 85, temperature 98.5, oxygen 100% on room air. LABORATORY DATA: Her labs on day of discharge are notable for a hemoglobin of 10.1/29 improved from admission at 7.9 and 23, status post 2 units of packed red blood cells. Her BMP is fully unremarkable. Her microbiology from this hospitalization is as noted. She grew E. coli that is diane-susceptible out of her urine and her imaging from this hospitalization is as noted. She had upper endoscopy. She had a CT abdomen and pelvis and she did have a chest x-ray all of which were unremarkable. REVIEW OF SYSTEMS: A 10-point review of systems was completed on day of discharge is negative for all other than she had small scratches from the fall that she had had at home that continued to bother her, they were dressed. The patient was picked up by a yazdanism friend and she and her workforce development specialist were counseled about her hospitalization and the importance of following up with primary care. They have no further questions at the time of discharge and feel comfortable discharging her to home. Issues to follow up with primary care after discharge: 1. Resuming anticoagulation. As noted, her Eliquis was held and a decision to restart her anticoagulation for her atrial fibrillation with a CHADS-VASc score of greater than 3 should be made between primary care provider and the patient herself. Discussed the risks and benefits. Of note, this is the second gastric ulcer bleeding event causing significant blood loss. 2. UTI, ensure completion of antibiotics and resolution of symptoms from UTI. That concludes the active problems managed in this hospitalization, otherwise continue followup with serial med rec with the changes above noted. She will have an increased dose of her omeprazole. She will need follow up with Gastroenterology to consider repeat scope in 3 months and she can contact the [facility] Gastroenterology office in order to do so or a referral can be made for her. Please do not hesitate to contact us if there are any questions about the care that occurred for this patient during this hospitalization. I have left my contact number with the [facility] office. [id number]/[facility] #: [id number] KATINA
== END 2018-09-15 16:17 | disposition home or self-care (01) | DRG 378 ==
LOC: ED 07:01 → ICU 09:27 → MEDTELE 09-11 12:18
PROVIDERS: ADMIT Internal Medicine; ATTEND Internal Medicine
PROC: 30233N1 Transfusion of Nonautologous Red Blood Cells into Peripheral Vein, Percutaneous Approach (ICD-10-PCS; principal; 2018-09-10)
PROC: 0DB48ZX Excision of Esophagogastric Junction, Via Natural or Artificial Opening Endoscopic, Diagnostic (ICD-10-PCS; 2018-09-10)
PROC: 0DB68ZX Excision of Stomach, Via Natural or Artificial Opening Endoscopic, Diagnostic (ICD-10-PCS; 2018-09-10)
DX: K25.4 Chronic or unspecified gastric ulcer with hemorrhage (principal); N17.9 Acute kidney failure, unspecified; D62 Acute posthemorrhagic anemia; N39.0 Urinary tract infection, site not specified; K22.11 Ulcer of esophagus with bleeding; K29.71 Gastritis, unspecified, with bleeding; I48.91 Unspecified atrial fibrillation; I11.0 Hypertensive heart disease with heart failure; I25.10 Atherosclerotic heart disease of native coronary artery without angina pectoris; I50.9 Heart failure, unspecified; J44.9 Chronic obstructive pulmonary disease, unspecified; K21.0 Gastro-esophageal reflux disease with esophagitis; F32.9 Major depressive disorder, single episode, unspecified; K57.90 Diverticulosis of intestine, part unspecified, without perforation or abscess without bleeding; M79.7 Fibromyalgia; G25.81 Restless legs syndrome; E78.5 Hyperlipidemia, unspecified; E03.9 Hypothyroidism, unspecified; K44.9 Diaphragmatic hernia without obstruction or gangrene; F41.9 Anxiety disorder, unspecified; Z66 Do not resuscitate; B96.20 Unspecified Escherichia coli [E. coli] as the cause of diseases classified elsewhere; Z98.42 Cataract extraction status, left eye; Z98.41 Cataract extraction status, right eye; Z90.710 Acquired absence of both cervix and uterus; Z88.5 Allergy status to narcotic agent; Z95.1 Presence of aortocoronary bypass graft; Z86.73 Personal history of transient ischemic attack (TIA), and cerebral infarction without residual deficits; Z79.82 Long term (current) use of aspirin
CPT/HCPCS: 36415; 71045; 71046; 74177; 80048; 80053; 81003; 81015; 83690; 83735; 84484; 85025; 85027; 85610; 85730; 86850; 86900; 86901; 86922; 87040; 87077; 87086; 87186; 87641; 88305; 93005; 99156; 99284; A9270-GY; G8978-GP-CJ; G8979-GP-CI; J0696; J1160; J2250; J2405; J3010; J3480; P9040; Q9967

== ENCOUNTER 2020-12-27 22:52 | Inpatient (IN) ==
[2020-12-27 23:46] LABS: Hematocrit 58 % (35-47); Hemoglobin 18.7 g/dL (12.0-16.0); Mean Corpuscular HGB Conc 32 g/dL (31-36); Mean Corpuscular Hemoglobin 31 pg (27-31); Mean Corpuscular Volume 96 fL (80-97); Mean Platelet Volume 9.5 fL (7.4-10.4); Platelet Count 224 10^3/uL (150-450); Red Blood Count 6.04 10^6 /uL (3.70-4.87); Red Cell Distribution Width 15 % (10-15); White Blood Count 18.6 10^3/uL (3.5-10.8)
[2020-12-27 23:48] LABS: Albumin 3.7 g/dL (3.2-5.2); CO2 Carbon Dioxide 16 mmol/L (22-32); Calcium 9.5 mg/dL (8.6-10.3)
[2020-12-27] MEDS: Lactated Ringers 1000 ml BAG 1,000 ML IV SCH (23:50)
[2020-12-27 23:54] LABS: ALT 27 U/L (7-52); Albumin/Globulin Ratio 1.1 (1-3); Alkaline Phosphatase 105 U/L (34-104); EGFR Non-African American 20.6 (>60); Globulin 3.4 g/dL (2-4); Glucose 176 mg/dL (70-100); Total Protein 7.1 g/dL (6.4-8.9)
[2020-12-27 23:56] LABS: Troponin I 0.07 ng/mL (<0.03)
[2020-12-28 00:11] LABS: Potassium 4.5 mmol/L (3.5-5.0)
[2020-12-28 00:19] LABS: AST 47 U/L (13-39); Blood Urea Nitrogen 159 mg/dL (6-24)
[2020-12-28 00:20] LABS: Acetaminophen < 15 mcg/mL; Alcohol, S < 10 mg/dL (<10)
[2020-12-28 00:22] LABS: Salicylate < 2.50 mg/dL (<30)
[2020-12-28 00:28] LABS: Anion Gap 17 mmol/L (2-11); Chloride 120 mmol/L (101-111)
[2020-12-28 00:30] LABS: Sodium 153 mmol/L (135-145)
[2020-12-28] MEDS ORDERED: cefTRIAXone 1 gm/50 mL NS BAG 1 GM/50 ML BAG IV ONE (00:33)
[2020-12-28] MEDS: Lactated Ringers 1000 ml BAG 1,000 ML IV SCH (00:43)
[2020-12-28 00:52] LABS: Urine Appearance Turbid; Urine Bilirubin Negative (Negative); Urine Blood 2+ (Negative); Urine Color Amber; Urine Glucose Negative (Negative); Urine Ketones Negative (Negative); Urine Nitrite Negative (Negative); Urine Protein 2+(100 mg/dL) (Negative); Urine Specific Gravity 1.016 (1.002-1.030); Urine Urobilinogen Negative (Negative)
[2020-12-28 00:54] LABS: Creatine Kinase 1101 U/L (10-223)
[2020-12-28 00:58] LABS: Urine Bacteria 3+ (Absent); Urine Granular Casts Present (Absent); Urine Red Blood Cell 3+(>10/hpf) (Absent); Urine Squamous Epithelial Cell Present (Absent); Urine White Blood Cell 3+(>20/hpf) (Absent)
[2020-12-28 01:46] LABS: ABS Lymphocytes 1.7 10^3/ul (1.0-4.8); ABS Monocytes 1.9 10^3/ul (0-0.8); ABS Neutrophils 14.9 10^3/ul (1.5-7.7); Lymphocyte % 9.4 %; Nucleated Red Blood Cells % 0.1
[2020-12-28] MEDS ORDERED: NORMOSOL-R pH 7.4 1000 mL BAG 1,000 ML IV SCH ×2 (03:00→05:00)
[2020-12-28] MEDS ORDERED: Metoprolol Tartrate 5 mg VIAL 5 ml VIAL (1 mg/ml) IV ONE (04:09)
[2020-12-28 04:13] LABS: Hematocrit 54 % (35-47); Hemoglobin 17.8 g/dL (12.0-16.0); Mean Corpuscular HGB Conc 33 g/dL (31-36); Mean Corpuscular Hemoglobin 31 pg (27-31); Mean Corpuscular Volume 93 fL (80-97); Mean Platelet Volume 9.8 fL (7.4-10.4); Platelet Count 228 10^3/uL (150-450); Red Blood Count 5.77 10^6 /uL (3.70-4.87); Red Cell Distribution Width 14 % (10-15); White Blood Count 22.4 10^3/uL (3.5-10.8)
[2020-12-28] MEDS ORDERED: Albuterol 2.5mg/3 ml (0.083%) NEB.SOLN INH PRN (04:15)
[2020-12-28 04:18] LABS: ABS Basophils 0.1 10^3/ul (0-0.2); ABS Lymphocytes 1.9 10^3/ul (1.0-4.8); ABS Monocytes 2.1 10^3/ul (0-0.8); ABS Neutrophils 18.2 10^3/ul (1.5-7.7); Eosinophil % 0.1 %; Lymphocyte % 8.4 %
[2020-12-28 04:24] LABS: Activated Partial Thrombo Time 24.3 seconds (26.0-38.0); INR 1.19 (0.82-1.09)
[2020-12-28 04:28] LABS: CO2 Carbon Dioxide 23 mmol/L (22-32); Calcium 9.3 mg/dL (8.6-10.3); EGFR African American 23.7 (>60); EGFR Non-African American 19.5 (>60); Glucose 158 mg/dL (70-100); Magnesium 3.4 mg/dL (1.9-2.7); Potassium 4.1 mmol/L (3.5-5.0)
[2020-12-28 04:38] LABS: Anion Gap 15 mmol/L (2-11); Chloride 117 mmol/L (101-111); Sodium 155 mmol/L (135-145)
[2020-12-28 04:40] LABS: Troponin I 0.07 ng/mL (<0.03)
[2020-12-28 04:46] LABS: Blood Urea Nitrogen 161 mg/dL (6-24)
[2020-12-28 04:57] LABS: Phosphorus 6.1 mg/dL (2.5-5.0)
[2020-12-28] MEDS ORDERED: Levothyroxine 100 MCG/5 ML VIAL IV SCH (06:00)
[2020-12-28] MEDS: Heparin 5000 UNITS/ML 1 mL VIAL SUBCUT SCH ×3 (06:19→21:14)
[2020-12-28] MEDS: SPIRIVA Respimat (tiotropium) 2.5 mcg/inh Inhaler INH SCH (08:42)
[2020-12-28] MEDS ORDERED: Multivitamins/Minerals TAB PO SCH (09:00)
[2020-12-28] MEDS: Pantoprazole VIAL 40 MG VIAL IV SCH (09:14)
[2020-12-28 10:39] LABS: Calcium 8.8 mg/dL (8.6-10.3); EGFR Non-African American 20.6 (>60); Potassium 3.9 mmol/L (3.5-5.0)
[2020-12-28] MEDS: Chlorhexidine MOUTHWASH 0.12% 15 ML UDC SWISH SPIT SCH ×5 (10:44→21:14)
[2020-12-28] MEDS: Multivitamins ADULT w/MIN LIQ 15 ML UDC PO SCH (10:44)
[2020-12-28 11:20] LABS: Albumin 3.1 g/dL (3.2-5.2); Albumin/Globulin Ratio 1.1 (1-3); Globulin 2.8 g/dL (2-4); Indirect Bilirubin 0.6 mg/dL (0.3-1.0); Total Bilirubin 0.9 mg/dL (0.2-1.0); Total Protein 5.9 g/dL (6.4-8.9)
[2020-12-28 14:01] LABS: Troponin I 0.06 ng/mL (<0.03)
[2020-12-28] MEDS ORDERED: Perflutren Lipid Microsphere 3 ML VIAL ONE (14:02)
[2020-12-28] MEDS: cefTRIAXone 1 gm/50 mL NS BAG 1 GM/50 ML BAG IVPB SCH (22:11)
[2020-12-29] MEDS: Chlorhexidine MOUTHWASH 0.12% 15 ML UDC SWISH SPIT SCH ×6 (02:10→21:51)
[2020-12-29] MEDS: Heparin 5000 UNITS/ML 1 mL VIAL SUBCUT SCH ×3 (05:21→21:50)
[2020-12-29] MEDS: Pantoprazole VIAL 40 MG VIAL IV SCH (08:39)
[2020-12-29] MEDS: Multivitamins ADULT w/MIN LIQ 15 ML UDC PO SCH (08:39)
[2020-12-29] MEDS: NORMOSOL-R pH 7.4 1000 mL BAG 1,000 ML IV SCH (08:55)
[2020-12-29 08:59] LABS: ALT 28 U/L (7-52); AST 47 U/L (13-39); Albumin 3.2 g/dL (3.2-5.2); Albumin/Globulin Ratio 1.1 (1-3); Alkaline Phosphatase 91 U/L (34-104); CO2 Carbon Dioxide 25 mmol/L (22-32); Calcium 8.9 mg/dL (8.6-10.3); EGFR African American 31.3 (>60); EGFR Non-African American 25.8 (>60); Globulin 2.8 g/dL (2-4); Glucose 151 mg/dL (70-100); Magnesium 3.3 mg/dL (1.9-2.7); Phosphorus 4.2 mg/dL (2.5-5.0); Potassium 3.6 mmol/L (3.5-5.0)
[2020-12-29 09:04] LABS: Anion Gap 13 mmol/L (2-11); Chloride 115 mmol/L (101-111); Sodium 153 mmol/L (135-145); Troponin I 0.06 ng/mL (<0.03)
[2020-12-29] MEDS: SPIRIVA Respimat (tiotropium) 2.5 mcg/inh Inhaler INH SCH (10:14)
[2020-12-29 11:28] LABS: HDL Cholesterol 29.4 mg/dL
[2020-12-29 13:01] LABS: Blood Urea Nitrogen 134 mg/dL (6-24)
[2020-12-29] MEDS ORDERED: Metoprolol Tartrate 5 mg VIAL 5 ml VIAL (1 mg/ml) IV PRN (15:28)
[2020-12-29] MEDS ORDERED: Digoxin IV 0.5 MG/2 ML AMP (0.25 MG/ML) IV SLOW PU ONE ×2 (17:08→23:00)
[2020-12-29] MEDS: cefTRIAXone 1 gm/50 mL NS BAG 1 GM/50 ML BAG IVPB SCH (21:58)
[2020-12-30] MEDS: Chlorhexidine MOUTHWASH 0.12% 15 ML UDC SWISH SPIT SCH ×4 (02:46→14:58)
[2020-12-30] MEDS: NORMOSOL-R pH 7.4 1000 mL BAG 1,000 ML IV SCH (04:03)
[2020-12-30] MEDS ORDERED: Digoxin IV 0.5 MG/2 ML AMP (0.25 MG/ML) IV SLOW PU ONE (05:00)
[2020-12-30 05:09] LABS: Hematocrit 40 % (35-47); Hemoglobin 13.1 g/dL (12.0-16.0); Mean Corpuscular HGB Conc 33 g/dL (31-36); Mean Corpuscular Hemoglobin 31 pg (27-31); Mean Corpuscular Volume 94 fL (80-97); Platelet Count 161 10^3/uL (150-450); Red Blood Count 4.26 10^6 /uL (3.70-4.87); Red Cell Distribution Width 14 % (10-15); White Blood Count 13.8 10^3/uL (3.5-10.8)
[2020-12-30 05:28] LABS: Calcium 8.2 mg/dL (8.6-10.3); EGFR African American 49.8 (>60); EGFR Non-African American 41.1 (>60); Magnesium 3.1 mg/dL (1.9-2.7); Phosphorus 2.1 mg/dL (2.5-5.0); Potassium 3.7 mmol/L (3.5-5.0)
[2020-12-30] MEDS: SPIRIVA Respimat (tiotropium) 2.5 mcg/inh Inhaler INH SCH (08:08)
[2020-12-30] MEDS: Pantoprazole VIAL 40 MG VIAL IV SCH (08:32)
[2020-12-30] MEDS: Heparin 5000 UNITS/ML 1 mL VIAL SUBCUT SCH ×2 (08:32→20:23)
[2020-12-30] MEDS: Multivitamins ADULT w/MIN LIQ 15 ML UDC PO SCH (08:58)
[2020-12-30] MEDS: Digoxin IV 0.5 MG/2 ML AMP (0.25 MG/ML) IV SLOW PU SCH (17:21)
[2020-12-30] MEDS: cefTRIAXone 1 gm/50 mL NS BAG 1 GM/50 ML BAG IVPB SCH (23:51)
[2020-12-31] MEDS ORDERED: Metoprolol Tartrate 5 mg VIAL 5 ml VIAL (1 mg/ml) IV PRN (08:08)
[2020-12-31] MEDS: SPIRIVA Respimat (tiotropium) 2.5 mcg/inh Inhaler INH SCH (08:48)
[2020-12-31] MEDS: Digoxin IV 0.5 MG/2 ML AMP (0.25 MG/ML) IV SLOW PU SCH (10:50)
[2020-12-31] MEDS: Pantoprazole VIAL 40 MG VIAL IV SCH (11:00)
[2020-12-31] MEDS: Heparin 5000 UNITS/ML 1 mL VIAL SUBCUT SCH (11:03)
[2020-12-31] MEDS: Multivitamins ADULT w/MIN LIQ 15 ML UDC PO SCH (11:06)
[2020-12-31 15:16] VITALS: BP 160/71
[2020-12-31] MEDS ORDERED: Ondansetron 4 mg VIAL 2 MG/ML 2 ml VIAL IV PRN (18:59)
[2020-12-31] MEDS ORDERED: Morphine 2 MG/ML SYRINGE IV PRN (18:59)
[2020-12-31] MEDS: cefTRIAXone 1 gm/50 mL NS BAG 1 GM/50 ML BAG IVPB SCH (23:22)
[2021-01-01] MEDS: SPIRIVA Respimat (tiotropium) 2.5 mcg/inh Inhaler INH SCH (07:45)
[2021-01-01] MEDS ORDERED: Morphine ORAL.SOLN 10 mg 2 mg/ml UDC 5 ml (10 mg) PO PRN (10:32)
[2021-01-02] MEDS: Morphine 2 MG/ML SYRINGE IV PRN ×5 (01:00→19:14)
[2021-01-02] MEDS: LORazepam 2 mg VIAL 1 ml IV PUSH PRN (01:00)
[2021-01-02] MEDS: SPIRIVA Respimat (tiotropium) 2.5 mcg/inh Inhaler INH SCH (07:47)
[2021-01-03] MEDS: Atropine 1% (ORAL/SL) 15 ML BTL SL PRN ×2 (00:48→03:03)
[2021-01-03] MEDS: Morphine 2 MG/ML SYRINGE IV PRN ×5 (00:49→09:25)
[2021-01-03] MEDS: LORazepam 2 mg VIAL 1 ml IV PUSH PRN (00:49)
[2021-01-03] MEDS: SPIRIVA Respimat (tiotropium) 2.5 mcg/inh Inhaler INH SCH (08:12)
== END 2021-01-03 11:30 | disposition expired | DRG 871 ==
LOC: ED 22:52 → ICU 12-28 02:15 → MEDTELE 12-30 16:48
PROVIDERS: ADMIT Pediatrics; ATTEND Student in an Organized Health Care Education/Training Program